=== PATIENT | female | born 1935 | race Caucasian/White ===

== ENCOUNTER 2017-05-19 09:45 | Emergency (ER) | payer OTHER ==
[~2017-05-19] VITALS: Ht 154.9 cm; Wt 51.0 kg
[~2017-05-19 09:45] MED LIST: ASPCH81 PO; BENZ100C84 PO; BUDE1SUS INH; CALC-206 PO; CLX20 PO; FLUT1INH INH; IPRA1AER2 INH; OXGN; PRAM0.129 PO; PRD/1 PO; PRED10TA PO; PRT40 PO; TIOTCAP INH; TRAM-10 PO; VTMD PO
[2017-05-19 09:47] VITALS: Ht 154.9 cm; Wt 51.0 kg
[2017-05-19] MEDS ORDERED: SPRIN/30 INH (10:14)
[2017-05-19] MEDS ORDERED: ERGO1CAP41 PO (10:14)
[2017-05-19 10:26] VITALS: O2SAT 97
[2017-05-19] MEDS ORDERED: ALBUT/IPRATROP 3MG/0.5MG NEB 3 ML VIAL INH ONE (10:30)
--- NOTE | 2017-05-19 10:31 | EMERGENCY ROOM VISIT NOTE ---
History Report prepared by Ani: Diamante Yost Under the Supervision of: Dr. Richa Keller M.D. First contact with patient: 10:16 Chief Complaint: RESPIRATORY PROBLEMS Stated Complaint: DIFFICULTY BREATHING Nursing Triage Summary: pt c/o sob started a couple days ago has right back pain with deep breathing. pt reports using 2l nc o2 at home turned up to 3 today d/t sob History of Present Illness The patient is a 81 year old female who presents to the Emergency Room with complaints of worsening shortness of breath beginning a few days prior to arrival. She notes that she is also experiencing right sided rib pain and a cough. The patient does wear 2 liters of oxygen at home. Today she turned her oxygen up to 3 liters due to the shortness of breath she was experiencing. She also used her Nebulizer this morning. The patient has a history of COPD. She denies recent fevers. The patient does not have a history of heart disease or diabetes. 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 Review of Systems See HPI for pertinent positives & negatives. A total of 10 systems reviewed and were otherwise negative. Past Medical & Surgical Medical Problems: (1) Chronic respiratory failure (2) Compression fracture of vertebra (3) COPD, moderate (4) Dyslipidemia (5) Esophageal stricture (6) GERD (gastroesophageal reflux disease) (7) History of esophageal dilatation (8) Osteopenia (9) Restless legs syndrome (RLS) Surgical Problems: (1) History of hysterectomy Family History Diabetes mellitus MOTHER Lung disease FATHER (emphysema) Social History Smoking Status: Former Smoker Alcohol Use: none Drug Use: none Marital Status: Housing Status: lives with significant other Occupation Status: retired Current/Historical Medications Scheduled Aspirin (Aspirin 81), 81 MG PO DAILY Budesonide (Inhalation) (Pulmicort), 2 ML INH BID Calcium-Magnesium W/ Vitamin D (Calcium/Magnesium/Vitamin), 1 TAB PO DAILY Citalopram (Citalopram Hydrobromide), 20 MG PO QAM Ergocalciferol (Vitamin D 89633 Unit), 50,000 INTER.UNIT PO WK Fluticasone Furoate-Vilanterol (Breo Ellipta), 1 PUFF INH DAILY Home O2 Therapy (Oxygen), 2 LITERS NA HS Ipratropium-Albuterol (Combivent Respimat), 1 PUFFS INH QID Levofloxacin (Levaquin), 750 MG PO Q2D Pantoprazole (Pantoprazole Sodium), 40 MG PO DAILY Pramipexole (Mirapex), 1-2 TAB PO HS Prednisone Tab (Prednisone), 10 MG PO UD Prednisone Tab (Prednisone), 10 MG PO DIRECTED Tiotropium [place] (Spiriva Handihaler), 1 CAP INH DAILY Scheduled PRN Benzonatate (Tessalon Perles), 100 MG PO TID PRN for Cough Tramadol (Ultram), 50 MG PO Q6H PRN for Pain Tramadol (Ultram), 1 TABS PO Q6 PRN for Pain Allergies Coded Allergies: No Known Allergies (Unverified , 10/14/16) Physical Exam Vital Signs Date Time Temp Pulse Resp B/P (MAP) Pulse Ox O2 Delivery O2 Flow Rate FiO2 05/19/17 13:53 36.7 108 24 166/79 96 05/19/17 12:18 109 20 146/73 94 Nasal Cannula 2.0 05/19/17 10:48 97 18 97 Nasal Cannula 2.0 05/19/17 10:45 94 05/19/17 10:26 97 Nasal Cannula 2.0 05/19/17 10:26 94 24 149/89 98 Nasal Cannula 2.0 05/19/17 09:47 37.7 106 24 142/71 96 Room Air Physical Exam Vital signs reviewed. General: Chronically ill appearing female, in no significant distress. HEENT: No scleral icterus, PERRLA, neck supple. Atraumatic. Cardiovascular: Regular rate and rhythm, no extra sounds. Pulmonary: Wheezing bilateral lung deleon, normal work of breathing. Abdomen: Soft, nontender, nondistended, positive bowel sounds. Musculoskeletal: Tenderness to right ribs. Atraumatic, no peripheral edema. Neurologic: Patient awake alert and oriented x 3 Skin: Warm, dry, no rash Medical Decision & Procedures ER Provider Diagnostic Interpretation: X-ray results as stated below per interpretation by me and the radiologist: CHEST ONE VIEW PORTABLE HISTORY: 81 years Female right rib pain COMPARISON: Portable chest radiograph 10/15/2016 TECHNIQUE: Portable upright AP view of the chest FINDINGS: Cardiac silhouette is within normal limits. There is atherosclerosis of the aorta. No pneumothorax. There are hazy bibasilar right greater than left opacities with blunting of the right costophrenic angle. The bones appear to be grossly intact. IMPRESSION: Right greater than left bibasilar opacities may reflect atelectasis or pneumonia. Trace right pleural effusion. The above report was generated using voice recognition software. It may contain grammatical, syntax or spelling errors. Electronically signed by: Pedro Sexton M.D. 05/19/2017 11:04 AM Dictated Date/Time: 05/19/2017 10:58 AM Laboratory Results 05/19/17 10:40 Red Blood Count 4.04, Mean Corpuscular Volume 78.0, Mean Corpuscular Hemoglobin 24.3, Mean Corpuscular Hemoglobin Concent 31.1, Mean Platelet Volume 7.9, Neutrophils (%) (Auto) 84.1, Lymphocytes (%) (Auto) 7.3, Monocytes (%) (Auto) 7.3, Eosinophils (%) (Auto) 0.9, Basophils (%) (Auto) 0.2, Neutrophils # (Auto) 10.52, Lymphocytes # (Auto) 0.91, Monocytes # (Auto) 0.92, Eosinophils # (Auto) 0.11, Basophils # (Auto) 0.03 05/19/17 10:40 Test 05/19/17 10:40 05/19/17 10:44 White Blood Count 12.52 K/uL (4.8-10.8) Red Blood Count 4.04 M/uL (4.2-5.4) Hemoglobin 9.8 g/dL (12.0-16.0) Hematocrit 31.5 % (37-47) Mean Corpuscular Volume 78.0 fL (80-100) Mean Corpuscular Hemoglobin 24.3 pg (25-34) Mean Corpuscular Hemoglobin Concent 31.1 g/dl (32-36) Platelet Count 370 K/uL (130-400) Mean Platelet Volume 7.9 fL (7.4-10.4) Neutrophils (%) (Auto) 84.1 % Lymphocytes (%) (Auto) 7.3 % Monocytes (%) (Auto) 7.3 % Eosinophils (%) (Auto) 0.9 % Basophils (%) (Auto) 0.2 % Neutrophils # (Auto) 10.52 K/uL (1.4-6.5) Lymphocytes # (Auto) 0.91 K/uL (1.2-3.4) Monocytes # (Auto) 0.92 K/uL (0.11-0.59) Eosinophils # (Auto) 0.11 K/uL (0-0.5) Basophils # (Auto) 0.03 K/uL (0-0.2) RDW Standard Deviation 48.7 fL (36.4-46.3) RDW Coefficient of Variation 17.0 % (11.5-14.5) Immature Granulocyte % (Auto) 0.2 % Immature Granulocyte # (Auto) 0.03 K/uL (0.00-0.02) Anion Gap 6.0 mmol/L (3-11) Est Creatinine Clear Calc Drug Dose 48.4 ml/min Estimated GFR () 93.9 Estimated GFR (Non- 81.0 BUN/Creatinine Ratio 20.3 (10-20) Calcium Level 8.8 mg/dl (8.5-10.1) Magnesium Level 2.0 mg/dl (1.8-2.4) Total Bilirubin 0.2 mg/dl (0.2-1) Direct Bilirubin < 0.1 mg/dl (0-0.2) Aspartate Amino Transf (AST/SGOT) 12 U/L (15-37) Alanine Aminotransferase (ALT/SGPT) 19 U/L (12-78) Alkaline Phosphatase 71 U/L (45-117) Total Creatine Kinase 68 U/L (26-192) Creatine Kinase MB 3.4 ng/ml (0.5-3.6) Creatine Kinase MB Ratio 5.0 (0-3.0) Total Protein 6.6 gm/dl (6.4-8.2) Albumin 3.5 gm/dl (3.4-5.0) Bedside D-Dimer 362 ng/mlFEU (0-450) Bedside Troponin I < 0.030 ng/ml (0-0.045) Laboratory results per my review. Medications Administered Medications (Trade) Dose Ordered Sig/Huan Route Start Time Stop Time Status Last Admin Dose Admin Albuterol/ Ipratropium (Duoneb) 12 ml ONE ONCE INH 05/19/17 10:30 05/19/17 10:32 DC 05/19/17 10:47 12 ML Methylprednisolone Sodium Succinate (Solu-Medrol IV) 125 mg NOW STAT IV 05/19/17 10:34 05/19/17 10:36 DC 05/19/17 11:10 125 MG Levofloxacin (Levaquin / D5W) 750 mg NOW STAT IV 05/19/17 11:41 05/19/17 11:42 DC 05/19/17 12:16 750 MG Acetaminophen (Tylenol Tab) 650 mg NOW STAT PO 05/19/17 12:21 05/19/17 12:22 DC 05/19/17 12:34 650 MG Fentanyl Citrate (Fentanyl Inj) 25 mcg NOW STAT IV 05/19/17 12:29 05/19/17 12:30 DC 05/19/17 12:35 25 MCG ECG Indication: SOB/dyspnea Rate (beats per minute): 90 Rhythm: normal sinus Findings: RBBB, no acute ischemic change, no ectopy, other (repolarization abnormality) ED Course 1023: Past medical records reviewed. The patient was evaluated in room B8. A complete history and physical examination was performed. 1030: Duoneb 12 ml INH. 1034: Solu-Medrol IV 125 mg IV. 1141: Levaquin / D5W 750 mg IV. 1221: Roxicodone Immediate Rel Tab 5 mg PO, Tylenol Tab 650 mg PO. 1224: I reevaluated the patient. She is requesting more pain medication. She would like to go home. The patient's daughter says she will stay with the patient tonight. I will call Dr. Kent to see if he can schedule for the patient to follow up in the office tomorrow. 1229: Fentanyl Inj 25 mcg IV. 1242: I spoke with Dr. Donte Moura about the patient. He will see the patient in the office tomorrow at 3:45pm. 1310: Upon reevaluation, the patient appeared to have improvement of her symptoms. I discussed findings with the patient and her daughter. They verbalized agreement of the treatment plan. She was discharged home. Medical Decision The patient is a 81 year old female who presents to the ED with complaints of shortness of breath. Differentials include infections, reactive airway disease , pneumonia, pneumothorax, COPD, CHF, cardiac ischemia, pulmonary embolism, musculoskeletal, gastrointestinal, as well as others were entertained. Medication Reconciliation: I attest that I have personally reviewed the patient' s current medication list. Blood Pressure Screening: Patient was found to have a slightly elevated blood pressure due to circumstances. I do not believe that the patient requires hypertension monitoring. This patient was evaluated and appeared to be in no significant distress. IV access was obtained and laboratory work was drawn. The patient was placed on the ruby on rails consultant and found to be lightly tachycardic, likely attributable to the albuterol. She was given additional albuterol in the emergency department and an hour-long nebulizer. Chest x-ray was performed and reveals bibasilar atelectasis versus infiltrate. Patient was given 125 mg of IV Solu-Medrol as well as Levaquin 750 mg IV. The patient complains of pain along the right rib cage which is reproducible. D-dimer is negative. I feel this is likely secondary to an intercostal tear or nondisplaced rib fracture from coughing. I did speak with Dr. Kent regarding the patient's case. He will see the patient tomorrow afternoon. Patient will be placed on Levaquin 750 mg every other day based on her creatinine clearance. She was given a prednisone taper. She was given Ultram 50 mg every 6 hours as needed to be used for pain and an incentive spirometer. She was made aware of this plan and was discharged in care of her family. She will return to the ER for worsening of symptoms or any medical concerns. Consults Time Called: 1240 Consulting Physician: Dr. Donte Moura Returned Call: [address] Donte Moura about the patient. He will see the patient in the office tomorrow at 3:45pm. Impression Primary Impression: Pneumonia Additional Impressions: COPD exacerbation Rib pain on right side Scribe Attestation The scribe's documentation has been prepared under my direction and personally reviewed by me in its entirety. I confirm that the note above accurately reflects all work, treatment, procedures, and medical decision making performed by me. Departure Information Dispostion Home / Self-Care Prescriptions Tramadol (Ultram) 50 Mg Tab 1 TABS PO Q6 Y for Pain, #20 TAB Prov: Richa Keller M.D. 05/19/17 Prednisone Tab (PREDNISONE) 10 Mg Tab 10 MG PO DIRECTED, #29 TAB 40 mg for 4 days, 30 mg for 3 days, 20 mg for 2 days, then resume your usual 10 mg daily dose. Prov: Richa Keller M.D. 05/19/17 Levofloxacin (Levaquin) 750 Mg Tab 750 MG PO Q2D for 7 Days, #3 TAB Prov: Richa Keller M.D. 05/19/17 Referrals Ashok Kent M.D. (PCP) Forms HOME CARE DOCUMENTATION FORM, IMPORTANT VISIT INFORMATION, WORK / SCHOOL INSTRUCTIONS Patient Instructions My [facility] Additional Instructions Diagnosis: Pneumonia, COPD exacerbation, rib pain Levaquin 750 mg every other day. This is based on your kidney function. Start THURS Stop her daily prednisone and start prednisone 40 mg for 4 more days, 30 mg for 3 days, 20 mg for 2 days, then resume your daily dose of 10 mg daily. Start tomorrow. Albuterol nebulizer every 4 hours as needed for shortness of breath or cough. Incentive spirometry 10 times every hour while awake. Tylenol 650 mg every 6 hours as needed for pain or fever. Ultram 50 mg every 6 hours as needed for more significant pain. Follow-up with Dr. Kent tomorrow at 3:45 PM. Return to the emergency department for worsening of symptoms or any medical concerns. Problem Qualifiers
[2017-05-19] MEDS ORDERED: METHYLPREDNISOLONE 125 MG VIAL IV STA (10:34)
[2017-05-19 10:48] VITALS: PULSE 97; O2SAT 97
[2017-05-19 10:49] LABS: BASO % 0.2 %; BASO ABS # 0.03 K/uL (0-0.2); COMPLETE YES; EOS % 0.9 %; HEMATOCRIT 31.5 % (37-47); IG% 0.2 %; LYMPH % 7.3 %; LYMPH ABS # 0.91 K/uL (1.2-3.4); MEAN CORPUSCULAR HEMOGLOBIN 24.3 pg (25-34); MEAN CORPUSCULAR HGB CONC 31.1 g/dl (32-36); MEAN PLATELET VOLUME 7.9 fL (7.4-10.4); MONO % 7.3 %; NEUT % 84.1 %; PLATELET COUNT 370 K/uL (130-400); RED BLOOD COUNT 4.04 M/uL (4.2-5.4); WHITE BLOOD COUNT 12.52 K/uL (4.8-10.8)
[2017-05-19] MEDS ORDERED: CLX/20 PO (10:57)
[2017-05-19] MEDS ORDERED: ASPI-435 PO (10:57)
[2017-05-19 11:03] LABS: POINT OF CARE TROPONIN I < 0.030 ng/ml (0-0.045)
--- NOTE | 2017-05-19 11:05 | DIAGNOSTIC IMAGING REPORT ---
CHEST ONE VIEW PORTABLE HISTORY: 81 years Female right rib pain COMPARISON: Portable chest radiograph 10/15/2016 TECHNIQUE: Portable upright AP view of the chest FINDINGS: Cardiac silhouette is within normal limits. There is atherosclerosis of the aorta. No pneumothorax. There are hazy bibasilar right greater than left opacities with blunting of the right costophrenic angle. The bones appear to be grossly intact. IMPRESSION: Right greater than left bibasilar opacities may reflect atelectasis or pneumonia. Trace right pleural effusion. The above report was generated using voice recognition software. It may contain grammatical, syntax or spelling errors. Electronically signed by: Pedro Sexton M.D. 05/19/2017 11:04 AM Dictated Date/Time: 05/19/2017 10:58 AM
[2017-05-19 11:07] LABS: ALT/SGPT 19 U/L (12-78); AST/SGOT 12 U/L (15-37); BLOOD UREA NITROGEN 14 mg/dl (7-18); BUN/CREATININE RATIO 20.3 (10-20); CALCIUM 8.8 mg/dl (8.5-10.1); CARBON DIOXIDE 29 mmol/L (21-32); CHLORIDE 102 mmol/L (98-107); CREATININE 0.71 mg/dl (0.60-1.20); GLUCOSE 95 mg/dl (70-99); POTASSIUM 3.9 mmol/L (3.5-5.1); SODIUM 137 mmol/L (136-145)
[2017-05-19 11:12] LABS: ALKALINE PHOSPHATASE 71 U/L (45-117)
[2017-05-19] MEDS ORDERED: LEVAQUIN 750MG / 150ML D5W IV STA (11:41)
[2017-05-19] MEDS ORDERED: OXYCODONE HCL IR 5 MG TAB (IMMEDIATE RELEASE) PO STA (12:21)
[2017-05-19] MEDS ORDERED: ACETAMINOPHEN 325 MG TAB PO STA (12:21)
[2017-05-19] MEDS ORDERED: FENTANYL CITRATE INJ 50 MCG/1 ML 2 ML VIAL IV STA (12:29)
[2017-05-19] MEDS ORDERED: PRED10TA PO (13:10)
[2017-05-19] MEDS ORDERED: LEVO1TAB35 PO (13:10)
[2017-05-19] MEDS ORDERED: TRAM-10 PO (13:11)
[2017-05-19 13:53] VITALS: BP 166/79; PULSE 108; TEMP 36.7; O2SAT 96
[2017-07-17] MEDS ORDERED: NEBMAC (09:56)
[2017-07-17] MEDS ORDERED: LVQ750 PO (09:56)
[2017-07-17] MEDS ORDERED: PRED10TA PO (09:56)
[2017-08-04] MEDS ORDERED: DLR500 PO (09:09)
== END 2017-05-19 13:55 | disposition home or self-care (01) ==
LOC: C.EDB 09:48
DX: J18.9 Pneumonia, unspecified organism (principal); J44.1 Chronic obstructive pulmonary disease with (acute) exacerbation; R07.81 Pleurodynia; Z99.81 Dependence on supplemental oxygen; J96.10 Chronic respiratory failure, unspecified whether with hypoxia or hypercapnia; E78.5 Hyperlipidemia, unspecified; M85.80 Other specified disorders of bone density and structure, unspecified site; G25.81 Restless legs syndrome; Z90.710 Acquired absence of both cervix and uterus; Z83.3 Family history of diabetes mellitus; Z87.891 Personal history of nicotine dependence; Z79.82 Long term (current) use of aspirin; Z79.899 Other long term (current) drug therapy

== ENCOUNTER 2017-07-13 23:13 | Inpatient (IN) | payer OTHER ==
[~2017-07-13] VITALS: Ht 154.9 cm; Wt 48.8 kg
[~2017-07-13 23:13] MED LIST changes: -ASPCH81 PO; +ASPI-435 PO; +CLX/20 PO; -CLX20 PO; +ERGO1CAP41 PO; -PRD/1 PO; +SPRIN/30 INH; -TIOTCAP INH; -VTMD PO
[2017-07-13] MEDS ORDERED: METHYLPREDNISOLONE 125 MG VIAL IV STA (23:24)
--- NOTE | 2017-07-13 23:27 | EMERGENCY ROOM VISIT NOTE ---
History Report prepared by Ani: Mando Mercado Under the Supervision of: Dr. Eldon Kelley M.D. First contact with patient: 23:18 Chief Complaint: RESPIRATORY PROBLEMS Stated Complaint: BREATHING DIFFICULTY History of Present Illness The patient is an 82 year old female who presents to the Emergency Room with complaints of worsening shortness of breath beginning several days ago. EMS states the patient is typically on 2L of oxygen at home, but when they arrived, the patient's O2Sat was 91 on room air. They report the patient's lips were turning blue, so she was placed on C-PAP. EMS notes the patient complained of brief chest pain. They report the patient was given 125mg of Solu-Medrol en route. The patient states that she is also experiencing a productive cough, and she is on 10mg of prednisone daily. She denies fevers, diarrhea, abdominal pain , urinary symptoms, chest pain, and recently begin on antibiotics. Source of History: patient, EMS Onset: several days ago Position: chest Quality: other (SOB) Timing: worsening Associated Symptoms: + cough, No fevers, No chest pain, No abdominal pain, No diarrhea, No urinary symptoms Review of Systems ROS is limited secondary to the patient's severe dyspnea. Past Medical & Surgical Medical Problems: (1) Chronic respiratory failure (2) Compression fracture of vertebra (3) COPD exacerbation (4) COPD, moderate (5) Dyslipidemia (6) Esophageal stricture (7) GERD (gastroesophageal reflux disease) (8) History of esophageal dilatation (9) Osteopenia (10) Restless legs syndrome (RLS) Surgical Problems: (1) History of hysterectomy Family History Diabetes mellitus MOTHER Lung disease FATHER (emphysema) Social History Smoking Status: Former Smoker Alcohol Use: none Drug Use: none Marital Status: Housing Status: lives with significant other Occupation Status: retired Current/Historical Medications Scheduled Aspirin (Aspirin 81), 81 MG PO DAILY Budesonide (Inhalation) (Pulmicort), 2 ML INH QID Citalopram (Citalopram Hydrobromide), 20 MG PO HS Ergocalciferol (Vitamin D 44417 Unit), 50,000 INTER.UNIT PO WK Fluticasone Furoate-Vilanterol (Breo Ellipta), 1 PUFF INH DAILY Home O2 Therapy (Oxygen), 2 LITERS NA HS Ipratropium-Albuterol (Combivent Respimat), 1 PUFFS INH QID Pantoprazole (Pantoprazole Sodium), 40 MG PO DAILY Pramipexole Dihydrochloride (Mirapex), 0.5 MG PO HS Prednisone (Prednisone), 10 MG PO DAILY Prednisone Tab (Prednisone), 10 MG PO UD Tiotropium [place] (Spiriva Handihaler), 1 CAP INH DAILY Scheduled PRN Benzonatate (Tessalon Perles), 100 MG PO TID PRN for Cough Tramadol (Ultram), 50 MG PO Q6H PRN for Pain Allergies Coded Allergies: Lorazepam (Verified Allergy, Unknown, DELIRIUM, 07/14/17) Physical Exam Vital Signs Date Time Temp Pulse Resp B/P (MAP) Pulse Ox O2 Delivery O2 Flow Rate FiO2 07/14/17 00:01 95 20 125/64 99 BiPAP 07/13/17 23:51 100 BiPAP 30 07/13/17 23:44 97 96 30 07/13/17 23:43 97 18 96 BiPAP/CPAP 30 07/13/17 23:31 123 07/13/17 23:24 98 Room Air 07/13/17 23:24 36.0 97 28 123/112 98 Room Air Physical Exam GENERAL: Patient is ill appearing and in moderate distress. Severe dyspnea upon simple words. HEENT: No acute trauma, normocephalic atraumatic, mucous membranes moist, no nasal congestion, no scleral icterus. NECK: No stridor, no adenopathy, no meningismus, trachea is midline. LUNGS: Significant dyspnea with poor air movement. Diffuse wheezing and junky lung sounds bilaterally. HEART: Regular rate and rhythm. No murmurs, rubs, gallops appreciated. ABDOMEN: Soft, nontender, bowel sounds positive, no masses appreciated, no peritonitis. BACK: No midline tenderness, no CVA tenderness EXTREMITIES: Normal motion all extremities, no cyanosis, no edema. NEUROLOGIC: Alert and oriented, no acute motor or sensory deficits, no focal weakness, cranial nerves grossly intact. SKIN: No rash, no jaundice, no diaphoresis. Medical Decision & Procedures ER Provider Diagnostic Interpretation: X ray results are stated below per my interpretation: Chest: 1 view: No infiltrate, chronic lung disease, flattened diaphragm. Similar to previous. Laboratory Results 07/13/17 23:35 Red Blood Count 4.45, Mean Corpuscular Volume 79.3, Mean Corpuscular Hemoglobin 22.9, Mean Corpuscular Hemoglobin Concent 28.9, Mean Platelet Volume 8.0, Neutrophils (%) (Auto) 62.1, Lymphocytes (%) (Auto) 27.3, Monocytes (%) (Auto) 9.4, Eosinophils (%) (Auto) 0.3, Basophils (%) (Auto) 0.3, Neutrophils # (Auto) 7.44, Lymphocytes # (Auto) 3.27, Monocytes # (Auto) 1.12, Eosinophils # (Auto) 0.04, Basophils # (Auto) 0.03 07/13/17 23:35 Test 07/13/17 23:35 07/13/17 23:38 07/13/17 23:43 White Blood Count 11.97 K/uL (4.8-10.8) Red Blood Count 4.45 M/uL (4.2-5.4) Hemoglobin 10.2 g/dL (12.0-16.0) Hematocrit 35.3 % (37-47) Mean Corpuscular Volume 79.3 fL (80-100) Mean Corpuscular Hemoglobin 22.9 pg (25-34) Mean Corpuscular Hemoglobin Concent 28.9 g/dl (32-36) Platelet Count 417 K/uL (130-400) Mean Platelet Volume 8.0 fL (7.4-10.4) Neutrophils (%) (Auto) 62.1 % Lymphocytes (%) (Auto) 27.3 % Monocytes (%) (Auto) 9.4 % Eosinophils (%) (Auto) 0.3 % Basophils (%) (Auto) 0.3 % Neutrophils # (Auto) 7.44 K/uL (1.4-6.5) Lymphocytes # (Auto) 3.27 K/uL (1.2-3.4) Monocytes # (Auto) 1.12 K/uL (0.11-0.59) Eosinophils # (Auto) 0.04 K/uL (0-0.5) Basophils # (Auto) 0.03 K/uL (0-0.2) RDW Standard Deviation 53.6 fL (36.4-46.3) RDW Coefficient of Variation 18.4 % (11.5-14.5) Immature Granulocyte % (Auto) 0.6 % Immature Granulocyte # (Auto) 0.07 K/uL (0.00-0.02) Anion Gap 5.0 mmol/L (3-11) Est Creatinine Clear Calc Drug Dose 45.1 ml/min Estimated GFR () 87.3 Estimated GFR (Non- 75.3 BUN/Creatinine Ratio 16.5 (10-20) Calcium Level 9.3 mg/dl (8.5-10.1) Troponin I < 0.015 ng/ml (0-0.045) Bedside Blood Gas pH (LAB) 7.43 (7.35-7.45) Bedside Blood Gas pCO2 (LAB) 44 mmHg (35-46) Bedside Blood Gas pO2 (LAB) 83 mmHg (80-95) Bedside Blood Gas HCO3 (LAB) 29 meq/L (19-24) Bedside Blood Gas Total CO2 30 mEq/l (24-31) Bedside Blood Gas Base Excess (LAB) 5.0 meq/L (-9-1.8) Bedside Blood Gas O2 Saturation 96.0 % (90-95) Bedside Lactic Acid Venous 0.96 mmol/L (0.90-1.70) Laboratory results as reviewed by me. Medications Administered Medications (Trade) Dose Ordered Sig/Huan Route Start Time Stop Time Status Last Admin Dose Admin Albuterol/ Ipratropium (Duoneb) 12 ml ONE ONCE INH 07/13/17 23:30 07/13/17 23:31 DC 07/13/17 23:38 12 ML Levofloxacin (Levaquin / D5W) 750 mg NOW STAT IV 07/14/17 00:22 07/14/17 00:23 DC 07/14/17 01:27 750 MG ECG Indication: SOB/dyspnea Rate (beats per minute): 94 Rhythm: sinus rhythm Findings: RBBB, no acute ischemic change, no ectopy, other (QTc of 420) ED Course 2319: The patient was evaluated in room A04B. A complete history and physical exam was performed. 2324: Ordered Solu-Medrol IV 125mg IV. Cancelled after EMS states this was administered en route. 2330: Ordered Duoneb 12ml INH 0020: Upon reevaluation, the patient is still experiencing severe, diffuse wheezing, but she states she is breathing better. Discussed results and treatment plan with the patient. She verbalized understanding and agreement with the treatment plan. The patient will be evaluated for further management. 0022: Ordered Levofloxacin 750mg IV 0025: I discussed the patient's case [facility] The patient will be evaluated for further management and care. Medical Decision Differential: COPD, Pneumonia, Pneumothorax, CHF, ACS, Pulmonary Embolism, Dissection, amongst other etiologies entertained. 82 yr old female arrives in acute respiratory distress. Long COPD history with exacerbation beginning over last 3 to 4 days. Tight lungs sounds with diffuse wheezing/junky on arrival and significant difficulty breathing. Placed directly on BiPAP with continuous neb. Greatly improving on bipap though still quite dyspneic with trying to talk and will need longer BiPAP treatment. Already Solumedrol by EMS. Will place on levaquin for possible infectious etiology though no fevers, wbc elevation. With her history and findings feel this is less likely PE/dissection and that CTA not at this point indicated. No evidence ACS/CHF as cause. Stable though continuing to require BIPAP. Medication Reconcilliation Current Medication List: was personally reviewed by me Blood Pressure Screening Patient's blood pressure: Normal blood pressure Blood pressure disposition: Did not require urgent referral Consults Time Called: 1222 Consulting Physician: [facility] Returned Call: 24 I discussed the patient's case with [facility]. The patient will be evaluated for further management and care. Impression Primary Impression: Acute exacerbation of chronic obstructive pulmonary disease (COPD) Critical Care I have personally spent greater than 35 minutes of critical care time in the direct management of this patient. This was a life/limb threatening event. This includes time spent evaluating patient, direct bedside care, chart review, placing orders, interpretation of diagnostic studies, discussion with consultants, patient, and family members, as well as other required patient management activities. This 35 minutes is in excess of all separately billable procedures. Scribe Attestation The scribe's documentation has been prepared under my direction and personally reviewed by me in its entirety. I confirm that the note above accurately reflects all work, treatment, procedures, and medical decision making performed by me. Departure Information Dispostion Being Evaluated By Hospitalist Referrals Ashok Kent M.D. (PCP) Patient Instructions My [facility]
[2017-07-13] MEDS ORDERED: ALBUT/IPRATROP 3MG/0.5MG NEB 3 ML VIAL INH ONE (23:30)
[2017-07-13 23:43] VITALS: PULSE 97; O2SAT 96
[2017-07-13 23:44] VITALS: PULSE 97; O2SAT 96
[2017-07-13 23:58] LABS: ISTAT ARTERIAL BLOOD GAS HCO3 29 meq/L (19-24); ISTAT ARTERIAL BLOOD GAS PCO2 44 mmHg (35-46); ISTAT ARTERIAL BLOOD GAS PO2 83 mmHg (80-95); ISTAT ARTERIAL BLOOD GAS pH 7.43 (7.35-7.45); ISTAT CARBON DIOXIDE 30 mEq/l (24-31)
[2017-07-14] VITALS (17 sets, daily range): BP systolic 119–173; BP diastolic 63–84; PULSE 96–110; TEMP 36.5–36.8; O2SAT 92–99; Ht 154.9 cm; Wt 48.8 kg
[2017-07-14 00:13] LABS: BLOOD UREA NITROGEN 12 mg/dl (7-18); BUN/CREATININE RATIO 16.5 (10-20); CALCIUM 9.3 mg/dl (8.5-10.1); CARBON DIOXIDE 29 mmol/L (21-32); CHLORIDE 101 mmol/L (98-107); CREATININE 0.75 mg/dl (0.60-1.20); GLUCOSE 89 mg/dl (70-99); SODIUM 135 mmol/L (136-145)
[2017-07-14] MEDS ORDERED: LEVAQUIN 750MG / 150ML D5W IV STA (00:22)
[2017-07-14] MEDS ORDERED: PRED10TA PO (00:46)
[2017-07-14] MEDS ORDERED: PRAM1TAB47 PO (00:46)
[2017-07-14 01:00] LABS: HEMATOCRIT 35.3 % (37-47); MEAN CELL VOLUME 79.3 fL (80-100); MEAN CORPUSCULAR HEMOGLOBIN 22.9 pg (25-34); MEAN CORPUSCULAR HGB CONC 28.9 g/dl (32-36); PLATELET COUNT 417 K/uL (130-400); RED BLOOD COUNT 4.45 M/uL (4.2-5.4); WHITE BLOOD COUNT 11.97 K/uL (4.8-10.8)
[2017-07-14 01:01] LABS: BASO % 0.3 %; BASO ABS # 0.03 K/uL (0-0.2); COMPLETE YES; EOS % 0.3 %; IG% 0.6 %; LYMPH % 27.3 %; LYMPH ABS # 3.27 K/uL (1.2-3.4); MONO % 9.4 %; NEUT % 62.1 %
[2017-07-14] MEDS ORDERED: LEVALBUTEROL/IPRATROPIUM NEB INH SCH (01:45)
--- NOTE | 2017-07-14 02:00 | History and Physical ---
History & Physical Date & Time of Service: Jul 14, 2017 at 01:50 Chief Complaint: Breathing Difficulty Primary Care Physician: Ashok Kent M.D. 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 Kent for PCP. Patient was in his usual state of health until 2 days ago when she started to have increasing productive cough, associated with shortness of breath, and chills. Today, the symptoms worsened, hence, EMS was called. Patient was found by EMS with cyanosis of the lips and was placed on Cpap, given Solumedrol. At the ER, patient had bilateral wheezing, given Bipap and Duoneb. CXR not showing obvious pneumonia. On my exam, patient is wearing the Bipap, tolerating it well, not in distress, speaks in sentences with no effort and no accessory muscle use. States she feels improved compared to arrival. Denies other symptoms. Past Medical/Surgical History Medical Problems: (1) Chronic respiratory failure Status: Chronic (2) Compression fracture of vertebra Status: Chronic (3) COPD, moderate Status: Chronic (4) Dyslipidemia Status: Chronic (5) Esophageal stricture Status: Chronic (6) GERD (gastroesophageal reflux disease) Status: Chronic (7) History of esophageal dilatation Permanent Comment: 1998 and 2007 Status: Resolved (8) Osteopenia Status: Chronic (9) Restless legs syndrome (RLS) Status: Chronic Surgical Problems: (1) History of hysterectomy Permanent Comment: L ovary remains Status: Resolved Family History Diabetes mellitus MOTHER Lung disease FATHER (emphysema) Social History Smoking Status: Former Smoker Smokeless Tobacco Use: No Drug Use: none Marital Status: Housing status: lives with family, lives with significant other Occupational Status: retired Immunizations History of Influenza Vaccine: N/A History of Tetanus Vaccine?: Unknown History of Pneumococcal: Yes History of Hepatitis B Vaccine: Unknown Multi-Drug Resistant Organisms History of MDRO: No Allergies Coded Allergies: No Known Allergies (Unverified , 10/14/16) Home Medications Scheduled Aspirin (Aspirin 81), 81 MG PO DAILY Budesonide (Inhalation) (Pulmicort), 2 ML INH QID Citalopram (Citalopram Hydrobromide), 20 MG PO HS Ergocalciferol (Vitamin D 10890 Unit), 50,000 INTER.UNIT PO WK Fluticasone Furoate-Vilanterol (Breo Ellipta), 1 PUFF INH DAILY Home O2 Therapy (Oxygen), 2 LITERS NA HS Ipratropium-Albuterol (Combivent Respimat), 1 PUFFS INH QID Pantoprazole (Pantoprazole Sodium), 40 MG PO DAILY Pramipexole Dihydrochloride (Mirapex), 0.5 MG PO HS Prednisone (Prednisone), 10 MG PO DAILY Prednisone Tab (Prednisone), 10 MG PO UD Tiotropium [place] (Spiriva Handihaler), 1 CAP INH DAILY Scheduled PRN Benzonatate (Tessalon Perles), 100 MG PO TID PRN for Cough Tramadol (Ultram), 50 MG PO Q6H PRN for Pain Review of Systems Constitutional- (+) chills, no fever; no weight loss Eyes- no acute visual changes ENT- no sinus drainage; no pharyngitis Pulmonary- (+) as noted above Cardiac- no chest pain, no palpitations, no orthopnea, no dependent edema GI- no nausea, no vomiting, no diarrhea, no melena, no hematochezia - no dysuria, no hematuria Musculoskeletal- no arthralgias, no myalgias Derm- no rashes, no new skin lesions, no changing skin lesions Hematologic- no unusual bruising, no unusual bleeding Lymphatics- no adenopathy Endocrine- no polyuria or polydipsia; no heat or cold intolerance Neuro- no headaches, no focal neurologic symptoms Psych- no anxiety, no depression Physical Exam Vital Signs Date Time Temp Pulse Resp B/P (MAP) Pulse Ox O2 Delivery O2 Flow Rate FiO2 07/14/17 00:30 94 21 139/73 97 BiPAP 07/14/17 00:01 95 20 125/64 99 BiPAP 07/13/17 23:51 100 BiPAP 30 07/13/17 23:44 97 96 30 07/13/17 23:43 97 18 96 BiPAP/CPAP 30 07/13/17 23:31 123 07/13/17 23:24 98 Room Air 07/13/17 23:24 36.0 97 28 123/112 98 Room Air General Appearance: WD/WN Head: normocephalic, atraumatic Eyes: normal inspection, EOMI ENT: normal ENT inspection, hearing grossly normal, pharynx normal Neck: supple, no adenopathy, thyroid normal, no JVD, trachea midline Respiratory/Chest: + wheezing (bilateral scattered wheezing and crackles) Cardiovascular: regular rate, rhythm, no edema, no JVD, no murmur, normal peripheral pulses Abdomen/GI: normal bowel sounds, non tender, soft, no organomegaly Back: normal inspection, no CVA tenderness Extremities/Musculoskelatal: normal inspection, no calf tenderness, normal capillary refill, no pedal edema, normal range of motion Neurologic/Psych: 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, no motor/sensory deficits, alert, normal mood/affect, oriented x 3 Skin: normal color, warm/dry, no rash Lymphatic: no adenopathy Diagnostics Laboratory Results Results Past 24 Hours Test 07/13/17 23:35 07/13/17 23:38 07/13/17 23:43 Range/Units White Blood Count 11.97 4.8-10.8 K/uL Red Blood Count 4.45 4.2-5.4 M/uL Hemoglobin 10.2 12.0-16.0 g/dL Hematocrit 35.3 37-47 % Mean Corpuscular Volume 79.3 80-100 fL Mean Corpuscular Hemoglobin 22.9 25-34 pg Mean Corpuscular Hemoglobin Concent 28.9 32-36 g/dl Platelet Count 417 130-400 K/uL Mean Platelet Volume 8.0 7.4-10.4 fL Neutrophils (%) (Auto) 62.1 % Lymphocytes (%) (Auto) 27.3 % Monocytes (%) (Auto) 9.4 % Eosinophils (%) (Auto) 0.3 % Basophils (%) (Auto) 0.3 % Neutrophils # (Auto) 7.44 1.4-6.5 K/uL Lymphocytes # (Auto) 3.27 1.2-3.4 K/uL Monocytes # (Auto) 1.12 0.11-0.59 K/uL Eosinophils # (Auto) 0.04 0-0.5 K/uL Basophils # (Auto) 0.03 0-0.2 K/uL RDW Standard Deviation 53.6 36.4-46.3 fL RDW Coefficient of Variation 18.4 11.5-14.5 % Immature Granulocyte % (Auto) 0.6 % Immature Granulocyte # (Auto) 0.07 0.00-0.02 K/uL Sodium Level 135 136-145 mmol/L Potassium Level 4.0 3.5-5.1 mmol/L Chloride Level 101 98-107 mmol/L Carbon Dioxide Level 29 21-32 mmol/L Anion Gap 5.0 3-11 mmol/L Blood Urea Nitrogen 12 7-18 mg/dl Creatinine 0.75 0.60-1.20 mg/dl Est Creatinine Clear Calc Drug Dose 45.1 ml/min Estimated GFR () 87.3 Estimated GFR (Non- 75.3 BUN/Creatinine Ratio 16.5 10-20 Random Glucose 89 70-99 mg/dl Calcium Level 9.3 8.5-10.1 mg/dl Troponin I < 0.015 0-0.045 ng/ml Bedside Blood Gas pH (LAB) 7.43 7.35-7.45 Bedside Blood Gas pCO2 (LAB) 44 35-46 mmHg Bedside Blood Gas pO2 (LAB) 83 80-95 mmHg Bedside Blood Gas HCO3 (LAB) 29 19-24 meq/L Bedside Blood Gas Total CO2 30 24-31 mEq/l Bedside Blood Gas Base Excess (LAB) 5.0 -9-1.8 meq/L Bedside Blood Gas O2 Saturation 96.0 90-95 % Bedside Lactic Acid Venous 0.96 0.90-1.70 mmol/L Microbiology Results 07/13/17 Blood Culture, Received Pending 07/13/17 Blood Culture, Received Pending Diagnostic Radiology cxr emphysema, no obvious infiltrates/effusion EKG HR 94, sinus rhythm, QTc 470 Impression Assessment and Plan 82 year old female with history of 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 COPD EXACERBATION, ACUTE BRONCHITIS VS. 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 Kent for PCP VTE Prophylaxis VTE Risk Assessment Done? Y/N: Yes Risk Level: Moderate Given or contraindicated: Unfractionated heparin SQ
[2017-07-14] MEDS: TRAMADOL HCL 50 MG TAB PO PRN ×2 (03:07→20:22)
[2017-07-14] MEDS: LEVALBUTEROL 1.25MG/0.5ML NEB INH SCH ×6 (03:14→23:19)
[2017-07-14] MEDS: IPRATROPIUM BROMIDE NEB SOLN 0.02% 2.5 ML VIAL INH SCH ×6 (03:14→23:19)
[2017-07-14] MEDS: METHYLPREDNISOLONE IV 60 MG in SYRINGE 0 ML IV SCH ×3 (03:56→20:12)
[2017-07-14] MEDS ORDERED: LEVOFLOXACIN CONSULT ACTIVE PRN (04:01)
[2017-07-14] MEDS ORDERED: PNEUMOCOCCAL ADMINISTRATION CHARGE ONE (04:15)
[2017-07-14] MEDS ORDERED: PNEUMOCOCCAL POLYSACCHARIDES 25 MCG/0.5 ML VIAL/SYR IM. ONE (04:15)
--- NOTE | 2017-07-14 06:36 | DIAGNOSTIC IMAGING REPORT ---
CHEST ONE VIEW PORTABLE CLINICAL HISTORY: Shortness of breath. Respiratory distress. COMPARISON STUDY: 05/19/2017 FINDINGS: There is radiographic evidence of emphysema. There is persistent blunting of both lateral costophrenic angles. There is no lobar consolidation. Slight prominence the basal markings, is likely atelectatic. This remain similar. There is a radiopaque device overlying the right upper lung zone. There is no overt failure.[ IMPRESSION: Emphysema. Chronic blunting of the lateral costophrenic angles. Basilar opacities likely atelectatic. Electronically signed by: Hermelindo Rico M.D. 07/14/2017 6:35 AM Dictated Date/Time: 07/14/2017 6:34 AM
[2017-07-14 06:49] LABS: PARTIAL THROMBOPLASTIN RATIO 1.1; PROTHROMBIN TIME (PATIENT) 10.8 SECONDS (9.0-12.0)
--- NOTE | 2017-07-14 07:27 | DIAGNOSTIC IMAGING REPORT ---
CHEST ONE VIEW PORTABLE CLINICAL HISTORY: Shortness of breath. Respiratory distress COMPARISON STUDY: 07/13/2017 FINDINGS: The heart is normal in size. There is radiographic evidence of emphysema. There is minor chronic blunting of the lateral costophrenic angles. There are minor basilar atelectatic changes. There is no lobar consolidation.[ There is no evidence of failure. IMPRESSION: No change from the prior study. Emphysema. Chronic blunting of the lateral costophrenic angles. Basilar opacities, likely atelectatic. Electronically signed by: Hermelindo Rico M.D. 07/14/2017 7:25 AM Dictated Date/Time: 07/14/2017 7:24 AM
[2017-07-14] MEDS: ASPIRIN 81 MG ECTAB PO SCH (07:34)
[2017-07-14] MEDS: PANTOprazole SOD 40 MG TAB PO SCH (07:34)
[2017-07-14] MEDS: ACETAMINOPHEN 325 MG TAB PO PRN ×2 (07:35→17:52)
[2017-07-14] MEDS: BUDESONIDE 0.5 MG/2 ML VIAL (PULMICORT) INH SCH ×3 (08:00→20:15)
[2017-07-14] MEDS: HEPARIN SOD 5000 UNIT/0.5 ML CARP SQ SCH ×2 (08:18→20:14)
--- NOTE | 2017-07-14 08:29 | Progress Note ---
Subjective Date of Service: Jul 14, 2017. Subjective Pt evaluation today including: conversation w/ patient, physical exam, lab review, review of studies, review of inpatient medication list Saw/examined the patient in room 275 Currently on bipap Resting comfortably; states she feels better when she is laying down with the Bipap on, but when she takes it off and with any exertion she gets more short of breath mild cough, congestion, no sputum production Problem List Medical Problems: (1) Acute exacerbation of chronic obstructive pulmonary disease (COPD) Status: Acute (2) Anxiety Status: Acute (3) Chest tightness Status: Acute (4) COPD exacerbation Status: Acute (5) COPD exacerbation Status: Acute (6) Degenerative joint disease Status: Acute (7) Fracture of thoracic vertebra, compression Status: Acute (8) Left lower lobe pneumonia Status: Acute (9) Pneumonia Status: Acute (10) Rib pain on right side Status: Acute Review of Systems Constitutional: No fever, No chills, No weakness Respiratory: + cough, + sputum, + wheezing, + shortness of breath, + dyspnea on exertion, No dyspnea at rest, No hemoptysis Cardiac: No chest pain, No edema, No palpitations Abdomen: No pain, No nausea, No vomiting, No diarrhea Musculoskeletal: + joint pain (chronic back pain) Medications Current Inpatient Medications Medications (Trade) Dose Ordered Sig/Huan Route Start Time Stop Time Status Last Admin Dose Admin Methylprednisolone Sodium Succinate 60 mg/Syringe 0.96 ml @ 1.5 mls/min Q8H IV 07/14/17 04:00 08/13/17 03:59 07/14/17 03:56 1.5 MLS/MIN Levofloxacin (Consult) 1 ea UD PRN N/A 07/14/17 04:01 08/13/17 04:00 Aspirin (Ecotrin Tab) 81 mg DAILY PO 07/14/17 09:00 08/13/17 08:59 07/14/17 07:34 81 MG Benzonatate (Tessalon Perles Cap) 100 mg TID PRN PO 07/14/17 01:45 08/13/17 01:44 Citalopram Hydrobromide (celeXA TAB) 20 mg HS PO 07/14/17 21:00 08/13/17 20:59 Pantoprazole Sodium (Protonix Tab) 40 mg DAILY PO 07/14/17 09:00 08/13/17 08:59 07/14/17 07:34 40 MG Pramipexole Dihydrochloride (miraPEX TAB) 0.5 mg HS PO 07/14/17 21:00 08/13/17 20:59 Tiotropium [place] (Spiriva Handihaler Inhaler) 1 puff DAILY INH 07/14/17 09:00 08/13/17 08:59 Tramadol HCl (Ultram Tab) 50 mg Q6H PRN PO 07/14/17 01:45 08/13/17 01:44 07/14/17 03:07 50 MG Budesonide (Pulmicort Respules 0.5MG/ 2ML Neb Soln) 1 mg QIDR INH 07/14/17 08:00 08/13/17 07:59 Miscellaneous Information (Order Awaiting Action) 1 ea QS N/A 07/14/17 08:00 08/13/17 07:59 Heparin Sodium (Porcine) (Heparin Sq 5000 Unit/0.5ml) 5,000 unit Q12 SQ 07/14/17 09:00 08/13/17 08:59 Acetaminophen (Tylenol Tab) 650 mg Q4H PRN PO 07/14/17 02:00 08/13/17 01:59 07/14/17 07:35 650 MG Ipratropium [place] (Atrovent 0.02% 0.5MG/2.5ML Neb) 0.5 mg Q4R INH 07/14/17 04:00 08/13/17 03:59 07/14/17 07:19 0.5 MG Levalbuterol (Xopenex 1.25MG/ 0.5ML Neb) 1.25 mg Q4R INH 07/14/17 04:00 08/13/17 03:59 07/14/17 07:19 1.25 MG Levofloxacin 750 mg/Prmx 150 ml @ 100 mls/hr Q48H IV 07/16/17 02:00 07/21/17 01:59 Objective Vital Signs Date Time Temp Pulse Resp B/P (MAP) Pulse Ox O2 Delivery O2 Flow Rate FiO2 07/14/17 07:19 100 20 97 BiPAP/CPAP 2.0 07/14/17 06:57 36.6 102 20 153/83 (106) 92 CPAP 2.0 07/14/17 05:05 96 97 2.0 07/14/17 03:17 36.8 107 26 154/80 93 BiPAP 07/14/17 03:14 106 20 96 BiPAP/CPAP 3.0 07/14/17 02:44 103 98 3.0 07/14/17 01:31 100 26 121/67 97 BiPAP 07/14/17 01:01 98 21 137/76 97 BiPAP 07/14/17 00:30 94 21 139/73 97 BiPAP 07/14/17 00:01 95 20 125/64 99 BiPAP 07/13/17 23:51 100 BiPAP 30 07/13/17 23:44 97 96 30 07/13/17 23:43 97 18 96 BiPAP/CPAP 30 07/13/17 23:31 123 07/13/17 23:24 98 Room Air 07/13/17 23:24 36.0 97 28 123/112 98 Room Air Physical Exam General Appearance: + mild distress (mild respiratory distress), + pertinent finding (laying in bed with bipap on, conversing appropriately) Respiratory/Chest: + respiratory distress, + decreased breath sounds, + wheezing (inspiratory and expiratory wheezing diffusely) Cardiovascular: regular rate, rhythm, no edema, no murmur Extremities: normal range of motion, non-tender, normal inspection, no pedal edema, no calf tenderness Neurologic/Psychiatric: no motor/sensory deficits, alert, normal mood/affect Skin: normal color Laboratory Results Last 24 Hours Test 07/13/17 23:35 07/13/17 23:38 07/13/17 23:43 07/14/17 06:20 White Blood Count 11.97 K/uL Red Blood Count 4.45 M/uL Hemoglobin 10.2 g/dL Hematocrit 35.3 % Mean Corpuscular Volume 79.3 fL Mean Corpuscular Hemoglobin 22.9 pg Mean Corpuscular Hemoglobin Concent 28.9 g/dl Platelet Count 417 K/uL Mean Platelet Volume 8.0 fL Neutrophils (%) (Auto) 62.1 % Lymphocytes (%) (Auto) 27.3 % Monocytes (%) (Auto) 9.4 % Eosinophils (%) (Auto) 0.3 % Basophils (%) (Auto) 0.3 % Neutrophils # (Auto) 7.44 K/uL Lymphocytes # (Auto) 3.27 K/uL Monocytes # (Auto) 1.12 K/uL Eosinophils # (Auto) 0.04 K/uL Basophils # (Auto) 0.03 K/uL RDW Standard Deviation 53.6 fL RDW Coefficient of Variation 18.4 % Immature Granulocyte % (Auto) 0.6 % Immature Granulocyte # (Auto) 0.07 K/uL Sodium Level 135 mmol/L Potassium Level 4.0 mmol/L Chloride Level 101 mmol/L Carbon Dioxide Level 29 mmol/L Anion Gap 5.0 mmol/L Blood Urea Nitrogen 12 mg/dl Creatinine 0.75 mg/dl Est Creatinine Clear Calc Drug Dose 45.1 ml/min Estimated GFR () 87.3 Estimated GFR (Non- 75.3 BUN/Creatinine Ratio 16.5 Random Glucose 89 mg/dl Calcium Level 9.3 mg/dl Troponin I < 0.015 ng/ml Bedside Blood Gas pH (LAB) 7.43 Bedside Blood Gas pCO2 (LAB) 44 mmHg Bedside Blood Gas pO2 (LAB) 83 mmHg Bedside Blood Gas HCO3 (LAB) 29 meq/L Bedside Blood Gas Total CO2 30 mEq/l Bedside Blood Gas Base Excess (LAB) 5.0 meq/L Bedside Blood Gas O2 Saturation 96.0 % Bedside Lactic Acid Venous 0.96 mmol/L Prothrombin Time 10.8 SECONDS Prothromb Time International Ratio 1.0 Activated Partial Thromboplast Time 28.1 SECONDS Partial Thromboplastin Ratio 1.1 Assessment and Plan This is an 82 year old female with a PMH of severe COPD and chronic respiratory failure on 2L of O2 continuously and on chronic steroids presents with COPD exacerbation Acute COPD Exacerbation Acute on Chronic Respiratory Failure patient has severe COPD on chronic 2L of O2 and chronic 5-10mg of prednisone presented with worsening shortness of breath ABG does not suggest acidosis agree with IV steroids; continue Solu-medrol 60mg q8 for now Levaquin added to cover any infection nebulizer treatments as needed continue bipap for now consulted pulmonary for further input GERD continue protonix Depression/Anxiety continue Citalopram DVT ppx subq heparin FULL CODE
[2017-07-14] MEDS: TIOTROPIUM BROMIDE 5 PUFF/90 MCG INH INH SCH (09:13)
--- NOTE | 2017-07-14 10:47 | Pulmonary Consultation ---
History General Date of Service: Jul 14, 2017. Stated Complaint: Copd Exacerbation HPI The patient is a 82 year old female who presents to [facility] with complaints of Copd Exacerbation. The patient's primary care provider is Ashok Kent M.D.. Mrs. Azevedo is an 82-year-old female with history of sick severe COPD (FEV1 35% , 04/29/2017) on 2-3 L/m long-term oxygen therapy and prednisone 10 mg daily who presents to ER on 07/13/2017 with worsening shortness of breath and productive cough for 2 days prior to admission. Patient states that she was in her baseline state of health, but was noted to have increased shortness of breath associated with worsened dyspnea on exertion associated with increased sputum production. She describes sputum production as yellowish in color. She denies any hemoptysis. She denies any fevers, chills, chest pain, increased lower extremity edema, long travel or sick contacts. She denies any change in appetite or weight loss. She follows with Dr. Frederick as an outpatient. 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 Azithromycin triweekly therapy has been considered but not administered due to reported patient allergy. Her home pulmonary medications include Tessalon Perles when necessary for cough, Breo one puff daily, Combivent 1 puff 4 times a day, prednisone 10 mg daily and Spiriva HandiHaler 1 capsule daily. She called the EMS and was noted to have cyanosis of the lips then immediately placed on BiPAP and given treatment of Solu-Medrol. In the ER , her initial vital signs were documented to be temperature 36, pulse of 97, respiratory rate of 28, blood pressure 123/112 pulse oximetry 90% on room air. Physical examination in the ER was notable for bilateral scattered wheezing and crackles. Laboratory data showed white blood cell count of 11, hemoglobin of 10 , platelet count of 417, sodium 135, potassium 4, chloride 101, bicarbonate 29, BUN of 12 and creatinine of 0.75. Troponin was less than 0.015. Bedside blood gas showed pH of 7.43, PCO2 of 44, PO2 of 83, bicarbonate 29, SaO2 is 96%. EKG showed a ventricular rate of 94, sinus rhythm with a right bundle branch block. She was given DuoNeb and Levaquin 750 mg IV and placed on BiPAP. She was admitted for COPD exacerbation. Blood cultures have been ordered and are pending. From a respiratory standpoint she is currently on Spiriva HandiHaler 1 puff daily, Pulmicort 4 times a day inhalers, Solu-Medrol 60 mg every 8 hours, Atrovent/Xopenex every 4 hours inhaler, Levaquin 750 mg every 48 hours, Protonix 40 mg twice a day and heparin 5000 units every 12 hours. Last admission was in 10/2016. Sputum 10/15/2016 grew Aspergillus fumigatus. She has had multiple admissions for COPD within the last year. Patient underwent pulmonary rehabilitation in Mar 25 2017--FEV1 was 33%, 6 minute walk was 350 feet and 315 feet with 3 minute rest for each walk. She states that she is feeling better since admission. Previous Work-up: (Obtained from outpatient records) 1. RSVP: Normal a. No significant valvular abnormalities noted 2. PFT (03/17/15) FEV1/FVC: 44% --FEV1: 56%--RV: 4.09/185%--T.08/131% 3. 6 minute walk (09/23/16) indeterminate study on 4 L patients SaO2 at 96% she still noted severe dyspnea 4. Exercise echo(01/02/12) exercise capacity below normal limits stress echo was indeterminate this study was discontinued secondary to dyspnea 5. ABG(07/24/16) 7.45/41/83/28 (2Lnc) 6. CT angiogram thorax: No pulmonary embolism, Atelectasis bilaterally right greater than left, and emphysematous changes 7. ABG (09/28/16) 7.43/36/98/23 (2Lnc) 8. walk/ambulation study (ABG) 7.42/40/61/25 3Lnc\ 9. (B) lower Ext DVT: no signs of DVT 10. Cardiac Echo: a. LV: Hyperdynamic LV systolic function/EF >70%/Grade I diastolic dysfunction b. RV: size WNL, TAPSE Historian: patient, other (EMR) Onset: last week Severity: moderate Complaint Status: improved, persistent Review of Systems Constitutional: reports: as stated in HPI Eyes: reports: as stated in HPI ENT: reports: as stated in HPI Cardiovascular: reports: as stated in HPI Respiratory: reports: as stated in HPI Gastrointestinal: reports: as stated in HPI Genitourinary - Female: reports: as stated in HPI Musculoskeletal: reports: as stated in HPI Integumentary: reports: as stated in HPI Neurologic: reports: as stated in HPI Psychiatric: reports: as stated in HPI Endocrine: as stated in HPI Hematologic / Lymphatic: as stated in HPI Allergic / Immunologic: as stated in HPI All Other Symptoms All Other Systems: Reviewed and Negative Past Medical History Past Medical History: Severe COPD on long-term oxygen therapy Esophageal stricture GERD Hernia Hyperlipidemia Osteoporosis Rhinitis Past Surgical History: Hysterectomy. Family History Diabetes mellitus MOTHER Lung disease FATHER (emphysema) Social History She is a former smoker packed 1 pack per day for 47 years. She quit on 2015. She has at home has been used on an active smoker. Hx Tobacco Use In Past Year?: No Smoking Status: Former Smoker Marital status: Housing status: lives with family, lives with significant other Occupational Status: retired Immunizations History of Influenza Vaccine: N/A History of Tetanus Vaccine?: Unknown History of Pneumococcal: Yes History of Hepatitis B Vaccine: Unknown History of MDRO History of MDRO: No Allergies Coded Allergies: Lorazepam (Verified Allergy, Unknown, DELIRIUM, 07/14/17) Current Medications Reported Home Medications Medications Dose Route/Sig Max Daily Dose Days Date Category Dose Instructions Mirapex (Pramipexole Dihydrochloride) 0.5 Mg Tab 0.5 Mg PO HS 07/14/17 Reported Prednisone 10 Mg Tab 10 Mg PO DAILY 07/14/17 Reported Citalopram Hydrobromide (Citalopram) 20 Mg Tab 20 Mg PO HS 05/19/17 Reported Aspirin 81 (Aspirin) 81 Mg Tab 81 Mg PO DAILY 05/19/17 Reported Vitamin D 19268 Unit (Ergocalciferol) 50,000 Unit Cap 50,000 Inter.unit PO WK 05/19/17 Reported saturdays Spiriva Handihaler (Tiotropium [place]) 30 Puff/540 Mcg Aerp 1 Cap INH DAILY 05/19/17 Reported Prednisone 10 Mg Tab 10 Mg PO UD 16 10/20/16 Rx Now and as COPD RESCUE KIT : TAKE 4 TABS DAILY X 4 DAYS, THEN TAKE 3 TABS DAILY X 4 DAYS, THEN TAKE 2 TABS DAILY X 4 DAYS, THEN TAKE 1 TAB DAILY X 4 DAYS THEN STOP. Pantoprazole Sodium (Pantoprazole) 40 Mg Tab 40 Mg PO DAILY 30 09/30/16 Rx Breo Ellipta (Fluticasone Furoate-Vilanterol) 1 Inh Inh 1 Puff INH DAILY 09/27/16 Rx Combivent Respimat (Ipratropium-Albuterol) 1 Aer Aer 1 Puffs INH QID 07/24/16 Reported Ultram (Tramadol HCl) 50 Mg Tab 50 Mg PO Q6H PRN 07/24/16 Reported Pulmicort (Budesonide (Inhalation)) 1 Mg/2 Ml Amarilys 2 Ml INH QID 07/24/16 Reported Tessalon Perles (Benzonatate) 100 Mg Cap 100 Mg PO TID PRN 07/24/16 Reported Oxygen Gas 2 Liters NA HS 10/15/15 Reported 2 LPM as needed with exertion; 2 LPM during all periods of sleep Physical Physical Exam Vital Signs: Date Time Temp Pulse Resp B/P (MAP) Pulse Ox O2 Delivery O2 Flow Rate FiO2 07/14/17 08:00 CPAP 07/14/17 07:19 100 20 97 BiPAP/CPAP 2.0 07/14/17 06:57 36.6 102 20 153/83 (106) 92 CPAP 2.0 07/14/17 05:05 96 97 2.0 07/14/17 03:17 36.8 107 26 154/80 93 BiPAP 07/14/17 03:14 106 20 96 BiPAP/CPAP 3.0 07/14/17 02:44 103 98 3.0 07/14/17 01:31 100 26 121/67 97 BiPAP 07/14/17 01:01 98 21 137/76 97 BiPAP 07/14/17 00:30 94 21 139/73 97 BiPAP 07/14/17 00:01 95 20 125/64 99 BiPAP 07/13/17 23:51 100 BiPAP 30 07/13/17 23:44 97 96 30 07/13/17 23:43 97 18 96 BiPAP/CPAP 30 07/13/17 23:31 123 07/13/17 23:24 98 Room Air 07/13/17 23:24 36.0 97 28 123/112 98 Room Air General Appearance: thin, cachetic Head: NORMOCEPHALIC, ATRAUMATIC Eyes: PERRLA, NO DISCHARGE, EOMI, SCLERAE NORMAL ENT: dental fracture Neck: NORMAL RANGE OF MOTION, NO TENDERNESS, TRACHEA MIDLINE, NO STRIDOR Respiratory: other (diminished breath sounds bilaterally, barrel chest, no wheezes) Cardiovasular: REGULAR RATE/RHYTHM, NORMAL S1S2, NO M/G/R Abdomen: NON TENDER, NORMAL BOWEL SOUNDS, NO REBOUND Upper Extremities: other (no cyanosis, no clubbing) Lower Extremities: NO EDEMA Pulses: dorsalis pedis (R) (2+), dorsalis pedis (L) (2+) Neuro: ALERT, ORIENTED x 3, NORMAL SPEECH, other (tremulous upper extremities) Psychiatric: NORMAL AFFECT, NO SUICIDAL IDEATION, CONTRACTS FOR SAFETY Diagnostics Labs Results Past 24 Hours Test 07/13/17 23:35 07/13/17 23:38 07/13/17 23:43 07/14/17 06:20 Range/Units White Blood Count 11.97 4.8-10.8 K/uL Red Blood Count 4.45 4.2-5.4 M/uL Hemoglobin 10.2 12.0-16.0 g/dL Hematocrit 35.3 37-47 % Mean Corpuscular Volume 79.3 80-100 fL Mean Corpuscular Hemoglobin 22.9 25-34 pg Mean Corpuscular Hemoglobin Concent 28.9 32-36 g/dl Platelet Count 417 130-400 K/uL Mean Platelet Volume 8.0 7.4-10.4 fL Neutrophils (%) (Auto) 62.1 % Lymphocytes (%) (Auto) 27.3 % Monocytes (%) (Auto) 9.4 % Eosinophils (%) (Auto) 0.3 % Basophils (%) (Auto) 0.3 % Neutrophils # (Auto) 7.44 1.4-6.5 K/uL Lymphocytes # (Auto) 3.27 1.2-3.4 K/uL Monocytes # (Auto) 1.12 0.11-0.59 K/uL Eosinophils # (Auto) 0.04 0-0.5 K/uL Basophils # (Auto) 0.03 0-0.2 K/uL RDW Standard Deviation 53.6 36.4-46.3 fL RDW Coefficient of Variation 18.4 11.5-14.5 % Immature Granulocyte % (Auto) 0.6 % Immature Granulocyte # (Auto) 0.07 0.00-0.02 K/uL Sodium Level 135 136-145 mmol/L Potassium Level 4.0 3.5-5.1 mmol/L Chloride Level 101 98-107 mmol/L Carbon Dioxide Level 29 21-32 mmol/L Anion Gap 5.0 3-11 mmol/L Blood Urea Nitrogen 12 7-18 mg/dl Creatinine 0.75 0.60-1.20 mg/dl Est Creatinine Clear Calc Drug Dose 45.1 ml/min Estimated GFR () 87.3 Estimated GFR (Non- 75.3 BUN/Creatinine Ratio 16.5 10-20 Random Glucose 89 70-99 mg/dl Calcium Level 9.3 8.5-10.1 mg/dl Troponin I < 0.015 0-0.045 ng/ml Bedside Blood Gas pH (LAB) 7.43 7.35-7.45 Bedside Blood Gas pCO2 (LAB) 44 35-46 mmHg Bedside Blood Gas pO2 (LAB) 83 80-95 mmHg Bedside Blood Gas HCO3 (LAB) 29 19-24 meq/L Bedside Blood Gas Total CO2 30 24-31 mEq/l Bedside Blood Gas Base Excess (LAB) 5.0 -9-1.8 meq/L Bedside Blood Gas O2 Saturation 96.0 90-95 % Bedside Lactic Acid Venous 0.96 0.90-1.70 mmol/L Prothrombin Time 10.8 9.0-12.0 SECONDS Prothromb Time International Ratio 1.0 0.9-1.1 Activated Partial Thromboplast Time 28.1 21.0-31.0 SECONDS Partial Thromboplastin Ratio 1.1 Microbiology Results 07/13/17 Blood Culture, Received Pending 07/13/17 Blood Culture, Received Pending Diagnostic Radiology Chest x-ray 07/14/2017 FINDINGS: The heart is normal in size. There is radiographic evidence of emphysema. There is minor chronic blunting of the lateral costophrenic angles. There are minor basilar atelectatic changes. There is no lobar consolidation.[ There is no evidence of failure. IMPRESSION: No change from the prior study. Emphysema. Chronic blunting of the lateral costophrenic angles. Basilar opacities, likely atelectatic. Chest x-ray 07/13/2017 FINDINGS: There is radiographic evidence of emphysema. There is persistent blunting of both lateral costophrenic angles. There is no lobar consolidation. Slight prominence the basal markings, is likely atelectatic. This remain similar. There is a radiopaque device overlying the right upper lung zone. There is no overt failure.[ IMPRESSION: Emphysema. Chronic blunting of the lateral costophrenic angles. Basilar opacities likely atelectatic. 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 She has received a myriad of treatments including novel stem cell treatment. 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 She does not have the phenotype of invasive aspergillosis. Continue his supplemental oxygen to maintain SaO2 between 88-92%. Use BiPAP when necessary basis with work of breathing. Continue Solu-Medrol 60 mg every 8 hours IV and taper as tolerated. Continue with Levaquin 7-10 days. F/u sputum cultures and blood cultures. Will send IgG for aspergillus, IgE Continue with Xopenex/Atrovent nebs every 4-6 every hours Continue with Tessalon Perles for cough We'll add flutter valve to assist with pulmonary toilet. Hold Pulmicort, Breo ellipta. I would discontinue Pulmicort as both contain inhaled corticosteroids at discharge. Continue with Spiriva. Continue with pulmonary rehab upon discharge. She should follow up Dr. Frederick [facility] Pulmonary upon discharge.
[2017-07-14] MEDS: BENZONATATE 100MG CAP PO PRN (11:25)
[2017-07-14] MEDS: PRAMIPEXOLE DIHYDROCHLORIDE 0.5 MG TAB PO SCH (20:12)
[2017-07-14] MEDS: CITALOPRAM 20 MG TAB PO SCH (20:12)
[2017-07-15] VITALS (14 sets, daily range): BP systolic 132–148; BP diastolic 69–77; PULSE 62–109; TEMP 36.6–36.9; O2SAT 96–98
[2017-07-15] MEDS: IPRATROPIUM BROMIDE NEB SOLN 0.02% 2.5 ML VIAL INH SCH ×6 (03:05→23:46)
[2017-07-15] MEDS: LEVALBUTEROL 1.25MG/0.5ML NEB INH SCH ×6 (03:05→23:46)
[2017-07-15] MEDS: METHYLPREDNISOLONE IV 60 MG in SYRINGE 0 ML IV SCH (04:28)
[2017-07-15 07:22] LABS: BASO % 0.1 %; BASO ABS # 0.01 K/uL (0-0.2); COMPLETE YES; HEMATOCRIT 31.4 % (37-47); IG% 0.5 %; LYMPH % 4.3 %; LYMPH ABS # 0.56 K/uL (1.2-3.4); MEAN CELL VOLUME 78.3 fL (80-100); MEAN CORPUSCULAR HEMOGLOBIN 23.7 pg (25-34); MEAN CORPUSCULAR HGB CONC 30.3 g/dl (32-36); MONO % 3.4 %; NEUT % 91.7 %; PLATELET COUNT 360 K/uL (130-400); RED BLOOD COUNT 4.01 M/uL (4.2-5.4); WHITE BLOOD COUNT 12.89 K/uL (4.8-10.8)
[2017-07-15 07:50] LABS: BUN/CREATININE RATIO 20.7 (10-20); CALCIUM 8.8 mg/dl (8.5-10.1); CREATININE 0.84 mg/dl (0.60-1.20); POTASSIUM 4.1 mmol/L (3.5-5.1)
[2017-07-15] MEDS: PANTOprazole SOD 40 MG TAB PO SCH (07:51)
[2017-07-15] MEDS: ASPIRIN 81 MG ECTAB PO SCH (07:51)
[2017-07-15] MEDS: BENZONATATE 100MG CAP PO PRN ×2 (07:52→20:12)
[2017-07-15] MEDS: TRAMADOL HCL 50 MG TAB PO PRN (07:52)
[2017-07-15] MEDS: TIOTROPIUM BROMIDE 5 PUFF/90 MCG INH INH SCH (07:52)
[2017-07-15] MEDS: HEPARIN SOD 5000 UNIT/0.5 ML CARP SQ SCH ×2 (07:53→20:24)
[2017-07-15] MEDS: BUDESONIDE 0.5 MG/2 ML VIAL (PULMICORT) INH SCH (08:00)
--- NOTE | 2017-07-15 10:37 | Progress Note ---
Subjective Date of Service: Jul 15, 2017. Subjective Pt evaluation today including: conversation w/ patient, physical exam, lab review, review of studies, review of inpatient medication list Saw/examined the patient in room 275 Used bipap at night; currently on 2L supplemental O2, which is at her baseline She feels better in terms of breathing; but still wheezing Improvement with nebulizers Denies fevers/chills/chest pain Problem List Medical Problems: (1) Acute exacerbation of chronic obstructive pulmonary disease (COPD) Status: Acute (2) Anxiety Status: Acute (3) Chest tightness Status: Acute (4) COPD exacerbation Status: Acute (5) COPD exacerbation Status: Acute (6) Degenerative joint disease Status: Acute (7) Fracture of thoracic vertebra, compression Status: Acute (8) Left lower lobe pneumonia Status: Acute (9) Pneumonia Status: Acute (10) Rib pain on right side Status: Acute Review of Systems Constitutional: No fever, No chills Respiratory: + cough (improving), + sputum, + wheezing, + shortness of breath, No dyspnea on exertion, No hemoptysis Cardiac: No chest pain, No edema, No palpitations Abdomen: No pain, No nausea, No vomiting, No diarrhea Medications Current Inpatient Medications Medications (Trade) Dose Ordered Sig/Huan Route Start Time Stop Time Status Last Admin Dose Admin Methylprednisolone Sodium Succinate 60 mg/Syringe 0.96 ml @ 1.5 mls/min Q8H IV 07/14/17 04:00 08/13/17 03:59 07/15/17 04:28 1.5 MLS/MIN Levofloxacin (Consult) 1 ea UD PRN N/A 07/14/17 04:01 08/13/17 04:00 Aspirin (Ecotrin Tab) 81 mg DAILY PO 07/14/17 09:00 08/13/17 08:59 07/15/17 07:51 81 MG Benzonatate (Tessalon Perles Cap) 100 mg TID PRN PO 07/14/17 01:45 08/13/17 01:44 07/15/17 07:52 100 MG Citalopram Hydrobromide (celeXA TAB) 20 mg HS PO 07/14/17 21:00 08/13/17 20:59 07/14/17 20:12 20 MG Pantoprazole Sodium (Protonix Tab) 40 mg DAILY PO 07/14/17 09:00 08/13/17 08:59 07/15/17 07:51 40 MG Pramipexole Dihydrochloride (miraPEX TAB) 0.5 mg HS PO 07/14/17 21:00 08/13/17 20:59 07/14/17 20:12 0.5 MG Tiotropium [place] (Spiriva Handihaler Inhaler) 1 puff DAILY INH 07/14/17 09:00 08/13/17 08:59 07/15/17 07:52 1 PUFF Tramadol HCl (Ultram Tab) 50 mg Q6H PRN PO 07/14/17 01:45 08/13/17 01:44 07/15/17 07:52 50 MG Budesonide (Pulmicort Respules 0.5MG/ 2ML Neb Soln) 1 mg QIDR INH 07/14/17 08:00 08/13/17 07:59 07/15/17 08:00 1 MG Miscellaneous Information (Order Awaiting Action) 1 ea QS N/A 07/14/17 08:00 08/13/17 07:59 Heparin Sodium (Porcine) (Heparin Sq 5000 Unit/0.5ml) 5,000 unit Q12 SQ 07/14/17 09:00 08/13/17 08:59 07/15/17 07:53 5,000 UNIT Acetaminophen (Tylenol Tab) 650 mg Q4H PRN PO 07/14/17 02:00 08/13/17 01:59 07/14/17 17:52 650 MG Ipratropium [place] (Atrovent 0.02% 0.5MG/2.5ML Neb) 0.5 mg Q4R INH 07/14/17 04:00 08/13/17 03:59 07/15/17 08:00 0.5 MG Levalbuterol (Xopenex 1.25MG/ 0.5ML Neb) 1.25 mg Q4R INH 07/14/17 04:00 08/13/17 03:59 07/15/17 08:00 1.25 MG Levofloxacin 750 mg/Prmx 150 ml @ 100 mls/hr Q48H IV 07/16/17 02:00 07/21/17 01:59 Objective Vital Signs Date Time Temp Pulse Resp B/P (MAP) Pulse Ox O2 Delivery O2 Flow Rate FiO2 07/15/17 08:04 90 20 96 Nasal Cannula 2.0 07/15/17 07:39 Nasal Cannula 07/15/17 07:32 36.9 103 18 139/77 (97) 98 Nasal Cannula 07/15/17 03:42 36.6 89 18 132/75 (94) 96 07/15/17 03:06 109 24 98 BiPAP/CPAP 2.0 07/15/17 03:05 109 98 2.0 07/15/17 00:05 Nasal Cannula 07/15/17 00:03 Nasal Cannula 07/14/17 23:20 100 96 2.0 07/14/17 23:20 100 18 96 BiPAP/CPAP 2.0 07/14/17 22:49 36.5 105 19 119/67 (84) 99 CPAP 07/14/17 22:07 105 97 2.0 07/14/17 21:47 110 98 2.0 07/14/17 20:15 98 18 98 Nasal Cannula 3.0 07/14/17 20:05 Nasal Cannula 07/14/17 19:07 36.8 107 20 128/65 (86) 97 Nasal Cannula 2.0 07/14/17 16:00 Nasal Cannula 07/14/17 15:34 101 18 98 Nasal Cannula 3.0 07/14/17 15:06 36.7 100 20 134/74 (94) 97 Nasal Cannula 3.0 07/14/17 12:00 Nasal Cannula 07/14/17 11:57 136/63 (87) 07/14/17 11:06 98 20 97 BiPAP/CPAP 2.0 07/14/17 11:01 102 20 173/84 (113) 98 BiPAP 2.0 Physical Exam General Appearance: no apparent distress Respiratory/Chest: no respiratory distress, no accessory muscle use, + wheezing (diffuse end expiratory wheezing) Cardiovascular: regular rate, rhythm, no edema, no murmur Abdomen: normal bowel sounds, non tender, soft Extremities: normal inspection, no pedal edema Neurologic/Psychiatric: no motor/sensory deficits, alert, normal mood/affect Skin: normal color Lymphatic: no adenopathy Laboratory Results Last 24 Hours Test 07/14/17 12:32 07/15/17 06:52 White Blood Count 12.89 K/uL Red Blood Count 4.01 M/uL Hemoglobin 9.5 g/dL Hematocrit 31.4 % Mean Corpuscular Volume 78.3 fL Mean Corpuscular Hemoglobin 23.7 pg Mean Corpuscular Hemoglobin Concent 30.3 g/dl Platelet Count 360 K/uL Mean Platelet Volume 8.0 fL Neutrophils (%) (Auto) 91.7 % Lymphocytes (%) (Auto) 4.3 % Monocytes (%) (Auto) 3.4 % Eosinophils (%) (Auto) 0.0 % Basophils (%) (Auto) 0.1 % Neutrophils # (Auto) 11.81 K/uL Lymphocytes # (Auto) 0.56 K/uL Monocytes # (Auto) 0.44 K/uL Eosinophils # (Auto) 0.00 K/uL Basophils # (Auto) 0.01 K/uL RDW Standard Deviation 52.0 fL RDW Coefficient of Variation 18.2 % Immature Granulocyte % (Auto) 0.5 % Immature Granulocyte # (Auto) 0.07 K/uL Sodium Level 135 mmol/L Potassium Level 4.1 mmol/L Chloride Level 99 mmol/L Carbon Dioxide Level 29 mmol/L Anion Gap 7.0 mmol/L Blood Urea Nitrogen 17 mg/dl Creatinine 0.84 mg/dl Est Creatinine Clear Calc Drug Dose 40.3 ml/min Estimated GFR () 76.1 Estimated GFR (Non- 65.6 BUN/Creatinine Ratio 20.7 Random Glucose 149 mg/dl Calcium Level 8.8 mg/dl Assessment and Plan This is an 82 year old female with a PMH of severe COPD and chronic respiratory failure on 2L of O2 continuously and on chronic steroids presents with COPD exacerbation Acute COPD Exacerbation Acute on Chronic Respiratory Failure 07/15 appreciate pulmonology input today, we can taper steroids, we can do solu-medrol 40mg q12 continue Levaquin x7 days total Xopenex/Atrovent nebulization PRN d/c Pulmicort on discharge, continue Breo Ellipta, Spiriva, and Combivent will monitor overnight and possibly transition to oral steroids in AM 07/14 patient has severe COPD on chronic 2L of O2 and chronic 5-10mg of prednisone presented with worsening shortness of breath ABG does not suggest acidosis agree with IV steroids; continue Solu-medrol 60mg q8 for now Levaquin added to cover any infection nebulizer treatments as needed continue bipap for now consulted pulmonary for further input GERD continue Protonix Depression/Anxiety continue Citalopram DVT ppx subq heparin FULL CODE
[2017-07-15] MEDS: METHYLPREDNISOLONE IV 40 MG in SYRINGE 0 ML IV SCH (16:01)
[2017-07-15] MEDS: CITALOPRAM 20 MG TAB PO SCH (20:12)
[2017-07-15] MEDS: ACETAMINOPHEN 325 MG TAB PO PRN (20:12)
[2017-07-15] MEDS: PRAMIPEXOLE DIHYDROCHLORIDE 0.5 MG TAB PO SCH (20:12)
[2017-07-16] VITALS (14 sets, daily range): BP systolic 120–164; BP diastolic 69–85; PULSE 81–105; TEMP 36.2–37.2; O2SAT 95–98
[2017-07-16] MEDS ORDERED: LEVOFLOXACIN 750MG / D5W IV SCH (02:00)
[2017-07-16] MEDS: LEVALBUTEROL 1.25MG/0.5ML NEB INH SCH ×6 (03:11→23:25)
[2017-07-16] MEDS: IPRATROPIUM BROMIDE NEB SOLN 0.02% 2.5 ML VIAL INH SCH ×6 (03:11→23:25)
[2017-07-16] MEDS: METHYLPREDNISOLONE IV 40 MG in SYRINGE 0 ML IV SCH (04:22)
[2017-07-16] MEDS: ASPIRIN 81 MG ECTAB PO SCH (07:56)
[2017-07-16] MEDS: PANTOprazole SOD 40 MG TAB PO SCH (07:56)
[2017-07-16] MEDS: TIOTROPIUM BROMIDE 5 PUFF/90 MCG INH INH SCH (07:57)
[2017-07-16] MEDS: HEPARIN SOD 5000 UNIT/0.5 ML CARP SQ SCH ×2 (08:19→19:48)
[2017-07-16 10:52] LABS: COMPLETE YES; HEMATOCRIT 33.1 % (37-47); IG% 0.6 %; LYMPH ABS # 0.87 K/uL (1.2-3.4); MEAN CELL VOLUME 78.4 fL (80-100); MEAN CORPUSCULAR HEMOGLOBIN 23.9 pg (25-34); MEAN CORPUSCULAR HGB CONC 30.5 g/dl (32-36); MEAN PLATELET VOLUME 8.3 fL (7.4-10.4); MONO % 2.4 %; PLATELET COUNT 403 K/uL (130-400); RED BLOOD COUNT 4.22 M/uL (4.2-5.4); WHITE BLOOD COUNT 14.51 K/uL (4.8-10.8)
[2017-07-16 11:25] LABS: BUN/CREATININE RATIO 19.5 (10-20); CALCIUM 9.7 mg/dl (8.5-10.1); CREATININE 0.85 mg/dl (0.60-1.20); POTASSIUM 5.2 mmol/L (3.5-5.1)
--- NOTE | 2017-07-16 14:13 | Pulmonology Progress Note ---
Pulmonary Progress Note Date of Service Jul 16, 2017. Attending Dr. Rodriguez Subjective Patient seen and examined. She is about of bed to chair. She states that she is feeling much better. She is less short of breath and has been able to ambulate to the bathroom with assistance. Objective VS reviewed. Tm 37.2, BP 123/72-154/69. P 81-100, RR 18-20, SaO2 96-98% on 2L NC. She is currently 1205 ml negative balance since admission. Gen: pleasant elderly female, out of bed sitting in chair. No acute respiratory distress. Speaking in full sentences CVS: S1, S2, RRR Lung: diminished breath sound bilaterally, throughout both lung deleon; no crackles or wheezing Abd: soft/NT/ND/BS+ Ext: thin, no edema, no cyanosis, no clubbing Blood cultures 07/13/2017--no growth to date Sputum 07/15/2017--pending IgE--25 Aspergillus Ab--pending CXR 07/14/2017 FINDINGS: The heart is normal in size. There is radiographic evidence of emphysema. There is minor chronic blunting of the lateral costophrenic angles. There are minor basilar atelectatic changes. There is no lobar consolidation.[ There is no evidence of failure. IMPRESSION: No change from the prior study. Emphysema. Chronic blunting of the lateral costophrenic angles. Basilar opacities, likely atelectatic. Medications reviewed. 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 She has received a myriad of treatments including novel stem cell treatment. 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 She does not have the phenotype of invasive aspergillosis. She is doing much better today. She is almost back at her baseline. Continue his supplemental oxygen to maintain SaO2 between 88-92%. Use BiPAP when necessary basis with work of breathing. She is currently on Solu-Medrol 40 mg every12 hours. I would switch to Prednisone 60 mg and taper by 5 mg q3 days until complete Continue with Levaquin 7-10 days. F/u sputum cultures. Blood cultures are negative. IgG for aspergillus is pending. Continue with Xopenex/Atrovent nebs every 4-6 every hours Continue with Tessalon Perles for cough Continue with flutter valve to assist with pulmonary toilet. Resume Breo ellipta at discharge. Continue with Spiriva. Continue with pulmonary rehab upon discharge. She should follow up Dr. Frederick [facility] upon discharge. I will sign off case today. Please contact me if you have any other questions or concerns. Data Medications: Current Inpatient Medications Medications (Trade) Dose Ordered Sig/Huan Route Start Time Stop Time Status Last Admin Dose Admin Levofloxacin (Consult) 1 ea UD PRN N/A 07/14/17 04:01 08/13/17 04:00 Aspirin (Ecotrin Tab) 81 mg DAILY PO 07/14/17 09:00 08/13/17 08:59 07/16/17 07:56 81 MG Benzonatate (Tessalon Perles Cap) 100 mg TID PRN PO 07/14/17 01:45 08/13/17 01:44 07/15/17 20:12 100 MG Citalopram Hydrobromide (celeXA TAB) 20 mg HS PO 07/14/17 21:00 08/13/17 20:59 07/15/17 20:12 20 MG Pantoprazole Sodium (Protonix Tab) 40 mg DAILY PO 07/14/17 09:00 08/13/17 08:59 07/16/17 07:56 40 MG Pramipexole Dihydrochloride (miraPEX TAB) 0.5 mg HS PO 07/14/17 21:00 08/13/17 20:59 07/15/17 20:12 0.5 MG Tiotropium [place] (Spiriva Handihaler Inhaler) 1 puff DAILY INH 07/14/17 09:00 08/13/17 08:59 07/16/17 07:57 1 PUFF Tramadol HCl (Ultram Tab) 50 mg Q6H PRN PO 07/14/17 01:45 08/13/17 01:44 07/15/17 07:52 50 MG Miscellaneous Information (Order Awaiting Action) 1 ea QS N/A 07/14/17 08:00 08/13/17 07:59 Heparin Sodium (Porcine) (Heparin Sq 5000 Unit/0.5ml) 5,000 unit Q12 SQ 07/14/17 09:00 08/13/17 08:59 07/16/17 08:19 5,000 UNIT Acetaminophen (Tylenol Tab) 650 mg Q4H PRN PO 07/14/17 02:00 08/13/17 01:59 07/15/17 20:12 650 MG Ipratropium [place] (Atrovent 0.02% 0.5MG/2.5ML Neb) 0.5 mg Q4R INH 07/14/17 04:00 08/13/17 03:59 07/16/17 11:19 0.5 MG Levalbuterol (Xopenex 1.25MG/ 0.5ML Neb) 1.25 mg Q4R INH 07/14/17 04:00 08/13/17 03:59 07/16/17 11:19 1.25 MG Methylprednisolone Sodium Succinate 40 mg/Syringe 0.64 ml @ 1.5 mls/min Q12H IV 07/15/17 16:00 08/14/17 15:59 07/16/17 04:22 1.5 MLS/MIN Levofloxacin (Levaquin Tab) 750 mg Q2D@1100 PO 07/18/17 11:00 07/21/17 10:59 Vital Signs: Date Time Temp Pulse Resp B/P (MAP) Pulse Ox O2 Delivery O2 Flow Rate FiO2 07/16/17 11:23 37.2 97 20 154/69 (97) 96 Nasal Cannula 2.0 07/16/17 11:19 84 18 96 Nasal Cannula 2.0 07/16/17 08:15 86 18 98 Nasal Cannula 2.0 07/16/17 07:33 37.0 94 20 157/85 (109) 96 Nasal Cannula 2.0 07/16/17 05:38 36.4 91 18 151/73 (99) 97 BiPAP 07/16/17 05:24 81 96 2.0 07/16/17 04:00 BiPAP 2.0 07/16/17 03:12 86 98 2.0 07/16/17 03:11 86 18 98 BiPAP/CPAP 2.0 07/16/17 00:28 36.2 100 20 123/72 (89) 97 Room Air 07/16/17 00:00 BiPAP 2.0 07/15/17 23:47 81 98 2.0 07/15/17 23:46 81 16 98 BiPAP/CPAP 2.0 07/15/17 22:36 78 97 2.0 07/15/17 20:00 97 Nasal Cannula 2.0 07/15/17 19:45 83 18 97 Nasal Cannula 3.0 07/15/17 16:00 100 22 98 Nasal Cannula 2.0 07/15/17 16:00 97 Nasal Cannula 2.0 07/15/17 15:03 36.9 62 20 136/69 (91) 97 Nasal Cannula 2.0 Laboratory Results: Last 24 Hours Test 07/16/17 10:10 White Blood Count 14.51 K/uL Red Blood Count 4.22 M/uL Hemoglobin 10.1 g/dL Hematocrit 33.1 % Mean Corpuscular Volume 78.4 fL Mean Corpuscular Hemoglobin 23.9 pg Mean Corpuscular Hemoglobin Concent 30.5 g/dl Platelet Count 403 K/uL Mean Platelet Volume 8.3 fL Neutrophils (%) (Auto) 91.0 % Lymphocytes (%) (Auto) 6.0 % Monocytes (%) (Auto) 2.4 % Eosinophils (%) (Auto) 0.0 % Basophils (%) (Auto) 0.0 % Neutrophils # (Auto) 13.21 K/uL Lymphocytes # (Auto) 0.87 K/uL Monocytes # (Auto) 0.35 K/uL Eosinophils # (Auto) 0.00 K/uL Basophils # (Auto) 0.00 K/uL RDW Standard Deviation 52.8 fL RDW Coefficient of Variation 18.4 % Immature Granulocyte % (Auto) 0.6 % Immature Granulocyte # (Auto) 0.08 K/uL Sodium Level 134 mmol/L Potassium Level 5.2 mmol/L Chloride Level 99 mmol/L Carbon Dioxide Level 32 mmol/L Anion Gap 3.0 mmol/L Blood Urea Nitrogen 17 mg/dl Creatinine 0.85 mg/dl Est Creatinine Clear Calc Drug Dose 39.8 ml/min Estimated GFR () 75.0 Estimated GFR (Non- 64.7 BUN/Creatinine Ratio 19.5 Random Glucose 115 mg/dl Calcium Level 9.7 mg/dl
--- NOTE | 2017-07-16 14:50 | Progress Note ---
Subjective Date of Service: Jul 16, 2017. Subjective Pt evaluation today including: conversation w/ patient, physical exam, lab review, review of studies, review of inpatient medication list Saw/examined the patient in room 275 Her breathing is much improved She is seated in a chair states she is anxious after her nebulizer treatment would like a nebulizer machine prescribed for her on discharge due to her neb machine being too old. Problem List Medical Problems: (1) Acute exacerbation of chronic obstructive pulmonary disease (COPD) Status: Acute (2) Anxiety Status: Acute (3) Chest tightness Status: Acute (4) COPD exacerbation Status: Acute (5) COPD exacerbation Status: Acute (6) Degenerative joint disease Status: Acute (7) Fracture of thoracic vertebra, compression Status: Acute (8) Left lower lobe pneumonia Status: Acute (9) Pneumonia Status: Acute (10) Rib pain on right side Status: Acute Review of Systems Constitutional: No fever, No chills Respiratory: + cough, + sputum, + wheezing, + shortness of breath Cardiac: No chest pain, No edema, No palpitations Abdomen: No pain, No nausea, No vomiting, No diarrhea Medications Current Inpatient Medications Medications (Trade) Dose Ordered Sig/Huan Route Start Time Stop Time Status Last Admin Dose Admin Levofloxacin (Consult) 1 ea UD PRN N/A 07/14/17 04:01 08/13/17 04:00 Aspirin (Ecotrin Tab) 81 mg DAILY PO 07/14/17 09:00 08/13/17 08:59 07/16/17 07:56 81 MG Benzonatate (Tessalon Perles Cap) 100 mg TID PRN PO 07/14/17 01:45 08/13/17 01:44 07/15/17 20:12 100 MG Citalopram Hydrobromide (celeXA TAB) 20 mg HS PO 07/14/17 21:00 08/13/17 20:59 07/15/17 20:12 20 MG Pantoprazole Sodium (Protonix Tab) 40 mg DAILY PO 07/14/17 09:00 08/13/17 08:59 07/16/17 07:56 40 MG Pramipexole Dihydrochloride (miraPEX TAB) 0.5 mg HS PO 07/14/17 21:00 08/13/17 20:59 07/15/17 20:12 0.5 MG Tiotropium [place] (Spiriva Handihaler Inhaler) 1 puff DAILY INH 07/14/17 09:00 08/13/17 08:59 07/16/17 07:57 1 PUFF Tramadol HCl (Ultram Tab) 50 mg Q6H PRN PO 07/14/17 01:45 08/13/17 01:44 07/15/17 07:52 50 MG Miscellaneous Information (Order Awaiting Action) 1 ea QS N/A 07/14/17 08:00 08/13/17 07:59 Heparin Sodium (Porcine) (Heparin Sq 5000 Unit/0.5ml) 5,000 unit Q12 SQ 07/14/17 09:00 08/13/17 08:59 07/16/17 08:19 5,000 UNIT Acetaminophen (Tylenol Tab) 650 mg Q4H PRN PO 07/14/17 02:00 08/13/17 01:59 07/15/17 20:12 650 MG Ipratropium [place] (Atrovent 0.02% 0.5MG/2.5ML Neb) 0.5 mg Q4R INH 07/14/17 04:00 08/13/17 03:59 07/16/17 11:19 0.5 MG Levalbuterol (Xopenex 1.25MG/ 0.5ML Neb) 1.25 mg Q4R INH 07/14/17 04:00 08/13/17 03:59 07/16/17 11:19 1.25 MG Methylprednisolone Sodium Succinate 40 mg/Syringe 0.64 ml @ 1.5 mls/min Q12H IV 07/15/17 16:00 08/14/17 15:59 07/16/17 04:22 1.5 MLS/MIN Levofloxacin (Levaquin Tab) 750 mg Q2D@1100 PO 07/18/17 11:00 07/21/17 10:59 Objective Vital Signs Date Time Temp Pulse Resp B/P (MAP) Pulse Ox O2 Delivery O2 Flow Rate FiO2 07/16/17 11:23 37.2 97 20 154/69 (97) 96 Nasal Cannula 2.0 07/16/17 11:19 84 18 96 Nasal Cannula 2.0 07/16/17 08:15 86 18 98 Nasal Cannula 2.0 07/16/17 07:33 37.0 94 20 157/85 (109) 96 Nasal Cannula 2.0 07/16/17 05:38 36.4 91 18 151/73 (99) 97 BiPAP 07/16/17 05:24 81 96 2.0 07/16/17 04:00 BiPAP 2.0 07/16/17 03:12 86 98 2.0 07/16/17 03:11 86 18 98 BiPAP/CPAP 2.0 07/16/17 00:28 36.2 100 20 123/72 (89) 97 Room Air 07/16/17 00:00 BiPAP 2.0 07/15/17 23:47 81 98 2.0 07/15/17 23:46 81 16 98 BiPAP/CPAP 2.0 07/15/17 22:36 78 97 2.0 07/15/17 20:00 97 Nasal Cannula 2.0 07/15/17 19:45 83 18 97 Nasal Cannula 3.0 07/15/17 16:00 100 22 98 Nasal Cannula 2.0 07/15/17 16:00 97 Nasal Cannula 2.0 07/15/17 15:03 36.9 62 20 136/69 (91) 97 Nasal Cannula 2.0 Physical Exam General Appearance: no apparent distress Respiratory/Chest: no respiratory distress, no accessory muscle use, + decreased breath sounds Cardiovascular: regular rate, rhythm, no edema, no murmur Laboratory Results Last 24 Hours Test 07/16/17 10:10 White Blood Count 14.51 K/uL Red Blood Count 4.22 M/uL Hemoglobin 10.1 g/dL Hematocrit 33.1 % Mean Corpuscular Volume 78.4 fL Mean Corpuscular Hemoglobin 23.9 pg Mean Corpuscular Hemoglobin Concent 30.5 g/dl Platelet Count 403 K/uL Mean Platelet Volume 8.3 fL Neutrophils (%) (Auto) 91.0 % Lymphocytes (%) (Auto) 6.0 % Monocytes (%) (Auto) 2.4 % Eosinophils (%) (Auto) 0.0 % Basophils (%) (Auto) 0.0 % Neutrophils # (Auto) 13.21 K/uL Lymphocytes # (Auto) 0.87 K/uL Monocytes # (Auto) 0.35 K/uL Eosinophils # (Auto) 0.00 K/uL Basophils # (Auto) 0.00 K/uL RDW Standard Deviation 52.8 fL RDW Coefficient of Variation 18.4 % Immature Granulocyte % (Auto) 0.6 % Immature Granulocyte # (Auto) 0.08 K/uL Sodium Level 134 mmol/L Potassium Level 5.2 mmol/L Chloride Level 99 mmol/L Carbon Dioxide Level 32 mmol/L Anion Gap 3.0 mmol/L Blood Urea Nitrogen 17 mg/dl Creatinine 0.85 mg/dl Est Creatinine Clear Calc Drug Dose 39.8 ml/min Estimated GFR () 75.0 Estimated GFR (Non- 64.7 BUN/Creatinine Ratio 19.5 Random Glucose 115 mg/dl Calcium Level 9.7 mg/dl Assessment and Plan This is an 82 year old female with a PMH of severe COPD and chronic respiratory failure on 2L of O2 continuously and on chronic steroids presents with COPD exacerbation Acute COPD Exacerbation Acute on Chronic Respiratory Failure 07/16 appreciate pulmonary input will switch to prednisone 60mg and taper q3 days will continue Levaquin for 7-10 days total will need to write a script for nebulizer machine at home (she has an older version) cont. Spiriva, Combivent, and Breo Ellipta on discharge as well She feels better - likely discharge on 07/17 07/15 appreciate pulmonology input today, we can taper steroids, we can do solu-medrol 40mg q12 continue Levaquin x7 days total Xopenex/Atrovent nebulization PRN d/c Pulmicort on discharge, continue Breo Ellipta, Spiriva, and Combivent will monitor overnight and possibly transition to oral steroids in AM 07/14 patient has severe COPD on chronic 2L of O2 and chronic 5-10mg of prednisone presented with worsening shortness of breath ABG does not suggest acidosis agree with IV steroids; continue Solu-medrol 60mg q8 for now Levaquin added to cover any infection nebulizer treatments as needed continue bipap for now consulted pulmonary for further input GERD continue Protonix Depression/Anxiety continue Citalopram DVT ppx subq heparin FULL CODE
[2017-07-16] MEDS: BENZONATATE 100MG CAP PO PRN (15:47)
[2017-07-16] MEDS: CITALOPRAM 20 MG TAB PO SCH (19:46)
[2017-07-16] MEDS: PRAMIPEXOLE DIHYDROCHLORIDE 0.5 MG TAB PO SCH (19:46)
[2017-07-16] MEDS: ACETAMINOPHEN 325 MG TAB PO PRN (19:49)
[2017-07-16] MEDS: TRAMADOL HCL 50 MG TAB PO PRN (23:14)
[2017-07-17] MEDS: BENZONATATE 100MG CAP PO PRN (02:07)
[2017-07-17] MEDS: LEVALBUTEROL 1.25MG/0.5ML NEB INH SCH ×3 (03:24→11:29)
[2017-07-17] MEDS: IPRATROPIUM BROMIDE NEB SOLN 0.02% 2.5 ML VIAL INH SCH ×3 (03:24→11:29)
[2017-07-17 04:10] VITALS: BP 119/73; PULSE 98; TEMP 36.3; O2SAT 99
[2017-07-17 07:34] VITALS: BP 136/84; PULSE 88; TEMP 36.7; O2SAT 98
[2017-07-17 07:37] VITALS: PULSE 82; O2SAT 94
[2017-07-17 07:55] LABS: BASO % 0.1 %; BASO ABS # 0.01 K/uL (0-0.2); COMPLETE YES; EOS % 0.3 %; HEMATOCRIT 31.6 % (37-47); IG% 1.2 %; LYMPH % 24.9 %; LYMPH ABS # 3.19 K/uL (1.2-3.4); MEAN CELL VOLUME 78.6 fL (80-100); MEAN CORPUSCULAR HEMOGLOBIN 24.1 pg (25-34); MEAN CORPUSCULAR HGB CONC 30.7 g/dl (32-36); MEAN PLATELET VOLUME 8.1 fL (7.4-10.4); MONO % 13.5 %; PLATELET COUNT 358 K/uL (130-400); RED BLOOD COUNT 4.02 M/uL (4.2-5.4); WHITE BLOOD COUNT 12.82 K/uL (4.8-10.8)
[2017-07-17 08:00] VITALS: O2SAT 94
[2017-07-17 08:34] LABS: BUN/CREATININE RATIO 22.1 (10-20); CREATININE 0.75 mg/dl (0.60-1.20); POTASSIUM 3.8 mmol/L (3.5-5.1)
[2017-07-17] MEDS: ASPIRIN 81 MG ECTAB PO SCH (08:40)
[2017-07-17] MEDS: PANTOprazole SOD 40 MG TAB PO SCH (08:40)
[2017-07-17] MEDS: TIOTROPIUM BROMIDE 5 PUFF/90 MCG INH INH SCH (08:41)
[2017-07-17] MEDS: HEPARIN SOD 5000 UNIT/0.5 ML CARP SQ SCH (08:43)
[2017-07-17] MEDS: TRAMADOL HCL 50 MG TAB PO PRN (08:49)
--- NOTE | 2017-07-17 09:45 | Progress Note ---
Subjective Date of Service: Jul 17, 2017. Subjective Pt evaluation today including: conversation w/ patient, physical exam, lab review, review of studies, review of inpatient medication list Saw/examined the patient in room 275 She feels better cough became more dry overnight has some back pain due to her coughing breathing seems much improved to her - she is back to baseline Eager to go home Problem List Medical Problems: (1) Acute exacerbation of chronic obstructive pulmonary disease (COPD) Status: Acute (2) Anxiety Status: Acute (3) Chest tightness Status: Acute (4) COPD exacerbation Status: Acute (5) COPD exacerbation Status: Acute (6) Degenerative joint disease Status: Acute (7) Fracture of thoracic vertebra, compression Status: Acute (8) Left lower lobe pneumonia Status: Acute (9) Pneumonia Status: Acute (10) Rib pain on right side Status: Acute Review of Systems Constitutional: No fever, No chills Respiratory: + cough, + sputum, + shortness of breath, No wheezing, No dyspnea on exertion, No dyspnea at rest, No hemoptysis Cardiac: No chest pain, No edema, No palpitations Abdomen: No pain, No nausea, No vomiting, No diarrhea Medications Current Inpatient Medications Medications (Trade) Dose Ordered Sig/Huan Route Start Time Stop Time Status Last Admin Dose Admin Levofloxacin (Consult) 1 ea UD PRN N/A 07/14/17 04:01 08/13/17 04:00 Aspirin (Ecotrin Tab) 81 mg DAILY PO 07/14/17 09:00 08/13/17 08:59 07/17/17 08:40 81 MG Benzonatate (Tessalon Perles Cap) 100 mg TID PRN PO 07/14/17 01:45 08/13/17 01:44 07/17/17 02:07 100 MG Citalopram Hydrobromide (celeXA TAB) 20 mg HS PO 07/14/17 21:00 08/13/17 20:59 07/16/17 19:46 20 MG Pantoprazole Sodium (Protonix Tab) 40 mg DAILY PO 07/14/17 09:00 08/13/17 08:59 07/17/17 08:40 40 MG Pramipexole Dihydrochloride (miraPEX TAB) 0.5 mg HS PO 07/14/17 21:00 08/13/17 20:59 07/16/17 19:46 0.5 MG Tiotropium [place] (Spiriva Handihaler Inhaler) 1 puff DAILY INH 07/14/17 09:00 08/13/17 08:59 07/17/17 08:41 1 PUFF Tramadol HCl (Ultram Tab) 50 mg Q6H PRN PO 07/14/17 01:45 08/13/17 01:44 07/17/17 08:49 50 MG Miscellaneous Information (Order Awaiting Action) 1 ea QS N/A 07/14/17 08:00 08/13/17 07:59 Heparin Sodium (Porcine) (Heparin Sq 5000 Unit/0.5ml) 5,000 unit Q12 SQ 07/14/17 09:00 08/13/17 08:59 07/17/17 08:43 5,000 UNIT Acetaminophen (Tylenol Tab) 650 mg Q4H PRN PO 07/14/17 02:00 08/13/17 01:59 07/16/17 19:49 650 MG Ipratropium [place] (Atrovent 0.02% 0.5MG/2.5ML Neb) 0.5 mg Q4R INH 07/14/17 04:00 08/13/17 03:59 07/17/17 07:37 0.5 MG Levalbuterol (Xopenex 1.25MG/ 0.5ML Neb) 1.25 mg Q4R INH 07/14/17 04:00 08/13/17 03:59 07/17/17 07:37 1.25 MG Levofloxacin (Levaquin Tab) 750 mg Q2D@1100 PO 07/18/17 11:00 07/21/17 10:59 Prednisone (PredniSONE TAB) 60 mg DAILY PO 07/17/17 09:00 08/16/17 08:59 07/17/17 08:40 60 MG Objective Vital Signs Date Time Temp Pulse Resp B/P (MAP) Pulse Ox O2 Delivery O2 Flow Rate FiO2 07/17/17 07:37 82 18 94 Nasal Cannula 2.0 07/17/17 07:34 36.7 88 18 136/84 (101) 98 2.0 07/17/17 04:10 36.3 98 20 119/73 (88) 99 BiPAP 07/17/17 04:00 Nasal Cannula 2.0 07/17/17 00:00 Nasal Cannula 2.0 07/16/17 23:37 36.5 105 20 120/75 (90) 95 Nasal Cannula 2.0 07/16/17 23:25 84 16 96 BiPAP/CPAP 2.0 07/16/17 22:54 100 98 2.0 07/16/17 20:00 88 18 96 Nasal Cannula 2.0 07/16/17 20:00 Nasal Cannula 2.0 07/16/17 19:46 37.0 102 16 164/75 (104) 96 07/16/17 11:23 37.2 97 20 154/69 (97) 96 Nasal Cannula 2.0 07/16/17 11:19 84 18 96 Nasal Cannula 2.0 Physical Exam General Appearance: no apparent distress Respiratory/Chest: no respiratory distress, no accessory muscle use, + decreased breath sounds Cardiovascular: regular rate, rhythm, no edema, no murmur Extremities: normal inspection, no pedal edema Laboratory Results Last 24 Hours Test 07/16/17 10:10 07/17/17 07:11 White Blood Count 14.51 K/uL 12.82 K/uL Red Blood Count 4.22 M/uL 4.02 M/uL Hemoglobin 10.1 g/dL 9.7 g/dL Hematocrit 33.1 % 31.6 % Mean Corpuscular Volume 78.4 fL 78.6 fL Mean Corpuscular Hemoglobin 23.9 pg 24.1 pg Mean Corpuscular Hemoglobin Concent 30.5 g/dl 30.7 g/dl Platelet Count 403 K/uL 358 K/uL Mean Platelet Volume 8.3 fL 8.1 fL Neutrophils (%) (Auto) 91.0 % 60.0 % Lymphocytes (%) (Auto) 6.0 % 24.9 % Monocytes (%) (Auto) 2.4 % 13.5 % Eosinophils (%) (Auto) 0.0 % 0.3 % Basophils (%) (Auto) 0.0 % 0.1 % Neutrophils # (Auto) 13.21 K/uL 7.70 K/uL Lymphocytes # (Auto) 0.87 K/uL 3.19 K/uL Monocytes # (Auto) 0.35 K/uL 1.73 K/uL Eosinophils # (Auto) 0.00 K/uL 0.04 K/uL Basophils # (Auto) 0.00 K/uL 0.01 K/uL RDW Standard Deviation 52.8 fL 53.6 fL RDW Coefficient of Variation 18.4 % 18.4 % Immature Granulocyte % (Auto) 0.6 % 1.2 % Immature Granulocyte # (Auto) 0.08 K/uL 0.15 K/uL Sodium Level 134 mmol/L 134 mmol/L Potassium Level 5.2 mmol/L 3.8 mmol/L Chloride Level 99 mmol/L 98 mmol/L Carbon Dioxide Level 32 mmol/L 32 mmol/L Anion Gap 3.0 mmol/L 4.0 mmol/L Blood Urea Nitrogen 17 mg/dl 17 mg/dl Creatinine 0.85 mg/dl 0.75 mg/dl Est Creatinine Clear Calc Drug Dose 39.8 ml/min 45.1 ml/min Estimated GFR () 75.0 87.3 Estimated GFR (Non- 64.7 75.3 BUN/Creatinine Ratio 19.5 22.1 Random Glucose 115 mg/dl 70 mg/dl Calcium Level 9.7 mg/dl 9.0 mg/dl Assessment and Plan This is an 82 year old female with a PMH of severe COPD and chronic respiratory failure on 2L of O2 continuously and on chronic steroids presents with COPD exacerbation Acute COPD Exacerbation Acute on Chronic Respiratory Failure 07/17 patient feels better today continue Spiriva, Combivent, Breo will d/c home today with a prednisone taper and Levaquin will write a prescription for a nebulizer machine 07/16 appreciate pulmonary input will switch to prednisone 60mg and taper q3 days will continue Levaquin for 7-10 days total will need to write a script for nebulizer machine at home (she has an older version) cont. Spiriva, Combivent, and Breo Ellipta on discharge as well She feels better - likely discharge on 07/17 07/15 appreciate pulmonology input today, we can taper steroids, we can do solu-medrol 40mg q12 continue Levaquin x7 days total Xopenex/Atrovent nebulization PRN d/c Pulmicort on discharge, continue Breo Ellipta, Spiriva, and Combivent will monitor overnight and possibly transition to oral steroids in AM 07/14 patient has severe COPD on chronic 2L of O2 and chronic 5-10mg of prednisone presented with worsening shortness of breath ABG does not suggest acidosis agree with IV steroids; continue Solu-medrol 60mg q8 for now Levaquin added to cover any infection nebulizer treatments as needed continue bipap for now consulted pulmonary for further input GERD continue Protonix Depression/Anxiety continue Citalopram DVT ppx subq heparin FULL CODE Discharge planning: home
[2017-07-17] MEDS ORDERED: PRED10TA PO (09:56)
[2017-07-17] MEDS ORDERED: LVQ750 PO (09:56)
[2017-07-17] MEDS ORDERED: NEBMAC (09:56)
--- NOTE | 2017-07-17 10:09 | Discharge Instructions ---
Discharge Instructions Date of Service Jul 17, 2017. Admission Reason for Admission: Copd Exacerbation Discharge Discharge Diagnosis / Problem: Acute COPD Exacerbation Discharge Goals Goal(s): Decrease discomfort, Improve function, Diagnostic testing, Therapeutic intervention Activity Recommendations Activity Limitations: resume your previous activity . Instructions / Follow-Up Instructions / Follow-Up Please follow-up with Dr. Kent on July 22 at 11:05AM * You will be on a prednisone taper - take 60mg for three days, then decrease by 5mg every three days * You will be on Levaquin every other day for 7 days * You are prescribed a nebulizer machine * Continue Combivent, Spiriva, and Breo * Continue 2L of O2 continuously at home Current Hospital Diet Patient's current hospital diet: Regular Diet Discharge Diet Recommended Diet: Regular Diet Pending Studies Studies pending at discharge: no Medical Emergencies . Who to Call and When: Medical Emergencies: If at any time you feel your situation is an emergency, please call 911 immediately. . Non-Emergent Contact Non-Emergency issues call your: Primary Care Provider . . "Provider Documentation" section prepared by Aleena Wiggins. . VTE Core Measure Inpt VTE Proph given/why not?: Unfractionated heparin SQ
--- NOTE | 2017-07-17 10:11 | Discharge Summary ---
Discharge Summary Date of Service Jul 17, 2017. Discharge Summary Admission Date: Jul 14, 2017 at 00:26 Discharge Date: Jul 17, 2017 Discharge Disposition: Home Principal Diagnosis: Acute COPD Exacerbation Acute on Chronic Respiratory Failure Medication Reconciliation New Medications: Nebulizer Machine (Home Use) (Nebulizer Machine (Home Use) ) Mis EA N/A UD, #1 Prednisone Tab (Prednisone) 10 Mg Tab 10 MG PO UD for 30 Days, #120 TAB Levofloxacin (Levofloxacin) 750 Mg Tab 750 MG PO Q2D@1100 for 7 Days, #3 TAB Continued Medications: Aspirin (Aspirin 81) 81 Mg Tab 81 MG PO DAILY Benzonatate (Tessalon Perles) 100 Mg Cap 100 MG PO TID PRN for Cough, CAP Citalopram (Citalopram Hydrobromide) 20 Mg Tab 20 MG PO HS Ergocalciferol (Vitamin D 11577 Unit) 50,000 Unit Cap 75353 INTER.UNIT PO WK, CAP saturdays Fluticasone Furoate-Vilanterol (Breo Ellipta) 1 Inh Inh 1 PUFF INH DAILY, #1 Home O2 Therapy (Oxygen) Gas 2 LITERS NA HS 2 LPM as needed with exertion; 2 LPM during all periods of sleep Ipratropium-Albuterol (Combivent Respimat) 1 Aer Aer 1 PUFFS INH QID, INH Pantoprazole (Pantoprazole Sodium) 40 Mg Tab 40 MG PO DAILY for 30 Days, #30 TAB 1 Refill Pramipexole Dihydrochloride (Mirapex) 0.5 Mg Tab 0.5 MG PO HS Prednisone Tab (Prednisone) 10 Mg Tab 10 MG PO UD for 16 Days, #40 TAB Now and as COPD RESCUE KIT : TAKE 4 TABS DAILY X 4 DAYS, THEN TAKE 3 TABS DAILY X 4 DAYS, THEN TAKE 2 TABS DAILY X 4 DAYS, THEN TAKE 1 TAB DAILY X 4 DAYS THEN STOP. 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 Kent for PCP. Patient was in his usual state of health until 2 days ago when she started to have increasing productive cough, associated with shortness of breath, and chills. Today, the symptoms worsened, hence, EMS was called. Patient was found by EMS with cyanosis of the lips and was placed on Cpap, given Solumedrol. At the ER, patient had bilateral wheezing, given Bipap and Duoneb. CXR not showing obvious pneumonia. On my exam, patient is wearing the Bipap, tolerating it well, not in distress, speaks in sentences with no effort and no accessory muscle use. States she feels improved compared to arrival. Denies other symptoms. Physical Exam (per Admitting): General Appearance: WD/WN Head: normocephalic, atraumatic Eyes: normal inspection, EOMI ENT: normal ENT inspection, hearing grossly normal, pharynx normal Neck: supple, no adenopathy, thyroid normal, no JVD, trachea midline Respiratory/Chest: + wheezing (bilateral scattered wheezing and crackles) Cardiovascular: regular rate, rhythm, no edema, no JVD, no murmur, normal peripheral pulses Abdomen/GI: normal bowel sounds, non tender, soft, no organomegaly Back: normal inspection, no CVA tenderness Extremities/Musculoskelatal: normal inspection, no calf tenderness, normal capillary refill, no pedal edema, normal range of motion Neurologic/Psych: back gray cloth washer II-XII nml as tested, no motor/sensory deficits, alert , normal mood/affect, oriented x 3 Skin: normal color, warm/dry, no rash Lymphatic: no adenopathy Hospital Course This is an 82 year old female with a PMH of severe COPD and chronic respiratory failure on 2L of O2 continuously and on chronic steroids presents with COPD exacerbation Acute COPD Exacerbation Acute on Chronic Respiratory Failure 07/17 patient feels better today continue Spiriva, Combivent, Breo will d/c home today with a prednisone taper and Levaquin will write a prescription for a nebulizer machine 07/16 appreciate pulmonary input will switch to prednisone 60mg and taper q3 days will continue Levaquin for 7-10 days total will need to write a script for nebulizer machine at home (she has an older version) cont. Spiriva, Combivent, and Breo Ellipta on discharge as well She feels better - likely discharge on 07/17 07/15 appreciate pulmonology input today, we can taper steroids, we can do solu-medrol 40mg q12 continue Levaquin x7 days total Xopenex/Atrovent nebulization PRN d/c Pulmicort on discharge, continue Breo Ellipta, Spiriva, and Combivent will monitor overnight and possibly transition to oral steroids in AM 07/14 patient has severe COPD on chronic 2L of O2 and chronic 5-10mg of prednisone presented with worsening shortness of breath ABG does not suggest acidosis agree with IV steroids; continue Solu-medrol 60mg q8 for now Levaquin added to cover any infection nebulizer treatments as needed continue bipap for now consulted pulmonary for further input GERD continue Protonix Depression/Anxiety continue Citalopram DVT ppx subq heparin FULL CODE Discharge planning: home Total time spent on discharge = 40 minutes This includes examination of the patient, discharge planning, medication reconciliation, and communication with other providers. Discharge Instructions Please follow-up with Dr. Kent on July 22 at 11:05AM * You will be on a prednisone taper - take 60mg for three days, then decrease by 5mg every three days * You will be on Levaquin every other day for 7 days * You are prescribed a nebulizer machine * Continue Combivent, Spiriva, and Breo * Continue 2L of O2 continuously at home
[2017-07-17 10:56] VITALS: BP 136/84; TEMP 36.7; O2SAT 94
[2017-07-17 11:29] VITALS: PULSE 80; O2SAT 95
[2017-07-18] MEDS ORDERED: LEVOFLOXACIN 750 MG TAB PO SCH (11:00)
[2017-07-18 16:31] LABS: ASPERGILLUS FLAVUS Negative (Negative); ASPERGILLUS FUMIGATUS Negative (Negative); ASPERGILLUS NIGER Negative (Negative)
[2017-08-04] MEDS ORDERED: DLR500 PO (09:09)
== END 2017-07-17 11:50 | disposition home health service (06) | DRG 189 ==
LOC: EDBD 23:13 → C.EDA 23:15 → C.MED 07-14 00:26 → ENRESERV 07-14 00:47 → C.MED 07-14 01:55
PROVIDERS: ADMIT Internal Medicine; ATTEND Family Medicine
DX: J96.21 Acute and chronic respiratory failure with hypoxia (principal); J44.1 Chronic obstructive pulmonary disease with (acute) exacerbation; K21.9 Gastro-esophageal reflux disease without esophagitis; F32.9 Major depressive disorder, single episode, unspecified; F41.9 Anxiety disorder, unspecified; Z99.81 Dependence on supplemental oxygen; Z79.51 Long term (current) use of inhaled steroids; Z79.52 Long term (current) use of systemic steroids; Z79.82 Long term (current) use of aspirin; Z87.891 Personal history of nicotine dependence; Z79.899 Other long term (current) drug therapy; Z82.5 Family history of asthma and other chronic lower respiratory diseases; Z83.3 Family history of diabetes mellitus

== ENCOUNTER 2017-07-27 21:09 | Inpatient (IN) | payer OTHER ==
[~2017-07-27] VITALS: Ht 154.9 cm; Wt 48.9 kg
[~2017-07-27 21:09] MED LIST changes: -BUDE1SUS INH; -CALC-206 PO; +LVQ750 PO; +NEBMAC; -PRAM0.129 PO; +PRAM1TAB47 PO
[2017-07-27 21:27] VITALS: PULSE 115; O2SAT 100
[2017-07-27] MEDS ORDERED: MAGNESIUM SULFATE 1GM / D5W 1 GM BAG IV STA (21:48)
--- NOTE | 2017-07-27 21:49 | EMERGENCY ROOM VISIT NOTE ---
History Report prepared by Salvadoribdelano: Radha Thorne Under the Supervision of: Dr. Gael Weeks M.D. First contact with patient: 21:42 Chief Complaint: SHORTNESS OF BREATH Stated Complaint: SOB Nursing Triage Summary: pt brought to main ED by ALS for shortness of breath. ALS preports pt has a hx copd and became increasingly SOB 1 hour prior to arrival, pt has productive cough with avila sputum. ALS reports pt wears 2L NC o2 at all times o2 sat was 93%, pt arrives to department on bipap, ALS reports "she just couldn't breathe. " pt stats she has been SOB "for days." and became worstening sob since 8pm. pt reports a cough. denies pain/chest pain. pt alert and oriented x4. placed on bipap by respiratory therapy. no edema in ankles noted History of Present Illness The patient is an 82 year old female who presents to the Emergency Room with complaints of worsening shortness of breath for the past 2 hours. She was brought to the ED via ALS. The patient has a history of COPD and reports her shortness of breath worsened approximately 2 hours prior to arrival. A DuoNeb and inhaler in the field have provided minimal relief. She has a productive cough with avila colored sputum. She wears 2L NC at all times. Her O2 saturation was 93% in the field. The patient denies any chest pain. Source of History: patient, EMS Onset: 2 hours RN BSN Position: chest Timing: worsening Modifying Factors (Relieving): oxygen, other (inhaler, DuoNeb) Associated Symptoms: + cough, No chest pain Review of Systems See HPI for pertinent positives & negatives. A total of 10 systems reviewed and were otherwise negative. Past Medical & Surgical Medical Problems: (1) Chronic respiratory failure (2) Compression fracture of vertebra (3) COPD exacerbation (4) COPD, moderate (5) Dyslipidemia (6) Esophageal stricture (7) GERD (gastroesophageal reflux disease) (8) History of esophageal dilatation (9) Osteopenia (10) Restless legs syndrome (RLS) Surgical Problems: (1) History of hysterectomy Family History Diabetes mellitus MOTHER Lung disease FATHER (emphysema) Social History Smoking Status: Former Smoker Alcohol Use: none Drug Use: none Marital Status: Housing Status: lives with significant other Occupation Status: retired Current/Historical Medications Scheduled Aspirin (Aspirin 81), 81 MG PO DAILY Citalopram (Citalopram Hydrobromide), 20 MG PO QAM Ergocalciferol (Vitamin D 00563 Unit), 50,000 INTER.UNIT PO WK Fluticasone Furoate-Vilanterol (Breo Ellipta), 1 PUFF INH DAILY Home O2 Therapy (Oxygen), 2 LITERS NA CONTINOUS Ipratropium-Albuterol (Combivent Respimat), 1 PUFFS INH QID Pantoprazole (Pantoprazole Sodium), 40 MG PO DAILY Pramipexole Dihydrochloride (Mirapex), 0.5 MG PO HS Prednisone Tab (Prednisone), 10 MG PO UD Prednisone Tab (Prednisone), 10 MG PO DAILY Tiotropium [place] (Spiriva Handihaler), 1 CAP INH DAILY Scheduled PRN Benzonatate (Tessalon Perles), 100 MG PO TID PRN for Cough Ipratropium [place] (Atrovent 0.02% Soln), 2.5 ML INH QID PRN for Wheezing Levalbuterol (Levalbuterol HCl), 3 ML INH QID PRN for Wheezing Tramadol (Ultram), 50 MG PO Q6H PRN for Pain Allergies Coded Allergies: Lorazepam (Verified Allergy, Unknown, DELIRIUM, 07/27/17) Physical Exam Vital Signs Date Time Temp Pulse Resp B/P (MAP) Pulse Ox O2 Delivery O2 Flow Rate FiO2 07/27/17 23:30 117 22 123/72 100 BiPAP 35 07/27/17 23:00 110 18 139/81 100 BiPAP Nebulizer 07/27/17 22:30 110 24 136/81 100 BiPAP Nebulizer 07/27/17 22:04 110 32 99 BiPAP/CPAP 35 07/27/17 21:54 110 24 125/84 99 BiPAP 07/27/17 21:27 115 100 35 07/27/17 21:24 116 07/27/17 21:15 36.8 114 28 150/89 100 BiPAP 07/27/17 21:15 100 BiPAP 35 07/27/17 21:15 100 BiPAP Physical Exam GENERAL: Patient is a healthy-appearing well-nourished 82 year old female on Bi- Pap. HEAD: Normocephalic atraumatic EYES: Ocular movements intact pupils equal and react to light OROPHARYNX mucous membranes are moist no exudates present no erythema or edema present NECK: Supple no nuchal rigidity CHEST: Wheezes bilaterally. Good equal expansion LUNGS: Clear and equal to auscultation CARDIAC: Normal S1 and S2 ABDOMEN: Soft nontender no guarding BACK: No CVA tenderness EXTREMITIES: No pain upon palpation normal muscle strength in all groups no clubbing cyanosis or edema NEURO: Patient is following commands is answering questions appropriately. Alert and oriented x3 Cranial Nerves 2-12 grossly intact Medical Decision & Procedures ER Provider Diagnostic Interpretation: Radiology results as stated below per my review and radiologist interpretation: CHEST ONE VIEW PORTABLE CLINICAL HISTORY: Sepsis COMPARISON STUDY: 07/14/2017 FINDINGS: The heart is normal in size. There is radiographic evidence of emphysema. There is minor chronic blunting of the lateral costophrenic angles. There is no focal pulmonary consolidation. There is no evidence of failure.[ IMPRESSION: Emphysema. No acute findings. Electronically signed by: Hermelindo Rico M.D. 07/27/2017 10:25 PM Laboratory Results 07/27/17 20:55 Red Blood Count 4.69, Mean Corpuscular Volume 79.7, Mean Corpuscular Hemoglobin 24.1, Mean Corpuscular Hemoglobin Concent 30.2, Mean Platelet Volume 8.4, Neutrophils (%) (Auto) 80.1, Lymphocytes (%) (Auto) 10.7, Monocytes (%) (Auto) 7.0, Eosinophils (%) (Auto) 0.0, Basophils (%) (Auto) 0.1, Neutrophils # (Auto) 11.46, Lymphocytes # (Auto) 1.53, Monocytes # (Auto) 1.00, Eosinophils # (Auto) 0.00, Basophils # (Auto) 0.02 Test 07/27/17 20:55 07/27/17 21:26 07/27/17 22:15 07/27/17 23:25 White Blood Count 14.31 K/uL (4.8-10.8) Red Blood Count 4.69 M/uL (4.2-5.4) Hemoglobin 11.3 g/dL (12.0-16.0) Hematocrit 37.4 % (37-47) Mean Corpuscular Volume 79.7 fL (80-100) Mean Corpuscular Hemoglobin 24.1 pg (25-34) Mean Corpuscular Hemoglobin Concent 30.2 g/dl (32-36) Platelet Count 463 K/uL (130-400) Mean Platelet Volume 8.4 fL (7.4-10.4) Neutrophils (%) (Auto) 80.1 % Lymphocytes (%) (Auto) 10.7 % Monocytes (%) (Auto) 7.0 % Eosinophils (%) (Auto) 0.0 % Basophils (%) (Auto) 0.1 % Neutrophils # (Auto) 11.46 K/uL (1.4-6.5) Lymphocytes # (Auto) 1.53 K/uL (1.2-3.4) Monocytes # (Auto) 1.00 K/uL (0.11-0.59) Eosinophils # (Auto) 0.00 K/uL (0-0.5) Basophils # (Auto) 0.02 K/uL (0-0.2) RDW Standard Deviation 56.7 fL (36.4-46.3) RDW Coefficient of Variation 19.6 % (11.5-14.5) Immature Granulocyte % (Auto) 2.1 % Immature Granulocyte # (Auto) 0.30 K/uL (0.00-0.02) Prothrombin Time 10.1 SECONDS (9.0-12.0) Prothromb Time International Ratio 0.9 (0.9-1.1) Activated Partial Thromboplast Time 21.2 SECONDS (21.0-31.0) Partial Thromboplastin Ratio 0.8 Total Bilirubin 0.2 mg/dl (0.2-1) Aspartate Amino Transf (AST/SGOT) 13 U/L (15-37) Alanine Aminotransferase (ALT/SGPT) 17 U/L (12-78) Alkaline Phosphatase 72 U/L (45-117) Total Creatine Kinase 59 U/L (26-192) Creatine Kinase MB 3.8 ng/ml (0.5-3.6) Creatine Kinase MB Ratio 6.4 (0-3.0) Troponin I < 0.015 ng/ml (0-0.045) Total Protein 7.1 gm/dl (6.4-8.2) Albumin 3.6 gm/dl (3.4-5.0) Globulin 3.5 gm/dl (2.5-4.0) Albumin/Globulin Ratio 1.0 (0.9-2) Bedside Lactic Acid Venous 2.20 mmol/L (0.90-1.70) Urine Color YELLOW Urine Appearance CLEAR (CLEAR) Urine pH 5.5 (4.5-7.5) Urine Specific [place] 1.026 (1.000-1.030) Urine Protein 1+ (NEG) Urine Glucose (UA) 1+ (NEG) Urine Ketones NEG (NEG) Urine Occult Blood 1+ (NEG) Urine Nitrite NEG (NEG) Urine Bilirubin NEG (NEG) Urine Urobilinogen NEG (NEG) Urine Leukocyte Esterase NEG (NEG) Urine WBC (Auto) 1-5 /hpf (0-5) Urine RBC (Auto) 5-10 /hpf (0-4) Urine Hyaline Casts (Auto) 1-5 /lpf (0-5) Urine Epithelial Cells (Auto) >30 /lpf (0-5) Urine Bacteria (Auto) NEG (NEG) Arterial Blood pH 7.35 (7.35-7.45) Arterial Blood Partial Pressure CO2 47 mmHg (35-46) Arterial Blood Partial Pressure O2 217 mm/Hg (80-95) Arterial Blood HCO3 25 mmol/L (19-24) Arterial Blood Oxygen Saturation 99.3 % (90-95) Arterial Blood Base Excess -0.3 mEq/L (-9-1.8) Arterial Blood Gas Delivery 35% Red Test POS (POS) Labs reviewed by ED physician. Medications Administered Medications (Trade) Dose Ordered Sig/Huan Route Start Time Stop Time Status Last Admin Dose Admin Albuterol/ Ipratropium (Duoneb) 12 ml ONE ONCE INH 07/27/17 22:00 07/27/17 22:01 DC 07/27/17 22:09 12 ML Magnesium Sulfate (Magnesium Sulfate) 1 gm NOW STAT IV 07/27/17 21:48 07/27/17 21:51 DC 07/27/17 22:07 1 GM Sodium Chloride 500 ml @ 999 mls/hr Q31M STAT IV 07/27/17 22:33 07/27/17 23:03 DC 07/27/17 23:02 999 MLS/HR Piperacillin Sod/ Tazobactam Sod (Zosyn Iv) 4.5 gm NOW STAT IV 07/27/17 22:33 07/27/17 22:34 DC 07/27/17 23:02 4.5 GM Levofloxacin (Levaquin / D5W) 750 mg NOW STAT IV 07/27/17 22:33 07/27/17 22:34 DC 07/27/17 23:18 750 MG Vancomycin HCl 1000 mg/Sodium Chloride 270 ml @ 125 mls/hr NOW STAT IV 07/27/17 22:33 07/28/17 00:42 DC 07/28/17 00:29 125 MLS/HR ECG Indication: SOB/dyspnea Rate (beats per minute): 113 Rhythm: sinus tachycardia Findings: RBBB, no acute ischemic change, no ectopy, other (Old inferior infarct) ED Course 2144: Past medical records reviewed. The patient was evaluated in room C11. A complete history and physical examination was performed. 2147: Magnesium Sulfate 1 gm IV. 2199: DuoNeb 12 ml INH. 2232: Vancomycin HCl 1000 mg/NSS 270 ml @ 125 mls/hr IV, Levaquin 750 mg IV, Zosyn 4.5 gm IV, NSS 500 ml @ 999 mls/hr IV. 2258: I discussed the patients case with Zeny Blood. The patient will be further evaluated. Medical Decision Prior records/ancillary studies reviewed. Triage Nursing notes reviewed. Additional history obtained from the family. The patient's history was concerning for respiratory difficulties. Differential diagnosis: Etiologies such as infections, reactive airway disease, pneumonia, pneumothorax , COPD, CHF, cardiac ischemia, pulmonary embolism, musculoskeletal, gastrointestinal, as well as others were entertained. This is an 82-year-old female who presents emergency department complaining of shortness of breath. The patient was placed on BiPAP and given 125 mg of Solu- Medrol. In the emergency department she received a DuoNeb breathing treatment and was started on antibiotics as she does have an elevation in her white blood cell count. I did discuss the case with the hospitalist service who agreed to admit the patient. Patient was in agreement with the treatment plan. Medication Reconcilliation Current Medication List: was personally reviewed by me Blood Pressure Screening Patient's blood pressure: Normal blood pressure Blood pressure disposition: Did not require urgent referral Consults Time Called: [phone] Consulting Physician: Zeny Blood Returned Call: [phone] I discussed the patients case with Zeny Blood. The patient will be further evaluated. Impression Primary Impression: Hypoxia Additional Impression: COPD exacerbation Scribe Attestation The scribe's documentation has been prepared under my direction and personally reviewed by me in its entirety. I confirm that the note above accurately reflects all work, treatment, procedures, and medical decision making performed by me. Departure Information Dispostion Being Evaluated By Hospitalist Ashok Malcolm M.D. (PCP) Patient Instructions My [facility] Problem Qualifiers
[2017-07-27] MEDS ORDERED: ALBUT/IPRATROP 3MG/0.5MG NEB 3 ML VIAL INH ONE (22:00)
[2017-07-27 22:04] VITALS: PULSE 110; O2SAT 99
[2017-07-27 22:21] LABS: BASO % 0.1 %; BASO ABS # 0.02 K/uL (0-0.2); COMPLETE YES; HEMATOCRIT 37.4 % (37-47); IG% 2.1 %; LYMPH % 10.7 %; LYMPH ABS # 1.53 K/uL (1.2-3.4); MEAN CELL VOLUME 79.7 fL (80-100); MEAN CORPUSCULAR HEMOGLOBIN 24.1 pg (25-34); MEAN CORPUSCULAR HGB CONC 30.2 g/dl (32-36); MEAN PLATELET VOLUME 8.4 fL (7.4-10.4); NEUT % 80.1 %; PLATELET COUNT 463 K/uL (130-400); RED BLOOD COUNT 4.69 M/uL (4.2-5.4); WHITE BLOOD COUNT 14.31 K/uL (4.8-10.8)
[2017-07-27 22:23] LABS: ALT/SGPT 17 U/L (12-78); BLOOD UREA NITROGEN 21 mg/dl (7-18); CALCIUM 9.2 mg/dl (8.5-10.1); CARBON DIOXIDE 26 mmol/L (21-32); CHLORIDE 102 mmol/L (98-107); CREATININE 0.79 mg/dl (0.60-1.20); GLUCOSE 89 mg/dl (70-99); POTASSIUM 4.6 mmol/L (3.5-5.1); SODIUM 137 mmol/L (136-145)
--- NOTE | 2017-07-27 22:26 | DIAGNOSTIC IMAGING REPORT ---
CHEST ONE VIEW PORTABLE CLINICAL HISTORY: Sepsis COMPARISON STUDY: 07/14/2017 FINDINGS: The heart is normal in size. There is radiographic evidence of emphysema. There is minor chronic blunting of the lateral costophrenic angles. There is no focal pulmonary consolidation. There is no evidence of failure.[ IMPRESSION: Emphysema. No acute findings. Electronically signed by: Hermelindo Rico M.D. 07/27/2017 10:25 PM Dictated Date/Time: 07/27/2017 10:25 PM
[2017-07-27 22:28] LABS: ALKALINE PHOSPHATASE 72 U/L (45-117); AST/SGOT 13 U/L (15-37); CKMB/CK RATIO 6.4 (0-3.0)
[2017-07-27] MEDS ORDERED: PIPERACILLIN/TAZOBACTAM 4.5 GM/100ML D5W IV STA (22:33)
[2017-07-27] MEDS ORDERED: LEVAQUIN 750MG / 150ML D5W IV STA (22:33)
[2017-07-27] MEDS ORDERED: VANCOMYCIN INJ 1,000 MG in SODIUM CHLORIDE 0.9% 250ML 250 ML IV STA (22:33)
[2017-07-27] MEDS ORDERED: SODIUM CHLORIDE 0.9% 500ML 500 ML IV STA (22:33)
[2017-07-27 22:36] LABS: URINE APPEARANCE CLEAR (CLEAR); URINE BILIRUBIN NEG (NEG); URINE COLOR YELLOW; URINE EPITHELIAL CELL AUTO >30 /lpf (0-5); URINE NITRITE NEG (NEG); URINE PH 5.5 (4.5-7.5); URINE SPECIFIC GRAVITY 1.026 (1.000-1.030); UROBILINOGEN NEG (NEG); ZZURINE CULT IF INDIC CATH NO
[2017-07-27 22:37] LABS: MANUAL MICROSCOPIC REQUIRED? NO; REVIEW REQ? NO
[2017-07-27 22:47] LABS: INR 0.9 (0.9-1.1); PARTIAL THROMBOPLASTIN RATIO 0.8; PROTHROMBIN TIME (PATIENT) 10.1 SECONDS (9.0-12.0)
--- NOTE | 2017-07-27 23:35 | History and Physical ---
History & Physical Date & Time of Service: Jul 27, 2017 at 23:35 . Chief Complaint: trouble breathing . Primary Care Physician: Ashok Kent M.D. . History of Present Illness Source: patient, family, clinic records, hospital records 82 YO female followed by Dr. Kent for Family Medicine and Dr. Frederick for Pulmonary Medicine. History of severe COPD, O2 and prednisone dependent. Hospitalized 07/14/17 with exacerbation of COPD. Chest films did not show any infiltrates. Sputum culture grew normal wing. Discharged to home on 07/17 with levofloxacin and prednisone taper. Completed course of levofloxacin. Finished steroid taper this morning. This evening she experienced increasing wheezing and dyspnea at rest. Cough productive of cardoza sputum. No fever. No chest pain. Tried nebs without much improvement. EMS called. Received nebs, IV methylprednisone in the field and BiPAP was applied. Brought to ED for further management. . Past Medical/Surgical History Medical Problems: (1) Chronic respiratory failure Status: Chronic (2) Compression fracture of vertebra Status: Chronic (3) COPD Status: Chronic (4) Dyslipidemia Status: Chronic (5) Esophageal stricture Status: Chronic (6) GERD (gastroesophageal reflux disease) Status: Chronic (7) History of esophageal dilatation Permanent Comment: 1998 and 2007 Status: Resolved (8) Osteopenia Status: Chronic (9) Restless legs syndrome (RLS) Status: Chronic Surgical Problems: (1) History of hysterectomy Permanent Comment: L ovary remains Status: Resolved . Family History Diabetes mellitus MOTHER Lung disease FATHER (emphysema) Social History Smoking Status: Former Smoker Alcohol Use: none Drug Use: none Marital Status: Housing status: lives with family, lives with significant other Occupational Status: retired Immunizations History of Influenza Vaccine: Yes History of Tetanus Vaccine?: Unknown History of Pneumococcal: Yes History of Hepatitis B Vaccine: Unknown Multi-Drug Resistant Organisms History of MDRO: No Allergies Coded Allergies: Lorazepam (Verified Allergy, Unknown, DELIRIUM, 07/27/17) Home Medications Scheduled Aspirin (Aspirin 81), 81 MG PO DAILY Citalopram (Citalopram Hydrobromide), 20 MG PO QAM Ergocalciferol (Vitamin D 76502 Unit), 50,000 INTER.UNIT PO WK Fluticasone Furoate-Vilanterol (Breo Ellipta), 1 PUFF INH DAILY Home O2 Therapy (Oxygen), 2 LITERS NA CONTINOUS Ipratropium-Albuterol (Combivent Respimat), 1 PUFFS INH QID Pantoprazole (Pantoprazole Sodium), 40 MG PO DAILY Pramipexole Dihydrochloride (Mirapex), 0.5 MG PO HS Prednisone Tab (Prednisone), 10 MG PO UD Prednisone Tab (Prednisone), 10 MG PO DAILY Tiotropium [place] (Spiriva Handihaler), 1 CAP INH DAILY Scheduled PRN Benzonatate (Tessalon Perles), 100 MG PO TID PRN for Cough Ipratropium [place] (Atrovent 0.02% Soln), 2.5 ML INH QID PRN for Wheezing Levalbuterol (Levalbuterol HCl), 3 ML INH QID PRN for Wheezing Tramadol (Ultram), 50 MG PO Q6H PRN for Pain Review of Systems Constitutional: No fever, No weight loss Eyes: No worsening of vision, No diplopia ENT: No nasal symptoms, No sore throat Respiratory: + problem reported (as noted in HPI) Cardiovascular: + problem reported (as noted in HPI) Abdomen: No pain, No nausea, No vomiting, No diarrhea, No GI bleeding Musculoskeletal: + problem reported (back pain due to compression fractures) Genitourinary - Female: No dysuria, No hematuria Neurologic: + problem reported (no headaches) Endocrine: + fatigue, No excessive thirst, No excessive urination Hematologic / Lymphatic: No abnormal bleeding/bruising, No swollen lymph nodes Integumentary: No rash Physical Exam Vital Signs Date Time Temp Pulse Resp B/P (MAP) Pulse Ox O2 Delivery O2 Flow Rate FiO2 07/27/17 23:00 110 18 139/81 100 BiPAP Nebulizer 07/27/17 22:30 110 24 136/81 100 BiPAP Nebulizer 07/27/17 22:04 110 32 99 BiPAP/CPAP 35 07/27/17 21:54 110 24 125/84 99 BiPAP 07/27/17 21:27 115 100 35 07/27/17 21:24 116 07/27/17 21:15 36.8 114 28 150/89 100 BiPAP 07/27/17 21:15 100 BiPAP 35 07/27/17 21:15 100 BiPAP General Appearance: + moderate distress, + thin Head: normocephalic Eyes: normal inspection, PERRL, EOMI, sclerae normal (conjunctivae pink) ENT: hearing grossly normal, pharynx normal, + pertinent finding (upper and lower dentures) Neck: supple, no adenopathy, thyroid normal, trachea midline Respiratory/Chest: + respiratory distress, + accessory muscle use, + wheezing ( diffuse moderate wheezing with prolonged expiration) Cardiovascular: regular rate, rhythm, + JVD, + tachycardia, + pertinent finding (distant heart sounds, no murmur or gallop appreciated) Abdomen/GI: normal bowel sounds, non tender, soft, no organomegaly, no pulsatile mass Extremities/Musculoskelatal: no calf tenderness, no pedal edema Neurologic/Psych: rat breeder II-XII nml as tested (PERRL, EOMI, no facial palsy, no dysarthria), no motor/sensory deficits (motor grossly intact), alert, oriented x 3 Skin: normal color, warm/dry, no rash Lymphatic: no adenopathy (cervical) Diagnostics Laboratory Results Results Past 24 Hours Test 07/27/17 20:55 07/27/17 21:26 07/27/17 22:15 07/27/17 23:25 Range/Units White Blood Count 14.31 4.8-10.8 K/uL Red Blood Count 4.69 4.2-5.4 M/uL Hemoglobin 11.3 12.0-16.0 g/dL Hematocrit 37.4 37-47 % Mean Corpuscular Volume 79.7 80-100 fL Mean Corpuscular Hemoglobin 24.1 25-34 pg Mean Corpuscular Hemoglobin Concent 30.2 32-36 g/dl Platelet Count 463 130-400 K/uL Mean Platelet Volume 8.4 7.4-10.4 fL Neutrophils (%) (Auto) 80.1 % Lymphocytes (%) (Auto) 10.7 % Monocytes (%) (Auto) 7.0 % Eosinophils (%) (Auto) 0.0 % Basophils (%) (Auto) 0.1 % Neutrophils # (Auto) 11.46 1.4-6.5 K/uL Lymphocytes # (Auto) 1.53 1.2-3.4 K/uL Monocytes # (Auto) 1.00 0.11-0.59 K/uL Eosinophils # (Auto) 0.00 0-0.5 K/uL Basophils # (Auto) 0.02 0-0.2 K/uL RDW Standard Deviation 56.7 36.4-46.3 fL RDW Coefficient of Variation 19.6 11.5-14.5 % Immature Granulocyte % (Auto) 2.1 % Immature Granulocyte # (Auto) 0.30 0.00-0.02 K/uL Prothrombin Time 10.1 9.0-12.0 SECONDS Prothromb Time International Ratio 0.9 0.9-1.1 Activated Partial Thromboplast Time 21.2 21.0-31.0 SECONDS Partial Thromboplastin Ratio 0.8 Sodium Level 137 136-145 mmol/L Potassium Level 4.6 3.5-5.1 mmol/L Chloride Level 102 98-107 mmol/L Carbon Dioxide Level 26 21-32 mmol/L Anion Gap 9.0 3-11 mmol/L Blood Urea Nitrogen 21 7-18 mg/dl Creatinine 0.79 0.60-1.20 mg/dl Est Creatinine Clear Calc Drug Dose 40.3 ml/min Estimated GFR () 81.9 Estimated GFR (Non- 70.7 BUN/Creatinine Ratio 27.0 10-20 Random Glucose 89 70-99 mg/dl Calcium Level 9.2 8.5-10.1 mg/dl Total Bilirubin 0.2 0.2-1 mg/dl Aspartate Amino Transf (AST/SGOT) 13 15-37 U/L Alanine Aminotransferase (ALT/SGPT) 17 12-78 U/L Alkaline Phosphatase 72 45-117 U/L Total Creatine Kinase 59 26-192 U/L Creatine Kinase MB 3.8 0.5-3.6 ng/ml Creatine Kinase MB Ratio 6.4 0-3.0 Troponin I < 0.015 0-0.045 ng/ml Total Protein 7.1 6.4-8.2 gm/dl Albumin 3.6 3.4-5.0 gm/dl Globulin 3.5 2.5-4.0 gm/dl Albumin/Globulin Ratio 1.0 0.9-2 Bedside Lactic Acid Venous 2.20 0.90-1.70 mmol/L Urine Color YELLOW Urine Appearance CLEAR CLEAR Urine pH 5.5 4.5-7.5 Urine Specific [place] 1.026 1.000-1.030 Urine Protein 1+ NEG Urine Glucose (UA) 1+ NEG Urine Ketones NEG NEG Urine Occult Blood 1+ NEG Urine Nitrite NEG NEG Urine Bilirubin NEG NEG Urine Urobilinogen NEG NEG Urine Leukocyte Esterase NEG NEG Urine WBC (Auto) 1-5 0-5 /hpf Urine RBC (Auto) 5-10 0-4 /hpf Urine Hyaline Casts (Auto) 1-5 0-5 /lpf Urine Epithelial Cells (Auto) >30 0-5 /lpf Urine Bacteria (Auto) NEG NEG Microbiology Results 07/27/17 Blood Culture, Received Pending 07/27/17 Blood Culture, Received Pending Diagnostic Radiology CHEST ONE VIEW PORTABLE FINDINGS: The heart is normal in size. There is radiographic evidence of emphysema. There is minor chronic blunting of the lateral costophrenic angles. There is no focal pulmonary consolidation. There is no evidence of failure.[ IMPRESSION: Emphysema. No acute findings. Electronically signed by: Hermelindo Rico M.D. 07/27/2017 10:25 PM Dictated Date/Time: 07/27/2017 10:25 PM . Impression Assessment and Plan EXACERBATION OF COPD Severe O2 and steroid-dependent COPD. Recent exacerbation of COPD, just finished course of levofloxacin and steroid taper. No infiltrates on chest x-ray. Cough productive of cardoza sputum. Very bronchospastic, requiring nebs and BiPAP for ventilatory support. Received methylprednisolone 125 mg IV from EMS. Continue methylprednisolone at lowest effective dose, then taper steroids as able. Received IV levofloxacin, piperacillin/tazobactam, vancomycin in ED. Check sputum gram stain, C&S. Just finished course of levofloxacin, so will not continue at this time. Check nasal MRSA screen- no need for further vancomycin if negative. Add doxycycline for atypical coverage. Continue nebs. Monitor PEFR's. Consult Pulmonary Medicine. CHRONIC RESPIRATORY FAILURE Continue supplemental O2. GERD Continue PPI. RESTLESS LEGS SYNDROME Continue pramipexole. VERTEBRAL COMPRESSION FRACTURES Continue tramadol PRN. VTE PROPHYLAXIS Moderate risk for VTE. SQ heparin. DISPOSITION Full code per recent discussions. DISPOSITION Admit to Telemetry Unit. Family Medicine follow-up with Dr. Kent. Pulmonary Medicine follow-up with Dr. Frederick. .
[2017-07-27 23:37] LABS: ARTERIAL BLD GAS O2 SATURATION 99.3 % (90-95); ARTERIAL BLOOD GAS BASE EXCESS -0.3 mEq/L (-9-1.8); ARTERIAL BLOOD GAS HCO3 25 mmol/L (19-24); ARTERIAL BLOOD GAS PO2 217 mm/Hg (80-95); ARTERIAL BLOOD GAS pH 7.35 (7.35-7.45)
[2017-07-27 23:44] LABS: ALLEN TEST POS (POS); O2 ADMINISTRATION 35%
[2017-07-28] VITALS (15 sets, daily range): BP systolic 108–180; BP diastolic 38–85; PULSE 75–117; TEMP 36.4–37.2; O2SAT 92–100; Ht 154.9 cm; Wt 48.9 kg
[2017-07-28] MEDS ORDERED: PRED10TA PO (00:27)
[2017-07-28] MEDS ORDERED: XPNINS INH (00:28)
[2017-07-28] MEDS ORDERED: ATRINSX INH (00:28)
[2017-07-28] MEDS ORDERED: BENZONATATE 100MG CAP PO PRN (00:30)
[2017-07-28] MEDS ORDERED: TRAMADOL HCL 50 MG TAB PO PRN (00:30)
[2017-07-28] MEDS ORDERED: PIPERACILL/TAZOBAC CONSULT ACTIVE PRN (03:15)
[2017-07-28] MEDS: PIPERACILL/TAZOBAC IV 3.375 GM in DEXTROSE 5% 100ML 100 ML IV SCH ×3 (04:07→20:07)
[2017-07-28] MEDS: METHYLPREDNISOLONE IV 20 MG in SYRINGE 0 ML IV SCH ×3 (06:16→20:07)
[2017-07-28] MEDS: IPRATROPIUM BROMIDE NEB SOLN 0.02% 2.5 ML VIAL INH SCH ×4 (07:23→19:42)
[2017-07-28] MEDS: LEVALBUTEROL 0.63MG/3 ML NEB INH SCH ×4 (07:23→19:42)
[2017-07-28] MEDS ORDERED: ALBUTEROL 0.083% NEBU SOLN 3 ML VIAL INH SCH (08:00)
[2017-07-28] MEDS: DOXYCYCLINE HYCLATE 100 MG CAP PO SCH ×2 (08:17→20:07)
[2017-07-28] MEDS: CITALOPRAM 20 MG TAB PO SCH (08:17)
[2017-07-28] MEDS: ASPIRIN 81 MG ECTAB PO SCH (08:17)
[2017-07-28] MEDS: TIOTROPIUM BROMIDE 5 PUFF/90 MCG INH INH SCH (08:18)
[2017-07-28] MEDS: PANTOprazole SOD 40 MG TAB PO SCH (08:18)
[2017-07-28 08:30] LABS: BUN/CREATININE RATIO 16.8 (10-20); CALCIUM 8.7 mg/dl (8.5-10.1); CREATININE 0.9 mg/dl (0.60-1.20); POTASSIUM 4.4 mmol/L (3.5-5.1)
[2017-07-28] MEDS ORDERED: ACETAMINOPHEN 325 MG TAB ONE (11:58)
[2017-07-28] MEDS ORDERED: NURSING VERBAL MED ORDER ONE (12:00)
--- NOTE | 2017-07-28 13:43 | Pulmonary Consultation ---
History General Date of Service: Jul 28, 2017. Stated Complaint: Copd Exacerbation HPI The patient is a 82 year old female who presents to [facility] with complaints of Copd Exacerbation. The patient's primary care provider is Ashok Kent M.D.. Mrs. Azevedo is an 82-year-old female with history of severe COPD (FEV1 35%, ) on 2-3 L/m long-term oxygen therapy, who is well-known to the pulmonary service and follows up up with Dr. Frederick in the pulmonary clinic. She was recently admitted on 07/13/2017 for COPD exacerbation. She was treated with Levaquin 750 mg IV, corticosteroids and bronchodilators with improvement of her symptoms. Sputum culture from 07/15/2017 grew moderate normal wing. She states post discharge she was doing quite well, able to ambulate around her home and perform activities of daily living. She states on 07/24/2017 she started to feel increased tiredness and lethargy associated with increased shortness of breath. Her symptoms progressed over the weekend and on 07/27/2017 she presented to the ER because she to worsening shortness of breath and dyspnea on exertion. She states that she used her nebulizer and Breo inhaler without relief of her symptoms. She denies any fever, chills, or change in sputum production. Her home pulmonary medications include Tessalon Perles when necessary for cough , Breo one puff daily, Combivent 1 puff 4 times a day, prednisone 10 mg daily and Spiriva HandiHaler 1 capsule daily. 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 Azithromycin triweekly therapy has been considered but not administered due to reported patient allergy. In the ER, her initial vital signs were documented to be temperature 36.9 , pulse of 114, respiratory rate of 28, blood pressure 150/89, pulse oximetry 100 % on BiPAP. Physical examination in the ER was notable for bilateral scattered wheezing and crackles. Laboratory data showed white blood cell count of 14, hemoglobin of 11.3, platelet count of 463, sodium 137, potassium 4.6, chloride 102, bicarbonate 26, BUN of 21 and creatinine of 0.79. Troponin was less than 0.015. Chest is consistent with emphysema. Bedside blood gas showed 7.35/47/217 /25/99.3 on 35% FiO2. EKG showed sinus tachycardia at 113 bpm with a right bundle branch block. She was given Zosyn 4.5 g, vancomycin 1 g and Levaquin 750 mg IV, Solu-Medrol 125 mg, mag sulfate 1 g and placed on BiPAP. She was admitted for COPD exacerbation. Blood cultures have been ordered and are pending. From a respiratory standpoint she is currently on Spiriva HandiHaler 1 puff daily, Solu-Medrol 20 mg every 8 hour, Atrovent/Xopenex every 4 hours inhaler, doxycycline 100 mg by mouth twice a day, Zosyn 3.375 g every 8 hours , Tessalon Perles and Protonix 40 mg daily. She has had multiple admissions for COPD within the last year. 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 At the time of my evaluation, she feels a little bit better after being on BiPAP overnight. She is currently on 4 L nasal cannula. Historian: patient Onset: just prior to arrival Severity: severe Complaint Status: improved, persistent Modifying Factors: rest Review of Systems Constitutional: reports: as stated in HPI Eyes: reports: as stated in HPI ENT: reports: as stated in HPI Cardiovascular: reports: as stated in HPI Respiratory: reports: as stated in HPI Gastrointestinal: reports: as stated in HPI Genitourinary - Female: reports: as stated in HPI Musculoskeletal: reports: as stated in HPI Integumentary: reports: as stated in HPI Neurologic: reports: as stated in HPI Psychiatric: reports: as stated in HPI Endocrine: as stated in HPI Hematologic / Lymphatic: as stated in HPI (review he is) Allergic / Immunologic: as stated in HPI All Other Symptoms All Other Systems: Reviewed and Negative Family History Diabetes mellitus MOTHER Lung disease FATHER (emphysema) Social History Hx Tobacco Use In Past Year?: No Smoking Status: Former Smoker Marital status: Housing status: lives with family, lives with significant other Occupational Status: retired Immunizations History of Influenza Vaccine: Yes History of Tetanus Vaccine?: Unknown History of Pneumococcal: Yes History of Hepatitis B Vaccine: Unknown History of MDRO History of MDRO: No Allergies Coded Allergies: Lorazepam (Verified Allergy, Unknown, DELIRIUM, 07/27/17) Current Medications Reported Home Medications Medications Dose Route/Sig Max Daily Dose Days Date Category Dose Instructions Levalbuterol HCl (Levalbuterol) 0.63 Mg/3 Ml Nebu 3 Ml INH QID PRN 07/28/17 Reported Atrovent 0.02% Soln (Ipratropium [place]) 2.5 Ml Nebu 2.5 Ml INH QID PRN 07/28/17 Reported Prednisone 10 Mg Tab 10 Mg PO DAILY 07/28/17 Reported Mirapex (Pramipexole Dihydrochloride) 0.5 Mg Tab 0.5 Mg PO HS 07/14/17 Reported Citalopram Hydrobromide (Citalopram) 20 Mg Tab 20 Mg PO QAM 05/19/17 Reported Aspirin 81 (Aspirin) 81 Mg Tab 81 Mg PO DAILY 05/19/17 Reported Vitamin D 63940 Unit (Ergocalciferol) 50,000 Unit Cap 50,000 Inter.unit PO WK 05/19/17 Reported saturdays Spiriva Handihaler (Tiotropium [place]) 30 Puff/540 Mcg Aerp 1 Cap INH DAILY 05/19/17 Reported Prednisone 10 Mg Tab 10 Mg PO UD 16 10/20/16 Rx Now and as COPD RESCUE KIT : TAKE 4 TABS DAILY X 4 DAYS, THEN TAKE 3 TABS DAILY X 4 DAYS, THEN TAKE 2 TABS DAILY X 4 DAYS, THEN TAKE 1 TAB DAILY X 4 DAYS THEN STOP. Pantoprazole Sodium (Pantoprazole) 40 Mg Tab 40 Mg PO DAILY 30 09/30/16 Rx Breo Ellipta (Fluticasone Furoate-Vilanterol) 1 Inh Inh 1 Puff INH DAILY 09/27/16 Rx Combivent Respimat (Ipratropium-Albuterol) 1 Aer Aer 1 Puffs INH QID 07/24/16 Reported Ultram (Tramadol HCl) 50 Mg Tab 50 Mg PO Q6H PRN 07/24/16 Reported Tessalon Perles (Benzonatate) 100 Mg Cap 100 Mg PO TID PRN 07/24/16 Reported Oxygen Gas 2 Liters NA CONTINOUS 10/15/15 Reported 2 LPM as needed with exertion; 2 LPM during all periods of sleep Physical Physical Exam Vital Signs: Date Time Temp Pulse Resp B/P (MAP) Pulse Ox O2 Delivery O2 Flow Rate FiO2 07/28/17 11:23 36.7 102 119/72 (88) 92 Nasal Cannula 4.0 07/28/17 09:43 92 Nasal Cannula 4.0 07/28/17 08:00 98 BiPAP 30 07/28/17 07:24 36.4 98 18 154/77 (102) 99 BiPAP 07/28/17 07:23 97 18 99 BiPAP/CPAP 30 07/28/17 07:23 97 99 30 07/28/17 05:22 99 96 30 07/28/17 04:00 BiPAP 30 07/28/17 03:45 36.4 102 19 121/73 (89) 97 BiPAP 30 07/28/17 02:04 75 98 35 07/28/17 01:37 36.5 117 26 180/85 96 BiPAP 35 07/28/17 00:30 111 22 104/63 99 07/27/17 23:48 98 Nasal Cannula 2.0 07/27/17 23:30 117 22 123/72 100 BiPAP 35 07/27/17 23:00 110 18 139/81 100 BiPAP Nebulizer 07/27/17 22:30 110 24 136/81 100 BiPAP Nebulizer 07/27/17 22:04 110 32 99 BiPAP/CPAP 35 07/27/17 21:54 110 24 125/84 99 BiPAP 07/27/17 21:27 115 100 35 07/27/17 21:24 116 07/27/17 21:15 36.8 114 28 150/89 100 BiPAP 07/27/17 21:15 100 BiPAP 35 07/27/17 21:15 100 BiPAP General Appearance: uncomfortable ( as he is), mild distress, cachetic Head: NORMOCEPHALIC, ATRAUMATIC Eyes: PERRLA, NO DISCHARGE, EOMI ( and the rate is he is) ENT: NORMAL THROAT EXAM ( he is) Neck: NORMAL RANGE OF MOTION, NO TENDERNESS, TRACHEA MIDLINE Respiratory: BREATH SOUNDS NORMAL, wheezing, other (Prolonged expiratory phase with bilateral wheezing diffusely, mildly tachypneic. Barrel chest.) Cardiovasular: REGULAR RATE/RHYTHM, NORMAL S1S2, NO M/G/R, NORMAL PERIPHERAL PULSES ( examination this is) Abdomen: NON TENDER, NORMAL BOWEL SOUNDS, NO REBOUND (discopathy 22) Back: NORMAL INSPECTION Upper Extremities: NO EDEMA, other (no cyanosis no clubbing) Lower Extremities: NO EDEMA Pulses: dorsalis pedis (R) (2+), dorsalis pedis (L) (2+) Neuro: ALERT, ORIENTED x 3 Psychiatric: NORMAL AFFECT, NO SUICIDAL IDEATION, CONTRACTS FOR SAFETY Diagnostics Labs Results Past 24 Hours Test 07/27/17 20:55 07/27/17 21:26 07/27/17 22:15 07/27/17 23:25 Range/Units White Blood Count 14.31 4.8-10.8 K/uL Red Blood Count 4.69 4.2-5.4 M/uL Hemoglobin 11.3 12.0-16.0 g/dL Hematocrit 37.4 37-47 % Mean Corpuscular Volume 79.7 80-100 fL Mean Corpuscular Hemoglobin 24.1 25-34 pg Mean Corpuscular Hemoglobin Concent 30.2 32-36 g/dl Platelet Count 463 130-400 K/uL Mean Platelet Volume 8.4 7.4-10.4 fL Neutrophils (%) (Auto) 80.1 % Lymphocytes (%) (Auto) 10.7 % Monocytes (%) (Auto) 7.0 % Eosinophils (%) (Auto) 0.0 % Basophils (%) (Auto) 0.1 % Neutrophils # (Auto) 11.46 1.4-6.5 K/uL Lymphocytes # (Auto) 1.53 1.2-3.4 K/uL Monocytes # (Auto) 1.00 0.11-0.59 K/uL Eosinophils # (Auto) 0.00 0-0.5 K/uL Basophils # (Auto) 0.02 0-0.2 K/uL RDW Standard Deviation 56.7 36.4-46.3 fL RDW Coefficient of Variation 19.6 11.5-14.5 % Immature Granulocyte % (Auto) 2.1 % Immature Granulocyte # (Auto) 0.30 0.00-0.02 K/uL Prothrombin Time 10.1 9.0-12.0 SECONDS Prothromb Time International Ratio 0.9 0.9-1.1 Activated Partial Thromboplast Time 21.2 21.0-31.0 SECONDS Partial Thromboplastin Ratio 0.8 Sodium Level 137 136-145 mmol/L Potassium Level 4.6 3.5-5.1 mmol/L Chloride Level 102 98-107 mmol/L Carbon Dioxide Level 26 21-32 mmol/L Anion Gap 9.0 3-11 mmol/L Blood Urea Nitrogen 21 7-18 mg/dl Creatinine 0.79 0.60-1.20 mg/dl Est Creatinine Clear Calc Drug Dose 40.3 ml/min Estimated GFR () 81.9 Estimated GFR (Non- 70.7 BUN/Creatinine Ratio 27.0 10-20 Random Glucose 89 70-99 mg/dl Calcium Level 9.2 8.5-10.1 mg/dl Total Bilirubin 0.2 0.2-1 mg/dl Aspartate Amino Transf (AST/SGOT) 13 15-37 U/L Alanine Aminotransferase (ALT/SGPT) 17 12-78 U/L Alkaline Phosphatase 72 45-117 U/L Total Creatine Kinase 59 26-192 U/L Creatine Kinase MB 3.8 0.5-3.6 ng/ml Creatine Kinase MB Ratio 6.4 0-3.0 Troponin I < 0.015 0-0.045 ng/ml Total Protein 7.1 6.4-8.2 gm/dl Albumin 3.6 3.4-5.0 gm/dl Globulin 3.5 2.5-4.0 gm/dl Albumin/Globulin Ratio 1.0 0.9-2 Bedside Lactic Acid Venous 2.20 0.90-1.70 mmol/L Urine Color YELLOW Urine Appearance CLEAR CLEAR Urine pH 5.5 4.5-7.5 Urine Specific [place] 1.026 1.000-1.030 Urine Protein 1+ NEG Urine Glucose (UA) 1+ NEG Urine Ketones NEG NEG Urine Occult Blood 1+ NEG Urine Nitrite NEG NEG Urine Bilirubin NEG NEG Urine Urobilinogen NEG NEG Urine Leukocyte Esterase NEG NEG Urine WBC (Auto) 1-5 0-5 /hpf Urine RBC (Auto) 5-10 0-4 /hpf Urine Hyaline Casts (Auto) 1-5 0-5 /lpf Urine Epithelial Cells (Auto) >30 0-5 /lpf Urine Bacteria (Auto) NEG NEG Arterial Blood pH 7.35 7.35-7.45 Arterial Blood Partial Pressure CO2 47 35-46 mmHg Arterial Blood Partial Pressure O2 217 80-95 mm/Hg Arterial Blood HCO3 25 19-24 mmol/L Arterial Blood Oxygen Saturation 99.3 90-95 % Arterial Blood Base Excess -0.3 -9-1.8 mEq/L Arterial Blood Gas Delivery 35% Red Test POS POS Lactic Acid Level 2.3 0.4-2.0 mmol/L Test 07/28/17 07:56 Range/Units Sodium Level 136 136-145 mmol/L Potassium Level 4.4 3.5-5.1 mmol/L Chloride Level 101 98-107 mmol/L Carbon Dioxide Level 27 21-32 mmol/L Anion Gap 8.0 3-11 mmol/L Blood Urea Nitrogen 15 7-18 mg/dl Creatinine 0.90 0.60-1.20 mg/dl Est Creatinine Clear Calc Drug Dose 37.6 ml/min Estimated GFR () 70.0 Estimated GFR (Non- 60.4 BUN/Creatinine Ratio 16.8 10-20 Random Glucose 122 70-99 mg/dl Lactic Acid Level 3.4 0.4-2.0 mmol/L Calcium Level 8.7 8.5-10.1 mg/dl Microbiology Results 07/27/17 Blood Culture, Received Pending 07/27/17 Blood Culture, Received Pending 07/28/17 MRSA DNA Surveillance Screen - Final, Complete Specimen Negative for MRSA by DNA Probe Diagnostic Radiology CHEST ONE VIEW PORTABLE 07/27/2017 CLINICAL HISTORY: Sepsis COMPARISON STUDY: 07/14/2017 FINDINGS: The heart is normal in size. There is radiographic evidence of emphysema. There is minor chronic blunting of the lateral costophrenic angles. There is no focal pulmonary consolidation. There is no evidence of failure.[ IMPRESSION: Emphysema. No acute findings. CHEST CTA for PULMONARY ARTERIES 09/28/2016 CT DOSE: 371.37 mGy.cm HISTORY: Chest pain. Dyspnea. COPD with acute exacerbation ?? PE as etiology TECHNIQUE: Multiaxial CT images of the chest were performed following the intravenous administration of contrast to evaluate the pulmonary arteries. Maximal intensity projection images were also obtained. COMPARISON STUDY: 07/01/2016 FINDINGS: Signif5. It seems like the patient is a icant atherosclerotic change thoracic aorta. No evidence for dissection. Bony vasculature enhances appropriately. No major filling defect within the pulmonary arterial structures. Lung parenchyma shows evidence for generalized emphysematous change. Numerous blebs are identified bilaterally] no evidence pneumothorax. There are no well-defined focal infiltrative changes. IMPRESSION: 1. Study is negative for pulmonary embolus. 2. Considerable emphysematous and chronic interstitial change. 3. No acute process EKG EKG shows ventricular rate of 113 beats a minute consistent with sinus tachycardia with a right bundle branch block. Impression Assessment and Plan Acute on chronic hypoxic respiratory COPD exacerbation Ms. Azevedo has history of severe COPD with recent admission this month and several in the past year. At the current time she has no change in her sputum production however does have increased symptoms of dyspnea associated with chest tightness or wheezing. Also her oxygen requirements has increased from 2- 4 L. Patient had previous cultures with aspergillus, however serology sent on last admission from negative. At the current time I would continue supplemental oxygen to maintain a saturation between 88-92% Continue with BiPAP as needed for increased work of breathing. Continue Solu-Medrol and taper as tolerated Doxycycline and Zosyn for 7-10 days Obtain sputum cultures Continue Ivettesalon May Continue with aggressive pulmonary toilet with chest PT I have considered Daliresp to prevent readmission for COPD, however due to increased diarrhea, decreased appetite and weight loss I do not feel she will be a good candidate. Recommend follow-up with Dr. Frederick and pulmonary rehabilitation upon discharge
--- NOTE | 2017-07-28 19:54 | Progress Note ---
Medicine Progress Note Date & Time of Visit: Jul 28, 2017 at 16:33. Subjective Pt was seen and examined Sitting in chair with no distress Pt said that she feels much better She said that she is hungry and wants to eat still has SOB with minimal exertion denies any chest pain, palpitation Objective Last 8 Hrs Date Time Temp Pulse Resp B/P (MAP) Pulse Ox O2 Delivery O2 Flow Rate FiO2 07/28/17 16:00 Nasal Cannula 3.0 07/28/17 15:43 86 18 95 Nasal Cannula 3.0 07/28/17 15:05 37.2 97 18 148/72 (97) 97 Nasal Cannula 3.0 07/28/17 13:26 98 Nasal Cannula 3.0 Physical Exam: General- No acute distress Head- atraumatic Eyes- PERRL, EOMI ENT- oropharynx clear Neck- supple, no JVD Lungs- + wheezing Heart- +tachycardia, No murmur Abdomen- normal bowel sounds, soft Extremities- no calf tenderness Neuro- alert, oriented x 3; PERRL, EOMI Skin- warm & dry Laboratory Results: Last 24 Hours Test 07/27/17 20:55 07/27/17 21:26 07/27/17 22:15 07/27/17 23:25 White Blood Count 14.31 K/uL Red Blood Count 4.69 M/uL Hemoglobin 11.3 g/dL Hematocrit 37.4 % Mean Corpuscular Volume 79.7 fL Mean Corpuscular Hemoglobin 24.1 pg Mean Corpuscular Hemoglobin Concent 30.2 g/dl Platelet Count 463 K/uL Mean Platelet Volume 8.4 fL Neutrophils (%) (Auto) 80.1 % Lymphocytes (%) (Auto) 10.7 % Monocytes (%) (Auto) 7.0 % Eosinophils (%) (Auto) 0.0 % Basophils (%) (Auto) 0.1 % Neutrophils # (Auto) 11.46 K/uL Lymphocytes # (Auto) 1.53 K/uL Monocytes # (Auto) 1.00 K/uL Eosinophils # (Auto) 0.00 K/uL Basophils # (Auto) 0.02 K/uL RDW Standard Deviation 56.7 fL RDW Coefficient of Variation 19.6 % Immature Granulocyte % (Auto) 2.1 % Immature Granulocyte # (Auto) 0.30 K/uL Prothrombin Time 10.1 SECONDS Prothromb Time International Ratio 0.9 Activated Partial Thromboplast Time 21.2 SECONDS Partial Thromboplastin Ratio 0.8 Sodium Level 137 mmol/L Potassium Level 4.6 mmol/L Chloride Level 102 mmol/L Carbon Dioxide Level 26 mmol/L Anion Gap 9.0 mmol/L Blood Urea Nitrogen 21 mg/dl Creatinine 0.79 mg/dl Est Creatinine Clear Calc Drug Dose 40.3 ml/min Estimated GFR () 81.9 Estimated GFR (Non- 70.7 BUN/Creatinine Ratio 27.0 Random Glucose 89 mg/dl Calcium Level 9.2 mg/dl Total Bilirubin 0.2 mg/dl Aspartate Amino Transf (AST/SGOT) 13 U/L Alanine Aminotransferase (ALT/SGPT) 17 U/L Alkaline Phosphatase 72 U/L Total Creatine Kinase 59 U/L Creatine Kinase MB 3.8 ng/ml Creatine Kinase MB Ratio 6.4 Troponin I < 0.015 ng/ml Total Protein 7.1 gm/dl Albumin 3.6 gm/dl Globulin 3.5 gm/dl Albumin/Globulin Ratio 1.0 Bedside Lactic Acid Venous 2.20 mmol/L Urine Color YELLOW Urine Appearance CLEAR Urine pH 5.5 Urine Specific [place] 1.026 Urine Protein 1+ Urine Glucose (UA) 1+ Urine Ketones NEG Urine Occult Blood 1+ Urine Nitrite NEG Urine Bilirubin NEG Urine Urobilinogen NEG Urine Leukocyte Esterase NEG Urine WBC (Auto) 1-5 /hpf Urine RBC (Auto) 5-10 /hpf Urine Hyaline Casts (Auto) 1-5 /lpf Urine Epithelial Cells (Auto) >30 /lpf Urine Bacteria (Auto) NEG Arterial Blood pH 7.35 Arterial Blood Partial Pressure CO2 47 mmHg Arterial Blood Partial Pressure O2 217 mm/Hg Arterial Blood HCO3 25 mmol/L Arterial Blood Oxygen Saturation 99.3 % Arterial Blood Base Excess -0.3 mEq/L Arterial Blood Gas Delivery 35% Red Test POS Lactic Acid Level 2.3 mmol/L Test 07/28/17 07:56 07/28/17 18:23 Sodium Level 136 mmol/L Potassium Level 4.4 mmol/L Chloride Level 101 mmol/L Carbon Dioxide Level 27 mmol/L Anion Gap 8.0 mmol/L Blood Urea Nitrogen 15 mg/dl Creatinine 0.90 mg/dl Est Creatinine Clear Calc Drug Dose 37.6 ml/min Estimated GFR () 70.0 Estimated GFR (Non- 60.4 BUN/Creatinine Ratio 16.8 Random Glucose 122 mg/dl Lactic Acid Level 3.4 mmol/L 4.9 mmol/L Calcium Level 8.7 mg/dl Date/Time Source Procedure Growth Status 07/27/17 22:05 Blood Blood Culture Pending Received 07/27/17 21:20 Blood Blood Culture Pending Received 07/28/17 01:30 Nasal MRSA DNA Surveillance Screen - Final Specimen Negative for MRSA by DNA Probe Complete Assessment & Plan EXACERBATION OF COPD Present with productive cough Severe O2 and steroid-dependent COPD. Recent exacerbation of COPD, just completed course of levofloxacin and steroid taper. CXR showed No infiltrates Received IV levofloxacin, piperacillin/tazobactam, vancomycin in ED. Off BiPAP Saturated at 95% on 3L continue O2 sat to keep sat btw 88 to 92% On solumedrol 20mg IV q8hr Continue doxy and zosyn Elevated WBC, monitor cbc Blood cx pending Monitor PEFR's. Pulmonary Medicine on board, might consider to start on daliresp to to prevent readmission for COPD Continue Tessalon Perles Continue with aggressive pulmonary toilet with chest PT ELEVATED LACTIC ACID lactic acid continue trending up Afebrile Clinically improved despite elevated lactic will check procalcitonin will repeat lactic acid monitor CBC GERD Continue PPI. RESTLESS LEGS SYNDROME Continue pramipexole. VERTEBRAL COMPRESSION FRACTURES Continue tramadol PRN. VTE PROPHYLAXIS Moderate risk for VTE. SQ heparin. DISPOSITION Full code DISPOSITION Continue monitor in telemetry Consultants: Pulmonary Current Inpatient Medications: Current Inpatient Medications Medications (Trade) Dose Ordered Sig/Huan Route Start Time Stop Time Status Last Admin Dose Admin Methylprednisolone Sodium Succinate 20 mg/Syringe 0.32 ml @ 1.5 mls/min Q8 IV 07/28/17 06:00 08/27/17 05:59 07/28/17 14:12 1.5 MLS/MIN Piperacillin Sod/ Tazobactam Sod 3.375 gm/Dextrose 115 ml @ 25 mls/hr Q8H IV 07/28/17 04:00 08/04/17 03:59 07/28/17 12:30 25 MLS/HR Doxycycline Hyclate (Vibramycin Cap) 100 mg BID PO 07/28/17 09:00 08/04/17 08:59 07/28/17 08:17 100 MG Aspirin (Ecotrin Tab) 81 mg DAILY PO 07/28/17 09:00 08/27/17 08:59 07/28/17 08:17 81 MG Benzonatate (Tessalon Perles Cap) 100 mg TID PRN PO 07/28/17 00:30 08/27/17 00:29 Citalopram Hydrobromide (celeXA TAB) 20 mg QAM PO 07/28/17 09:00 08/27/17 08:59 07/28/17 08:17 20 MG Pantoprazole Sodium (Protonix Tab) 40 mg DAILY PO 07/28/17 09:00 08/27/17 08:59 07/28/17 08:18 40 MG Pramipexole Dihydrochloride (miraPEX TAB) 0.5 mg HS PO 07/28/17 21:00 08/27/17 20:59 Tiotropium [place] (Spiriva Handihaler Inhaler) 1 puff DAILY INH 07/28/17 09:00 08/27/17 08:59 07/28/17 08:18 1 PUFF Tramadol HCl (Ultram Tab) 50 mg Q6H PRN PO 07/28/17 00:30 08/27/17 00:29 Miscellaneous Information (Order Awaiting Action) 1 ea QS N/A 07/28/17 02:15 08/27/17 02:14 Levalbuterol (Xopenex 0.63 Mg/ 3 Ml Neb) 0.63 mg Q2H PRN INH 07/28/17 00:30 08/27/17 00:29 Levalbuterol (Xopenex 0.63 Mg/ 3 Ml Neb) 0.63 mg QIDR INH 07/28/17 08:00 08/27/17 07:59 07/28/17 15:39 0.63 MG Ipratropium [place] (Atrovent 0.02% 0.5MG/2.5ML Neb) 0.5 mg QIDR INH 07/28/17 08:00 08/27/17 07:59 07/28/17 15:39 0.5 MG Piperacillin Sod/ Tazobactam Sod (Consult) 1 ea UD PRN N/A 07/28/17 03:15 08/27/17 03:14 Acetaminophen (Tylenol Tab) 650 mg Q4H PRN PO 07/28/17 12:15 08/27/17 12:14
[2017-07-28] MEDS: PRAMIPEXOLE DIHYDROCHLORIDE 0.5 MG TAB PO SCH (20:07)
[2017-07-29] VITALS (10 sets, daily range): BP systolic 129–164; BP diastolic 66–79; PULSE 85–108; TEMP 36.5–37; O2SAT 95–98
[2017-07-29] MEDS: LEVALBUTEROL 0.63MG/3 ML NEB INH PRN (02:05)
[2017-07-29] MEDS: PIPERACILL/TAZOBAC IV 3.375 GM in DEXTROSE 5% 100ML 100 ML IV SCH ×3 (04:24→19:33)
[2017-07-29] MEDS: METHYLPREDNISOLONE IV 20 MG in SYRINGE 0 ML IV SCH ×3 (05:23→20:43)
[2017-07-29] MEDS: IPRATROPIUM BROMIDE NEB SOLN 0.02% 2.5 ML VIAL INH SCH ×4 (07:03→19:37)
[2017-07-29] MEDS: LEVALBUTEROL 0.63MG/3 ML NEB INH SCH ×4 (07:03→19:37)
[2017-07-29] MEDS: PANTOprazole SOD 40 MG TAB PO SCH (08:17)
[2017-07-29] MEDS: TIOTROPIUM BROMIDE 5 PUFF/90 MCG INH INH SCH (08:17)
[2017-07-29] MEDS: CITALOPRAM 20 MG TAB PO SCH (08:17)
[2017-07-29] MEDS: DOXYCYCLINE HYCLATE 100 MG CAP PO SCH ×2 (08:17→20:42)
[2017-07-29] MEDS: ASPIRIN 81 MG ECTAB PO SCH (08:17)
[2017-07-29 08:48] LABS: HEMATOCRIT 32.6 % (37-47); MEAN CELL VOLUME 78.9 fL (80-100); MEAN CORPUSCULAR HEMOGLOBIN 23.7 pg (25-34); MEAN CORPUSCULAR HGB CONC 30.1 g/dl (32-36); MEAN PLATELET VOLUME 7.8 fL (7.4-10.4); PLATELET COUNT 377 K/uL (130-400); RED BLOOD COUNT 4.13 M/uL (4.2-5.4); WHITE BLOOD COUNT 14.92 K/uL (4.8-10.8)
--- NOTE | 2017-07-29 09:44 | Pulmonology Progress Note ---
Pulmonary Progress Note Date of Service Jul 29, 2017. Attending Dr. Rodriguez Subjective Patient seen and examined this morning. She is feeling much better. She is still wheezing, but feeling less short of breath. She has been out of bed to chair overnight and able to ambulate to bathroom. Objective VS reviewed. Tm 37, BP 132/66-147-75, P 85-98, RR 16-20, Sao2 96-98% on 2L NC. Gen; AAOx3, NAD, speaking in full sentences, tachypneic. Improved. CVS; S1, S2, tachycardic Lungs: prolonged expiratory phase with expiratory wheeze Abd; soft/NT/ND/ BS+ Ext: no cyanosis, no clubbing, no edema. Labs reviewed. Lactate 2.5, procalcitonin < 0.05. Blood cx 07/27/2017--> no growth to date Sputum cx-->pending Imaging viewed and reviewed by med Medications reviewed. Currently on doxycycline, zosyn, spiriva, xopenex/atrovent, solumedrol 20 mg q8h. Assessment & Plan COPD exacerbation Acute on chronic hypoxemic respiratory failure--improving Patient clinically improving. She is back down to her baseline of 2L NC. She did not require BIPAP overnight. Continue supplemental oxygen to maintain a saturation between 88-92% Continue with BiPAP as needed for increased work of breathing. Continue Solu-Medrol and taper as tolerated Continue with antibiotics 7-10 days F/u sputum cultures Continue Erendiraon May Continue with aggressive pulmonary toilet with chest PT I have considered Daliresp to prevent readmission for COPD, however due to increased diarrhea, decreased appetite and weight loss I do not feel she will be a good candidate. Recommend follow-up with Dr. Frederick and pulmonary rehabilitation upon discharge Data Medications: Current Inpatient Medications Medications (Trade) Dose Ordered Sig/Huan Route Start Time Stop Time Status Last Admin Dose Admin Methylprednisolone Sodium Succinate 20 mg/Syringe 0.32 ml @ 1.5 mls/min Q8 IV 07/28/17 06:00 08/27/17 05:59 07/29/17 05:23 1.5 MLS/MIN Piperacillin Sod/ Tazobactam Sod 3.375 gm/Dextrose 115 ml @ 25 mls/hr Q8H IV 07/28/17 04:00 10/3/17 03:59 07/29/17 04:24 25 MLS/HR Doxycycline Hyclate (Vibramycin Cap) 100 mg BID PO 07/28/17 09:00 08/04/17 08:59 07/29/17 08:17 100 MG Aspirin (Ecotrin Tab) 81 mg DAILY PO 07/28/17 09:00 08/27/17 08:59 07/29/17 08:17 81 MG Benzonatate (Tessalon Perles Cap) 100 mg TID PRN PO 07/28/17 00:30 08/27/17 00:29 Citalopram Hydrobromide (celeXA TAB) 20 mg QAM PO 07/28/17 09:00 08/27/17 08:59 07/29/17 08:17 20 MG Pantoprazole Sodium (Protonix Tab) 40 mg DAILY PO 07/28/17 09:00 08/27/17 08:59 07/29/17 08:17 40 MG Pramipexole Dihydrochloride (miraPEX TAB) 0.5 mg HS PO 07/28/17 21:00 08/27/17 20:59 07/28/17 20:07 0.5 MG Tiotropium [place] (Spiriva Handihaler Inhaler) 1 puff DAILY INH 07/28/17 09:00 08/27/17 08:59 07/29/17 08:17 1 PUFF Tramadol HCl (Ultram Tab) 50 mg Q6H PRN PO 07/28/17 00:30 08/27/17 00:29 07/29/17 04:24 50 MG Miscellaneous Information (Order Awaiting Action) 1 ea QS N/A 07/28/17 02:15 08/27/17 02:14 07/28/17 23:30 1 EA Levalbuterol (Xopenex 0.63 Mg/ 3 Ml Neb) 0.63 mg Q2H PRN INH 07/28/17 00:30 08/27/17 00:29 07/29/17 02:05 0.63 MG Levalbuterol (Xopenex 0.63 Mg/ 3 Ml Neb) 0.63 mg QIDR INH 07/28/17 08:00 08/27/17 07:59 07/29/17 07:03 0.63 MG Ipratropium [place] (Atrovent 0.02% 0.5MG/2.5ML Neb) 0.5 mg QIDR INH 07/28/17 08:00 08/27/17 07:59 07/29/17 07:03 0.5 MG Piperacillin Sod/ Tazobactam Sod (Consult) 1 ea UD PRN N/A 07/28/17 03:15 08/27/17 03:14 Acetaminophen (Tylenol Tab) 650 mg Q4H PRN PO 07/28/17 12:15 08/27/17 12:14 Vital Signs: Date Time Temp Pulse Resp B/P (MAP) Pulse Ox O2 Delivery O2 Flow Rate FiO2 07/29/17 08:00 Nasal Cannula 2.0 07/29/17 07:56 36.8 94 16 147/75 (99) 97 2.0 07/29/17 07:05 98 20 98 Nasal Cannula 2.0 07/29/17 04:33 37.0 85 20 132/66 (88) 96 Nasal Cannula 2.0 07/29/17 04:10 Nasal Cannula 2.0 07/29/17 02:05 91 20 97 Nasal Cannula 2.0 07/29/17 00:32 Nasal Cannula 2.0 07/28/17 23:06 36.7 99 20 108/38 (61) 97 Nasal Cannula 2.0 07/28/17 20:00 Nasal Cannula 3.0 07/28/17 19:46 99 20 100 Nasal Cannula 3.0 07/28/17 16:00 Nasal Cannula 3.0 07/28/17 15:43 86 18 95 Nasal Cannula 3.0 07/28/17 15:05 37.2 97 18 148/72 (97) 97 Nasal Cannula 3.0 07/28/17 13:26 98 Nasal Cannula 3.0 07/28/17 11:27 103 18 92 Nasal Cannula 3.0 07/28/17 11:23 36.7 102 119/72 (88) 92 Nasal Cannula 4.0 07/28/17 09:43 92 Nasal Cannula 4.0 Laboratory Results: Last 24 Hours Test 07/28/17 18:23 07/28/17 23:13 07/29/17 08:08 Lactic Acid Level 4.9 mmol/L 2.6 mmol/L Procalcitonin < 0.05 ng/ml White Blood Count 14.92 K/uL Red Blood Count 4.13 M/uL Hemoglobin 9.8 g/dL Hematocrit 32.6 % Mean Corpuscular Volume 78.9 fL Mean Corpuscular Hemoglobin 23.7 pg Mean Corpuscular Hemoglobin Concent 30.1 g/dl RDW Standard Deviation 55.8 fL RDW Coefficient of Variation 19.4 % Platelet Count 377 K/uL Mean Platelet Volume 7.8 fL
--- NOTE | 2017-07-29 10:37 | Clinical Documentation Query ---
GRETCHEN Moody : CLINICAL DOCUMENTATION QUERY Patient is an 82 year old female admitted for evaluation and treatment of COPD exacerbation. Received IV levofloxacin, piperacillin/tazobactam, vancomycin in ED. Maintained on Zosyn and Doxycycline. Risk factors include age, recent hospitalization, recent antibiotic use, COPD, steroids, low BMI/malnourished vs undernourished. In your clinical opinion is this patient being managed for: ( ) Possible gram-negative Pneumonia, empirically treated with Doxycycline and Zosyn ( ) Not Agree ( ) Other explanation of clinical findings (Please Explain) ( ) Unable to determine (Please Define) ( ) Need to Discuss The medical record reflects the following clinical findings, treatment, and risk factors. Clinical Indicators: As above Treatment: As above Risk Factors: Age, recent hospitalization, recent antibiotic use, COPD, steroids, low BMI/malnourished vs undernourished Please clarify and document your clinical opinion in the progress notes and discharge summary. Terms such as "probable", "suspected", "likely", "questionable", "possible", or "still to be ruled out" are acceptable. IF IN AGREEMENT, YOU MUST DOCUMENT ABOVE DIAGNOSTIC STATEMENT IN DAILY PROGRESS NOTES AND DISCHARGE SUMMARY. This document is not part of the patient's record. Thank You, Fercho Plascencia, RN [phone]
--- NOTE | 2017-07-29 18:14 | Progress Note ---
Medicine Progress Note Date & Time of Visit: Jul 29, 2017 at 18:10. Subjective Pt was seen and examined Lying in bed with no distress Pt said that she feels slight better she said that she did not used the bipap last night denies any fever, chest pain, palpitation Objective Last 8 Hrs Date Time Temp Pulse Resp B/P (MAP) Pulse Ox O2 Delivery O2 Flow Rate FiO2 07/29/17 16:00 Nasal Cannula 2.0 07/29/17 14:20 108 20 95 Nasal Cannula 2.0 07/29/17 12:00 Nasal Cannula 2.0 07/29/17 11:41 36.7 102 18 146/71 (96) 96 2.0 07/29/17 11:23 103 20 95 Nasal Cannula 2.0 Physical Exam: General- No acute distress Head- atraumatic Eyes- PERRL, EOMI ENT- oropharynx clear Neck- supple, no JVD Lungs- + wheezing Heart- +tachycardia, No murmur Abdomen- normal bowel sounds, soft Extremities- no calf tenderness Neuro- alert, oriented x 3; PERRL, EOMI Skin- warm & dry Laboratory Results: Last 24 Hours Test 07/28/17 18:23 07/28/17 23:13 07/29/17 08:08 Lactic Acid Level 4.9 mmol/L 2.6 mmol/L Procalcitonin < 0.05 ng/ml White Blood Count 14.92 K/uL Red Blood Count 4.13 M/uL Hemoglobin 9.8 g/dL Hematocrit 32.6 % Mean Corpuscular Volume 78.9 fL Mean Corpuscular Hemoglobin 23.7 pg Mean Corpuscular Hemoglobin Concent 30.1 g/dl RDW Standard Deviation 55.8 fL RDW Coefficient of Variation 19.4 % Platelet Count 377 K/uL Mean Platelet Volume 7.8 fL Date/Time Source Procedure Growth Status 07/29/17 14:12 Sputum Expectorated Sputum Gram Stain Pending Received 07/29/17 14:12 Sputum Expectorated Sputum Sputum Culture Pending Received Assessment & Plan EXACERBATION OF COPD Present with productive cough Severe O2 and steroid-dependent COPD. Recent exacerbation of COPD, just completed course of levofloxacin and steroid taper. CXR showed No infiltrates Received IV levofloxacin, piperacillin/tazobactam, vancomycin in ED. Off BiPAP Saturated at 95% on 3L continue O2 sat to keep sat btw 88 to 92% On solumedrol 20mg IV q8hr Continue doxy and zosyn Elevated WBC, monitor cbc Blood cx pending Monitor PEFR's. Pulmonary Medicine on board, might consider to start on daliresp to to prevent readmission for COPD Continue Tessalon Perles Continue with aggressive pulmonary toilet with chest PT clinically improved continue solumedrol taper ELEVATED LACTIC ACID lactic acid peak to 4.9 Clinically improved despite elevated lactic lactic acid trending down procalcitonin wnl afebrile GERD Continue PPI. RESTLESS LEGS SYNDROME Continue pramipexole. VERTEBRAL COMPRESSION FRACTURES Continue tramadol PRN. VTE PROPHYLAXIS Moderate risk for VTE. SQ heparin. DISPOSITION Full code DISPOSITION Continue monitor in telemetry Consultants: Pulmonary Current Inpatient Medications: Current Inpatient Medications Medications (Trade) Dose Ordered Sig/Huan Route Start Time Stop Time Status Last Admin Dose Admin Methylprednisolone Sodium Succinate 20 mg/Syringe 0.32 ml @ 1.5 mls/min Q8 IV 07/28/17 06:00 08/27/17 05:59 07/29/17 14:16 1.5 MLS/MIN Piperacillin Sod/ Tazobactam Sod 3.375 gm/Dextrose 115 ml @ 28.75 mls/ hr Q8H IV 07/28/17 04:00 08/04/17 03:59 07/29/17 12:22 28.75 MLS/HR Doxycycline Hyclate (Vibramycin Cap) 100 mg BID PO 07/28/17 09:00 08/04/17 08:59 07/29/17 08:17 100 MG Aspirin (Ecotrin Tab) 81 mg DAILY PO 07/28/17 09:00 08/27/17 08:59 07/29/17 08:17 81 MG Benzonatate (Tessalon Perles Cap) 100 mg TID PRN PO 07/28/17 00:30 08/27/17 00:29 Citalopram Hydrobromide (celeXA TAB) 20 mg QAM PO 07/28/17 09:00 08/27/17 08:59 07/29/17 08:17 20 MG Pantoprazole Sodium (Protonix Tab) 40 mg DAILY PO 07/28/17 09:00 08/27/17 08:59 07/29/17 08:17 40 MG Pramipexole Dihydrochloride (miraPEX TAB) 0.5 mg HS PO 07/28/17 21:00 08/27/17 20:59 07/28/17 20:07 0.5 MG Tiotropium [place] (Spiriva Handihaler Inhaler) 1 puff DAILY INH 07/28/17 09:00 08/27/17 08:59 07/29/17 08:17 1 PUFF Tramadol HCl (Ultram Tab) 50 mg Q6H PRN PO 07/28/17 00:30 08/27/17 00:29 07/29/17 04:24 50 MG Miscellaneous Information (Order Awaiting Action) 1 ea QS N/A 07/28/17 02:15 08/27/17 02:14 07/28/17 23:30 1 EA Levalbuterol (Xopenex 0.63 Mg/ 3 Ml Neb) 0.63 mg Q2H PRN INH 07/28/17 00:30 08/27/17 00:29 07/29/17 02:05 0.63 MG Levalbuterol (Xopenex 0.63 Mg/ 3 Ml Neb) 0.63 mg QIDR INH 07/28/17 08:00 08/27/17 07:59 07/29/17 14:19 0.63 MG Ipratropium [place] (Atrovent 0.02% 0.5MG/2.5ML Neb) 0.5 mg QIDR INH 07/28/17 08:00 08/27/17 07:59 07/29/17 14:19 0.5 MG Piperacillin Sod/ Tazobactam Sod (Consult) 1 ea UD PRN N/A 07/28/17 03:15 08/27/17 03:14 Acetaminophen (Tylenol Tab) 650 mg Q4H PRN PO 07/28/17 12:15 08/27/17 12:14
[2017-07-29] MEDS: PRAMIPEXOLE DIHYDROCHLORIDE 0.5 MG TAB PO SCH (20:42)
[2017-07-30] VITALS (12 sets, daily range): BP systolic 129–160; BP diastolic 68–82; PULSE 69–107; TEMP 36.3–36.9; O2SAT 87–100
[2017-07-30] MEDS: LEVALBUTEROL 0.63MG/3 ML NEB INH PRN ×2 (00:45→05:55)
[2017-07-30] MEDS: PIPERACILL/TAZOBAC IV 3.375 GM in DEXTROSE 5% 100ML 100 ML IV SCH ×3 (04:04→20:26)
[2017-07-30] MEDS: ACETAMINOPHEN 325 MG TAB PO PRN (04:05)
[2017-07-30] MEDS: METHYLPREDNISOLONE IV 20 MG in SYRINGE 0 ML IV SCH ×3 (05:35→21:55)
[2017-07-30] MEDS: LEVALBUTEROL 0.63MG/3 ML NEB INH SCH ×4 (07:09→20:24)
[2017-07-30] MEDS: IPRATROPIUM BROMIDE NEB SOLN 0.02% 2.5 ML VIAL INH SCH ×4 (07:09→20:24)
[2017-07-30] MEDS: CITALOPRAM 20 MG TAB PO SCH (08:15)
[2017-07-30] MEDS: ASPIRIN 81 MG ECTAB PO SCH (08:15)
[2017-07-30] MEDS: DOXYCYCLINE HYCLATE 100 MG CAP PO SCH ×2 (08:15→20:27)
[2017-07-30] MEDS: TIOTROPIUM BROMIDE 5 PUFF/90 MCG INH INH SCH (08:16)
[2017-07-30] MEDS: PANTOprazole SOD 40 MG TAB PO SCH (08:16)
--- NOTE | 2017-07-30 09:46 | Pulmonology Progress Note ---
Pulmonary Progress Note Date of Service Jul 30, 2017. Attending Subjective Patient seen and examined. She states that her cough is more productive this morning. She is having more whitish to yellowish sputum. She is still dyspneic on exertion. No use of BIPAP in two days. Objective VS reviewed. Tm 36.3, BP 150-160/81, P 83-104, RR 16-20, Sao2 94-97 on 2L NC. Gen; AAOx3, NAD, speaking in full sentences, tachypneic. Improved. CVS; S1, S2, tachycardic Lungs: prolonged expiratory phase with expiratory wheezes still present Abd; soft/NT/ND/ BS+ Ext: no cyanosis, no clubbing, no edema. Labs reviewed. Lactate 2.6, procalcitonin < 0.05. Blood cx 07/27/2017--> no growth to date Sputum cx-->contaminatead Imaging viewed and reviewed by med Medications reviewed. Currently on doxycycline, zosyn, spiriva, xopenex/atrovent, solumedrol 20 mg q8h , tessolon perles. Assessment & Plan COPD exacerbation Acute on chronic hypoxemic respiratory failure--improving Patient clinically improving. She is back down to her baseline of 2L NC. She did not require BIPAP overnight. Still dyspneic on exertion with increased sputum production. Continue supplemental oxygen to maintain a saturation between 88-92% Continue Solu-Medrol and taper as tolerated. Consider switching over PO steroids today. Continue with antibiotics 7-10 days Continue Tessalon Perles Continue with aggressive pulmonary toilet with chest PT Patient and I discussed starting Daliresp to prevent readmission for COPD. We discussed the risk of increased diarrhea, decreased appetite and weight loss. Patient states that she would like a trial. If she should have significant side effects will discontinue. Recommend follow-up with Dr. Frederick and pulmonary rehabilitation upon discharge Data Medications: Current Inpatient Medications Medications (Trade) Dose Ordered Sig/Huan Route Start Time Stop Time Status Last Admin Dose Admin Methylprednisolone Sodium Succinate 20 mg/Syringe 0.32 ml @ 1.5 mls/min Q8 IV 07/28/17 06:00 08/27/17 05:59 07/30/17 05:35 1.5 MLS/MIN Piperacillin Sod/ Tazobactam Sod 3.375 gm/Dextrose 115 ml @ 28.75 mls/ hr Q8H IV 07/28/17 04:00 08/04/17 03:59 07/30/17 04:04 28.75 MLS/HR Doxycycline Hyclate (Vibramycin Cap) 100 mg BID PO 07/28/17 09:00 08/04/17 08:59 07/30/17 08:15 100 MG Aspirin (Ecotrin Tab) 81 mg DAILY PO 07/28/17 09:00 08/27/17 08:59 07/30/17 08:15 81 MG Benzonatate (Tessalon Perles Cap) 100 mg TID PRN PO 07/28/17 00:30 08/27/17 00:29 Citalopram Hydrobromide (celeXA TAB) 20 mg QAM PO 07/28/17 09:00 08/27/17 08:59 07/30/17 08:15 20 MG Pantoprazole Sodium (Protonix Tab) 40 mg DAILY PO 07/28/17 09:00 08/27/17 08:59 07/30/17 08:16 40 MG Pramipexole Dihydrochloride (miraPEX TAB) 0.5 mg HS PO 07/28/17 21:00 08/27/17 20:59 07/29/17 20:42 0.5 MG Tiotropium [place] (Spiriva Handihaler Inhaler) 1 puff DAILY INH 07/28/17 09:00 08/27/17 08:59 07/30/17 08:16 1 PUFF Tramadol HCl (Ultram Tab) 50 mg Q6H PRN PO 07/28/17 00:30 08/27/17 00:29 07/29/17 04:24 50 MG Miscellaneous Information (Order Awaiting Action) 1 ea QS N/A 07/28/17 02:15 08/27/17 02:14 07/28/17 23:30 1 EA Levalbuterol (Xopenex 0.63 Mg/ 3 Ml Neb) 0.63 mg Q2H PRN INH 07/28/17 00:30 08/27/17 00:29 07/30/17 05:55 0.63 MG Levalbuterol (Xopenex 0.63 Mg/ 3 Ml Neb) 0.63 mg QIDR INH 07/28/17 08:00 08/27/17 07:59 07/30/17 07:09 0.63 MG Ipratropium [place] (Atrovent 0.02% 0.5MG/2.5ML Neb) 0.5 mg QIDR INH 07/28/17 08:00 08/27/17 07:59 07/30/17 07:09 0.5 MG Piperacillin Sod/ Tazobactam Sod (Consult) 1 ea UD PRN N/A 07/28/17 03:15 08/27/17 03:14 Acetaminophen (Tylenol Tab) 650 mg Q4H PRN PO 07/28/17 12:15 08/27/17 12:14 07/30/17 04:05 650 MG Vital Signs: Date Time Temp Pulse Resp B/P (MAP) Pulse Ox O2 Delivery O2 Flow Rate FiO2 07/30/17 08:00 Nasal Cannula 2.0 07/30/17 07:09 83 20 94 Nasal Cannula 2.0 07/30/17 05:55 96 22 97 Nasal Cannula 2.0 07/30/17 04:08 36.3 94 20 160/81 (107) 95 Nasal Cannula 2.0 150/81 (104) 07/30/17 04:00 Nasal Cannula 2.0 07/30/17 00:46 104 20 97 Nasal Cannula 2.0 07/30/17 00:00 Nasal Cannula 2.0 07/29/17 23:07 36.5 89 20 129/79 (96) 97 Nasal Cannula 2.0 07/29/17 20:00 Nasal Cannula 2.0 07/29/17 19:40 36.9 92 24 164/78 (106) 97 Nasal Cannula 2.0 07/29/17 19:37 102 20 97 Nasal Cannula 2.0 07/29/17 16:00 Nasal Cannula 2.0 07/29/17 14:20 108 20 95 Nasal Cannula 2.0 07/29/17 12:00 Nasal Cannula 2.0 07/29/17 11:41 36.7 102 18 146/71 (96) 96 2.0 07/29/17 11:23 103 20 95 Nasal Cannula 2.0
--- NOTE | 2017-07-30 19:21 | Progress Note ---
Medicine Progress Note Date & Time of Visit: Jul 30, 2017 at 11:16. Subjective Pt was seen and examined Lying in bed with no distress continue to have SOB on exertion denies any chest pain, palpitation, dizziness Objective Last 8 Hrs Date Time Temp Pulse Resp B/P (MAP) Pulse Ox O2 Delivery O2 Flow Rate FiO2 07/30/17 16:03 36.4 90 18 158/82 (107) 100 Nasal Cannula 7.0 07/30/17 15:49 69 20 93 Nasal Cannula 2.0 07/30/17 12:56 36.8 88 20 94 2.0 07/30/17 12:00 Nasal Cannula 2.0 07/30/17 11:27 88 20 94 Nasal Cannula 2.0 Physical Exam: General- No acute distress Head- atraumatic Eyes- PERRL, EOMI ENT- oropharynx clear Neck- supple, no JVD Lungs- + wheezing Heart- +tachycardia, No murmur Abdomen- normal bowel sounds, soft Extremities- no calf tenderness Neuro- alert, oriented x 3; PERRL, EOMI Skin- warm & dry Assessment & Plan EXACERBATION OF COPD Present with productive cough Severe O2 and steroid-dependent COPD. Recent exacerbation of COPD, just completed course of levofloxacin and steroid taper. CXR showed No infiltrates Received IV levofloxacin, piperacillin/tazobactam, vancomycin in ED. Off BiPAP Saturated at 95% on 3L continue O2 sat to keep sat btw 88 to 92% On solumedrol 20mg IV q8hr Continue doxy and zosyn Elevated WBC, monitor cbc Blood cx pending Monitor PEFR's. Pulmonary Medicine on board, might consider to start on daliresp to to prevent readmission for COPD Continue Tessalon Perles Continue with aggressive pulmonary toilet with chest PT clinically improved continue solumedrol taper 06/30 blood cx no growth sputum cx contaminated continue current abx Daliresp started, will monitor for any GI side effect continue steroid and Tessalon continue oxygen supplement ELEVATED LACTIC ACID lactic acid peak to 4.9 Clinically improved despite elevated lactic lactic acid trending down procalcitonin wnl afebrile GERD Continue PPI. RESTLESS LEGS SYNDROME Continue pramipexole. VERTEBRAL COMPRESSION FRACTURES Continue tramadol PRN. VTE PROPHYLAXIS Moderate risk for VTE. SQ heparin. DISPOSITION Full code DISPOSITION transfer to medical Consultants: Pulmonary Current Inpatient Medications: Current Inpatient Medications Medications (Trade) Dose Ordered Sig/Huan Route Start Time Stop Time Status Last Admin Dose Admin Methylprednisolone Sodium Succinate 20 mg/Syringe 0.32 ml @ 1.5 mls/min Q8 IV 07/28/17 06:00 08/27/17 05:59 07/30/17 13:06 1.5 MLS/MIN Piperacillin Sod/ Tazobactam Sod 3.375 gm/Dextrose 115 ml @ 28.75 mls/ hr Q8H IV 07/28/17 04:00 08/04/17 03:59 07/30/17 13:06 28.75 MLS/HR Doxycycline Hyclate (Vibramycin Cap) 100 mg BID PO 07/28/17 09:00 08/04/17 08:59 07/30/17 08:15 100 MG Aspirin (Ecotrin Tab) 81 mg DAILY PO 07/28/17 09:00 08/27/17 08:59 07/30/17 08:15 81 MG Benzonatate (Tessalon Perles Cap) 100 mg TID PRN PO 07/28/17 00:30 08/27/17 00:29 Citalopram Hydrobromide (celeXA TAB) 20 mg QAM PO 07/28/17 09:00 08/27/17 08:59 07/30/17 08:15 20 MG Pantoprazole Sodium (Protonix Tab) 40 mg DAILY PO 07/28/17 09:00 08/27/17 08:59 07/30/17 08:16 40 MG Pramipexole Dihydrochloride (miraPEX TAB) 0.5 mg HS PO 07/28/17 21:00 08/27/17 20:59 07/29/17 20:42 0.5 MG Tiotropium [place] (Spiriva Handihaler Inhaler) 1 puff DAILY INH 07/28/17 09:00 08/27/17 08:59 07/30/17 08:16 1 PUFF Tramadol HCl (Ultram Tab) 50 mg Q6H PRN PO 07/28/17 00:30 08/27/17 00:29 07/29/17 04:24 50 MG Miscellaneous Information (Order Awaiting Action) 1 ea QS N/A 07/28/17 02:15 08/27/17 02:14 07/28/17 23:30 1 EA Levalbuterol (Xopenex 0.63 Mg/ 3 Ml Neb) 0.63 mg Q2H PRN INH 07/28/17 00:30 08/27/17 00:29 07/30/17 05:55 0.63 MG Levalbuterol (Xopenex 0.63 Mg/ 3 Ml Neb) 0.63 mg QIDR INH 07/28/17 08:00 08/27/17 07:59 07/30/17 15:49 0.63 MG Ipratropium [place] (Atrovent 0.02% 0.5MG/2.5ML Neb) 0.5 mg QIDR INH 07/28/17 08:00 08/27/17 07:59 07/30/17 15:49 0.5 MG Piperacillin Sod/ Tazobactam Sod (Consult) 1 ea UD PRN N/A 07/28/17 03:15 08/27/17 03:14 Acetaminophen (Tylenol Tab) 650 mg Q4H PRN PO 07/28/17 12:15 08/27/17 12:14 07/30/17 04:05 650 MG
[2017-07-30] MEDS: PRAMIPEXOLE DIHYDROCHLORIDE 0.5 MG TAB PO SCH (20:27)
[2017-07-31] VITALS (9 sets, daily range): BP systolic 144–174; BP diastolic 73–81; PULSE 64–102; TEMP 36.4; O2SAT 91–97
[2017-07-31] MEDS: LEVALBUTEROL 0.63MG/3 ML NEB INH PRN (02:58)
[2017-07-31] MEDS: PIPERACILL/TAZOBAC IV 3.375 GM in DEXTROSE 5% 100ML 100 ML IV SCH ×3 (04:26→20:47)
[2017-07-31] MEDS: METHYLPREDNISOLONE IV 20 MG in SYRINGE 0 ML IV SCH ×3 (06:18→20:45)
[2017-07-31] MEDS: IPRATROPIUM BROMIDE NEB SOLN 0.02% 2.5 ML VIAL INH SCH ×4 (07:06→20:10)
[2017-07-31] MEDS: LEVALBUTEROL 0.63MG/3 ML NEB INH SCH ×4 (07:06→20:10)
[2017-07-31 07:33] LABS: CREATININE 0.76 mg/dl (0.60-1.20)
[2017-07-31] MEDS: TIOTROPIUM BROMIDE 5 PUFF/90 MCG INH INH SCH (07:45)
[2017-07-31] MEDS: DOXYCYCLINE HYCLATE 100 MG CAP PO SCH ×2 (07:45→20:44)
[2017-07-31] MEDS: ASPIRIN 81 MG ECTAB PO SCH (07:45)
[2017-07-31] MEDS: CITALOPRAM 20 MG TAB PO SCH (07:45)
[2017-07-31] MEDS: PANTOprazole SOD 40 MG TAB PO SCH (07:46)
[2017-07-31] MEDS: BREO ELLIPTA INH SCH (08:00)
--- NOTE | 2017-07-31 13:48 | Pulmonology Progress Note ---
Pulmonary Progress Note Date of Service Jul 31, 2017. Attending Dr. Rodriguez Subjective Patient seen and examined. She still feels short of breath on exertion with intermittent cough. She is sleeping better at night. Objective VS reviewed. Gen; AAOx3, NAD, speaking in full sentences, tachypneic. Improved. CVS; S1, S2, RRR Lungs: prolonged expiratory phase with expiratory wheeze Abd; soft/NT/ND/ BS+ Ext: no cyanosis, no clubbing, no edema. Labs reviewed.--no new labs today Blood cx 07/27/2017--> no growth to date Sputum cx-->contaminated Medications reviewed. Currently on doxycycline, zosyn, spiriva, xopenex/atrovent, solumedrol 20 mg q8h. Started daliresp. Assessment & Plan COPD exacerbation-improving Acute on chronic hypoxemic respiratory failure--improving Patient clinically improving daily. She is back down to her baseline of 2L NC. Still dyspneic on exertion. Sputum production decreasing. Continue supplemental oxygen to maintain a saturation between 88-92% Switch over to oral steroids. Continue with antibiotics 7-10 days Continue Tessalon Perles Continue with aggressive pulmonary toilet with chest PT Continue with Daliresp to prevent readmission for COPD. This will be a trial, so if she should have significant adverse side effects will discontinue. Recommend follow-up with Dr. Frederick and pulmonary rehabilitation upon discharge. Will sign off on case for now. Please contact me if you have any other questions or concerns. Data Medications: Current Inpatient Medications Medications (Trade) Dose Ordered Sig/Huan Route Start Time Stop Time Status Last Admin Dose Admin Methylprednisolone Sodium Succinate 20 mg/Syringe 0.32 ml @ 1.5 mls/min Q8 IV 07/28/17 06:00 08/27/17 05:59 07/31/17 06:18 1.5 MLS/MIN Piperacillin Sod/ Tazobactam Sod 3.375 gm/Dextrose 115 ml @ 28.75 mls/ hr Q8H IV 07/28/17 04:00 08/04/17 03:59 07/31/17 04:26 28.75 MLS/HR Doxycycline Hyclate (Vibramycin Cap) 100 mg BID PO 07/28/17 09:00 08/04/17 08:59 07/31/17 07:45 100 MG Aspirin (Ecotrin Tab) 81 mg DAILY PO 07/28/17 09:00 08/27/17 08:59 07/31/17 07:45 81 MG Benzonatate (Tessalon Perles Cap) 100 mg TID PRN PO 07/28/17 00:30 08/27/17 00:29 Citalopram Hydrobromide (celeXA TAB) 20 mg QAM PO 07/28/17 09:00 08/27/17 08:59 07/31/17 07:45 20 MG Pantoprazole Sodium (Protonix Tab) 40 mg DAILY PO 07/28/17 09:00 08/27/17 08:59 07/31/17 07:46 40 MG Pramipexole Dihydrochloride (miraPEX TAB) 0.5 mg HS PO 07/28/17 21:00 08/27/17 20:59 07/30/17 20:27 0.5 MG Tiotropium [place] (Spiriva Handihaler Inhaler) 1 puff DAILY INH 07/28/17 09:00 08/27/17 08:59 07/31/17 07:45 1 PUFF Tramadol HCl (Ultram Tab) 50 mg Q6H PRN PO 07/28/17 00:30 08/27/17 00:29 07/29/17 04:24 50 MG Levalbuterol (Xopenex 0.63 Mg/ 3 Ml Neb) 0.63 mg Q2H PRN INH 07/28/17 00:30 08/27/17 00:29 07/31/17 02:58 0.63 MG Levalbuterol (Xopenex 0.63 Mg/ 3 Ml Neb) 0.63 mg QIDR INH 07/28/17 08:00 08/27/17 07:59 07/31/17 11:26 0.63 MG Ipratropium [place] (Atrovent 0.02% 0.5MG/2.5ML Neb) 0.5 mg QIDR INH 07/28/17 08:00 08/27/17 07:59 07/31/17 11:26 0.5 MG Piperacillin Sod/ Tazobactam Sod (Consult) 1 ea UD PRN N/A 07/28/17 03:15 08/27/17 03:14 Acetaminophen (Tylenol Tab) 650 mg Q4H PRN PO 07/28/17 12:15 08/27/17 12:14 07/30/17 04:05 650 MG Fluticasone/ Vilanterol (Breo Ellipta 200-25 Mcg/Inh) 1 inha QAM INH 07/31/17 08:00 08/30/17 07:59 07/31/17 08:00 1 INHA Roflumilast (Daliresp Tab) 500 mcg DAILY PO 08/01/17 08:00 08/31/17 07:59 Vital Signs: Date Time Temp Pulse Resp B/P (MAP) Pulse Ox O2 Delivery O2 Flow Rate FiO2 07/31/17 11:28 96 20 97 Nasal Cannula 2.0 07/31/17 08:00 Nasal Cannula 2.0 07/31/17 07:53 36.4 94 22 148/78 (101) 94 Nasal Cannula 2.0 07/31/17 07:08 98 20 91 Nasal Cannula 2.0 07/31/17 03:00 99 20 96 Nasal Cannula 2.0 07/31/17 00:00 Nasal Cannula 2.0 07/30/17 23:25 36.6 98 20 129/68 (88) 97 Nasal Cannula 2.0 07/30/17 20:24 107 20 87 Nasal Cannula 2.0 07/30/17 20:10 Nasal Cannula 2.0 07/30/17 16:03 36.4 90 18 158/82 (107) 100 Nasal Cannula 7.0 07/30/17 15:49 69 20 93 Nasal Cannula 2.0 Laboratory Results: Last 24 Hours Test 07/31/17 06:34 Creatinine 0.76 mg/dl Est Creatinine Clear Calc Drug Dose 44.5 ml/min Estimated GFR () 85.9 Estimated GFR (Non- 74.1
[2017-07-31] MEDS ORDERED: ROFLUMILAST 500 MCG TAB PO ONE (14:00)
--- NOTE | 2017-07-31 18:45 | Progress Note ---
Medicine Progress Note Date & Time of Visit: Jul 31, 2017 at 18:39. Subjective Pt was seen and examined Sitting in bed with no distress Pt said that she feels fine when she does not move but she said the moment she walks a little, she develops SOB She said her cough slightly improves denies any chest pain, palpitation, dizziness and fever Objective Last 8 Hrs Date Time Temp Pulse Resp B/P (MAP) Pulse Ox O2 Delivery O2 Flow Rate FiO2 07/31/17 16:00 Nasal Cannula 2.0 07/31/17 15:44 36.4 101 18 174/80 (111) 94 Nasal Cannula 2.0 160/81 (107) 07/31/17 15:42 102 20 94 Nasal Cannula 2.0 07/31/17 11:28 96 20 97 Nasal Cannula 2.0 Physical Exam: General- No acute distress Head- atraumatic Eyes- PERRL, EOMI ENT- oropharynx clear Neck- supple, no JVD Lungs- + wheezing Heart- +tachycardia, No murmur Abdomen- normal bowel sounds, soft Extremities- no calf tenderness Neuro- alert, oriented x 3; PERRL, EOMI Skin- warm & dry Laboratory Results: Last 24 Hours Test 07/31/17 06:34 Creatinine 0.76 mg/dl Est Creatinine Clear Calc Drug Dose 44.5 ml/min Estimated GFR () 85.9 Estimated GFR (Non- 74.1 Assessment & Plan EXACERBATION OF COPD Present with productive cough Severe O2 and steroid-dependent COPD. Recent exacerbation of COPD, just completed course of levofloxacin and steroid taper. CXR showed No infiltrates Received IV levofloxacin, piperacillin/tazobactam, vancomycin in ED. Off BiPAP Saturated at 95% on 3L continue O2 sat to keep sat btw 88 to 92% On solumedrol 20mg IV q8hr Continue doxy and zosyn Elevated WBC, monitor cbc Blood cx pending Monitor PEFR's. Pulmonary Medicine on board, might consider to start on daliresp to to prevent readmission for COPD Continue Tesmikaelon May Continue with aggressive pulmonary toilet with chest PT clinically improved continue solumedrol taper 06/30 blood cx no growth sputum cx contaminated continue current abx Daliresp started, will monitor for any GI side effect continue steroid and Tessalon will change IV steroid to oral prednisone continue oxygen supplement continue neb treatment pulmonary on board ELEVATED LACTIC ACID lactic acid peak to 4.9 Clinically improved despite elevated lactic lactic acid trending down procalcitonin wnl afebrile GERD Continue PPI. RESTLESS LEGS SYNDROME Continue pramipexole. VERTEBRAL COMPRESSION FRACTURES Continue tramadol PRN. VTE PROPHYLAXIS Moderate risk for VTE. SQ heparin. DISPOSITION Full code DISPOSITION discharge when medically stable Consultants: Pulmonary Current Inpatient Medications: Current Inpatient Medications Medications (Trade) Dose Ordered Sig/Huan Route Start Time Stop Time Status Last Admin Dose Admin Methylprednisolone Sodium Succinate 20 mg/Syringe 0.32 ml @ 1.5 mls/min Q8 IV 07/28/17 06:00 08/27/17 05:59 07/31/17 13:44 1.5 MLS/MIN Piperacillin Sod/ Tazobactam Sod 3.375 gm/Dextrose 115 ml @ 28.75 mls/ hr Q8H IV 07/28/17 04:00 08/04/17 03:59 07/31/17 13:44 28.75 MLS/HR Doxycycline Hyclate (Vibramycin Cap) 100 mg BID PO 07/28/17 09:00 08/04/17 08:59 07/31/17 07:45 100 MG Aspirin (Ecotrin Tab) 81 mg DAILY PO 07/28/17 09:00 08/27/17 08:59 07/31/17 07:45 81 MG Benzonatate (Tessalon Perles Cap) 100 mg TID PRN PO 07/28/17 00:30 08/27/17 00:29 Citalopram Hydrobromide (celeXA TAB) 20 mg QAM PO 07/28/17 09:00 08/27/17 08:59 07/31/17 07:45 20 MG Pantoprazole Sodium (Protonix Tab) 40 mg DAILY PO 07/28/17 09:00 08/27/17 08:59 07/31/17 07:46 40 MG Pramipexole Dihydrochloride (miraPEX TAB) 0.5 mg HS PO 07/28/17 21:00 08/27/17 20:59 07/30/17 20:27 0.5 MG Tiotropium [place] (Spiriva Handihaler Inhaler) 1 puff DAILY INH 07/28/17 09:00 08/27/17 08:59 07/31/17 07:45 1 PUFF Tramadol HCl (Ultram Tab) 50 mg Q6H PRN PO 07/28/17 00:30 08/27/17 00:29 07/29/17 04:24 50 MG Levalbuterol (Xopenex 0.63 Mg/ 3 Ml Neb) 0.63 mg Q2H PRN INH 07/28/17 00:30 08/27/17 00:29 07/31/17 02:58 0.63 MG Levalbuterol (Xopenex 0.63 Mg/ 3 Ml Neb) 0.63 mg QIDR INH 07/28/17 08:00 08/27/17 07:59 07/31/17 15:39 0.63 MG Ipratropium [place] (Atrovent 0.02% 0.5MG/2.5ML Neb) 0.5 mg QIDR INH 07/28/17 08:00 08/27/17 07:59 07/31/17 15:39 0.5 MG Piperacillin Sod/ Tazobactam Sod (Consult) 1 ea UD PRN N/A 07/28/17 03:15 08/27/17 03:14 Acetaminophen (Tylenol Tab) 650 mg Q4H PRN PO 07/28/17 12:15 08/27/17 12:14 07/30/17 04:05 650 MG Fluticasone/ Vilanterol (Breo Ellipta 200-25 Mcg/Inh) 1 inha QAM INH 07/31/17 08:00 08/30/17 07:59 07/31/17 08:00 1 INHA Roflumilast (Daliresp Tab) 500 mcg DAILY PO 08/01/17 08:00 08/31/17 07:59
[2017-07-31] MEDS: PRAMIPEXOLE DIHYDROCHLORIDE 0.5 MG TAB PO SCH (20:44)
[2017-07-31] MEDS: ACETAMINOPHEN 325 MG TAB PO PRN (22:49)
[2017-08-01] VITALS (8 sets, daily range): BP systolic 134–143; BP diastolic 68–80; PULSE 64–99; TEMP 36.5–36.8; O2SAT 95–99
[2017-08-01] MEDS: LEVALBUTEROL 0.63MG/3 ML NEB INH PRN (03:03)
[2017-08-01] MEDS: PIPERACILL/TAZOBAC IV 3.375 GM in DEXTROSE 5% 100ML 100 ML IV SCH ×3 (03:49→20:11)
[2017-08-01 06:56] LABS: CREATININE 0.7 mg/dl (0.60-1.20)
[2017-08-01] MEDS: IPRATROPIUM BROMIDE NEB SOLN 0.02% 2.5 ML VIAL INH SCH ×4 (07:02→20:48)
[2017-08-01] MEDS: LEVALBUTEROL 0.63MG/3 ML NEB INH SCH ×4 (07:03→20:49)
[2017-08-01] MEDS: TIOTROPIUM BROMIDE 5 PUFF/90 MCG INH INH SCH (08:00)
[2017-08-01] MEDS: BREO ELLIPTA INH SCH (08:00)
[2017-08-01] MEDS: CITALOPRAM 20 MG TAB PO SCH (09:39)
[2017-08-01] MEDS: DOXYCYCLINE HYCLATE 100 MG CAP PO SCH ×2 (09:39→20:11)
[2017-08-01] MEDS: ASPIRIN 81 MG ECTAB PO SCH (09:39)
[2017-08-01] MEDS: PANTOprazole SOD 40 MG TAB PO SCH (09:40)
[2017-08-01] MEDS: ROFLUMILAST 500 MCG TAB PO SCH (11:07)
--- NOTE | 2017-08-01 18:09 | Progress Note ---
Internal Med Progress Note Date of Service: Aug 01, 2017. Provider Documentation: SUBJECTIVE: has persistent cough no SOB no fever or chills OBJECTIVE: Vital Signs-as noted below Exam: General- No acute distress Head- atraumatic Eyes- PERRL, EOMI ENT- oropharynx clear Neck- supple, no JVD Lungs- + wheezing Heart- +tachycardia, No murmur Abdomen- normal bowel sounds, soft Extremities- no calf tenderness Neuro- alert, oriented x 3; PERRL, EOMI Skin- warm & dry Lab data as noted below. ASSESSMENT & PLAN: EXACERBATION OF COPD clinically improving Recent exacerbation of COPD, just completed course of levofloxacin and steroid taper. baseline advanced COPD /Emphysema on chronic 02 and chronic prednisone dependent CXR showed No infiltrates will D/C Zosyn cont Doxycycline for total 5-7 days continue solumedrol taper Pulmonary Medicine consulted appreciate input might consider to start on daliresp to to prevent readmission for COPD Continue Tessalon Perles Continue with aggressive pulmonary toilet with chest PT ELEVATED LACTIC ACID possible due to hypoxia /respiratory distress no evidence of sepsis GERD Continue PPI. RESTLESS LEGS SYNDROME Continue pramipexole. VERTEBRAL COMPRESSION FRACTURES Continue tramadol PRN. VTE PROPHYLAXIS Moderate risk for VTE. SQ heparin. DISPOSITION Full code DISPOSITION discharge when medically stable Consultants: Pulmonary Vital Signs: Date Time Temp Pulse Resp B/P (MAP) Pulse Ox O2 Delivery O2 Flow Rate FiO2 08/02/17 15:01 36.6 99 22 124/70 (88) 99 Nasal Cannula 2.0 08/02/17 14:29 100 18 98 Nasal Cannula 2.0 08/02/17 11:07 115 18 93 Nasal Cannula 2.0 08/02/17 08:00 Nasal Cannula 2.0 08/02/17 07:23 93 18 97 Nasal Cannula 2.0 08/02/17 07:07 36.6 96 20 158/75 (102) 97 Nasal Cannula 2.0 08/02/17 05:26 92 18 98 Nasal Cannula 2.0 08/02/17 00:41 103 22 93 Nasal Cannula 2.0 08/02/17 00:29 36.8 97 18 127/74 (91) 97 Nasal Cannula 2.0 08/01/17 23:45 Nasal Cannula 2.0 08/01/17 21:01 98 20 98 Nasal Cannula 2.0 Lab Results: Results Past 24 Hours Test 08/02/17 06:02 Range/Units Creatinine 0.69 0.60-1.20 mg/dl Est Creatinine Clear Calc Drug Dose 49.0 ml/min Estimated GFR () 95.3 Estimated GFR (Non- 82.2
[2017-08-01] MEDS: PRAMIPEXOLE DIHYDROCHLORIDE 0.5 MG TAB PO SCH (20:11)
[2017-08-01] MEDS: ACETAMINOPHEN 325 MG TAB PO PRN (22:37)
[2017-08-02] VITALS (11 sets, daily range): BP systolic 124–159; BP diastolic 70–75; PULSE 83–115; TEMP 36.6–36.8; O2SAT 92–100
[2017-08-02] MEDS: LEVALBUTEROL 0.63MG/3 ML NEB INH PRN ×3 (00:39→23:53)
[2017-08-02] MEDS: PIPERACILL/TAZOBAC IV 3.375 GM in DEXTROSE 5% 100ML 100 ML IV SCH ×2 (04:13→11:36)
[2017-08-02 06:55] LABS: CREATININE 0.69 mg/dl (0.60-1.20)
[2017-08-02] MEDS: LEVALBUTEROL 0.63MG/3 ML NEB INH SCH ×4 (07:23→19:25)
[2017-08-02] MEDS: IPRATROPIUM BROMIDE NEB SOLN 0.02% 2.5 ML VIAL INH SCH ×4 (07:23→19:24)
[2017-08-02] MEDS: TIOTROPIUM BROMIDE 5 PUFF/90 MCG INH INH SCH (08:31)
[2017-08-02] MEDS: PANTOprazole SOD 40 MG TAB PO SCH (08:33)
[2017-08-02] MEDS: ASPIRIN 81 MG ECTAB PO SCH (08:33)
[2017-08-02] MEDS: DOXYCYCLINE HYCLATE 100 MG CAP PO SCH (08:33)
[2017-08-02] MEDS: CITALOPRAM 20 MG TAB PO SCH (08:33)
[2017-08-02] MEDS: ROFLUMILAST 500 MCG TAB PO SCH (08:34)
[2017-08-02] MEDS: BREO ELLIPTA INH SCH (08:38)
--- NOTE | 2017-08-02 18:20 | Progress Note ---
Internal Med Progress Note Date of Service: Aug 02, 2017. Provider Documentation: SUBJECTIVE: still very SOB ; experiencing PRASAD with minimum activity , getting up and going to bathroom had minimum sputum ,feels cough is stuck at back of her throat and can not get it out no fever or chills having loose bowel movements for past 2-3 days had 3 loose BM , mentions every time she eats -she is having diarrhea no complain of abdominal pain , no nausea OBJECTIVE: Vital Signs-as noted below Exam: General- No acute distress Head- atraumatic Eyes- PERRL, EOMI ENT- oropharynx clear Neck- supple, no JVD Lungs- diminished, no wheeze or rales noted Heart- regular s1/s2 Abdomen- normal bowel sounds, soft Extremities- no calf tenderness Neuro- alert, oriented x 3; PERRL, EOMI Skin- warm & dry Lab data as noted below. ASSESSMENT & PLAN: COPD EXACERBATION WITH ACUTE ON CHRONIC HYPOXEMIC RESPIRATORY FAILURE ; clinically improving Recent exacerbation of COPD, just completed course of levofloxacin and steroid taper. baseline advanced COPD /Emphysema on chronic 2L HOME 02 and chronic prednisone dependent CXR showed No infiltrates will D/C Zosyn and Doxycycline ; had 6 days of tx now experiencing diarrhea on PO Prednisone 40 mg daily -will need slow taper Pulmonary Medicine consulted appreciate input started on Daliresp to prevent readmission for COPD DIARRHEA : ordered stool for C diff assay if negative , can have PRN Imodium ELEVATED LACTIC ACID possible due to hypoxia /respiratory distress no evidence of sepsis GERD Continue PPI. RESTLESS LEGS SYNDROME Continue pramipexole. VERTEBRAL COMPRESSION FRACTURES Continue tramadol PRN. VTE PROPHYLAXIS Moderate risk for VTE. SQ heparin. DISPOSITION Full code DISPOSITION discharge when medically stable lives at home , with , one floor house have home 02 supply for 2 L cont already established with home health social service consulted for discharge planning pt and daughter interested to have information for [employer] service to help in bathing and ADL's and if pt will qualify for waiver through office of aging Consultants: Pulmonary Vital Signs: Date Time Temp Pulse Resp B/P (MAP) Pulse Ox O2 Delivery O2 Flow Rate FiO2 08/02/17 15:01 36.6 99 22 124/70 (88) 99 Nasal Cannula 2.0 08/02/17 14:29 100 18 98 Nasal Cannula 2.0 08/02/17 11:07 115 18 93 Nasal Cannula 2.0 08/02/17 08:00 Nasal Cannula 2.0 08/02/17 07:23 93 18 97 Nasal Cannula 2.0 08/02/17 07:07 36.6 96 20 158/75 (102) 97 Nasal Cannula 2.0 08/02/17 05:26 92 18 98 Nasal Cannula 2.0 08/02/17 00:41 103 22 93 Nasal Cannula 2.0 08/02/17 00:29 36.8 97 18 127/74 (91) 97 Nasal Cannula 2.0 08/01/17 23:45 Nasal Cannula 2.0 08/01/17 21:01 98 20 98 Nasal Cannula 2.0 Lab Results: Results Past 24 Hours Test 08/02/17 06:02 Range/Units Creatinine 0.69 0.60-1.20 mg/dl Est Creatinine Clear Calc Drug Dose 49.0 ml/min Estimated GFR () 95.3 Estimated GFR (Non- 82.2
[2017-08-02] MEDS: PRAMIPEXOLE DIHYDROCHLORIDE 0.5 MG TAB PO SCH (20:00)
[2017-08-02] MEDS: ACETAMINOPHEN 325 MG TAB PO PRN (20:29)
[2017-08-03] VITALS (10 sets, daily range): BP systolic 112–128; BP diastolic 62–76; PULSE 83–112; TEMP 36.3–37.2; O2SAT 92–99
[2017-08-03] MEDS: LEVALBUTEROL 0.63MG/3 ML NEB INH PRN (03:40)
[2017-08-03] MEDS: IPRATROPIUM BROMIDE NEB SOLN 0.02% 2.5 ML VIAL INH SCH ×4 (07:24→20:06)
[2017-08-03] MEDS: LEVALBUTEROL 0.63MG/3 ML NEB INH SCH ×4 (07:24→20:07)
[2017-08-03 07:36] LABS: HEMATOCRIT 29.9 % (37-47); MEAN CELL VOLUME 77.5 fL (80-100); MEAN CORPUSCULAR HEMOGLOBIN 24.4 pg (25-34); MEAN CORPUSCULAR HGB CONC 31.4 g/dl (32-36); MEAN PLATELET VOLUME 7.8 fL (7.4-10.4); PLATELET COUNT 307 K/uL (130-400); RED BLOOD COUNT 3.86 M/uL (4.2-5.4); WHITE BLOOD COUNT 13.92 K/uL (4.8-10.8)
[2017-08-03] MEDS: ROFLUMILAST 500 MCG TAB PO SCH (07:57)
[2017-08-03] MEDS: ASPIRIN 81 MG ECTAB PO SCH (07:57)
[2017-08-03] MEDS: CITALOPRAM 20 MG TAB PO SCH (07:57)
[2017-08-03] MEDS: TIOTROPIUM BROMIDE 5 PUFF/90 MCG INH INH SCH (07:58)
[2017-08-03] MEDS: PANTOprazole SOD 40 MG TAB PO SCH (07:58)
[2017-08-03] MEDS: BREO ELLIPTA INH SCH (07:58)
[2017-08-03] MEDS: ACETAMINOPHEN 325 MG TAB PO PRN (10:48)
[2017-08-03] MEDS: LOPERAMIDE HCL 2 MG CAP PO PRN ×2 (16:37→17:41)
[2017-08-03] MEDS: PRAMIPEXOLE DIHYDROCHLORIDE 0.5 MG TAB PO SCH (21:23)
--- NOTE | 2017-08-03 21:45 | Progress Note ---
Internal Med Progress Note Date of Service: Aug 03, 2017. Provider Documentation: SUBJECTIVE: breathing much better today no PRASAD , no SOB at rest on 3 L02 no cough wants to be discharged home tomorrow OBJECTIVE: Vital Signs-as noted below Exam: General- No acute distress Head- atraumatic Eyes- PERRL, EOMI ENT- oropharynx clear Neck- supple, no JVD Lungs- diminished, no wheeze or rales noted Heart- regular s1/s2 Abdomen- normal bowel sounds, soft Extremities- no calf tenderness Neuro- alert, oriented x 3; PERRL, EOMI Skin- warm & dry Lab data as noted below. ASSESSMENT & PLAN: COPD EXACERBATION WITH ACUTE ON CHRONIC HYPOXEMIC RESPIRATORY FAILURE ; clinically improving Recent exacerbation of COPD, just completed course of levofloxacin and steroid taper. baseline advanced COPD /Emphysema on chronic 2L HOME 02 and chronic prednisone dependent CXR showed No infiltrates completed Abx now experiencing diarrhea on PO Prednisone 40 mg daily -will need slow taper Pulmonary Medicine consulted appreciate input started on Daliresp to prevent readmission for COPD DIARRHEA : resolved after Imodium C diff assay -negative cont PRN Imodium ELEVATED LACTIC ACID resolved repeat Lab Lactic acid 1.4 possible due to hypoxia /respiratory distress no evidence of sepsis GERD Continue PPI. RESTLESS LEGS SYNDROME Continue pramipexole. VERTEBRAL COMPRESSION FRACTURES Continue tramadol PRN. VTE PROPHYLAXIS Moderate risk for VTE. SQ heparin. DISPOSITION Full code DISPOSITION possible discharge home tomorrow lives at home , with , one floor house have home 02 supply for 2 L cont already established with home health social service consulted for discharge planning pt and daughter interested to have information for [employer] service to help in bathing and ADL's and if pt will qualify for waiver through office of aging Consultants: Pulmonary Vital Signs: Date Time Temp Pulse Resp B/P (MAP) Pulse Ox O2 Delivery O2 Flow Rate FiO2 08/03/17 20:10 100 20 97 Nasal Cannula 4.0 08/03/17 16:33 Nasal Cannula 3.0 08/03/17 15:32 92 20 97 Nasal Cannula 4.0 08/03/17 15:17 37.2 99 18 112/62 (79) 98 4.0 08/03/17 13:57 98 08/03/17 11:23 91 20 97 Nasal Cannula 3.0 08/03/17 08:00 99 Nasal Cannula 3.0 08/03/17 07:28 36.3 95 16 114/64 (81) 99 3.0 08/03/17 07:20 112 20 97 Nasal Cannula 3.0 08/03/17 03:40 94 18 98 Nasal Cannula 3.0 08/03/17 00:26 36.5 83 18 128/76 (93) 92 Nasal Cannula 3.0 08/03/17 00:00 Nasal Cannula 3.0 08/02/17 23:54 83 18 92 Nasal Cannula 3.0 Lab Results: Results Past 24 Hours Test 08/03/17 07:19 Range/Units White Blood Count 13.92 4.8-10.8 K/uL Red Blood Count 3.86 4.2-5.4 M/uL Hemoglobin 9.4 12.0-16.0 g/dL Hematocrit 29.9 37-47 % Mean Corpuscular Volume 77.5 80-100 fL Mean Corpuscular Hemoglobin 24.4 25-34 pg Mean Corpuscular Hemoglobin Concent 31.4 32-36 g/dl RDW Standard Deviation 54.1 36.4-46.3 fL RDW Coefficient of Variation 19.0 11.5-14.5 % Platelet Count 307 130-400 K/uL Mean Platelet Volume 7.8 7.4-10.4 fL Lactic Acid Level 1.4 0.4-2.0 mmol/L Microbiology Results 08/03/17 C.difficile Toxin B Gene (PCR) - Final, Complete No C. difficile toxin B gene detected
[2017-08-04 00:03] VITALS: BP 116/67; PULSE 100; TEMP 36.7; O2SAT 99
[2017-08-04 07:11] VITALS: PULSE 96; O2SAT 98
[2017-08-04] MEDS: IPRATROPIUM BROMIDE NEB SOLN 0.02% 2.5 ML VIAL INH SCH (07:11)
[2017-08-04] MEDS: LEVALBUTEROL 0.63MG/3 ML NEB INH SCH (07:11)
[2017-08-04 07:16] VITALS: BP 130/74; PULSE 92; TEMP 36.9; O2SAT 100
[2017-08-04] MEDS: BREO ELLIPTA INH SCH (07:54)
[2017-08-04] MEDS: TIOTROPIUM BROMIDE 5 PUFF/90 MCG INH INH SCH (07:54)
[2017-08-04] MEDS: ROFLUMILAST 500 MCG TAB PO SCH (07:54)
[2017-08-04] MEDS: CITALOPRAM 20 MG TAB PO SCH (07:54)
[2017-08-04] MEDS: PANTOprazole SOD 40 MG TAB PO SCH (07:54)
[2017-08-04] MEDS: ASPIRIN 81 MG ECTAB PO SCH (07:54)
[2017-08-04] MEDS ORDERED: DLR500 PO (09:09)
--- NOTE | 2017-08-04 09:18 | Discharge Instructions ---
Discharge Instructions Date of Service Aug 04, 2017. Admission Reason for Admission: Copd Exacerbation Discharge Discharge Diagnosis / Problem: COPD EXACERBATION Discharge Goals Goal(s): Decrease discomfort, Diagnostic testing, Therapeutic intervention Activity Recommendations Activity Limitations: resume your previous activity . Instructions / Follow-Up Instructions / Follow-Up HOSPITAL FOLLOW UP 08/07/2017 10:00 AM Ashok Kent MD [facility] PULMONOLOGY FOLLOW UP WITH DR CULVER IN 2-3 WEEKS , PLEASE CALL OFFICE FOR APPOINTMENT Current Hospital Diet Patient's current hospital diet: AHA Diet (Heart Healthy) Discharge Diet Recommended Diet: AHA Diet (Heart Healthy) Pending Studies Studies pending at discharge: no Medical Emergencies . Who to Call and When: Medical Emergencies: If at any time you feel your situation is an emergency, please call 911 immediately. . Non-Emergent Contact Non-Emergency issues call your: Primary Care Provider . . "Provider Documentation" section prepared by Nadia Stephens. . VTE Core Measure Inpt VTE Proph given/why not?: Unfractionated heparin SQ
[2017-08-04] MEDS: LOPERAMIDE HCL 2 MG CAP PO PRN (10:14)
[2017-08-04 10:32] VITALS: BP 130/74; PULSE 92; TEMP 36.9; O2SAT 100
--- NOTE | 2017-08-04 11:43 | Progress Note ---
Internal Med Progress Note Date of Service: Aug 04, 2017. Provider Documentation: SUBJECTIVE: ready /dressed to be discharged home today at baseline on 2 L 02 got SOB while getting dressed requiring higher 02 increased up to 4 L no cough pt is asked to use 2 L at rest and increase to 3 L with activity will need to follow up with Pulmonology as out pt OBJECTIVE: Vital Signs-as noted below Exam: General- No acute distress Head- atraumatic Eyes- PERRL, EOMI ENT- oropharynx clear Neck- supple, no JVD Lungs- diminished, no wheeze or rales noted Heart- regular s1/s2 Abdomen- normal bowel sounds, soft Extremities- no calf tenderness Neuro- alert, oriented x 3; PERRL, EOMI Skin- warm & dry Lab data as noted below. ASSESSMENT & PLAN: COPD EXACERBATION WITH ACUTE ON CHRONIC HYPOXEMIC RESPIRATORY FAILURE ; clinically improved Recent exacerbation of COPD, just completed course of levofloxacin and steroid taper. 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 RESTLESS LEGS SYNDROME Continue pramipexole. VERTEBRAL COMPRESSION FRACTURES Continue tramadol PRN. VTE PROPHYLAXIS Moderate risk for VTE. SQ heparin. DISPOSITION Full code DISPOSITION discharge home today lives at home , with , one floor house have home 02 supply for 2 L cont already established with home health Medicine follow up with Dr Mcleod Pulmonology follow up with Dr Frederick Consultants: Pulmonary Vital Signs: Date Time Temp Pulse Resp B/P (MAP) Pulse Ox O2 Delivery O2 Flow Rate FiO2 08/04/17 10:32 36.9 92 16 100 Nasal Cannula 08/04/17 08:00 Nasal Cannula 3.0 08/04/17 07:16 36.9 92 16 130/74 (92) 100 3.0 08/04/17 07:11 96 20 98 Nasal Cannula 4.0 08/04/17 00:03 36.7 100 18 116/67 (83) 99 Nasal Cannula 3.0 08/04/17 00:00 Nasal Cannula 3.0 08/03/17 20:10 100 20 97 Nasal Cannula 4.0 08/03/17 16:33 Nasal Cannula 3.0 08/03/17 15:32 92 20 97 Nasal Cannula 4.0 08/03/17 15:17 37.2 99 18 112/62 (79) 98 4.0 08/03/17 13:57 98 Lab Results: Microbiology Results 08/03/17 C.difficile Toxin B Gene (PCR) - Final, Complete No C. difficile toxin B gene detected
--- NOTE | 2017-08-04 11:44 | Discharge Summary ---
Discharge Summary Date of Service Aug 04, 2017. Discharge Summary Admission Date: Jul 27, 2017 at 23:37 Discharge Date: Aug 04, 2017 Discharge Disposition: Home with services Principal Diagnosis: COPD EXACERBATION Procedures: CHEST ONE VIEW PORTABLE CLINICAL HISTORY: Sepsis COMPARISON STUDY: 07/14/2017 FINDINGS: The heart is normal in size. There is radiographic evidence of emphysema. There is minor chronic blunting of the lateral costophrenic angles. There is no focal pulmonary consolidation. There is no evidence of failure.[ IMPRESSION: Emphysema. No acute findings. Consultations: Pulmonary Medication Reconciliation New Medications: Roflumilast (Daliresp) 500 Mcg Tab 500 MCG PO DAILY for 30 Days, #30 TAB 2 Refills Continued Medications: Aspirin (Aspirin 81) 81 Mg Tab 81 MG PO DAILY Benzonatate (Tessalon Perles) 100 Mg Cap 100 MG PO TID PRN for Cough, CAP Citalopram (Citalopram Hydrobromide) 20 Mg Tab 20 MG PO QAM Ergocalciferol (Vitamin D 90448 Unit) 50,000 Unit Cap 04428 INTER.UNIT PO WK, CAP saturdays Fluticasone Furoate-Vilanterol (Breo Ellipta) 1 Inh Inh 1 PUFF INH DAILY, #1 Home O2 Therapy (Oxygen) Gas 2 LITERS NA CONTINOUS 2 LPM as needed with exertion; 2 LPM during all periods of sleep Ipratropium [place] (Atrovent 0.02% Soln) 2.5 Ml Nebu 2.5 ML INH QID PRN for Wheezing Ipratropium-Albuterol (Combivent Respimat) 1 Aer Aer 1 PUFFS INH QID, INH Levalbuterol (Levalbuterol HCl) 0.63 Mg/3 Ml Nebu 3 ML INH QID PRN for Wheezing Pantoprazole (Pantoprazole Sodium) 40 Mg Tab 40 MG PO DAILY for 30 Days, #30 TAB 1 Refill Pramipexole Dihydrochloride (Mirapex) 0.5 Mg Tab 0.5 MG PO HS Prednisone Tab (Prednisone) 10 Mg Tab 10 MG PO UD for 16 Days, #40 TAB Now and as COPD RESCUE KIT : TAKE 4 TABS DAILY X 4 DAYS, THEN TAKE 3 TABS DAILY X 4 DAYS, THEN TAKE 2 TABS DAILY X 4 DAYS, THEN TAKE 1 TAB DAILY X 4 DAYS THEN STOP. Prednisone Tab (Prednisone) 10 Mg Tab 10 MG PO DAILY, TAB Tiotropium [place] (Spiriva Handihaler) 30 Puff/540 Mcg Aerp 1 CAP INH DAILY, INHALER Tramadol (Ultram) 50 Mg Tab 50 MG PO Q6H PRN for Pain, TAB Referrals At Discharge Follow up Referrals: Physician Referral - Please Call For Appointment with Sal Culver MD Admission Information HPI (per Admitting provider): 82 YO female followed by Dr. Kent for Family Medicine and Dr. Culver for Pulmonary Medicine. History of severe COPD, O2 and prednisone dependent. Hospitalized 07/14/17 with exacerbation of COPD. Chest films did not show any infiltrates. Sputum culture grew normal wing. Discharged to home on 07/17 with levofloxacin and prednisone taper. Completed course of levofloxacin. Finished steroid taper this morning. This evening she experienced increasing wheezing and dyspnea at rest. Cough productive of cardoza sputum. No fever. No chest pain. Tried nebs without much improvement. EMS called. Received nebs, IV methylprednisone in the field and BiPAP was applied. Brought to ED for further management. . Physical Exam (per Admitting): General Appearance: + moderate distress, + thin Head: normocephalic Eyes: normal inspection, PERRL, EOMI, sclerae normal (conjunctivae pink) ENT: hearing grossly normal, pharynx normal, + pertinent finding (upper and lower dentures) Neck: supple, no adenopathy, thyroid normal, trachea midline Respiratory/Chest: + respiratory distress, + accessory muscle use, + wheezing (diffuse moderate wheezing with prolonged expiration) Cardiovascular: regular rate, rhythm, + JVD, + tachycardia, + pertinent finding (distant heart sounds, no murmur or gallop appreciated) Abdomen/GI: normal bowel sounds, non tender, soft, no organomegaly, no pulsatile mass Extremities/Musculoskelatal: no calf tenderness, no pedal edema 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 RESTLESS LEGS SYNDROME Continue pramipexole. VERTEBRAL COMPRESSION FRACTURES Continue tramadol PRN. VTE PROPHYLAXIS Moderate risk for VTE. SQ heparin. DISPOSITION Full code DISPOSITION discharge home today lives at home , with , one floor house have home 02 supply for 2 L cont already established with home health Medicine follow up with Dr Mcleod Pulmonology follow up with Dr Culver Consultants: Pulmonary Total time spent on discharge = 35mins This includes examination of the patient, discharge planning, medication reconciliation, and communication with other providers. Discharge Instructions Discharge Instructions Date of Service Aug 04, 2017. Admission Reason for Admission: Copd Exacerbation Discharge Discharge Diagnosis / Problem: COPD EXACERBATION Discharge Goals Goal(s): Decrease discomfort, Diagnostic testing, Therapeutic intervention Activity Recommendations Activity Limitations: resume your previous activity . Instructions / Follow-Up Instructions / Follow-Up HOSPITAL FOLLOW UP 08/07/2017 10:00 AM Ashok Kent MD [facility] PULMONOLOGY FOLLOW UP WITH DR CULVER IN 2-3 WEEKS , PLEASE CALL OFFICE FOR APPOINTMENT Current Hospital Diet Patient's current hospital diet: AHA Diet (Heart Healthy) Discharge Diet Recommended Diet: AHA Diet (Heart Healthy) Pending Studies Studies pending at discharge: no Medical Emergencies . Who to Call and When: Medical Emergencies: If at any time you feel your situation is an emergency, please call 911 immediately. . Non-Emergent Contact Non-Emergency issues call your: Primary Care Provider . . "Provider Documentation" section prepared by Nadia Stephens. . VTE Core Measure Inpt VTE Proph given/why not?: Unfractionated heparin SQ Additional Copies To Ashok Kent M.D. Waddington, Thomas W., MD
== END 2017-08-04 11:19 | disposition home health service (06) | DRG 190 ==
LOC: EDBD 21:09 → C.EDC 21:12 → C.2T 23:37 → EDBEDREQ 23:43 → ENRESERV 23:57 → C.MS4W 07-30 12:58
PROVIDERS: ADMIT Hospitalist; ATTEND Hospitalist
DX: J44.1 Chronic obstructive pulmonary disease with (acute) exacerbation (principal); J96.21 Acute and chronic respiratory failure with hypoxia; M48.50XA Collapsed vertebra, not elsewhere classified, site unspecified, initial encounter for fracture; E78.5 Hyperlipidemia, unspecified; K21.9 Gastro-esophageal reflux disease without esophagitis; G25.81 Restless legs syndrome; Z87.891 Personal history of nicotine dependence; Z79.52 Long term (current) use of systemic steroids; Z99.81 Dependence on supplemental oxygen; R19.7 Diarrhea, unspecified

== ENCOUNTER → 2017-08-20 | Outpatient (CLI) | payer OTHER ==
[~2017-08-20] MED LIST changes: +ATRINSX INH; +DLR500 PO; -LVQ750 PO; -NEBMAC; +XPNINS INH
--- NOTE | 2017-08-20 14:46 | ECHOCARDIOGRAM REPORT ---
*NOTICE TO RECEIVING LIBERTARIAN AGENCY This information is strictly Confidential and protected under [place] law. [place] law prohibits you from making any further disclosure of this information unless further disclosure is expressly permitted by the written consent of the person to whom it pertains or is authorized by law. A general authorization for the release of medical or other information is not sufficient for this purpose. Hospital accepts no responsibility if the information is made available to any other person, INCLUDING THE PATIENT. Interpretation Summary * Name: HILLARY MUNGUIA Study Date: 08/20/2017 12:38 PM BP: 131/51 mmHg * Patient Location: [facility] [place] HR: 97 * : 1935 (M/d/yyyy) Gender: Female Height: 61 in * Age: 82 yrs Ethnicity: [place] Weight: 109 lb * Ordering Physician: Sal Frederick * Referring Physician: Sal Frederick. * Performed By: Paulina Perrin RCS * * Reason For Study: PRASAD / HYPOXEMIA / LEG SWELLING * BSA: 1.5 m2 * -- Conclusions -- * 1. Normal left ventricular size with hyperdynamic systolic function. EF > 70%. No regional wall motion abnormalities. Mild concentric left ventricular hypertrophy. Type 1 diastolic dysfunction. * 2. No significant valvular abnormalities. * 3. Normal estimated right ventricular systolic pressure; RVSP 30mmHg. * 4. No significant change from prior study on 09/28/2016. Procedure Details * A complete two-dimensional transthoracic echocardiogram was performed (2D, M-mode, Doppler and color flow Doppler). Left Ventricle * Normal left ventricular size with hyperdynamic systolic function. EF > 70%. No regional wall motion abnormalities. Mild concentric left ventricular hypertrophy. Type 1 diastolic dysfunction. Right Ventricle * The right ventricle is normal in size and function. * The right ventricular systolic function is normal as assessed by tricuspid annular plane systolic excursion (TAPSE) (normal >1.5 cm). Atria * The left atrial size is normal. * Right atrial size is normal. * There is no evidence of atrial septal defect, but resolution does not allow assessment for a patent foramen ovale. * The thickening of interatrial septum suggests lipomatous hypertrophy. Mitral Valve * The mitral valve is grossly normal. * There is no mitral valve stenosis. * Significant mitral regurgitation is absent. Tricuspid Valve * The tricuspid valve is not well visualized, but is grossly normal. * There is no tricuspid stenosis. * There is trace tricuspid regurgitation. Aortic Valve * The aortic valve is trileaflet. * No hemodynamically significant valvular aortic stenosis. * Trace aortic regurgitation. Pulmonic Valve * The pulmonary valve is inadequately visualized, but the Doppler data is adequate for interpretation. * There is no pulmonic valvular stenosis. * Trace pulmonic valvular regurgitation. Great Vessels * The aortic root is normal size. Pericardium/Pleural * There is no pericardial effusion. Great Vessels * Normal inferior vena cava size and collapsability with sniff indicates a normal right atrial pressure of 3 mmHg Left Ventricular Diastolic Function * Grade I diastolic dysfunction, (abnormal relaxation pattern). MMode 2D Measurements and Calculations IVSd 1.3 cm IVSs 1.8 cm LVIDd 3.6 cm LVIDs 1.9 cm LVPWd 1.2 cm LVPWs 1.5 cm IVS/LVPW 1.0 FS 46.0 % EDV(Teich) 53.8 ml ESV(Teich) 11.7 ml EF(Teich) 78.3 % EDV(cubed) 45.9 ml ESV(cubed) 7.2 ml EF(cubed) 84.3 % % IVS thick 43.1 % % LVPW thick 16.3 % LV mass(C)d 150.4 grams LV mass(C)dI 103.1 grams/m\S\2 LV mass(C)s 110.9 grams LV mass(C)sI 76.0 grams/m\S\2 SV(Teich) 42.1 ml SI(Teich) 28.9 ml/m\S\2 SV(cubed) 38.7 ml SI(cubed) 26.5 ml/m\S\2 Ao root diam 3.6 cm Ao root area 10.3 cm\S\2 LA dimension 3.4 cm LA/Ao 0.95 LVOT diam 2.1 cm LVOT area 3.4 cm\S\2 Doppler Measurements and Calculations MV E max park 77.6 cm/sec MV A max park 127.3 cm/sec MV E/A 0.61 MV P1/2t max park 75.9 cm/sec MV P1/2t 65.2 msec MVA(P1/2t) 3.4 cm\S\2 MV dec slope 341.0 cm/sec\S\2 MV dec time 0.21 sec Ao V2 max 132.9 cm/sec Ao max PG 7.1 mmHg Ao max PG (full) 2.8 mmHg ERICA(V,A) 2.6 cm\S\2 ERICA(V,D) 2.6 cm\S\2 AI max park 400.1 cm/sec AI max PG 64.0 mmHg AI dec slope 307.8 cm/sec\S\2 AI P1/2t 380.7 msec LV V1 max PG 4.3 mmHg LV V1 max 103.5 cm/sec PA V2 max 75.9 cm/sec PA max PG 2.3 mmHg TR max park 261.2 cm/sec RVSP(TR) 30.3 mmHg RAP systole 3.0 mmHg
== END | disposition home or self-care (01) ==
LOC: C.CPL 12:35
PROVIDERS: ATTEND Internal Medicine Critical Care Medicine
DX: J44.9 Chronic obstructive pulmonary disease, unspecified (principal); M79.89 Other specified soft tissue disorders; R06.09 Other forms of dyspnea; R09.02 Hypoxemia; R60.9 Edema, unspecified; I50.30 Unspecified diastolic (congestive) heart failure

== ENCOUNTER 2017-10-09 03:10 | Inpatient (IN) | payer OTHER ==
[~2017-10-09] VITALS: Ht 154.9 cm; Wt 49.8 kg
[2017-10-09] VITALS (12 sets, daily range): BP systolic 144–168; BP diastolic 91–101; PULSE 101–116; TEMP 36.6–36.8; O2SAT 92–100; Ht 154.9 cm; Wt 49.8 kg
[~2017-10-09 03:10] MED LIST changes: +CALCTAB65 PO; -DLR500 PO; -ERGO1CAP41 PO; +ERGO500011 PO; -FLUT1INH INH; +FLUT1INH7 INH; +GUAI1TAB68 PO; +HYDR-4313 PO; +IMD/2 PO; +LACT1TAB4 PEG; +LVQ500 PO; +MCM600 PO; +MRP5 PO; +PANT40TA2 PO; -PRAM1TAB47 PO; +PRD20 PO; -PRT40 PO; -TRAM-10 PO; +ULT50 PO
[2017-10-09 03:39] LABS: BASO % 0.1 %; BASO ABS # 0.02 K/uL (0-0.2); COMPLETE YES; EOS % 0.2 %; IG% 2.4 %; LYMPH % 20.1 %; LYMPH ABS # 3.43 K/uL (1.2-3.4); MEAN CELL VOLUME 83.7 fL (80-100); MEAN CORPUSCULAR HEMOGLOBIN 24.7 pg (25-34); MEAN CORPUSCULAR HGB CONC 29.5 g/dl (32-36); MEAN PLATELET VOLUME 8.5 fL (7.4-10.4); MONO % 7.2 %; PLATELET COUNT 337 K/uL (130-400); RED BLOOD COUNT 4.42 M/uL (4.2-5.4); WHITE BLOOD COUNT 17.04 K/uL (4.8-10.8)
[2017-10-09 03:47] LABS: ALT/SGPT 28 U/L (12-78); AST/SGOT 19 U/L (15-37); BLOOD UREA NITROGEN 16 mg/dl (7-18); BUN/CREATININE RATIO 21.3 (10-20); CALCIUM 8.8 mg/dl (8.5-10.1); CARBON DIOXIDE 33 mmol/L (21-32); CHLORIDE 98 mmol/L (98-107); CREATININE 0.77 mg/dl (0.60-1.20); GLUCOSE 110 mg/dl (70-99); POTASSIUM 3.5 mmol/L (3.5-5.1); SODIUM 134 mmol/L (136-145)
[2017-10-09 03:52] LABS: ALB/GLOB RATIO 0.9 (0.9-2); ALKALINE PHOSPHATASE 78 U/L (45-117); CKMB/CK RATIO 7.9 (0-3.0)
[2017-10-09] MEDS ORDERED: MCLIN (03:58)
[2017-10-09] MEDS ORDERED: HYDROmorphone INJ 0.5 MG/0.5 ML SYR IV STA ×2 (04:13→04:59)
--- NOTE | 2017-10-09 04:13 | EMERGENCY ROOM VISIT NOTE ---
History Report prepared by Ani: Darlyn Núñez Under the Supervision of: Dr. Estela Brewer D.O. First contact with patient: 03:15 Chief Complaint: RESPIRATORY DISTRESS Stated Complaint: RESPIRATORY DISTRESS History of Present Illness The patient is an 82 year old female who presents to the Emergency Room with complaints of worsening respiratory distress starting last night. She notes that she has been short of breath for a few days. She states that this woke her up out of her sleep and feels similar to past COPD exacerbation episodes. The patient complains of a back pain that is chronic from a back fracture, weakness , and a cough. She reports that it hurts to take a deep breath. She notes that she recently had a change in her pain medication. She reports that she was switched to Vicodin and a calcium nasal spray. She notes that she took it last at seven hours ago. She notes that she used to be on Tramadol. The patient denies being sick, fever, chest pain, nausea, vomiting, abdominal pain, diarrhea , urinary symptoms, constipation, and recent falls. She notes that her last nebulizer treatment was right before she came here. Per nursing staff, patient was bought in on C-Pap by EMS and switched to Bi-Pap upon arrival. A neb treatment was given through the Bi-Pap. Source of History: patient Onset: last night Position: other (global) Quality: other (similar to COPD excerbation episodes) Timing: worsening Associated Symptoms: + cough, + back pain, + weakness, No fevers, No chest pain, No nausea, No vomiting, No abdominal pain, No diarrhea, No urinary symptoms Note: The patient denies constipation. Review of Systems See HPI for pertinent positives & negatives. A total of 10 systems reviewed and were otherwise negative. Past Medical & Surgical Medical Problems: (1) Chronic respiratory failure (2) Compression fracture of vertebra (3) COPD exacerbation (4) COPD, moderate (5) Dyslipidemia (6) Esophageal stricture (7) GERD (gastroesophageal reflux disease) (8) History of esophageal dilatation (9) Osteopenia (10) Respiratory failure (11) Restless legs syndrome (RLS) Surgical Problems: (1) History of hysterectomy Family History Diabetes mellitus MOTHER Lung disease FATHER (emphysema) Social History Smoking Status: Former Smoker Alcohol Use: none Drug Use: none Marital Status: Housing Status: lives with significant other Occupation Status: retired Current/Historical Medications Scheduled Acetylcysteine (Acetylcysteine), 600 MG PO BID Aspirin (Aspirin 81), 81 MG PO DAILY Calcitonin [place] (Calcitonin-[place]), 1 SPRAY NA DAILY Calcium Carbonate-Vitamin D (Calcium 500 + D), 1 TAB PO DAILY Citalopram (Citalopram Hydrobromide), 20 MG PO QAM Ergocalciferol (Vitamin D 94476 Unit), 50,000 INTER.UNIT PO WK Fluticasone Furoate-Vilanterol (Breo Ellipta 200-25 Mcg/INH), 1 PUFF INH DAILY Home O2 Therapy (Oxygen), 2 LITERS NA CONTINOUS Ipratropium-Albuterol (Combivent Respimat), 1 PUFF INH QID Lactobacillus (Floranex), 4 TABS PEG TIDM Pantoprazole (Pantoprazole Sodium), 40 MG PO DAILY Pramipexole Dihydrochloride (Pramipexole Dihydrochlori), 0.5 MG PO HS Prednisone (Prednisone), 20 MG PO UD Tiotropium [place] (Spiriva Handihaler), 1 CAP INH DAILY Scheduled PRN Acetaminophen/Hydrocodone (Hydrocodone/Acetaminophen 5-325 mg), 1 TAB PO q4-6 hrs PRN for Pain Benzonatate (Tessalon Perles), 100 MG PO TID PRN for Cough Ipratropium [place] (Atrovent 0.02% Soln), 2.5 ML INH QID PRN for Wheezing Levalbuterol (Levalbuterol HCl), 3 ML INH QID PRN for SOB/Wheezing Loperamide Hcl (Imodium), 2 MG PO UD PRN for Diarrhea Prednisone Tab (Prednisone), 10 MG PO UD PRN for COPD Rescue Kit Allergies Coded Allergies: Lorazepam (Verified Allergy, Unknown, DELIRIUM, 09/06/17) Roflumilast (Verified Adverse Reaction, Unknown, Headache, dizziness and nausea, 09/24/17) Physical Exam Vital Signs Date Time Temp Pulse Resp B/P (MAP) Pulse Ox O2 Delivery O2 Flow Rate FiO2 10/09/17 05:20 103 22 130/75 97 Nasal Cannula 4.0 10/09/17 03:22 100 BiPAP 35 10/09/17 03:22 100 BiPAP 35 10/09/17 03:22 36.7 109 22 163/101 100 BiPAP 35 10/09/17 03:21 120 10/09/17 03:18 110 100 35 Physical Exam General: Very uncomfortable appearing secondary to back pain. HEENT: Head - normocephalic and atraumatic Pupils are equal, round, and reactive to light. Extraocular eye muscles are intact, and sclera are anicteric. Nose - moist nasal mucosa without discharge. Mouth - moist buccal mucosa. Oropharynx is nonerythematous and there is no tonsillar exudate or edema noted. Neck: Supple; no JVD, nuchal rigidity, cervical lymphadenopathy, or auscultated bruits. Heart: Regular rate and rhythm. There is a normal S1 and S2 with no murmurs, clicks, or gallops appreciated. Lungs: Clear to auscultation bilaterally with no wheezes, rales, or rhonchi. Very little air exchange. Abdomen: Soft, completely nontender, nondistended, with good bowel sounds. There are no palpable pulsatile masses or hepatosplenomegaly. There is no guarding, rigidity, or rebound noted. Extremities: No evidence of cyanosis or clubbing. There are easily palpable peripheral pulses. Slight edema in her feet. Skin: warm and dry with good turgor and no rashes. Medical Decision & Procedures ER Provider Diagnostic Interpretation: Chest X-Ray: The results were interpreted by me. Unchanged from September 24, 2017. Significant emphysematous changes. No obvious pulmonary consolidation. Laboratory Results 10/09/17 03:18 Red Blood Count 4.42, Mean Corpuscular Volume 83.7, Mean Corpuscular Hemoglobin 24.7, Mean Corpuscular Hemoglobin Concent 29.5, Mean Platelet Volume 8.5, Neutrophils (%) (Auto) 70.0, Lymphocytes (%) (Auto) 20.1, Monocytes (%) (Auto) 7.2, Eosinophils (%) (Auto) 0.2, Basophils (%) (Auto) 0.1, Neutrophils # (Auto) 11.92, Lymphocytes # (Auto) 3.43, Monocytes # (Auto) 1.22, Eosinophils # (Auto) 0.04, Basophils # (Auto) 0.02 10/09/17 03:18 Test 10/09/17 03:18 White Blood Count 17.04 K/uL (4.8-10.8) Red Blood Count 4.42 M/uL (4.2-5.4) Hemoglobin 10.9 g/dL (12.0-16.0) Hematocrit 37.0 % (37-47) Mean Corpuscular Volume 83.7 fL (80-100) Mean Corpuscular Hemoglobin 24.7 pg (25-34) Mean Corpuscular Hemoglobin Concent 29.5 g/dl (32-36) Platelet Count 337 K/uL (130-400) Mean Platelet Volume 8.5 fL (7.4-10.4) Neutrophils (%) (Auto) 70.0 % Lymphocytes (%) (Auto) 20.1 % Monocytes (%) (Auto) 7.2 % Eosinophils (%) (Auto) 0.2 % Basophils (%) (Auto) 0.1 % Neutrophils # (Auto) 11.92 K/uL (1.4-6.5) Lymphocytes # (Auto) 3.43 K/uL (1.2-3.4) Monocytes # (Auto) 1.22 K/uL (0.11-0.59) Eosinophils # (Auto) 0.04 K/uL (0-0.5) Basophils # (Auto) 0.02 K/uL (0-0.2) RDW Standard Deviation 57.0 fL (36.4-46.3) RDW Coefficient of Variation 18.7 % (11.5-14.5) Immature Granulocyte % (Auto) 2.4 % Immature Granulocyte # (Auto) 0.41 K/uL (0.00-0.02) Anion Gap 3.0 mmol/L (3-11) Est Creatinine Clear Calc Drug Dose 43.9 ml/min Estimated GFR () 84.5 Estimated GFR (Non- 72.9 BUN/Creatinine Ratio 21.3 (10-20) Calcium Level 8.8 mg/dl (8.5-10.1) Total Bilirubin 0.3 mg/dl (0.2-1) Aspartate Amino Transf (AST/SGOT) 19 U/L (15-37) Alanine Aminotransferase (ALT/SGPT) 28 U/L (12-78) Alkaline Phosphatase 78 U/L (45-117) Total Creatine Kinase 75 U/L (26-192) Creatine Kinase MB 5.9 ng/ml (0.5-3.6) Creatine Kinase MB Ratio 7.9 (0-3.0) Troponin I < 0.015 ng/ml (0-0.045) Pro-B-Type Natriuretic Peptide 307 pg/ml (0-1800) Total Protein 7.0 gm/dl (6.4-8.2) Albumin 3.4 gm/dl (3.4-5.0) Globulin 3.6 gm/dl (2.5-4.0) Albumin/Globulin Ratio 0.9 (0.9-2) Laboratory results per my review. Medications Administered Medications (Trade) Dose Ordered Sig/Huan Route Start Time Stop Time Status Last Admin Dose Admin Hydromorphone HCl (Dilaudid Inj) 0.5 mg NOW STAT IV 10/09/17 04:13 10/09/17 04:15 DC 10/09/17 04:28 0.5 MG Hydromorphone HCl (Dilaudid Inj) 0.5 mg NOW STAT IV 10/09/17 04:59 10/09/17 05:00 DC 10/09/17 05:16 0.5 MG Procedure 0413: Ordered Dilaudid Inj 0.5 mg IV. 0459: Ordered Dilaudid Inj 0.5 mg IV. ECG Indication: SOB/dyspnea Rate (beats per minute): 109 Rhythm: sinus tachycardia Findings: RBBB, no acute ischemic change, no ectopy ED Course 0353: Past medical records reviewed. The patient was evaluated in room B12B. A complete history and physical exam was performed. A 12 EKG was obtained. A chest x-ray was performed. The BiPAP was removed and the patient was placed on 4 L of O2 by nasal cannula. 0413: Ordered Dilaudid Inj 0.5 mg IV. 0455: I reevaluated the patient and her back pain has gone from a 10 to a 5. She is breathing more easily and is able to tolerate nasal canula without Bi- Pap. 0459: Ordered Dilaudid Inj 0.5 mg IV. 0500: Discussed the patient's case with Dr. Harley. The patient will be evaluated for further management. Medical Decision The patient is an 82 year old female who presents to the Emergency Room with complaints of worsening respiratory distress starting last night. Differential diagnoses include COPD exacerbation, acute exacerbation of chronic back pain, pneumonia, bronchitis. LABS: White count 17.0 Hemoglobin 10.9 which is baseline for her Sodium slightly low at 134 Normal renal function Glucose 110 Normal troponin This is an 82-year-old female patient who appears to be having an exacerbation of her COPD. She is also complaining of significant back pain which is a chronic issue for her. She was being transitioned from tramadol 2 Vicodin for her pain and the pain became out of control this evening. I discussed the case the [facility] Hospitalist and they will evaluate for further management. Medication Reconcilliation Current Medication List: was personally reviewed by me Blood Pressure Screening Patient's blood pressure: Elevated blood pressure Will be further monitored by hospitalist. Consults Time Called: 0455 Consulting Physician: Dr. Rafael Moura Returned Call: 0500 Discussed the patient's case with Dr. Harley. The patient will be evaluated for further management. Impression Primary Impression: COPD exacerbation Additional Impression: Acute exacerbation of chronic low back pain Scribe Attestation The scribe's documentation has been prepared under my direction and personally reviewed by me in its entirety. I confirm that the note above accurately reflects all work, treatment, procedures, and medical decision making performed by me. Departure Information Dispostion Being Evaluated By Hospitalist Referrals Ashok Kent M.D. (PCP) Forms HOME CARE DOCUMENTATION FORM, IMPORTANT VISIT INFORMATION Patient Instructions Asthma - [facility], COPD - [facility], Croup - [facility], My [facility] Problem Qualifiers
--- NOTE | 2017-10-09 05:05 | History and Physical ---
History & Physical Date & Time of Service: Oct 09, 2017 at 05:05 Chief Complaint: Respiratory Distress Primary Care Physician: Ashok Kent M.D. History of Present Illness Source: patient, family Patient is a 82 Yr female with PMH of advanced COPD, chronic respiratory failure on 2L home oxygen and BiPAP at night, HTN, Anemia of chronic disease, GERD, RLS, Osteoporosis, chronic back pain from vertebral compression fracture, depression and other problems presents with history of worsening SOB; right sided pleuritic pain and back pain. Patient had multiple admissions for COPD exacerbation and was recently discharged from [facility] on Sep. Patient reports SOB has been progressively worsening since last discharge and today her SOB worsened despite using her BiPAP. Reports chronic cough with clear expectoration and intermittent wheezing. Her PCP has adjusted her pain medications for chronic back pain and rib pain and was started on Vicodin but the pain has not been under control with oral medications. Denies any history of falls/trauma. Today she was found by EMS to be cyanotic and was placed on CPAP which was later transitioned to BiPAP and Nasal Cannula while in ED. She also received Solumedrol and Nebs prior to arrival. Denies any history of fever , chills, nausea, vomiting, abd pain, diarrhea, dysuria, headache, dizziness, change in vision. Past Medical/Surgical History Medical Problems: (1) Chronic respiratory failure Status: Chronic (2) Compression fracture of vertebra Status: Chronic (3) COPD, moderate Status: Chronic (4) Dyslipidemia Status: Chronic (5) Esophageal stricture Status: Chronic (6) GERD (gastroesophageal reflux disease) Status: Chronic (7) History of esophageal dilatation Permanent Comment: 1998 and 2007 Status: Resolved (8) Osteopenia Status: Chronic (9) Restless legs syndrome (RLS) Status: Chronic Surgical Problems: (1) History of hysterectomy Permanent Comment: L ovary remains Status: Resolved Family History Diabetes mellitus MOTHER Lung disease FATHER (emphysema) Reviewed as above Social History Smoking Status: Former Smoker Alcohol Use: none Drug Use: none Marital Status: Housing status: lives with family, lives with significant other Occupational Status: retired Immunizations History of Influenza Vaccine: Yes History of Tetanus Vaccine?: Unknown History of Pneumococcal: Yes History of Hepatitis B Vaccine: Unknown Multi-Drug Resistant Organisms History of MDRO: No Allergies Coded Allergies: Lorazepam (Verified Allergy, Unknown, DELIRIUM, 09/06/17) Roflumilast (Verified Adverse Reaction, Unknown, Headache, dizziness and nausea, 09/24/17) Home Medications Scheduled Acetylcysteine (Acetylcysteine), 600 MG PO BID Aspirin (Aspirin 81), 81 MG PO DAILY Calcitonin [place] (Calcitonin-[place]), 1 SPRAY NA DAILY Calcium Carbonate-Vitamin D (Calcium 500 + D), 1 TAB PO DAILY Citalopram (Citalopram Hydrobromide), 20 MG PO QAM Ergocalciferol (Vitamin D 83550 Unit), 50,000 INTER.UNIT PO WK Fluticasone Furoate-Vilanterol (Breo Ellipta 200-25 Mcg/INH), 1 PUFF INH DAILY Home O2 Therapy (Oxygen), 2 LITERS NA CONTINOUS Ipratropium-Albuterol (Combivent Respimat), 1 PUFF INH QID Lactobacillus (Floranex), 4 TABS PEG TIDM Pantoprazole (Pantoprazole Sodium), 40 MG PO DAILY Pramipexole Dihydrochloride (Pramipexole Dihydrochlori), 0.5 MG PO HS Prednisone (Prednisone), 20 MG PO UD Tiotropium [place] (Spiriva Handihaler), 1 CAP INH DAILY Scheduled PRN Acetaminophen/Hydrocodone (Hydrocodone/Acetaminophen 5-325 mg), 1 TAB PO q4-6 hrs PRN for Pain Benzonatate (Tessalon Perles), 100 MG PO TID PRN for Cough Ipratropium [place] (Atrovent 0.02% Soln), 2.5 ML INH QID PRN for Wheezing Levalbuterol (Levalbuterol HCl), 3 ML INH QID PRN for SOB/Wheezing Loperamide Hcl (Imodium), 2 MG PO UD PRN for Diarrhea Prednisone Tab (Prednisone), 10 MG PO UD PRN for COPD Rescue Kit Review of Systems See HPI for pertinent positives & negatives. A total of 10 systems reviewed and were otherwise negative. Physical Exam Vital Signs Date Time Temp Pulse Resp B/P (MAP) Pulse Ox O2 Delivery O2 Flow Rate FiO2 10/09/17 03:22 100 BiPAP 35 10/09/17 03:22 100 BiPAP 35 10/09/17 03:22 36.7 109 22 163/101 100 BiPAP 35 10/09/17 03:21 120 10/09/17 03:18 110 100 35 General Appearance: + mild distress (secondary to SOB, pain), + pertinent finding (chronic ill appearing) Head: normocephalic, atraumatic Eyes: normal inspection, PERRL, EOMI ENT: normal ENT inspection, hearing grossly normal Neck: supple, trachea midline Respiratory/Chest: no accessory muscle use, + decreased breath sounds, + rhonchi, + wheezing, + pertinent finding (Right lower chest tender on palpation ) Cardiovascular: regular rate, rhythm, no murmur, + tachycardia, + pertinent finding (1+ b/l edema) Abdomen/GI: normal bowel sounds, non tender, soft Back: normal inspection Extremities/Musculoskelatal: normal inspection, + pedal edema 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, no motor/sensory deficits, alert, normal mood/affect, oriented x 3 Skin: normal color, warm/dry Diagnostics Laboratory Results Results Past 24 Hours Test 10/09/17 03:18 Range/Units White Blood Count 17.04 4.8-10.8 K/uL Red Blood Count 4.42 4.2-5.4 M/uL Hemoglobin 10.9 12.0-16.0 g/dL Hematocrit 37.0 37-47 % Mean Corpuscular Volume 83.7 80-100 fL Mean Corpuscular Hemoglobin 24.7 25-34 pg Mean Corpuscular Hemoglobin Concent 29.5 32-36 g/dl Platelet Count 337 130-400 K/uL Mean Platelet Volume 8.5 7.4-10.4 fL Neutrophils (%) (Auto) 70.0 % Lymphocytes (%) (Auto) 20.1 % Monocytes (%) (Auto) 7.2 % Eosinophils (%) (Auto) 0.2 % Basophils (%) (Auto) 0.1 % Neutrophils # (Auto) 11.92 1.4-6.5 K/uL Lymphocytes # (Auto) 3.43 1.2-3.4 K/uL Monocytes # (Auto) 1.22 0.11-0.59 K/uL Eosinophils # (Auto) 0.04 0-0.5 K/uL Basophils # (Auto) 0.02 0-0.2 K/uL RDW Standard Deviation 57.0 36.4-46.3 fL RDW Coefficient of Variation 18.7 11.5-14.5 % Immature Granulocyte % (Auto) 2.4 % Immature Granulocyte # (Auto) 0.41 0.00-0.02 K/uL Sodium Level 134 136-145 mmol/L Potassium Level 3.5 3.5-5.1 mmol/L Chloride Level 98 98-107 mmol/L Carbon Dioxide Level 33 21-32 mmol/L Anion Gap 3.0 3-11 mmol/L Blood Urea Nitrogen 16 7-18 mg/dl Creatinine 0.77 0.60-1.20 mg/dl Est Creatinine Clear Calc Drug Dose 43.9 ml/min Estimated GFR () 84.5 Estimated GFR (Non- 72.9 BUN/Creatinine Ratio 21.3 10-20 Random Glucose 110 70-99 mg/dl Calcium Level 8.8 8.5-10.1 mg/dl Total Bilirubin 0.3 0.2-1 mg/dl Aspartate Amino Transf (AST/SGOT) 19 15-37 U/L Alanine Aminotransferase (ALT/SGPT) 28 12-78 U/L Alkaline Phosphatase 78 45-117 U/L Total Creatine Kinase 75 26-192 U/L Creatine Kinase MB 5.9 0.5-3.6 ng/ml Creatine Kinase MB Ratio 7.9 0-3.0 Troponin I < 0.015 0-0.045 ng/ml Pro-B-Type Natriuretic Peptide 307 0-1800 pg/ml Total Protein 7.0 6.4-8.2 gm/dl Albumin 3.4 3.4-5.0 gm/dl Globulin 3.6 2.5-4.0 gm/dl Albumin/Globulin Ratio 0.9 0.9-2 Diagnostic Radiology CXR: Emphysematous changes on my interpretation EKG EKG: pending Impression Assessment and Plan Acute on Chronic COPD Exacerbation and respiratory failure Chronic oxygen dependency: on 2L home oxygen and BiPAP QHS CXR: no signs of consolidation on my interpretation Start IV solumedrol, bronchodilators, Levaquin Oxygen support per protocol continue home inhalers Pulmonology consulted Leukocytosis likely secondary to current prednisone use Afebrile continue Mucomyst CTA on 09/24 showed Severe emphysema, Lower lobe bronchial wall thickening and mucous plugging May need bronchoscopy Obtain sputum cultures BiPAP PRN and QHS Titrate oxygen to keep sats above 88% Back pain/Right rib pain: Has multiple vertebral body compression fractures also noted healing healing rib fracture on recent CT scan Pain control, Incentive Spirometry continue calcitonin, Calcium, Vit D supplements HTN:Labile Likely situational monitor GERD: continue PPI RLS: Continue home meds Depression: continue SSRI DVT Px: Heparin SQ Code Status: DNI only on my discussion with Patient and her daughter Disposition: Monitor in Tele
[2017-10-09] MEDS ORDERED: BENZONATATE 100MG CAP PO PRN (05:45)
[2017-10-09] MEDS ORDERED: ACETAMINOPHEN 325 MG TAB PO PRN (05:45)
[2017-10-09] MEDS ORDERED: ONDANSETRON INJ 2 MG/ML 2 ML VIAL IV PRN (05:45)
--- NOTE | 2017-10-09 07:12 | DIAGNOSTIC IMAGING REPORT ---
TWO VIEW CHEST CLINICAL HISTORY: Dyspnea. FINDINGS: PA and lateral chest radiographs are compared to chest x-ray and chest CT dated 09/24/2017. The examination is degraded by portable technique, apical lordotic positioning, and patient rotation. The heart is enlarged and there is atherosclerotic calcification of the thoracic aorta. The pulmonary vasculature is noncongested. Advanced emphysema and chronic interstitial thickening are similar to previous. Bibasilar airspace opacities are identified, right greater than left. No large pleural effusion or pneumothorax is seen. The skeletal structures are osteopenic. Degenerative change and compression deformities are seen in the thoracic spine. IMPRESSION: 1. Cardiomegaly and advanced emphysema. 2. There are increasing bibasilar airspace opacities as compared to 09/24/2017. This could represent atelectasis versus developing pneumonia/aspiration pneumonitis. Clinical correlation will be required and radiographic follow-up to resolution is recommended. Electronically signed by: Amilcar Huizar M.D. 10/09/2017 7:10 AM Dictated Date/Time: 10/09/2017 7:09 AM
[2017-10-09] MEDS ORDERED: ALBUT/IPRATROP 3MG/0.5MG NEB 3 ML VIAL INH PRN (07:30)
[2017-10-09] MEDS: ALBUT/IPRATROP 3MG/0.5MG NEB 3 ML VIAL INH SCH ×4 (07:35→19:00)
[2017-10-09] MEDS: HEPARIN SOD 5000 UNIT/0.5 ML CARP SQ SCH ×3 (08:29→23:49)
[2017-10-09] MEDS: HYDROCODONE/ACETAMOPHEN 5/325MG TAB PO PRN ×3 (08:30→20:55)
[2017-10-09] MEDS: CALCITONIN SALMON NA 200 IU/AC 3.7 ML BTL SCH (08:31)
[2017-10-09] MEDS: TIOTROPIUM BROMIDE 5 PUFF/90 MCG INH INH SCH (08:31)
[2017-10-09] MEDS: ASPIRIN 81 MG ECTAB PO SCH (08:33)
[2017-10-09] MEDS: CITALOPRAM 20 MG TAB PO SCH (08:33)
[2017-10-09] MEDS: ACETYLCYSTEINE 600 MG CAP PO SCH ×2 (08:34→20:54)
[2017-10-09] MEDS: CALCIUM 600MG + VIT D 400 IU TAB PO SCH (08:34)
[2017-10-09] MEDS: PANTOprazole SOD 40 MG TAB PO SCH (08:34)
--- NOTE | 2017-10-09 09:14 | Pulmonary Consultation ---
History General Date of Service: Oct 09, 2017. Stated Complaint: Acute Exac. Of Chronic Low Back Pain, Copd Exacerb HPI The patient is a 82 year old female who presents to [facility] with complaints of Acute Exac. Of Chronic Low Back Pain, Copd Exacerb. The patient's primary care provider is Ashok Kent M.D.. Mrs. Nanette Azevedo is a 82-year-old female with history of severe COPD, well known to the pulmonary service with multiple admissions over the last year. Most recent being about 2 weeks ago. She presented overnight with worsening shortness of breath, dyspnea on exertion, nonproductive cough and right upper quadrant abdominal pain and back pain. She states the back pain has been worse since last admission. She has been ambulating around home with dyspnea. She denies any fevers, chills, lightheadedness, dizziness or palpitations. She denies any orthopnea, paroxysmal dyspnea or lower extremity edema. Patient has compression fractures most likely from osteoporosis as well as chronic steroid use. She denies any numbness, tingling, lower extremity weakness. She admits to decreased appetite. She denies any nausea, vomiting, diarrhea or constipation. She states that she has been compliant with her medications. She uses BiPAP at night as well as 2-3 L nasal cannula during the day. Her home respiratory medications include acetylcysteine 600 mg by mouth twice a day, Tessalon Perles 100 mg by mouth 3 times a day, Breo Ellipta one puff twice a day , Xopenex and Atrovent nebulizer every 6 hours when necessary, Combivent 1 puff inhaled 4 times a day, Spiriva 1 capsule inhalation daily, and prednisone 20 mg daily. Daliresp was attempted but discontinued secondary to diarrhea and weight loss. She is also taking calcitonin nasal spray and hydrocodone/ acetaminophen 5-325 mg, when necessary for pain. Per EMR, patient was found at home cyanotic, placed on BiPAP and brought to the ER for further evaluation. Upon arrival to the ER her initial vital signs were , temperature of 36.7, pulse 109-120, respiratory rate 22, blood pressure 163/ 101 and saturating 100% on BiPAP, FiO2 of 35%. Laboratory data showed a white blood cell count of 17, hemoglobin of 10, platelet count of 337. Chemistry significant for sodium 134, carbon dioxide level was 33, creatinine of 0.77. Her BNP was 307 and troponin less than 0.015. Chest x-ray shows increasing bibasilar airspace opacities as compared to 09/24/2017. She was admitted for COPD exacerbation. At the time of my evaluation patient sitting up in bed on nasal cannula able to speak in full sentences. She complains of mild shortness of breath by her main complaint is back and right upper quadrant pain. Historian: patient, other (EMR) Onset: this morning Severity: moderate Complaint Status: improved, persistent Quality of Pain: aching Method of Injury: unknown Modifying Factors: pain medication Review of Systems Constitutional: reports: as stated in HPI Eyes: reports: as stated in HPI ENT: reports: as stated in HPI Cardiovascular: reports: as stated in HPI Respiratory: reports: as stated in HPI Gastrointestinal: reports: as stated in HPI Genitourinary - Female: reports: as stated in HPI Musculoskeletal: reports: as stated in HPI Integumentary: reports: as stated in HPI Neurologic: reports: as stated in HPI Psychiatric: reports: as stated in HPI Endocrine: as stated in HPI Hematologic / Lymphatic: as stated in HPI Allergic / Immunologic: as stated in HPI All Other Symptoms All Other Systems: Reviewed and Negative Family History Diabetes mellitus MOTHER Lung disease FATHER (emphysema) Social History Hx Tobacco Use In Past Year?: No Smoking Status: Former Smoker Marital status: Housing status: lives with family, lives with significant other Occupational Status: retired Immunizations History of Influenza Vaccine: Yes History of Tetanus Vaccine?: Unknown History of Pneumococcal: Yes History of Hepatitis B Vaccine: Unknown History of MDRO History of MDRO: No Allergies Coded Allergies: Lorazepam (Verified Allergy, Unknown, DELIRIUM, 09/06/17) Roflumilast (Verified Adverse Reaction, Unknown, Headache, dizziness and nausea, 09/24/17) Current Medications Reported Home Medications Medications Dose Route/Sig Max Daily Dose Days Date Category Dose Instructions Calcitonin-[place] (Calcitonin [place]) 30 [place]/3.7 Ml Soln 1 [place] NA DAILY 10/09/17 Reported alternate nostrils Hydrocodone/Acetaminophen 5-325 mg (Acetaminophen/Hydrocodone Bitart) 1 Ea Tab 1 Tab PO Q4-6 HRS PRN 6 10/09/17 Reported Calcium 500 + D (Calcium Carbonate-Vitamin D) 1 Tab Tab 1 Tab PO DAILY 30 09/27/17 Rx Prednisone 20 Mg Tab 20 Mg PO UD 15 09/27/17 Rx Take 3 tabs for 3 days, then 2.5 tabs for 3 days, then 2 tabs for 3 days, then 1.5 tab for 3 days, then 1 tab for 3 days, then continue 0.5 tab(10 mg daily) Acetylcysteine 600 Mg Cap 600 Mg PO BID 30 09/27/17 Rx Prednisone 10 Mg Tab 10 Mg PO UD PRN 09/24/17 Reported COPD RECUE KIT FOLLOWS: TAKE 4 TABLETS (40 MG) DAILY FOR 4 DAYS THEN, TAKE 3 TABLETS (30 MG) DAILY FOR 4 DAYS THEN, TAKE 2 TABLETS (20 MG) DAILY FOR 4 DAYS THEN, TAKE 1 TABLET (10 MG) DAILY FOR 4 DAYS THEN STOP Pantoprazole Sodium (Pantoprazole) 40 Mg Tab 40 Mg PO DAILY 09/24/17 Reported Pramipexole Dihydrochlori (Pramipexole Dihydrochloride) 0.5 Mg Tab 0.5 Mg PO HS 09/24/17 Reported Breo Ellipta 200-25 Mcg/INH (Fluticasone Furoate-Vilanterol) 1 Inh Inh 1 Puff INH DAILY 09/24/17 Reported RINSE MOUTH AFTER USE Imodium (Loperamide HCl) 2 Mg Cap 2 Mg PO UD PRN 09/24/17 Reported TAKE ONE CAPSULE WITH EACH LOOSE BOWEL MOVEMENT. TAKE NO MORE THAN 8 CAPSULES WITHIN 24 HOURS. Floranex (Lactobacillus) 1 Tab Tab 4 Tabs PEG TIDM 09/24/17 Reported Levalbuterol HCl (Levalbuterol) 0.63 Mg/3 Ml Nebu 3 Ml INH QID PRN 07/28/17 Reported Atrovent 0.02% Soln (Ipratropium [place]) 2.5 Ml Nebu 2.5 Ml INH QID PRN 07/28/17 Reported MIX WITH LEVABUTEROL Citalopram Hydrobromide (Citalopram) 20 Mg Tab 20 Mg PO QAM 05/19/17 Reported Aspirin 81 (Aspirin) 81 Mg Tab 81 Mg PO DAILY 05/19/17 Reported Vitamin D 91123 Unit (Ergocalciferol) 50,000 Unit Cap 50,000 Inter.unit PO WK 05/19/17 Reported TAKE THIS MEDICATION EVERY THURSDAY Spiriva Handihaler (Tiotropium [place]) 30 Puff/540 Mcg Aerp 1 Cap INH DAILY 05/19/17 Reported Combivent Respimat (Ipratropium-Albuterol) 1 Aer Aer 1 Puff INH QID 07/24/16 Reported Tessalon Perles (Benzonatate) 100 Mg Cap 100 Mg PO TID PRN 07/24/16 Reported Oxygen Gas 2 Liters NA CONTINOUS 10/15/15 Reported Physical Physical Exam Vital Signs: Date Time Temp Pulse Resp B/P (MAP) Pulse Ox O2 Delivery O2 Flow Rate FiO2 10/09/17 07:36 109 18 92 Nasal Cannula 2.0 10/09/17 06:14 36.8 103 28 168/97 95 Nasal Cannula 3.0 10/09/17 06:05 104 22 138/95 97 10/09/17 05:20 103 22 130/75 97 Nasal Cannula 4.0 10/09/17 03:22 100 BiPAP 35 10/09/17 03:22 100 BiPAP 35 10/09/17 03:22 36.7 109 22 163/101 100 BiPAP 35 10/09/17 03:21 120 10/09/17 03:18 110 100 35 General Appearance: uncomfortable, mild distress Head: NORMOCEPHALIC, ATRAUMATIC Eyes: PERRLA, NO DISCHARGE, EOMI, SCLERAE NORMAL ENT: NORMAL MOUTH EXAM, dentures Neck: NORMAL RANGE OF MOTION, NO TENDERNESS, TRACHEA MIDLINE, NO STRIDOR, SUPPLE Respiratory: chest wall tenderness (right anterior ribs), other (decreased breath sounds bilaterally, barrel chest) Cardiovasular: REGULAR RATE/RHYTHM, NORMAL S1S2 Abdomen: RUQ TTP Back: NORMAL INSPECTION, NO CVA TENDERNESS, midline thoracic TTP Upper Extremities: NO EDEMA, NO DEFORMITY, NORMAL ROM Lower Extremities: NO EDEMA, NO DEFORMITY, NORMAL ROM Pulses: dorsalis pedis (R), dorsalis pedis (L) (2+) Neuro: ALERT, ORIENTED x 3, NORMAL MOTOR EXAM, NORMAL SENSATION, NORMAL MEMORY Psychiatric: NORMAL AFFECT, NO SUICIDAL IDEATION, CONTRACTS FOR SAFETY Diagnostics Labs Results Past 24 Hours Test 10/09/17 03:18 Range/Units White Blood Count 17.04 4.8-10.8 K/uL Red Blood Count 4.42 4.2-5.4 M/uL Hemoglobin 10.9 12.0-16.0 g/dL Hematocrit 37.0 37-47 % Mean Corpuscular Volume 83.7 80-100 fL Mean Corpuscular Hemoglobin 24.7 25-34 pg Mean Corpuscular Hemoglobin Concent 29.5 32-36 g/dl Platelet Count 337 130-400 K/uL Mean Platelet Volume 8.5 7.4-10.4 fL Neutrophils (%) (Auto) 70.0 % Lymphocytes (%) (Auto) 20.1 % Monocytes (%) (Auto) 7.2 % Eosinophils (%) (Auto) 0.2 % Basophils (%) (Auto) 0.1 % Neutrophils # (Auto) 11.92 1.4-6.5 K/uL Lymphocytes # (Auto) 3.43 1.2-3.4 K/uL Monocytes # (Auto) 1.22 0.11-0.59 K/uL Eosinophils # (Auto) 0.04 0-0.5 K/uL Basophils # (Auto) 0.02 0-0.2 K/uL RDW Standard Deviation 57.0 36.4-46.3 fL RDW Coefficient of Variation 18.7 11.5-14.5 % Immature Granulocyte % (Auto) 2.4 % Immature Granulocyte # (Auto) 0.41 0.00-0.02 K/uL Sodium Level 134 136-145 mmol/L Potassium Level 3.5 3.5-5.1 mmol/L Chloride Level 98 98-107 mmol/L Carbon Dioxide Level 33 21-32 mmol/L Anion Gap 3.0 3-11 mmol/L Blood Urea Nitrogen 16 7-18 mg/dl Creatinine 0.77 0.60-1.20 mg/dl Est Creatinine Clear Calc Drug Dose 43.9 ml/min Estimated GFR () 84.5 Estimated GFR (Non- 72.9 BUN/Creatinine Ratio 21.3 10-20 Random Glucose 110 70-99 mg/dl Calcium Level 8.8 8.5-10.1 mg/dl Total Bilirubin 0.3 0.2-1 mg/dl Aspartate Amino Transf (AST/SGOT) 19 15-37 U/L Alanine Aminotransferase (ALT/SGPT) 28 12-78 U/L Alkaline Phosphatase 78 45-117 U/L Total Creatine Kinase 75 26-192 U/L Creatine Kinase MB 5.9 0.5-3.6 ng/ml Creatine Kinase MB Ratio 7.9 0-3.0 Troponin I < 0.015 0-0.045 ng/ml Pro-B-Type Natriuretic Peptide 307 0-1800 pg/ml Total Protein 7.0 6.4-8.2 gm/dl Albumin 3.4 3.4-5.0 gm/dl Globulin 3.6 2.5-4.0 gm/dl Albumin/Globulin Ratio 0.9 0.9-2 Diagnostic Radiology TWO VIEW CHEST CLINICAL HISTORY: Dyspnea. FINDINGS: PA and lateral chest radiographs are compared to chest x-ray and chest CT dated 09/24/2017. The examination is degraded by portable technique, apical lordotic positioning, and patient rotation. The heart is enlarged and there is atherosclerotic calcification of the thoracic aorta. The pulmonary vasculature is noncongested. Advanced emphysema and chronic interstitial thickening are similar to previous. Bibasilar airspace opacities are identified, right greater than left. No large pleural effusion or pneumothorax is seen. The skeletal structures are osteopenic. Degenerative change and compression deformities are seen in the thoracic spine. IMPRESSION: 1. Cardiomegaly and advanced emphysema. 2. There are increasing bibasilar airspace opacities as compared to 09/24/2017. This could represent atelectasis versus developing pneumonia/aspiration pneumonitis. Clinical correlation will be required and radiographic follow-up to resolution is recommended. EKG EKG 10/09/2017 Sinus tachycardia, ventricular rate of 110 bpm Right bundle branch block Inferior infarct (cited on or before 24-SEP-2017) Cannot rule out Anterior infarct (cited on or before 24-SEP-2017) Abnormal ECG Impression Assessment and Plan COPD exacerbation Acute on chronic hypoxic respiratory failure Possible bilateral lower lobe pneumonia versus atelectasis Osteoporosis with compression fractures Back pain and right upper quadrant pain Anemia Deconditioning Mrs. Azevedo is well known to the pulmonary service. She presents with acute on chronic hypoxic respiratory failure likely secondary to COPD exacerbation. Patient has very severe COPD and has multiple admissions in the last year. I explained to Nanette that with each new admission and exacerbation of COPD, her pulmonary function declines. At the current time she is on optimal therapy. I feel that her right upper quadrant pain is likely secondary to radiculopathy from compression fractures. She does have history of previous healing rib fractures seen on last CT done in September. We can obtain a rib series to see if she has any other rib fractures. Continue with calcium and vitamin D as well as calcitonin. Continue with supplemental oxygen to maintain an SaO2 between 88-92%. Be careful with hyper-oxygenating her as this can precipitate CO2 retention. Use BiPAP at night. Continue with Levaquin. Continue with Solu-Medrol 40 mg every 8 hours. Continue with Xopenex/ipratropium every 4-6 hours standing dose. Continue with acetylcysteine 600 mg twice a day. Continue with Spiriva 1 puff daily. Continue with PPI. Continue with pain medications. Encourage incentive spirometry. Continue with DVT prophylaxis. Encourage PT and OT Recommend palliative care to discuss goals of care. I appreciate the consult and will continue to follow her during her hospitalization.
[2017-10-09] MEDS: HYDROmorphone INJ 0.5 MG/0.5 ML SYR IV PRN ×3 (09:47→23:49)
[2017-10-09] MEDS: METHYLPREDNISOLONE IV 40 MG in SYRINGE 0 ML IV SCH ×2 (09:48→20:54)
[2017-10-09] MEDS: LEVOFLOXACIN 500 MG TAB PO SCH (11:09)
--- NOTE | 2017-10-09 12:54 | DIAGNOSTIC IMAGING REPORT ---
RIBS BILATERAL MIN 3 VIEWS CLINICAL HISTORY: rib pain pain COMPARISON STUDY: None FINDINGS: Negative ribs bilaterally. Mild chronic bibasilar interstitial prominence. IMPRESSION: Negative ribs. No evidence pneumothorax. The above report was generated using voice recognition software. It may contain grammatical, syntax or spelling errors. Electronically signed by: Chai Nieto M.D. 10/09/2017 12:53 PM Dictated Date/Time: 10/09/2017 12:51 PM
--- NOTE | 2017-10-09 15:01 | Progress Note ---
Medicine Progress Note Date & Time of Visit: Oct 09, 2017 at 14:43. Subjective Pt was seen and examined Lying in bed with mild distress Pt was in tear because she is having a lot of pain in her back She said that she is unable to take deep breath due to the pain She said that her pain is about 7/10 Denies any chest pain, palpitation and dizziness Objective Last 8 Hrs Date Time Temp Pulse Resp B/P (MAP) Pulse Ox O2 Delivery O2 Flow Rate FiO2 10/09/17 12:16 36.8 116 16 144/101 (115) 93 Nasal Cannula 2.0 10/09/17 12:00 94 Nasal Cannula 2.0 10/09/17 11:09 110 18 93 Nasal Cannula 2.0 10/09/17 08:00 94 Nasal Cannula 2.0 10/09/17 07:36 109 18 92 Nasal Cannula 2.0 Physical Exam: General- No acute distress Head- atraumatic Eyes- PERRL, EOMI ENT- oropharynx clear Neck- supple, no JVD Lungs + wheezing Heart- Tachycardia Abdomen- normal bowel sounds, soft Extremities- no calf tenderness Neuro- alert, oriented x 3; PERRL, EOMI Skin- warm & dry Laboratory Results: Last 24 Hours Test 10/09/17 03:18 White Blood Count 17.04 K/uL Red Blood Count 4.42 M/uL Hemoglobin 10.9 g/dL Hematocrit 37.0 % Mean Corpuscular Volume 83.7 fL Mean Corpuscular Hemoglobin 24.7 pg Mean Corpuscular Hemoglobin Concent 29.5 g/dl Platelet Count 337 K/uL Mean Platelet Volume 8.5 fL Neutrophils (%) (Auto) 70.0 % Lymphocytes (%) (Auto) 20.1 % Monocytes (%) (Auto) 7.2 % Eosinophils (%) (Auto) 0.2 % Basophils (%) (Auto) 0.1 % Neutrophils # (Auto) 11.92 K/uL Lymphocytes # (Auto) 3.43 K/uL Monocytes # (Auto) 1.22 K/uL Eosinophils # (Auto) 0.04 K/uL Basophils # (Auto) 0.02 K/uL RDW Standard Deviation 57.0 fL RDW Coefficient of Variation 18.7 % Immature Granulocyte % (Auto) 2.4 % Immature Granulocyte # (Auto) 0.41 K/uL Sodium Level 134 mmol/L Potassium Level 3.5 mmol/L Chloride Level 98 mmol/L Carbon Dioxide Level 33 mmol/L Anion Gap 3.0 mmol/L Blood Urea Nitrogen 16 mg/dl Creatinine 0.77 mg/dl Est Creatinine Clear Calc Drug Dose 43.9 ml/min Estimated GFR () 84.5 Estimated GFR (Non- 72.9 BUN/Creatinine Ratio 21.3 Random Glucose 110 mg/dl Calcium Level 8.8 mg/dl Total Bilirubin 0.3 mg/dl Aspartate Amino Transf (AST/SGOT) 19 U/L Alanine Aminotransferase (ALT/SGPT) 28 U/L Alkaline Phosphatase 78 U/L Total Creatine Kinase 75 U/L Creatine Kinase MB 5.9 ng/ml Creatine Kinase MB Ratio 7.9 Troponin I < 0.015 ng/ml Pro-B-Type Natriuretic Peptide 307 pg/ml Total Protein 7.0 gm/dl Albumin 3.4 gm/dl Globulin 3.6 gm/dl Albumin/Globulin Ratio 0.9 Assessment & Plan COPD Exacerbation Acute on chronic hypoxic respiratory failure On chronic oxygen dependency on 2L home oxygen and BiPAP QHS CXR showed increasing bibasilar airspace opacities Continue IV solumedrol, bronchodilators, Levaquin, Mucomyst and oxygen supplement Continue Spiriva, incentive spirometry Was not able to tolerated Daliresp due to diarrhea Pulmonary on board Will consider palliative care if not improve in the next few days Back pain/Right rib pain Last CT chest on 09/18 showed healing rib fracture and multiple vertebral body compression fractures. Xray of rib today negative Pain control, Incentive Spirometry Continue calcitonin, Calcium, Vit D supplements Elevated WBC Mostly related to prednisone Afebrile Already on Levaquin Continue monitor HTN Elevated Likely situational Will add clonidine prn monitor BP GERD continue PPI RLS Continue home meds Depression continue SSRI DVT Px Heparin SQ Code Status: FULL NO MECH VENTILATION Disposition Continue monitor in tele Current Inpatient Medications: Current Inpatient Medications Medications (Trade) Dose Ordered Sig/Huan Route Start Time Stop Time Status Last Admin Dose Admin Heparin Sodium (Porcine) (Heparin Sq 5000 Unit/0.5ml) 5,000 unit Q8H SQ 10/09/17 08:00 11/08/17 07:59 10/09/17 08:29 5,000 UNIT Acetaminophen (Tylenol Tab) 650 mg Q4H PRN PO 10/09/17 05:45 11/08/17 05:44 Ondansetron HCl (Zofran Inj) 4 mg Q6H PRN IV 10/09/17 05:45 11/08/17 05:44 Methylprednisolone Sodium Succinate 40 mg/Syringe 0.64 ml @ 1.5 mls/min BID IV 10/09/17 09:00 11/08/17 08:59 10/09/17 09:48 1.5 MLS/MIN Albuterol/ Ipratropium (Duoneb) 3 ml QIDR INH 10/09/17 08:00 11/08/17 07:59 10/09/17 11:09 3 ML Acetylcysteine (Acetylcysteine Cap) 600 mg BID PO 10/09/17 09:00 11/08/17 08:59 10/09/17 08:34 600 MG Aspirin (Ecotrin Tab) 81 mg DAILY PO 10/09/17 09:00 11/08/17 08:59 10/09/17 08:33 81 MG Benzonatate (Tessalon Perles Cap) 100 mg TID PRN PO 10/09/17 05:45 11/08/17 05:44 Calcitonin [place] (Fortical Nasal [place]) 1 spray DAILY NA 10/09/17 09:00 11/08/17 08:59 10/09/17 08:31 1 SPRAY Citalopram Hydrobromide (celeXA TAB) 20 mg QAM PO 10/09/17 09:00 11/08/17 08:59 10/09/17 08:33 20 MG Pantoprazole Sodium (Protonix Tab) 40 mg DAILY PO 10/09/17 09:00 11/08/17 08:59 10/09/17 08:34 40 MG Pramipexole Dihydrochloride (miraPEX TAB) 0.5 mg HS PO 10/09/17 21:00 11/08/17 20:59 Tiotropium [place] (Spiriva Handihaler Inhaler) 1 puff DAILY INH 10/09/17 09:00 11/08/17 08:59 10/09/17 08:31 1 PUFF Calcium/Vitamin D (Caltrate Plus Tab) 1 tab DAILY PO 10/09/17 09:00 11/08/17 08:59 10/09/17 08:34 1 TAB Miscellaneous Information (Order Awaiting Action) 1 ea QS N/A 10/09/17 08:00 11/08/17 07:59 Acetaminophen/ Hydrocodone Bitart ([place] 5/325 Tab) 1 tab Q4H PRN PO 10/09/17 06:00 10/23/17 05:59 10/09/17 13:58 1 TAB Levofloxacin (Levaquin Tab) 500 mg DAILY@11 PO 10/09/17 11:00 10/16/17 10:59 10/09/17 11:09 500 MG Hydromorphone HCl (Dilaudid Inj) 0.5 mg Q6H PRN IV 10/09/17 06:00 10/23/17 05:59 10/09/17 09:47 0.5 MG Albuterol/ Ipratropium (Duoneb) 3 ml Q2H PRN INH 10/09/17 07:30 11/08/17 07:29
[2017-10-09] MEDS ORDERED: CLONIDINE HCL 0.1 MG TAB PO PRN (15:15)
[2017-10-09] MEDS: PRAMIPEXOLE DIHYDROCHLORIDE 0.5 MG TAB PO SCH (20:54)
[2017-10-10] VITALS (14 sets, daily range): BP systolic 110–169; BP diastolic 53–91; PULSE 75–118; TEMP 36.6–36.9; O2SAT 92–99
[2017-10-10] MEDS: HYDROCODONE/ACETAMOPHEN 5/325MG TAB PO PRN ×4 (04:37→19:46)
[2017-10-10 06:41] LABS: BASO % 0.1 %; BASO ABS # 0.01 K/uL (0-0.2); COMPLETE YES; HEMATOCRIT 32.6 % (37-47); IG% 1.1 %; LYMPH % 6.6 %; LYMPH ABS # 0.89 K/uL (1.2-3.4); MEAN CELL VOLUME 83.2 fL (80-100); MEAN CORPUSCULAR HEMOGLOBIN 24.7 pg (25-34); MEAN CORPUSCULAR HGB CONC 29.8 g/dl (32-36); MEAN PLATELET VOLUME 7.9 fL (7.4-10.4); MONO % 5.5 %; NEUT % 86.7 %; PLATELET COUNT 279 K/uL (130-400); RED BLOOD COUNT 3.92 M/uL (4.2-5.4); WHITE BLOOD COUNT 13.56 K/uL (4.8-10.8)
[2017-10-10 07:23] LABS: BUN/CREATININE RATIO 24.6 (10-20); CALCIUM 8.9 mg/dl (8.5-10.1); CREATININE 0.68 mg/dl (0.60-1.20); MAGNESIUM 2.3 mg/dl (1.8-2.4); POTASSIUM 4.1 mmol/L (3.5-5.1)
[2017-10-10] MEDS: ALBUT/IPRATROP 3MG/0.5MG NEB 3 ML VIAL INH SCH ×4 (07:24→21:45)
[2017-10-10] MEDS: TIOTROPIUM BROMIDE 5 PUFF/90 MCG INH INH SCH (07:51)
[2017-10-10] MEDS: HEPARIN SOD 5000 UNIT/0.5 ML CARP SQ SCH ×2 (07:52→16:06)
[2017-10-10] MEDS: CALCITONIN SALMON NA 200 IU/AC 3.7 ML BTL SCH (07:58)
[2017-10-10] MEDS: ACETYLCYSTEINE 600 MG CAP PO SCH ×2 (07:58→20:53)
[2017-10-10] MEDS: CITALOPRAM 20 MG TAB PO SCH (07:59)
[2017-10-10] MEDS: PANTOprazole SOD 40 MG TAB PO SCH (07:59)
[2017-10-10] MEDS: CALCIUM 600MG + VIT D 400 IU TAB PO SCH (07:59)
[2017-10-10] MEDS: ASPIRIN 81 MG ECTAB PO SCH (07:59)
[2017-10-10] MEDS: HYDROmorphone INJ 0.5 MG/0.5 ML SYR IV PRN ×3 (08:01→23:15)
[2017-10-10] MEDS: METHYLPREDNISOLONE IV 40 MG in SYRINGE 0 ML IV SCH ×3 (09:40→21:29)
[2017-10-10] MEDS: LEVOFLOXACIN 500 MG TAB PO SCH (10:54)
--- NOTE | 2017-10-10 12:03 | Pulmonology Progress Note ---
Pulmonary Progress Note Date of Service Oct 10, 2017. Attending Dr. Rodriguez Subjective Patient seen and examined at bedside. She's feeling much better. Still quite dyspneic on exertion. Sitting on the side of bed. Denies any chest pain. Still has cough with nonproductive sputum. She is complaining of difficulty swallowing. She tolerated her BiPAP overnight. Objective Vital signs reviewed. MAXIMUM TEMPERATURE 36.9, blood pressure 110/53 to 150/75 , pulse 75-109, respiratory rate 18-24, pulse oximetry 93-99 percent on 2 L nasal cannula. She is currently 245 milliliters negative since admission. Gen: Awake alert oriented 3, no acute respiratory distress. Appears more comfortable. CVS: S1 and S2, regular rate and rhythm Lungs: Diminished breath sounds bilaterally Abdomen: Soft, nontender, nondistended Extremities: No edema bilaterally, no clubbing, no cyanosis Laboratory data reviewed Imaging reviewed Medications reviewed Assessment & Plan COPD exacerbation Acute on chronic hypoxic respiratory failure Possible bilateral lower lobe pneumonia versus atelectasis Osteoporosis with compression fractures Back pain and right upper quadrant pain Anemia Deconditioning Mrs. Azevedo is well known to the pulmonary service. She presents with acute on chronic hypoxic respiratory failure likely secondary to COPD exacerbation. She is feeling better today. Continue with supplemental oxygen to maintain an SaO2 between 88-92%. Be careful with hyper-oxygenating her as this can precipitate CO2 retention. Use BiPAP at night. Continue with Levaquin. Continue with Solu-Medrol 40 mg every 8 hours. Likely switch over to prednisone 40 mg tomorrow and taper. Continue with Xopenex/ipratropium every 4-6 hours standing dose. Continue with acetylcysteine 600 mg twice a day. Continue with Spiriva 1 puff daily. Continue with PPI. Continue with pain medications. Encourage incentive spirometry. Continue with DVT prophylaxis. Encourage PT and OT Continue with calcium and vitamin D as well as calcitonin. Speech and swallow eval vs GI evaluation for dysphagia. I will leave to he management of primary team. Please contact me if you any further questions or concerns. Data Medications: Current Inpatient Medications Medications (Trade) Dose Ordered Sig/Huan Route Start Time Stop Time Status Last Admin Dose Admin Heparin Sodium (Porcine) (Heparin Sq 5000 Unit/0.5ml) 5,000 unit Q8H SQ 10/09/17 08:00 11/08/17 07:59 10/10/17 07:52 5,000 UNIT Acetaminophen (Tylenol Tab) 650 mg Q4H PRN PO 10/09/17 05:45 11/08/17 05:44 Ondansetron HCl (Zofran Inj) 4 mg Q6H PRN IV 10/09/17 05:45 11/08/17 05:44 Methylprednisolone Sodium Succinate 40 mg/Syringe 0.64 ml @ 1.5 mls/min BID IV 10/09/17 09:00 11/08/17 08:59 10/10/17 09:40 1.5 MLS/MIN Albuterol/ Ipratropium (Duoneb) 3 ml QIDR INH 10/09/17 08:00 11/08/17 07:59 10/10/17 10:47 3 ML Acetylcysteine (Acetylcysteine Cap) 600 mg BID PO 10/09/17 09:00 11/08/17 08:59 10/10/17 07:58 600 MG Aspirin (Ecotrin Tab) 81 mg DAILY PO 10/09/17 09:00 11/08/17 08:59 10/10/17 07:59 81 MG Benzonatate (Tessalon Perles Cap) 100 mg TID PRN PO 10/09/17 05:45 11/08/17 05:44 Calcitonin [place] (Fortical Nasal [place]) 1 spray DAILY NA 10/09/17 09:00 11/08/17 08:59 10/10/17 07:58 1 SPRAY Citalopram Hydrobromide (celeXA TAB) 20 mg QAM PO 10/09/17 09:00 11/08/17 08:59 10/10/17 07:59 20 MG Pantoprazole Sodium (Protonix Tab) 40 mg DAILY PO 10/09/17 09:00 11/08/17 08:59 10/10/17 07:59 40 MG Pramipexole Dihydrochloride (miraPEX TAB) 0.5 mg HS PO 10/09/17 21:00 11/08/17 20:59 10/09/17 20:54 0.5 MG Tiotropium [place] (Spiriva Handihaler Inhaler) 1 puff DAILY INH 10/09/17 09:00 11/08/17 08:59 10/10/17 07:51 1 PUFF Calcium/Vitamin D (Caltrate Plus Tab) 1 tab DAILY PO 10/09/17 09:00 11/08/17 08:59 10/10/17 07:59 1 TAB Miscellaneous Information (Order Awaiting Action) 1 ea QS N/A 10/09/17 08:00 11/08/17 07:59 Acetaminophen/ Hydrocodone Bitart ([place] 5/325 Tab) 1 tab Q4H PRN PO 10/09/17 06:00 10/23/17 05:59 10/10/17 09:44 1 TAB Levofloxacin (Levaquin Tab) 500 mg DAILY@11 PO 10/09/17 11:00 10/16/17 10:59 10/10/17 10:54 500 MG Hydromorphone HCl (Dilaudid Inj) 0.5 mg Q6H PRN IV 10/09/17 06:00 10/23/17 05:59 10/10/17 08:01 0.5 MG Albuterol/ Ipratropium (Duoneb) 3 ml Q2H PRN INH 10/09/17 07:30 11/08/17 07:29 Clonidine HCl (Catapres Tab) 0.1 mg Q6 PRN PO 10/09/17 15:15 11/08/17 15:14 Vital Signs: Date Time Temp Pulse Resp B/P (MAP) Pulse Ox O2 Delivery O2 Flow Rate FiO2 10/10/17 10:47 91 18 99 Nasal Cannula 2.0 10/10/17 08:00 93 Nasal Cannula 2.0 10/10/17 08:00 36.9 109 24 150/75 (100) 93 Nasal Cannula 2.0 10/10/17 07:24 104 19 95 Nasal Cannula 2.0 10/10/17 04:00 97 Nasal Cannula 2.0 10/10/17 02:42 36.7 75 18 110/53 (72) 98 Room Air 10/10/17 00:00 98 BiPAP 2.0 10/09/17 21:26 110 96 35 10/09/17 20:00 36.6 104 20 160/95 (116) 94 Nasal Cannula 2.0 10/09/17 20:00 94 Nasal Cannula 2.0 10/09/17 19:00 101 19 97 Nasal Cannula 2.0 10/09/17 16:00 94 Nasal Cannula 2.0 10/09/17 16:00 36.8 110 16 148/91 (110) 96 Nasal Cannula 2.0 10/09/17 15:19 103 16 96 Nasal Cannula 2.0 10/09/17 12:16 36.8 116 16 144/101 (115) 93 Nasal Cannula 2.0 10/09/17 12:00 94 Nasal Cannula 2.0 Laboratory Results: Last 24 Hours Test 10/10/17 06:28 White Blood Count 13.56 K/uL Red Blood Count 3.92 M/uL Hemoglobin 9.7 g/dL Hematocrit 32.6 % Mean Corpuscular Volume 83.2 fL Mean Corpuscular Hemoglobin 24.7 pg Mean Corpuscular Hemoglobin Concent 29.8 g/dl Platelet Count 279 K/uL Mean Platelet Volume 7.9 fL Neutrophils (%) (Auto) 86.7 % Lymphocytes (%) (Auto) 6.6 % Monocytes (%) (Auto) 5.5 % Eosinophils (%) (Auto) 0.0 % Basophils (%) (Auto) 0.1 % Neutrophils # (Auto) 11.76 K/uL Lymphocytes # (Auto) 0.89 K/uL Monocytes # (Auto) 0.75 K/uL Eosinophils # (Auto) 0.00 K/uL Basophils # (Auto) 0.01 K/uL RDW Standard Deviation 56.9 fL RDW Coefficient of Variation 18.9 % Immature Granulocyte % (Auto) 1.1 % Immature Granulocyte # (Auto) 0.15 K/uL Sodium Level 137 mmol/L Potassium Level 4.1 mmol/L Chloride Level 100 mmol/L Carbon Dioxide Level 31 mmol/L Anion Gap 5.0 mmol/L Blood Urea Nitrogen 17 mg/dl Creatinine 0.68 mg/dl Est Creatinine Clear Calc Drug Dose 49.8 ml/min Estimated GFR () 95.8 Estimated GFR (Non- 82.6 BUN/Creatinine Ratio 24.6 Random Glucose 112 mg/dl Calcium Level 8.9 mg/dl Magnesium Level 2.3 mg/dl
[2017-10-10] MEDS: FLUTICASONE FUROATE-VILANTEROL 200/25 MCG INH INH SCH (15:28)
[2017-10-10] MEDS: PRAMIPEXOLE DIHYDROCHLORIDE 0.5 MG TAB PO SCH ×4 (18:38→21:04)
--- NOTE | 2017-10-10 19:25 | Progress Note ---
Medicine Progress Note Date & Time of Visit: Oct 10, 2017 at 19:14. Subjective Pt was seen and examined Lying in bed with mild respiratory distress She said that she continue to have SOB with minimal exertion She said that she has been having some hard time to swallow her tablets She said that the pills stuck in her throat today She said in the past she had an EGD done where they had to dilate her esophageal Continue to cough but having hard time to bring it up Denies any chest pain and palpitation Objective Last 8 Hrs Date Time Temp Pulse Resp B/P (MAP) Pulse Ox O2 Delivery O2 Flow Rate FiO2 10/10/17 18:44 36.6 108 20 169/75 (106) 93 10/10/17 17:32 36.6 107 18 95 2.0 10/10/17 16:17 36.6 107 18 136/83 (100) 95 Nasal Cannula 2.0 10/10/17 16:00 Nasal Cannula 3.0 10/10/17 15:12 110 18 98 Nasal Cannula 2.0 10/10/17 12:00 36.6 118 22 150/91 (110) 92 Nasal Cannula 2.0 10/10/17 12:00 92 Nasal Cannula 2.0 Physical Exam: General- No acute distress Head- atraumatic Eyes- PERRL, EOMI ENT- oropharynx clear Neck- supple, no JVD Lungs + wheezing Heart- Tachycardia Abdomen- normal bowel sounds, soft Extremities- no calf tenderness Neuro- alert, oriented x 3; PERRL, EOMI Skin- warm & dry Laboratory Results: Last 24 Hours Test 10/10/17 06:28 White Blood Count 13.56 K/uL Red Blood Count 3.92 M/uL Hemoglobin 9.7 g/dL Hematocrit 32.6 % Mean Corpuscular Volume 83.2 fL Mean Corpuscular Hemoglobin 24.7 pg Mean Corpuscular Hemoglobin Concent 29.8 g/dl Platelet Count 279 K/uL Mean Platelet Volume 7.9 fL Neutrophils (%) (Auto) 86.7 % Lymphocytes (%) (Auto) 6.6 % Monocytes (%) (Auto) 5.5 % Eosinophils (%) (Auto) 0.0 % Basophils (%) (Auto) 0.1 % Neutrophils # (Auto) 11.76 K/uL Lymphocytes # (Auto) 0.89 K/uL Monocytes # (Auto) 0.75 K/uL Eosinophils # (Auto) 0.00 K/uL Basophils # (Auto) 0.01 K/uL RDW Standard Deviation 56.9 fL RDW Coefficient of Variation 18.9 % Immature Granulocyte % (Auto) 1.1 % Immature Granulocyte # (Auto) 0.15 K/uL Sodium Level 137 mmol/L Potassium Level 4.1 mmol/L Chloride Level 100 mmol/L Carbon Dioxide Level 31 mmol/L Anion Gap 5.0 mmol/L Blood Urea Nitrogen 17 mg/dl Creatinine 0.68 mg/dl Est Creatinine Clear Calc Drug Dose 49.8 ml/min Estimated GFR () 95.8 Estimated GFR (Non- 82.6 BUN/Creatinine Ratio 24.6 Random Glucose 112 mg/dl Calcium Level 8.9 mg/dl Magnesium Level 2.3 mg/dl Assessment & Plan COPD Exacerbation Acute on chronic hypoxic respiratory failure On chronic oxygen dependency on 2L home oxygen and BiPAP QHS CXR showed increasing bibasilar airspace opacities Continue IV solumedrol, bronchodilators, Levaquin, Mucomyst and oxygen supplement Continue Spiriva, incentive spirometry Was not able to tolerated Daliresp due to diarrhea Pulmonary on board Will consider palliative care if not improve in the next few days Will do chest PT Continue monitor Back pain/Right rib pain Last CT chest on 09/18 showed healing rib fracture and multiple vertebral body compression fractures. Xray of rib today negative Pain control, Incentive Spirometry Continue calcitonin, Calcium, Vit D supplements stable Dysphagia Mostly with pills Hx of Esophageal stricture Will consult speech If cannot tolerated diet, will change to mechanical soft diet Elevated WBC Mostly related to prednisone WBC treading down Afebrile Already on Levaquin Continue monitor HTN Elevated BP Likely situational On clonidine prn monitor BP GERD continue PPI RLS Continue home meds Depression continue SSRI DVT Px Heparin SQ Code Status: FULL NO MECH VENTILATION Disposition Will transfer to medical Consultants: Pulmonology Current Inpatient Medications: Current Inpatient Medications Medications (Trade) Dose Ordered Sig/Huan Route Start Time Stop Time Status Last Admin Dose Admin Heparin Sodium (Porcine) (Heparin Sq 5000 Unit/0.5ml) 5,000 unit Q8H SQ 10/09/17 08:00 11/08/17 07:59 10/10/17 16:06 5,000 UNIT Acetaminophen (Tylenol Tab) 650 mg Q4H PRN PO 10/09/17 05:45 11/08/17 05:44 Ondansetron HCl (Zofran Inj) 4 mg Q6H PRN IV 10/09/17 05:45 11/08/17 05:44 Methylprednisolone Sodium Succinate 40 mg/Syringe 0.64 ml @ 1.5 mls/min BID IV 10/09/17 09:00 11/08/17 08:59 10/10/17 09:40 1.5 MLS/MIN Albuterol/ Ipratropium (Duoneb) 3 ml QIDR INH 10/09/17 08:00 11/08/17 07:59 10/10/17 15:12 3 ML Acetylcysteine (Acetylcysteine Cap) 600 mg BID PO 10/09/17 09:00 11/08/17 08:59 10/10/17 07:58 600 MG Aspirin (Ecotrin Tab) 81 mg DAILY PO 10/09/17 09:00 11/08/17 08:59 10/10/17 07:59 81 MG Benzonatate (Tessalon Perles Cap) 100 mg TID PRN PO 10/09/17 05:45 11/08/17 05:44 Calcitonin [place] (Fortical Nasal [place]) 1 spray DAILY NA 10/09/17 09:00 11/08/17 08:59 10/10/17 07:58 1 SPRAY Citalopram Hydrobromide (celeXA TAB) 20 mg QAM PO 10/09/17 09:00 11/08/17 08:59 10/10/17 07:59 20 MG Pantoprazole Sodium (Protonix Tab) 40 mg DAILY PO 10/09/17 09:00 11/08/17 08:59 10/10/17 07:59 40 MG Pramipexole Dihydrochloride (miraPEX TAB) 0.5 mg HS PO 10/09/17 21:00 11/08/17 20:59 10/09/17 20:54 0.5 MG Tiotropium [place] (Spiriva Handihaler Inhaler) 1 puff DAILY INH 10/09/17 09:00 11/08/17 08:59 10/10/17 07:51 1 PUFF Calcium/Vitamin D (Caltrate Plus Tab) 1 tab DAILY PO 10/09/17 09:00 11/08/17 08:59 10/10/17 07:59 1 TAB Acetaminophen/ Hydrocodone Bitart ([place] 5/325 Tab) 1 tab Q4H PRN PO 10/09/17 06:00 10/23/17 05:59 10/10/17 14:36 1 TAB Levofloxacin (Levaquin Tab) 500 mg DAILY@11 PO 10/09/17 11:00 10/16/17 10:59 10/10/17 10:54 500 MG Hydromorphone HCl (Dilaudid Inj) 0.5 mg Q6H PRN IV 10/09/17 06:00 10/23/17 05:59 10/10/17 17:34 0.5 MG Albuterol/ Ipratropium (Duoneb) 3 ml Q2H PRN INH 10/09/17 07:30 11/08/17 07:29 Clonidine HCl (Catapres Tab) 0.1 mg Q6 PRN PO 10/09/17 15:15 11/08/17 15:14 Fluticasone/ Vilanterol (Breo Ellipta 200-25 Mcg/Inh) 1 inha DAILY INH 10/10/17 16:00 11/09/17 15:59 10/10/17 15:28 1 INHA Pramipexole Dihydrochloride (miraPEX TAB) 0.5 mg DAILY@1730,2100 PO 10/10/17 18:00 11/09/17 17:59 10/10/17 18:38 0.5 MG
[2017-10-11] VITALS (11 sets, daily range): BP systolic 146–173; BP diastolic 76–83; PULSE 68–117; TEMP 35.6–36.6; O2SAT 91–100
[2017-10-11] MEDS: HEPARIN SOD 5000 UNIT/0.5 ML CARP SQ SCH ×4 (00:06→23:56)
[2017-10-11] MEDS: HYDROCODONE/ACETAMOPHEN 5/325MG TAB PO PRN ×4 (01:37→21:50)
[2017-10-11] MEDS ORDERED: ALUMINUM/MAGNESIUM/SIMETH (MAALOX MAX) 30 ML UDC PO PRN (03:45)
[2017-10-11] MEDS ORDERED: HYDROmorphone INJ 0.5 MG/0.5 ML SYR IV ONE (03:45)
[2017-10-11 06:21] LABS: BASO % 0.1 %; BASO ABS # 0.01 K/uL (0-0.2); COMPLETE YES; HEMATOCRIT 32.6 % (37-47); LYMPH % 5.3 %; LYMPH ABS # 0.66 K/uL (1.2-3.4); MEAN CELL VOLUME 83.4 fL (80-100); MEAN CORPUSCULAR HEMOGLOBIN 24.6 pg (25-34); MEAN CORPUSCULAR HGB CONC 29.4 g/dl (32-36); MEAN PLATELET VOLUME 7.7 fL (7.4-10.4); MONO % 4.5 %; NEUT % 89.1 %; PLATELET COUNT 270 K/uL (130-400); RED BLOOD COUNT 3.91 M/uL (4.2-5.4); WHITE BLOOD COUNT 12.42 K/uL (4.8-10.8)
[2017-10-11 06:54] LABS: BUN/CREATININE RATIO 31.1 (10-20); CREATININE 0.74 mg/dl (0.60-1.20); MAGNESIUM 2.4 mg/dl (1.8-2.4); POTASSIUM 4.4 mmol/L (3.5-5.1)
[2017-10-11] MEDS: HYDROmorphone INJ 0.5 MG/0.5 ML SYR IV PRN ×3 (07:10→20:22)
[2017-10-11] MEDS: ALBUT/IPRATROP 3MG/0.5MG NEB 3 ML VIAL INH SCH ×4 (07:16→20:27)
[2017-10-11] MEDS: TIOTROPIUM BROMIDE 5 PUFF/90 MCG INH INH SCH (08:02)
[2017-10-11] MEDS: FLUTICASONE FUROATE-VILANTEROL 200/25 MCG INH INH SCH (08:02)
[2017-10-11] MEDS: METHYLPREDNISOLONE IV 40 MG in SYRINGE 0 ML IV SCH ×2 (08:03→20:35)
[2017-10-11] MEDS: CALCITONIN SALMON NA 200 IU/AC 3.7 ML BTL SCH (08:06)
[2017-10-11] MEDS: ACETYLCYSTEINE 600 MG CAP PO SCH ×2 (08:06→20:39)
[2017-10-11] MEDS: CALCIUM 600MG + VIT D 400 IU TAB PO SCH (08:07)
[2017-10-11] MEDS: PANTOprazole SOD 40 MG TAB PO SCH (08:08)
[2017-10-11] MEDS: CITALOPRAM 20 MG TAB PO SCH (08:08)
[2017-10-11] MEDS: ASPIRIN 81 MG ECTAB PO SCH (08:08)
[2017-10-11] MEDS: LEVOFLOXACIN 500 MG TAB PO SCH (10:59)
--- NOTE | 2017-10-11 13:17 | Pulmonology Progress Note ---
Pulmonary Progress Note Date of Service Oct 11, 2017. Attending Dr. Rodriguez Subjective Patient seen and examined this when her bedside. She is out of bed to chair. Her main complaint is that she's having chronic lower back pain and difficulty swallowing. Speech and swallow bedside about to evaluate her for possible dysphagia. She feels that her breathing is improved today. She is able tamponade to the bathroom with assistance. She denies any further episodes of cough or chest pain. Objective Vital signs reviewed. MAXIMUM TEMPERATURE 36.6, blood pressure 150/82 to 173/83 , pulse 71-117, respiratory rate 18-28 saturating 91-98% on 2 L nasal cannula. She is currently about 700 mL negative since admission. Gen: Awake alert oriented 3, no acute respiratory distress. Appears more comfortable. CVS: S1 and S2, regular rate and rhythm Lungs: Diminished breath sounds bilaterally Abdomen: Soft, nontender, nondistended Extremities: No edema bilaterally, no clubbing, no cyanosis Laboratory data reviewed Imaging reviewed Medications reviewed Assessment & Plan COPD exacerbation Acute on chronic hypoxic respiratory failure Possible bilateral lower lobe pneumonia versus atelectasis Osteoporosis with compression fractures Back pain and right upper quadrant pain Anemia Deconditioning Mrs. Azevedo is well known to the pulmonary service. She presents with acute on chronic hypoxic respiratory failure likely secondary to COPD exacerbation. She is feeling better today, less dyspneic today. Continue with supplemental oxygen to maintain an SaO2 between 88-92%. Be careful with hyper-oxygenating her as this can precipitate CO2 retention. Use BiPAP at night. Continue with Levaquin. switch over to prednisone 40 mg daily today with a slow taper over the next 4 weeks. Continue with Xopenex/ipratropium every 4-6 hours standing dose. Continue with acetylcysteine 600 mg twice a day. Continue with Spiriva 1 puff daily. Continue with PPI. Continue with pain medications. Encourage incentive spirometry. Continue with DVT prophylaxis. Encourage PT and OT Continue with calcium and vitamin D as well as calcitonin. Speech and swallow eval vs GI evaluation for dysphagia being done today. Await their recommendations. Nanette appears to be back at her baseline from a respiratory status. She can follow with Dr. Frederick 1-2 weeks post hospital discharge. I will signoff case today. Please contact pulmonary, if you have any further questions or concerns. Data Medications: Current Inpatient Medications Medications (Trade) Dose Ordered Sig/Huan Route Start Time Stop Time Status Last Admin Dose Admin Heparin Sodium (Porcine) (Heparin Sq 5000 Unit/0.5ml) 5,000 unit Q8H SQ 10/09/17 08:00 11/08/17 07:59 10/11/17 08:10 5,000 UNIT Acetaminophen (Tylenol Tab) 650 mg Q4H PRN PO 10/09/17 05:45 11/08/17 05:44 Ondansetron HCl (Zofran Inj) 4 mg Q6H PRN IV 10/09/17 05:45 11/08/17 05:44 Methylprednisolone Sodium Succinate 40 mg/Syringe 0.64 ml @ 1.5 mls/min BID IV 10/09/17 09:00 11/08/17 08:59 10/11/17 08:03 1.5 MLS/MIN Albuterol/ Ipratropium (Duoneb) 3 ml QIDR INH 10/09/17 08:00 11/08/17 07:59 10/11/17 11:51 3 ML Acetylcysteine (Acetylcysteine Cap) 600 mg BID PO 10/09/17 09:00 11/08/17 08:59 10/11/17 08:06 600 MG Aspirin (Ecotrin Tab) 81 mg DAILY PO 10/09/17 09:00 11/08/17 08:59 10/11/17 08:08 81 MG Benzonatate (Tessalon Perles Cap) 100 mg TID PRN PO 10/09/17 05:45 11/08/17 05:44 Calcitonin [place] (Fortical Nasal [place]) 1 spray DAILY NA 10/09/17 09:00 11/08/17 08:59 10/11/17 08:06 1 SPRAY Citalopram Hydrobromide (celeXA TAB) 20 mg QAM PO 10/09/17 09:00 11/08/17 08:59 10/11/17 08:08 20 MG Pantoprazole Sodium (Protonix Tab) 40 mg DAILY PO 10/09/17 09:00 11/08/17 08:59 10/11/17 08:08 40 MG Pramipexole Dihydrochloride (miraPEX TAB) 0.5 mg HS PO 10/09/17 21:00 11/08/17 20:59 10/09/17 20:54 0.5 MG Tiotropium [place] (Spiriva Handihaler Inhaler) 1 puff DAILY INH 10/09/17 09:00 11/08/17 08:59 10/11/17 08:02 1 PUFF Calcium/Vitamin D (Caltrate Plus Tab) 1 tab DAILY PO 10/09/17 09:00 11/08/17 08:59 10/11/17 08:07 1 TAB Acetaminophen/ Hydrocodone Bitart ([place] 5/325 Tab) 1 tab Q4H PRN PO 10/09/17 06:00 10/23/17 05:59 10/11/17 10:59 1 TAB Levofloxacin (Levaquin Tab) 500 mg DAILY@11 PO 10/09/17 11:00 10/16/17 10:59 10/11/17 10:59 500 MG Hydromorphone HCl (Dilaudid Inj) 0.5 mg Q6H PRN IV 10/09/17 06:00 10/23/17 05:59 10/11/17 07:10 0.5 MG Albuterol/ Ipratropium (Duoneb) 3 ml Q2H PRN INH 10/09/17 07:30 11/08/17 07:29 Clonidine HCl (Catapres Tab) 0.1 mg Q6 PRN PO 10/09/17 15:15 11/08/17 15:14 Fluticasone/ Vilanterol (Breo Ellipta 200-25 Mcg/Inh) 1 inha DAILY INH 10/10/17 16:00 11/09/17 15:59 10/11/17 08:02 1 INHA Pramipexole Dihydrochloride (miraPEX TAB) 0.5 mg DAILY@1730,2100 PO 10/10/17 18:00 11/09/17 17:59 10/10/17 21:04 0.5 MG Al Hydrox/Mg Hydrox/Simethicone (Maalox Max Susp) 15 ml Q6H PRN PO 10/11/17 03:45 11/10/17 03:44 10/11/17 03:56 15 ML Vital Signs: Date Time Temp Pulse Resp B/P (MAP) Pulse Ox O2 Delivery O2 Flow Rate FiO2 10/11/17 12:16 106 168/82 (110) 10/11/17 11:51 100 18 97 Nasal Cannula 2.0 10/11/17 10:20 117 94 10/11/17 08:00 Nasal Cannula 2.0 10/11/17 07:55 36.6 103 20 173/83 (113) 91 2.0 10/11/17 00:38 Nasal Cannula 2.0 10/11/17 00:20 36.0 91 18 150/82 (104) 98 BiPAP 10/10/17 23:40 92 97 35 10/10/17 21:45 87 18 98 Nasal Cannula 2.0 10/10/17 20:15 Nasal Cannula 2.0 10/10/17 18:44 36.6 108 20 169/75 (106) 93 10/10/17 17:32 36.6 107 18 95 2.0 10/10/17 16:17 36.6 107 18 136/83 (100) 95 Nasal Cannula 2.0 10/10/17 16:00 Nasal Cannula 3.0 10/10/17 15:12 110 18 98 Nasal Cannula 2.0 Laboratory Results: Last 24 Hours Test 10/11/17 06:10 White Blood Count 12.42 K/uL Red Blood Count 3.91 M/uL Hemoglobin 9.6 g/dL Hematocrit 32.6 % Mean Corpuscular Volume 83.4 fL Mean Corpuscular Hemoglobin 24.6 pg Mean Corpuscular Hemoglobin Concent 29.4 g/dl Platelet Count 270 K/uL Mean Platelet Volume 7.7 fL Neutrophils (%) (Auto) 89.1 % Lymphocytes (%) (Auto) 5.3 % Monocytes (%) (Auto) 4.5 % Eosinophils (%) (Auto) 0.0 % Basophils (%) (Auto) 0.1 % Neutrophils # (Auto) 11.06 K/uL Lymphocytes # (Auto) 0.66 K/uL Monocytes # (Auto) 0.56 K/uL Eosinophils # (Auto) 0.00 K/uL Basophils # (Auto) 0.01 K/uL RDW Standard Deviation 57.8 fL RDW Coefficient of Variation 19.2 % Immature Granulocyte % (Auto) 1.0 % Immature Granulocyte # (Auto) 0.13 K/uL Sodium Level 136 mmol/L Potassium Level 4.4 mmol/L Chloride Level 99 mmol/L Carbon Dioxide Level 34 mmol/L Anion Gap 3.0 mmol/L Blood Urea Nitrogen 23 mg/dl Creatinine 0.74 mg/dl Est Creatinine Clear Calc Drug Dose 45.7 ml/min Estimated GFR () 88.7 Estimated GFR (Non- 76.5 BUN/Creatinine Ratio 31.1 Random Glucose 112 mg/dl Calcium Level 9.0 mg/dl Magnesium Level 2.4 mg/dl
[2017-10-11] MEDS ORDERED: CLONIDINE HCL 0.1 MG TAB PO PRN (15:45)
--- NOTE | 2017-10-11 17:40 | Progress Note ---
Medicine Progress Note Date & Time of Visit: Oct 11, 2017 at 14:35. Subjective Pt was seen and examined Sitting at the edge of the bed getting her neb treatment Pt said that she feels a little better She said that she continue to have sob with minimal exertion She said that her swallowing seems to improve today Denies any chest pain, palpitation and dizziness Objective Last 8 Hrs Date Time Temp Pulse Resp B/P (MAP) Pulse Ox O2 Delivery O2 Flow Rate FiO2 10/11/17 16:00 Nasal Cannula 2.0 10/11/17 15:10 36.6 98 20 169/80 (109) 96 2.0 10/11/17 15:05 70 18 95 Nasal Cannula 2.0 10/11/17 12:16 106 168/82 (110) 10/11/17 11:51 100 18 97 Nasal Cannula 2.0 10/11/17 10:20 117 94 Physical Exam: General- No acute distress Head- atraumatic Eyes- PERRL, EOMI ENT- oropharynx clear Neck- supple, no JVD Lungs + wheezing Heart- Tachycardia Abdomen- normal bowel sounds, soft Extremities- no calf tenderness Neuro- alert, oriented x 3; PERRL, EOMI Skin- warm & dry Laboratory Results: Last 24 Hours Test 10/11/17 06:10 White Blood Count 12.42 K/uL Red Blood Count 3.91 M/uL Hemoglobin 9.6 g/dL Hematocrit 32.6 % Mean Corpuscular Volume 83.4 fL Mean Corpuscular Hemoglobin 24.6 pg Mean Corpuscular Hemoglobin Concent 29.4 g/dl Platelet Count 270 K/uL Mean Platelet Volume 7.7 fL Neutrophils (%) (Auto) 89.1 % Lymphocytes (%) (Auto) 5.3 % Monocytes (%) (Auto) 4.5 % Eosinophils (%) (Auto) 0.0 % Basophils (%) (Auto) 0.1 % Neutrophils # (Auto) 11.06 K/uL Lymphocytes # (Auto) 0.66 K/uL Monocytes # (Auto) 0.56 K/uL Eosinophils # (Auto) 0.00 K/uL Basophils # (Auto) 0.01 K/uL RDW Standard Deviation 57.8 fL RDW Coefficient of Variation 19.2 % Immature Granulocyte % (Auto) 1.0 % Immature Granulocyte # (Auto) 0.13 K/uL Sodium Level 136 mmol/L Potassium Level 4.4 mmol/L Chloride Level 99 mmol/L Carbon Dioxide Level 34 mmol/L Anion Gap 3.0 mmol/L Blood Urea Nitrogen 23 mg/dl Creatinine 0.74 mg/dl Est Creatinine Clear Calc Drug Dose 45.7 ml/min Estimated GFR () 88.7 Estimated GFR (Non- 76.5 BUN/Creatinine Ratio 31.1 Random Glucose 112 mg/dl Calcium Level 9.0 mg/dl Magnesium Level 2.4 mg/dl Assessment & Plan COPD Exacerbation Acute on chronic hypoxic respiratory failure On chronic oxygen dependency on 2L home oxygen and BiPAP QHS CXR showed increasing bibasilar airspace opacities Continue bronchodilators, Levaquin, Mucomyst and oxygen supplement Continue Spiriva, incentive spirometry Was not able to tolerated Daliresp due to diarrhea Pulmonary on board Will consider palliative care if not improve in the next few days Continue chest PT Will change IV solumedrol to PO prednisone tomorrow Continue monitor Back pain/Right rib pain Last CT chest on 09/18 showed healing rib fracture and multiple vertebral body compression fractures. Xray of rib today negative Pain control, Incentive Spirometry Continue calcitonin, Calcium, Vit D supplements stable Dysphagia Mostly with pills Hx of Esophageal stricture Will consult speech If cannot tolerated diet, will change to mechanical soft diet Improved Elevated WBC Mostly related to prednisone WBC treading down Afebrile Already on Levaquin Continue monitor HTN Elevated BP Likely situational On clonidine prn monitor BP GERD continue PPI RLS Continue home meds Depression continue SSRI DVT Px Heparin SQ Code Status: FULL NO MECH VENTILATION Disposition Will discharge home once medically stable Consultants: Pulmonology Current Inpatient Medications: Current Inpatient Medications Medications (Trade) Dose Ordered Sig/Huan Route Start Time Stop Time Status Last Admin Dose Admin Heparin Sodium (Porcine) (Heparin Sq 5000 Unit/0.5ml) 5,000 unit Q8H SQ 10/09/17 08:00 11/08/17 07:59 10/11/17 16:20 5,000 UNIT Acetaminophen (Tylenol Tab) 650 mg Q4H PRN PO 10/09/17 05:45 11/08/17 05:44 Ondansetron HCl (Zofran Inj) 4 mg Q6H PRN IV 10/09/17 05:45 11/08/17 05:44 Methylprednisolone Sodium Succinate 40 mg/Syringe 0.64 ml @ 1.5 mls/min BID IV 10/09/17 09:00 11/08/17 08:59 10/11/17 08:03 1.5 MLS/MIN Albuterol/ Ipratropium (Duoneb) 3 ml QIDR INH 10/09/17 08:00 11/08/17 07:59 10/11/17 15:03 3 ML Acetylcysteine (Acetylcysteine Cap) 600 mg BID PO 10/09/17 09:00 11/08/17 08:59 10/11/17 08:06 600 MG Aspirin (Ecotrin Tab) 81 mg DAILY PO 10/09/17 09:00 11/08/17 08:59 10/11/17 08:08 81 MG Benzonatate (Tessalon Perles Cap) 100 mg TID PRN PO 10/09/17 05:45 11/08/17 05:44 Calcitonin [place] (Fortical Nasal [place]) 1 spray DAILY NA 10/09/17 09:00 11/08/17 08:59 10/11/17 08:06 1 SPRAY Citalopram Hydrobromide (celeXA TAB) 20 mg QAM PO 10/09/17 09:00 11/08/17 08:59 10/11/17 08:08 20 MG Pantoprazole Sodium (Protonix Tab) 40 mg DAILY PO 10/09/17 09:00 11/08/17 08:59 10/11/17 08:08 40 MG Pramipexole Dihydrochloride (miraPEX TAB) 0.5 mg HS PO 10/09/17 21:00 11/08/17 20:59 10/09/17 20:54 0.5 MG Tiotropium [place] (Spiriva Handihaler Inhaler) 1 puff DAILY INH 10/09/17 09:00 11/08/17 08:59 10/11/17 08:02 1 PUFF Calcium/Vitamin D (Caltrate Plus Tab) 1 tab DAILY PO 10/09/17 09:00 11/08/17 08:59 10/11/17 08:07 1 TAB Acetaminophen/ Hydrocodone Bitart ([place] 5/325 Tab) 1 tab Q4H PRN PO 10/09/17 06:00 10/23/17 05:59 10/11/17 10:59 1 TAB Levofloxacin (Levaquin Tab) 500 mg DAILY@11 PO 10/09/17 11:00 10/16/17 10:59 10/11/17 10:59 500 MG Hydromorphone HCl (Dilaudid Inj) 0.5 mg Q6H PRN IV 10/09/17 06:00 10/23/17 05:59 10/11/17 13:09 0.5 MG Albuterol/ Ipratropium (Duoneb) 3 ml Q2H PRN INH 10/09/17 07:30 11/08/17 07:29 Fluticasone/ Vilanterol (Breo Ellipta 200-25 Mcg/Inh) 1 inha DAILY INH 10/10/17 16:00 11/09/17 15:59 10/11/17 08:02 1 INHA Pramipexole Dihydrochloride (miraPEX TAB) 0.5 mg DAILY@1730,2100 PO 10/10/17 18:00 11/09/17 17:59 10/10/17 21:04 0.5 MG Al Hydrox/Mg Hydrox/Simethicone (Maalox Max Susp) 15 ml Q6H PRN PO 10/11/17 03:45 11/10/17 03:44 10/11/17 03:56 15 ML Clonidine HCl (Catapres Tab) 0.1 mg Q6 PRN PO 10/11/17 15:45 11/10/17 15:44 10/11/17 16:17 0.1 MG
[2017-10-11] MEDS: PRAMIPEXOLE DIHYDROCHLORIDE 0.5 MG TAB PO SCH ×3 (17:46→20:40)
[2017-10-12] VITALS (8 sets, daily range): BP systolic 137–162; BP diastolic 64–75; PULSE 85–110; TEMP 36.6–36.7; O2SAT 94–99
[2017-10-12] MEDS: HYDROmorphone INJ 0.5 MG/0.5 ML SYR IV PRN ×3 (02:30→20:11)
[2017-10-12] MEDS: ALBUT/IPRATROP 3MG/0.5MG NEB 3 ML VIAL INH SCH ×4 (07:49→19:56)
[2017-10-12] MEDS: HEPARIN SOD 5000 UNIT/0.5 ML CARP SQ SCH ×2 (08:00→15:44)
[2017-10-12] MEDS: TIOTROPIUM BROMIDE 5 PUFF/90 MCG INH INH SCH (08:17)
[2017-10-12] MEDS: FLUTICASONE FUROATE-VILANTEROL 200/25 MCG INH INH SCH (08:17)
[2017-10-12] MEDS: CALCITONIN SALMON NA 200 IU/AC 3.7 ML BTL SCH (08:18)
[2017-10-12] MEDS: ACETYLCYSTEINE 600 MG CAP PO SCH ×2 (08:18→20:15)
[2017-10-12] MEDS: METHYLPREDNISOLONE IV 40 MG in SYRINGE 0 ML IV SCH ×2 (08:18→20:12)
[2017-10-12] MEDS: CITALOPRAM 20 MG TAB PO SCH (08:19)
[2017-10-12] MEDS: CALCIUM 600MG + VIT D 400 IU TAB PO SCH (08:19)
[2017-10-12] MEDS: ASPIRIN 81 MG ECTAB PO SCH (08:19)
[2017-10-12] MEDS: HYDROCODONE/ACETAMOPHEN 5/325MG TAB PO PRN ×3 (08:20→22:20)
[2017-10-12] MEDS: PANTOprazole SOD 40 MG TAB PO SCH (08:20)
[2017-10-12] MEDS: LEVOFLOXACIN 500 MG TAB PO SCH (12:04)
--- NOTE | 2017-10-12 12:08 | Clinical Documentation Query ---
CLINICAL DOCUMENTATION QUERY 82 year old female who presents to the Emergency Room with complaints of worsening respiratory distress. In your clinical opinion is this patient being managed for: ( ) Pneumonia evidenced by increasing bibasilar airspace opacities, leukocytosis, and acute on chronic respiratory failure. ( ) Not Agree ( ) Other explanation of clinical findings (Please Explain) ( ) Unable to determine (Please Define) ( ) Need to Discuss The medical record reflects the following clinical findings, treatment, and risk factors. Clinical Indicators: tachycardia 115, Leukocytosis 17.04, and CXR showing increasing bibasilar airspace opacities Treatment: Levaquin, IV Solumedrol, Risk Factors: Age, COPD, back pain and lack of deep breathing Please clarify and document your clinical opinion in the progress notes and discharge summary. Terms such as "probable", "suspected", "likely", "questionable", "possible", or "still to be ruled out" are acceptable. IF IN AGREEMENT, YOU MUST DOCUMENT ABOVE DIAGNOSTIC STATEMENT IN DAILY PROGRESS NOTES AND DISCHARGE SUMMARY. This document is not part of the patient's record. Thank You, Lloyd Vale, RN [phone]
[2017-10-12] MEDS: PRAMIPEXOLE DIHYDROCHLORIDE 0.5 MG TAB PO SCH ×3 (17:09→20:16)
--- NOTE | 2017-10-12 17:43 | Progress Note ---
Medicine Progress Note Date & Time of Visit: Oct 12, 2017 at 17:38. Subjective Pt was seen and examined Lying in bed with no distress Pt said that she feels slightly better She is very anxious to go home Continue to have SOB with exertion Her back pain improved significantly Denies any chest pain, palpitation, dizziness and SOB Objective Last 8 Hrs Date Time Temp Pulse Resp B/P (MAP) Pulse Ox O2 Delivery O2 Flow Rate FiO2 10/12/17 15:51 36.7 110 22 137/64 (88) 97 Nasal Cannula 2.0 10/12/17 15:49 104 16 94 Nasal Cannula 2.0 10/12/17 12:01 91 16 98 Nasal Cannula 2.0 Physical Exam: General- No acute distress Head- atraumatic Eyes- PERRL, EOMI ENT- oropharynx clear Neck- supple, no JVD Lungs + wheezing Heart- Tachycardia Abdomen- normal bowel sounds, soft Extremities- no calf tenderness Neuro- alert, oriented x 3; PERRL, EOMI Skin- warm & dry Assessment & Plan COPD Exacerbation Acute on chronic hypoxic respiratory failure On chronic oxygen dependency on 2L home oxygen and BiPAP QHS CXR showed increasing bibasilar airspace opacities Continue bronchodilators, Levaquin, Mucomyst and oxygen supplement Continue Spiriva, incentive spirometry Was not able to tolerated Daliresp due to diarrhea Pulmonary on board Will consider palliative care if not improve in the next few days Continue chest PT solumedrol Changed to PO prednisone Continue monitor Wants to go home possible will discharge on a slow taper steroid Back pain/Right rib pain Last CT chest on 09/18 showed healing rib fracture and multiple vertebral body compression fractures. Xray of rib today negative Pain control, Incentive Spirometry Continue calcitonin, Calcium, Vit D supplements stable Dysphagia Mostly with pills Hx of Esophageal stricture Will consult speech If cannot tolerated diet, will change to mechanical soft diet Improved Elevated WBC Mostly related to prednisone WBC treading down Afebrile Already on Levaquin Continue monitor HTN Elevated BP Likely situational On clonidine prn monitor BP GERD continue PPI RLS Continue home meds Depression continue SSRI DVT Px Heparin SQ Code Status: [facility] Disposition Will discharge home once medically stable Consultants: Pulmonology Current Inpatient Medications: Current Inpatient Medications Medications (Trade) Dose Ordered Sig/Huan Route Start Time Stop Time Status Last Admin Dose Admin Heparin Sodium (Porcine) (Heparin Sq 5000 Unit/0.5ml) 5,000 unit Q8H SQ 10/09/17 08:00 11/08/17 07:59 10/11/17 16:20 5,000 UNIT Acetaminophen (Tylenol Tab) 650 mg Q4H PRN PO 10/09/17 05:45 11/08/17 05:44 Ondansetron HCl (Zofran Inj) 4 mg Q6H PRN IV 10/09/17 05:45 11/08/17 05:44 Methylprednisolone Sodium Succinate 40 mg/Syringe 0.64 ml @ 1.5 mls/min BID IV 10/09/17 09:00 11/08/17 08:59 10/12/17 08:18 1.5 MLS/MIN Albuterol/ Ipratropium (Duoneb) 3 ml QIDR INH 10/09/17 08:00 11/08/17 07:59 10/12/17 15:48 3 ML Acetylcysteine (Acetylcysteine Cap) 600 mg BID PO 10/09/17 09:00 11/08/17 08:59 10/12/17 08:18 600 MG Aspirin (Ecotrin Tab) 81 mg DAILY PO 10/09/17 09:00 11/08/17 08:59 10/12/17 08:19 81 MG Benzonatate (Tessalon Perles Cap) 100 mg TID PRN PO 10/09/17 05:45 11/08/17 05:44 Calcitonin [place] (Fortical Nasal [place]) 1 spray DAILY NA 10/09/17 09:00 11/08/17 08:59 10/12/17 08:18 1 SPRAY Citalopram Hydrobromide (celeXA TAB) 20 mg QAM PO 10/09/17 09:00 11/08/17 08:59 10/12/17 08:19 20 MG Pantoprazole Sodium (Protonix Tab) 40 mg DAILY PO 10/09/17 09:00 11/08/17 08:59 10/12/17 08:20 40 MG Pramipexole Dihydrochloride (miraPEX TAB) 0.5 mg HS PO 10/09/17 21:00 11/08/17 20:59 10/09/17 20:54 0.5 MG Tiotropium [place] (Spiriva Handihaler Inhaler) 1 puff DAILY INH 10/09/17 09:00 11/08/17 08:59 10/12/17 08:17 1 PUFF Calcium/Vitamin D (Caltrate Plus Tab) 1 tab DAILY PO 10/09/17 09:00 11/08/17 08:59 10/12/17 08:19 1 TAB Acetaminophen/ Hydrocodone Bitart ([place] 5/325 Tab) 1 tab Q4H PRN PO 10/09/17 06:00 10/23/17 05:59 10/12/17 13:37 1 TAB Levofloxacin (Levaquin Tab) 500 mg DAILY@11 PO 10/09/17 11:00 10/16/17 10:59 10/12/17 12:04 500 MG Hydromorphone HCl (Dilaudid Inj) 0.5 mg Q6H PRN IV 10/09/17 06:00 10/23/17 05:59 10/12/17 10:19 0.5 MG Albuterol/ Ipratropium (Duoneb) 3 ml Q2H PRN INH 10/09/17 07:30 11/08/17 07:29 Fluticasone/ Vilanterol (Breo Ellipta 200-25 Mcg/Inh) 1 inha DAILY INH 10/10/17 16:00 11/09/17 15:59 10/12/17 08:17 1 INHA Pramipexole Dihydrochloride (miraPEX TAB) 0.5 mg DAILY@1730,2100 PO 10/10/17 18:00 11/09/17 17:59 10/12/17 17:09 0.5 MG Al Hydrox/Mg Hydrox/Simethicone (Maalox Max Susp) 15 ml Q6H PRN PO 10/11/17 03:45 11/10/17 03:44 10/11/17 03:56 15 ML Clonidine HCl (Catapres Tab) 0.1 mg Q6 PRN PO 10/11/17 15:45 11/10/17 15:44 10/11/17 16:17 0.1 MG
[2017-10-13] MEDS: HYDROmorphone INJ 0.5 MG/0.5 ML SYR IV PRN ×2 (01:42→08:48)
[2017-10-13] MEDS: HYDROCODONE/ACETAMOPHEN 5/325MG TAB PO PRN ×2 (02:45→06:29)
[2017-10-13 07:02] VITALS: BP 159/80; PULSE 85; TEMP 36.6; O2SAT 94
[2017-10-13] MEDS: ALBUT/IPRATROP 3MG/0.5MG NEB 3 ML VIAL INH SCH ×2 (07:09→11:25)
[2017-10-13 07:11] VITALS: PULSE 89; O2SAT 97
[2017-10-13] MEDS ORDERED: ENOXAPARIN 30 MG/0.3 ML SYR SQ SCH (08:00)
[2017-10-13 08:15] VITALS: O2SAT 97
[2017-10-13] MEDS: FLUTICASONE FUROATE-VILANTEROL 200/25 MCG INH INH SCH (08:28)
[2017-10-13] MEDS: TIOTROPIUM BROMIDE 5 PUFF/90 MCG INH INH SCH (08:28)
[2017-10-13] MEDS: ACETYLCYSTEINE 600 MG CAP PO SCH (08:30)
[2017-10-13] MEDS: CALCIUM 600MG + VIT D 400 IU TAB PO SCH (08:30)
[2017-10-13] MEDS: CALCITONIN SALMON NA 200 IU/AC 3.7 ML BTL SCH (08:30)
[2017-10-13] MEDS: PANTOprazole SOD 40 MG TAB PO SCH (08:30)
[2017-10-13] MEDS: CITALOPRAM 20 MG TAB PO SCH (08:30)
[2017-10-13] MEDS: ASPIRIN 81 MG ECTAB PO SCH (08:30)
--- NOTE | 2017-10-13 09:59 | Progress Note ---
Medicine Progress Note Date & Time of Visit: Oct 13, 2017 at 09:57. Subjective Pt was seen and examined Lying in bed with no distress Very anxious to go home Denies any chest pain, palpitation and dizziness Objective Last 8 Hrs Date Time Temp Pulse Resp B/P (MAP) Pulse Ox O2 Delivery O2 Flow Rate FiO2 10/13/17 07:11 89 16 97 Nasal Cannula 2.0 10/13/17 07:02 36.6 85 18 159/80 (106) 94 Nasal Cannula 2.0 Physical Exam: General- No acute distress Head- atraumatic Eyes- PERRL, EOMI ENT- oropharynx clear Neck- supple, no JVD Lungs + wheezing Heart- Tachycardia Abdomen- normal bowel sounds, soft Extremities- no calf tenderness Neuro- alert, oriented x 3; PERRL, EOMI Skin- warm & dry Assessment & Plan COPD Exacerbation Acute on chronic hypoxic respiratory failure On chronic oxygen dependency on 2L home oxygen and BiPAP QHS CXR showed increasing bibasilar airspace opacities Continue bronchodilators, Levaquin, Mucomyst and oxygen supplement Continue Spiriva, incentive spirometry Was not able to tolerated Daliresp due to diarrhea Pulmonary on board Will consider palliative care if not improve in the next few days Continue chest PT solumedrol Changed to PO prednisone Continue monitor Wants to go home Will discharge on slow taper steroid Back pain/Right rib pain Last CT chest on 09/18 showed healing rib fracture and multiple vertebral body compression fractures. Xray of rib today negative Pain control, Incentive Spirometry Continue calcitonin, Calcium, Vit D supplements stable Dysphagia Mostly with pills Hx of Esophageal stricture Speech on board If cannot tolerated diet, will change to mechanical soft diet Improved Elevated WBC Mostly related to prednisone WBC treading down Afebrile Already on Levaquin Continue monitor HTN Elevated BP Likely situational On clonidine prn monitor BP GERD continue PPI RLS Continue home meds Depression continue SSRI DVT Px Heparin SQ Code Status: FULL NO MECH VENTILATION Disposition Will discharge home today Consultants: Pulmonology Current Inpatient Medications: Current Inpatient Medications Medications (Trade) Dose Ordered Sig/Huan Route Start Time Stop Time Status Last Admin Dose Admin Acetaminophen (Tylenol Tab) 650 mg Q4H PRN PO 10/09/17 05:45 11/08/17 05:44 Ondansetron HCl (Zofran Inj) 4 mg Q6H PRN IV 10/09/17 05:45 11/08/17 05:44 Albuterol/ Ipratropium (Duoneb) 3 ml QIDR INH 10/09/17 08:00 11/08/17 07:59 10/13/17 07:09 3 ML Acetylcysteine (Acetylcysteine Cap) 600 mg BID PO 10/09/17 09:00 11/08/17 08:59 10/13/17 08:30 600 MG Aspirin (Ecotrin Tab) 81 mg DAILY PO 10/09/17 09:00 11/08/17 08:59 10/13/17 08:30 81 MG Benzonatate (Tessalon Perles Cap) 100 mg TID PRN PO 10/09/17 05:45 11/08/17 05:44 Calcitonin [place] (Fortical Nasal [place]) 1 spray DAILY NA 10/09/17 09:00 11/08/17 08:59 10/13/17 08:30 1 SPRAY Citalopram Hydrobromide (celeXA TAB) 20 mg QAM PO 10/09/17 09:00 11/08/17 08:59 10/13/17 08:30 20 MG Pantoprazole Sodium (Protonix Tab) 40 mg DAILY PO 10/09/17 09:00 11/08/17 08:59 10/13/17 08:30 40 MG Pramipexole Dihydrochloride (miraPEX TAB) 0.5 mg HS PO 10/09/17 21:00 11/08/17 20:59 10/12/17 20:15 0.5 MG Tiotropium [place] (Spiriva Handihaler Inhaler) 1 puff DAILY INH 10/09/17 09:00 11/08/17 08:59 10/13/17 08:28 1 PUFF Calcium/Vitamin D (Caltrate Plus Tab) 1 tab DAILY PO 10/09/17 09:00 11/08/17 08:59 10/13/17 08:30 1 TAB Acetaminophen/ Hydrocodone Bitart ([place] 5/325 Tab) 1 tab Q4H PRN PO 10/09/17 06:00 10/23/17 05:59 10/13/17 06:29 1 TAB Levofloxacin (Levaquin Tab) 500 mg DAILY@11 PO 10/09/17 11:00 10/16/17 10:59 10/12/17 12:04 500 MG Hydromorphone HCl (Dilaudid Inj) 0.5 mg Q6H PRN IV 10/09/17 06:00 10/23/17 05:59 10/13/17 08:48 0.5 MG Albuterol/ Ipratropium (Duoneb) 3 ml Q2H PRN INH 10/09/17 07:30 11/08/17 07:29 Fluticasone/ Vilanterol (Breo Ellipta 200-25 Mcg/Inh) 1 inha DAILY INH 10/10/17 16:00 11/09/17 15:59 10/13/17 08:28 1 INHA Pramipexole Dihydrochloride (miraPEX TAB) 0.5 mg DAILY@1730,2100 PO 10/10/17 18:00 11/09/17 17:59 10/12/17 20:16 0.5 MG Al Hydrox/Mg Hydrox/Simethicone (Maalox Max Susp) 15 ml Q6H PRN PO 10/11/17 03:45 11/10/17 03:44 10/11/17 03:56 15 ML Clonidine HCl (Catapres Tab) 0.1 mg Q6 PRN PO 10/11/17 15:45 11/10/17 15:44 10/11/17 16:17 0.1 MG Prednisone (PredniSONE TAB) 40 mg DAILY PO 10/13/17 08:00 11/12/17 07:59 10/13/17 08:31 40 MG Enoxaparin Sodium (Lovenox Inj) 30 mg QAM SQ 10/13/17 08:00 11/12/17 07:59 10/13/17 08:32 30 MG
[2017-10-13] MEDS ORDERED: PRED10TA PO (10:08)
[2017-10-13] MEDS ORDERED: LVQ500 PO (10:08)
--- NOTE | 2017-10-13 10:13 | Discharge Instructions ---
Discharge Instructions Date of Service Oct 13, 2017. Admission Reason for Admission: Acute Exac. Of Chronic Low Back Pain, Copd Exacerb Discharge Discharge Diagnosis / Problem: COPD exacerbation/ Back pain/Right rib pain/ Dysphagia Discharge Goals Goal(s): Decrease discomfort, Increase independence, Improve disease control Activity Recommendations Activity Limitations: resume your previous activity (as tolerated) . Instructions / Follow-Up Instructions / Follow-Up Follow up with your primary care provider Dr. Kent on 10/20 @ 10:45 am Follow up with pulmonology Dr. Frederick in 1 to 2 weeks Continue oxygen supplement and BIPAP at night and as needed Continue prednisone slow taper over 4 weeks course Complete antibiotic course Fall precaution Current Hospital Diet Patient's current hospital diet: AHA Diet (Heart Healthy) Discharge Diet Recommended Diet: AHA Diet (Heart Healthy) Pending Studies Studies pending at discharge: no Medical Emergencies . Who to Call and When: Medical Emergencies: If at any time you feel your situation is an emergency, please call 911 immediately. . Non-Emergent Contact Non-Emergency issues call your: Primary Care Provider, Rose Grading Supervisor Call Non-Emergent contact if: you have any medication questions . . "Provider Documentation" section prepared by Grazyna Mir. . VTE Core Measure Inpt VTE Proph given/why not?: Enoxaparin (Lovenox)SQ
[2017-10-13 11:03] VITALS: BP 159/80; PULSE 89; TEMP 36.6; O2SAT 97
[2017-10-13 11:26] VITALS: PULSE 106; O2SAT 94
[2017-10-13] MEDS: LEVOFLOXACIN 500 MG TAB PO SCH (12:23)
== END 2017-10-13 13:30 | disposition home health service (06) | DRG 189 ==
LOC: EDBD 03:10 → C.EDB 03:11 → C.MSICU 05:38 → ENRESERV 05:47 → C.4E 10-10 17:54
PROVIDERS: ADMIT Internal Medicine; ATTEND Internal Medicine
DX: J96.20 Acute and chronic respiratory failure, unspecified whether with hypoxia or hypercapnia (principal); J18.9 Pneumonia, unspecified organism; J44.1 Chronic obstructive pulmonary disease with (acute) exacerbation; M84.48XA Pathological fracture, other site, initial encounter for fracture; E78.5 Hyperlipidemia, unspecified; G89.29 Other chronic pain; M54.5 Low back pain; K21.9 Gastro-esophageal reflux disease without esophagitis; D64.9 Anemia, unspecified; M85.80 Other specified disorders of bone density and structure, unspecified site; D72.829 Elevated white blood cell count, unspecified; I10 Essential (primary) hypertension; G25.81 Restless legs syndrome; F32.9 Major depressive disorder, single episode, unspecified; Z87.891 Personal history of nicotine dependence; Z90.710 Acquired absence of both cervix and uterus; Z79.82 Long term (current) use of aspirin; Z83.3 Family history of diabetes mellitus

== ENCOUNTER 2017-10-30 18:18 | Inpatient (IN) | payer OTHER ==
[~2017-10-30] VITALS: Ht 154.9 cm; Wt 48.2 kg
[2017-10-30] VITALS (9 sets, daily range): BP systolic 150–175; BP diastolic 68–82; PULSE 72–128; TEMP 36.4; O2SAT 96–100; Ht 154.9 cm; Wt 48.2 kg
[~2017-10-30 18:18] MED LIST changes: -CALCTAB65 PO; -GUAI1TAB68 PO; +MCLIN; -PRD20 PO; -ULT50 PO
[2017-10-30] MEDS ORDERED: ALBUTEROL 0.083% NEBU SOLN 3 ML VIAL INH STA ×2 (18:29→19:28)
[2017-10-30] MEDS ORDERED: METHYLPREDNISOLONE 125 MG VIAL IV STA (18:45)
--- NOTE | 2017-10-30 18:45 | DIAGNOSTIC IMAGING REPORT ---
CHEST ONE VIEW PORTABLE CLINICAL HISTORY: EVALUATE RESPIRATORY DISTRESS.DYSPNEA dyspnea COMPARISON STUDY: 10/09/2017 FINDINGS: Mild tortuosity thoracic aorta. Diffuse chronic parenchymal fibrosis. Underlying emphysematous change. IMPRESSION: Diffuse chronic parenchymal fibrosis. Emphysematous change. No acute process. The above report was generated using voice recognition software. It may contain grammatical, syntax or spelling errors. Electronically signed by: Chai Nieto M.D. 10/30/2017 6:44 PM Dictated Date/Time: 10/30/2017 6:42 PM
[2017-10-30 19:02] LABS: BASO % 0.1 %; BASO ABS # 0.01 K/uL (0-0.2); HEMATOCRIT 30.7 % (37-47); HEMOGLOBIN 9.3 g/dL (12.0-16.0); IG# 0.15 K/uL (0.00-0.02); LYMPH % 8.8 %; LYMPH ABS # 0.78 K/uL (1.2-3.4); MEAN CELL VOLUME 83.7 fL (80-100); MEAN CORPUSCULAR HEMOGLOBIN 25.3 pg (25-34); MEAN CORPUSCULAR HGB CONC 30.3 g/dl (32-36); MEAN PLATELET VOLUME 7.9 fL (7.4-10.4); MONO % 5.7 %; MONO ABS # 0.51 K/uL (0.11-0.59); NEUT % 83.7 %; NEUT ABS # 7.44 K/uL (1.4-6.5); PLATELET COUNT 316 K/uL (130-400); RED CELL DISTRIBUTION WIDTH CV 20.5 % (11.5-14.5); WHITE BLOOD COUNT 8.89 K/uL (4.8-10.8)
[2017-10-30 19:21] LABS: ALBUMIN 2.8 gm/dl (3.4-5.0); ALT/SGPT 20 U/L (12-78); AST/SGOT 10 U/L (15-37); BLOOD UREA NITROGEN 16 mg/dl (7-18); CALCIUM 8.8 mg/dl (8.5-10.1); CARBON DIOXIDE 27 mmol/L (21-32); CREATININE 0.63 mg/dl (0.60-1.20); GLUCOSE 110 mg/dl (70-99); POTASSIUM 4.1 mmol/L (3.5-5.1); SODIUM 138 mmol/L (136-145)
[2017-10-30 19:26] LABS: ALKALINE PHOSPHATASE 65 U/L (45-117); TOTAL PROTEIN 6.2 gm/dl (6.4-8.2)
[2017-10-30] MEDS ORDERED: PRAMIPEXOLE DIHYDROCHLORIDE 0.5 MG TAB PO SCH ×2 (19:30→21:00)
[2017-10-30] MEDS ORDERED: DOXYCYCLINE HYCLATE 100 MG CAP PO ONE (19:55)
[2017-10-30] MEDS ORDERED: ONDANSETRON INJ 2 MG/ML 2 ML VIAL IV PRN (20:00)
[2017-10-30] MEDS ORDERED: LOPERAMIDE HCL 2 MG CAP PO PRN (20:00)
[2017-10-30] MEDS ORDERED: PRED10TA PO (20:00)
[2017-10-30] MEDS ORDERED: BENZONATATE 100MG CAP PO PRN (20:00)
--- NOTE | 2017-10-30 20:01 | EMERGENCY ROOM VISIT NOTE ---
History Report prepared by Salvadoribdelano: Tabitha Najera Under the Supervision of: Dr. Denver Pang D.O. 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 She has a history of COPD. She denies any history of asthma. She normally uses 2 L of oxygen during the day and a CPAP at night. The patient notes that she has worn her CPAP all day to help her breathe, because she has been short of breath all day. She notes general weakness. She notes a dry cough. Per EMS, her highest respiratory rate is 44 without the CPAP. Per EMS, the patient was referred to the ED by her home health nurse. Per EMS, the patient states her ankles are swollen. Pt denies headache, change in vision, fevers, chest pain, nausea, vomiting, diarrhea, pain with urination, melena, and recent weight gain. 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 Review of Systems See HPI for pertinent positives & negatives. A total of 10 systems reviewed and were otherwise negative. Past Medical & Surgical Medical Problems: (1) Chronic respiratory failure (2) Compression fracture of vertebra (3) COPD exacerbation (4) COPD, moderate (5) Dyslipidemia (6) Esophageal stricture (7) GERD (gastroesophageal reflux disease) (8) History of esophageal dilatation (9) Osteopenia (10) Respiratory failure (11) Restless legs syndrome (RLS) Surgical Problems: (1) History of hysterectomy Family History Diabetes mellitus MOTHER Lung disease FATHER (emphysema) Social History Smoking Status: Former Smoker Alcohol Use: none Drug Use: none Marital Status: Housing Status: lives with significant other Occupation Status: retired Current/Historical Medications Scheduled Aspirin (Aspirin Ec), 81 MG PO DAILY Calcitonin ([place]) (Calcitonin [place]), 1 SPRAY NA DAILY Citalopram Hydrobromide (Citalopram Hydrobromide), 1 TAB PO DAILY Ergocalciferol (Vitamin D 97841 Unit), 50,000 UNIT PO WK Fluticasone Furoate-Vilanterol (Breo Ellipta 200-25 Mcg/INH), 1 PUFF INH DAILY Pantoprazole (Pantoprazole Sodium), 40 MG PO DAILY Pramipexole Dihydrochloride (Pramipexole Dihydrochlori), 0.5 MG PO HS Prednisone (Prednisone), 10 MG PO taper ud Tiotropium Minter (Spiriva Handihaler), 1 CAP INH DAILY Scheduled PRN Benzonatate (Tessalon Perles), 100 MG PO TID PRN for Cough Hydrocodone/Acetaminophen 5MG/325MG ([place] 5MG/325MG), 1 TABLET PO Q4-6HRS PRN for Pain Ipratropium Minter (Atrovent 0.02% Soln), 2.5 ML INH QID PRN for Wheezing Levalbuterol (Levalbuterol HCl), 3 ML INH QID PRN for SOB/Wheezing Loperamide Hcl (Imodium), 2 MG PO UD PRN for Diarrhea Prednisone Tab (Prednisone), 10 MG PO UD PRN for COPD Rescue Kit Allergies Coded Allergies: Lorazepam (Verified Allergy, Unknown, DELIRIUM, 09/06/17) Roflumilast (Verified Adverse Reaction, Unknown, Headache, dizziness and nausea, 09/24/17) Physical Exam Vital Signs Date Time Temp Pulse Resp B/P (MAP) Pulse Ox O2 Delivery O2 Flow Rate FiO2 10/30/17 19:06 107 22 100 BiPAP/CPAP 40 10/30/17 19:04 107 100 40 10/30/17 18:32 36.5 110 26 134/74 100 BiPAP 10/30/17 18:32 100 BiPAP 10/30/17 18:29 107 10/30/17 18:28 128 99 40 10/30/17 18:24 99 BiPAP 10/30/17 18:24 99 BiPAP 40 Physical Exam GENERAL: Sitting up in bed, alert, ill-appearing, well nourished, moderate distress, Tachypneic, Unable to carry on conversations, CPAP in place. EYE EXAM: normal conjunctiva. OROPHARYNX: no exudate, no erythema, lips, buccal mucosa, and tongue normal and mucous membranes are dry NECK: supple, no nuchal rigidity, no adenopathy, non-tender. No JVD. LUNGS: Minimal air movement bilaterality with faint wheezes. Normal chest wall mechanics HEART: no murmurs, S1 normal and S2 normal ABDOMEN: abdomen soft, non-tender, normo-active bowel sounds, no masses, no rebound or guarding. BACK: Back is symmetrical on inspection and there is no deformity, no midline tenderness, no CVA tenderness. SKIN: no rashes and no bruising UPPER EXTREMITIES: upper extremities are grossly normal. LOWER EXTREMITIES: No pitting edema. NEURO EXAM: Normal sensorium, cranial nerves II-XII grossly intact, normal speech, no gross weakness of arms, no gross weakness of legs. Medical Decision & Procedures ER Provider Diagnostic Interpretation: Radiology results as stated below per my review and the radiologist's interpretation: CHEST ONE VIEW PORTABLE CLINICAL HISTORY: EVALUATE RESPIRATORY DISTRESS.DYSPNEA dyspnea COMPARISON STUDY: 10/09/2017 FINDINGS: Mild tortuosity thoracic aorta. Diffuse chronic parenchymal fibrosis. Underlying emphysematous change. IMPRESSION: Diffuse chronic parenchymal fibrosis. Emphysematous change. No acute process. The above report was generated using voice recognition software. It may contain grammatical, syntax or spelling errors. Electronically signed by: Chai Nieto M.D. 10/30/2017 6:44 PM Dictated Date/Time: 10/30/2017 6:42 PM Laboratory Results 10/30/17 18:50 Red Blood Count 3.67, Mean Corpuscular Volume 83.7, Mean Corpuscular Hemoglobin 25.3, Mean Corpuscular Hemoglobin Concent 30.3, Mean Platelet Volume 7.9, Neutrophils (%) (Auto) 83.7, Lymphocytes (%) (Auto) 8.8, Monocytes (%) (Auto) 5.7, Eosinophils (%) (Auto) 0.0, Basophils (%) (Auto) 0.1, Neutrophils # (Auto) 7.44, Lymphocytes # (Auto) 0.78, Monocytes # (Auto) 0.51, Eosinophils # (Auto) 0.00, Basophils # (Auto) 0.01 10/30/17 18:50 Test 10/30/17 18:50 White Blood Count 8.89 K/uL (4.8-10.8) Red Blood Count 3.67 M/uL (4.2-5.4) Hemoglobin 9.3 g/dL (12.0-16.0) Hematocrit 30.7 % (37-47) Mean Corpuscular Volume 83.7 fL (80-100) Mean Corpuscular Hemoglobin 25.3 pg (25-34) Mean Corpuscular Hemoglobin Concent 30.3 g/dl (32-36) Platelet Count 316 K/uL (130-400) Mean Platelet Volume 7.9 fL (7.4-10.4) Neutrophils (%) (Auto) 83.7 % Lymphocytes (%) (Auto) 8.8 % Monocytes (%) (Auto) 5.7 % Eosinophils (%) (Auto) 0.0 % Basophils (%) (Auto) 0.1 % Neutrophils # (Auto) 7.44 K/uL (1.4-6.5) Lymphocytes # (Auto) 0.78 K/uL (1.2-3.4) Monocytes # (Auto) 0.51 K/uL (0.11-0.59) Eosinophils # (Auto) 0.00 K/uL (0-0.5) Basophils # (Auto) 0.01 K/uL (0-0.2) RDW Standard Deviation 62.0 fL (36.4-46.3) RDW Coefficient of Variation 20.5 % (11.5-14.5) Immature Granulocyte % (Auto) 1.7 % Immature Granulocyte # (Auto) 0.15 K/uL (0.00-0.02) Polychromasia 1+ Basophilic Stippling OCCASIONAL Anisocytosis PRESENT Prothrombin Time 10.1 SECONDS (9.0-12.0) Prothromb Time International Ratio 1.0 (0.9-1.1) Activated Partial Thromboplast Time 26.0 SECONDS (21.0-31.0) Partial Thromboplastin Ratio 1.0 Anion Gap 6.0 mmol/L (3-11) Est Creatinine Clear Calc Drug Dose 53.7 ml/min Estimated GFR () 98.2 Estimated GFR (Non- 84.7 BUN/Creatinine Ratio 25.9 (10-20) Calcium Level 8.8 mg/dl (8.5-10.1) Total Bilirubin 0.2 mg/dl (0.2-1) Aspartate Amino Transf (AST/SGOT) 10 U/L (15-37) Alanine Aminotransferase (ALT/SGPT) 20 U/L (12-78) Alkaline Phosphatase 65 U/L (45-117) Troponin I < 0.015 ng/ml (0-0.045) Pro-B-Type Natriuretic Peptide 161 pg/ml (0-1800) Total Protein 6.2 gm/dl (6.4-8.2) Albumin 2.8 gm/dl (3.4-5.0) Globulin 3.4 gm/dl (2.5-4.0) Albumin/Globulin Ratio 0.8 (0.9-2) Laboratory results per my review. Medications Administered Medications (Trade) Dose Ordered Sig/Huan Route Start Time Stop Time Status Last Admin Dose Admin Albuterol Sulfate (Ventolin 0.083% 2.5MG/3ML Neb) 5 mg NOW STAT INH 10/30/17 18:29 10/30/17 18:31 DC 10/30/17 19:03 5 MG Methylprednisolone Sodium Succinate (Solu-Medrol IV) 125 mg NOW STAT IV 10/30/17 18:45 10/30/17 18:46 DC 10/30/17 19:21 125 MG Albuterol Sulfate (Ventolin 0.083% 2.5MG/3ML Neb) 2.5 mg NOW STAT INH 10/30/17 19:28 10/30/17 19:41 DC 10/30/17 19:49 2.5 MG ECG Indication: other (respiratory distress) Rate (beats per minute): 112 Rhythm: sinus tachycardia Findings: ST elevation (slight), other (Inferior Q waves. Poor basline. ) Change: no significant change (When compared to 10/09/2017) ED Course ED COURSE: Vital signs were reviewed and showed tachycardic. The patients medical record was reviewed The above diagnostic studies were performed and reviewed. ED treatments and interventions as stated above. 0: The patient was evaluated in room C6. A complete history and physical examination was performed. 1828: Ordered Albuterol Sulfate 5 mg INH 1844: Ordered Solu-Medrol 125 mg IV 1924: Upon reevaluation, the patient is resting comfortably. I discussed my findings with the patient and she understands and agrees with the treatment plan. Based on the patients age, coexisting illnesses, exam and lab findings the decision to treat as an inpatient was made. The patient remained stable while under my care. The patient will be evaluated for further management. 1927: Ordered Albuterol Sulfate 2.5 mg 1929: Ordered miraPEX 0.5 mg PO 1933: I spoke with Dr. Gipson, hospitalist. We discussed the patients case. The patient will be evaluated by the [facility] for further management. Medical Decision Differential diagnoses includes but is not limited to pneumonia, bronchitis, COPD/Asthma exacerbation, pneumothorax, pulmonary embolism, congestive heart failure, acute coronary syndrome. Patient is an 82-year-old female who presents to ER for shortness breath was present for the past 24 hours. Only wears 2 L chronically shortness of breath became so severe at home she placed her nighttime CPAP on the majority of the day today. She is brought in by EMS. She is with the BiPAP on arrival. She was given an hour-long neb treatment all with IV steroids. She was also given additional albuterol treatment following the hour-long neb treatment. CBC shows a mild anemia. BMP all LFTs, bilirubin and troponin was negative. EKG was nondiagnostic. Chest x-ray showed no obvious infiltrate. Initially BiPAP was set to 10/5 for the respiratory rate which she was setting in the high 20s. Patient was monitored closely and reassessed continuing on the ER over the course of 2 hours. She was admitted to internal medicine with a COPD exacerbation as there is no sign of CHF. Medication Reconcilliation Current Medication List: was personally reviewed by me Blood Pressure Screening Patient's blood pressure: Elevated blood pressure Blood pressure disposition: Elevated BP felt to be situational Impression Primary Impression: COPD exacerbation Additional Impression: Respiratory distress Critical Care I have personally spent 75 minutes of critical care time in the direct management of this patient. This includes bedside care, interpretation of diagnostic studies, and testing, discussion with consultants, patient, and family members, and other required patient management activities. This 75 minutes is in excess of all separately billable procedures. Scribe Attestation The scribe's documentation has been prepared under my direction and personally reviewed by me in its entirety. I confirm that the note above accurately reflects all work, treatment, procedures, and medical decision making performed by me. Departure Information Dispostion Being Evaluated By Hospitalist Referrals No Doctor, Assigned (PCP) Patient Instructions Asthma - [facility], COPD - [facility], Croup - [facility], [facility] Problem Qualifiers
[2017-10-30] MEDS ORDERED: HYDR-5688 PO (20:22)
[2017-10-30] MEDS ORDERED: BENZ100C84 PO (20:22)
[2017-10-30] MEDS ORDERED: CALC200S6 (20:22)
[2017-10-30] MEDS ORDERED: CITA20TA4 PO (20:22)
[2017-10-30] MEDS ORDERED: FLUT1INH7 INH (20:22)
[2017-10-30] MEDS ORDERED: ERGO500037 PO (20:22)
[2017-10-30] MEDS ORDERED: ASPI81TA28 PO (20:22)
--- NOTE | 2017-10-30 20:51 | HISTORY & PHYSICAL EXAMINATION ---
DATE OF ADMISSION: 10/30/2017 PRIMARY CARE PHYSICIAN: Dr. Kent. CHIEF COMPLAINT: Increasing shortness of breath and weakness for the last 2 days. HISTORY OF PRESENT COMPLAINT: She is an 82-year-old female with significant past medical history including severe COPD with centrilobular emphysema, on home O2 and also CPAP at nighttime; esophageal stricture, hyperlipidemia, history of ventral hernia, osteoporosis, and history of compression fracture of spine, apparently has been complaining of a more shortness of breath for the last 2 days. At the same time, she has been having weakness and tiredness which has been ongoing and she noticed her leg to be swelled up as well. She has had shaking chills, but no documented temperature. She was seen by home health nurse and was advised to come to the Emergency Room for further evaluation. Denies to have any chest pain or palpitation. Does not have any abdominal pain, nausea, vomiting; denies to have problem with urine and/or bowel habit. No numbness or tingling in the extremities and no weakness involving any side. In the Emergency Room, she required all along neb treatment, she required BIPAP to keep the saturation up and later on she was controlled with CPAP as well. Her labs and x-ray came back fairly unremarkable for any pneumonia, but she was admitted to continue the care for exacerbation. PAST MEDICAL HISTORY: Significant for severe COPD with centrilobular emphysema on oxygen and also CPAP at nighttime, esophageal stricture, hyperlipidemia, ventral hernia, osteoporosis and history of lumbar spine fracture. PAST SURGICAL HISTORY: Esophageal dilatation in 2007 and partial hysterectomy in 1974. FAMILY HISTORY: Mother had diabetes. Father of lung disorder. SOCIAL HISTORY: She is . She lives with her . She has 6 children. She quit smoking in 2013 with a 37-emzr-mate history of smoking. She does not use any alcohol. She has been reasonably ambulant. REVIEW OF SYSTEMS: Other systemic review unremarkable except those mentioned in history of present complaint. ALLERGIES: LORAZEPAM AND ROFLUMILAST. MEDICATIONS: As an outpatient, she has been on vitamin D for 50,000 units every week, hydrocodone/acetaminophen 5/325 one tablet every 4-6 hours, prednisone 10 mg as directed, Levaquin 500 mg as directed, calcitonin 200 units 1 spray each nostril daily, acetylcysteine 600 mg 2 times a day, calcium carbonate/vitamin D 500/125 one tablet daily, guaifenesin 200 mg every 6 hours as needed, tramadol 50 mg every 6 hours as needed, doxycycline 100 mg 2 times daily as needed, lactobacillus 4 tablets 3 times daily when needed, loperamide 2 mg 4 times daily as needed, Mirapex 0.5 mg 1 tablet in the afternoon and 1 at bedtime, Protonix 40 mg daily, Celexa 20 mg daily, Tessalon Perles 1 tab 100 mg 3 times daily, Spiriva HandiHaler 1 inhalation daily, Xopenex 3 mL via nebulizer solution every 4 hours as needed, Atrovent 0.02% 2.5 mL via nebulizer solution 4 times daily, Combivent Respimat 200/100 1 puff 4 times daily, Breo Ellipta 1 inhalation daily, multivitamin 1 tablet daily, aspirin 81 mg daily. PHYSICAL EXAMINATION: GENERAL: On examination in the Emergency Room, she was still having moderate shortness of breath at rest on BiPAP, but she is alert, awake, oriented. VITAL SIGNS: Temperature 36.5, pulse was 107, blood pressure 133/74, saturation 100% on 40% FIO2 on BiPAP. HEENT: Unremarkable. NECK: Supple. No JVD, no bruit. CHEST: Decreased breath sounds all over with occasional wheezing anteriorly. No crackles. HEART: S1, S2 regular. ABDOMEN: Soft, benign, nontender, no organomegaly. Bowel sounds present. EXTREMITIES: 1+ edema confined to the lower legs. MUSCULOSKELETAL SYSTEM: No acute arthritis. CENTRAL NERVOUS SYSTEM: She is alert, awake, oriented x3. Generally weak, but no focal neuro deficit. LABORATORY DATA: Noted today - white count was 8.89, H&H is 9.3/30.7, and platelet was 316. Chemistry: Sodium 138, potassium 4.1, chloride 105, carbon dioxide 27, BUN 16, creatinine 1.63, random glucose 110. LFTs unremarkable. Troponin less than 0.015. PT, PTT normal. IMAGING DATA: Chest x-ray - emphysema without any infiltration. EKG - sinus rhythm, tachycardia, rate of 112, right bundle branch block; compared with prior EKG, no significant change. IMPRESSION AND PLAN: 1. Severe chronic obstructive pulmonary disease with exacerbation seems to be ineffective, but no pneumonia. The patient is requiring CPAP/BiPAP to maintain saturation. She will be admitted to medical floor. We will start with oral doxycycline, Solu-Medrol and nebulized bronchodilator. 2. Gastroesophageal reflux disease. Continue with Protonix. 3. Osteoporosis. Continue with vitamin D and calcitonin. 4. History of compression fracture of Lumbar spine. She uses hydrocodone at times. We will continue with that. 5. History of restless leg syndrome. Continue with her current medication. 6. Gastrointestinal prophylaxis with Protonix. 7. Deep venous thrombosis prophylaxis with subcutaneous heparin. 8. Code status: Discussed with the patient and family members. She will be level 3. 9. She has also bilateral leg edema, seems to be dependent, does not have any cardiac history. Her echo in August 20, came out to be fairly unremarkable with ejection fraction of 70%. She may need to give a small dose of Lasix if the edema does not improve, by itself. In my clinical assessment, the beneficiary meets criteria as per CMS for 2-midnight stay in the hospital. EDY
--- NOTE | 2017-10-30 21:00 | NUR ---
Patient admitted to room 260 with diagnosis COPD Exacerbation. AAO x4. VS and assessment completed. See EMR. Respiratory placed on BiPap. Oriented to room and call canales. Code and Fall paperwork completed. Daughter at bedside. Will continue to monitor.
[2017-10-30] MEDS: PRAMIPEXOLE DIHYDROCHLORIDE 0.5 MG TAB PO SCH (22:04)
[2017-10-30] MEDS: ACETYLCYSTEINE 600 MG CAP PO SCH (22:04)
[2017-10-30] MEDS: HEPARIN SOD 5000 UNIT/0.5 ML CARP SQ SCH (22:09)
[2017-10-30] MEDS: IPRATROPIUM BROMIDE/ALBUTEROL respimat INH INH SCH (22:26)
[2017-10-30] MEDS: IPRATROPIUM BROMIDE NEB SOLN 0.02% 2.5 ML VIAL INH PRN (22:26)
[2017-10-30] MEDS: LEVALBUTEROL 0.63MG/3 ML NEB INH PRN (22:26)
[2017-10-30] MEDS: DOXYCYCLINE HYCLATE 100 MG CAP PO SCH (22:33)
[2017-10-31] VITALS (16 sets, daily range): BP systolic 128–163; BP diastolic 39–82; PULSE 71–116; TEMP 36.4–37.1; O2SAT 90–97
[2017-10-31] MEDS ORDERED: BREO ELLIPTA - ORDER AWAITING ACTION SCH
[2017-10-31] MEDS: HYDROCODONE/ACETAMIN 5/325MG TAB PO PRN ×2 (03:31→20:07)
[2017-10-31] MEDS: METHYLPREDNISOLONE IV 40 MG in SYRINGE 0 ML IV SCH ×3 (03:31→19:30)
[2017-10-31 07:28] LABS: HEMATOCRIT 31.1 % (37-47); HEMOGLOBIN 9.3 g/dL (12.0-16.0); MEAN CELL VOLUME 83.4 fL (80-100); MEAN CORPUSCULAR HEMOGLOBIN 24.9 pg (25-34); MEAN CORPUSCULAR HGB CONC 29.9 g/dl (32-36); MEAN PLATELET VOLUME 7.9 fL (7.4-10.4); PLATELET COUNT 344 K/uL (130-400); RED CELL DISTRIBUTION WIDTH CV 20.3 % (11.5-14.5); RED CELL DISTRIBUTION WIDTH SD 60.9 fL (36.4-46.3)
[2017-10-31 07:55] LABS: CALCIUM 9.1 mg/dl (8.5-10.1); CREATININE 0.53 mg/dl (0.60-1.20); PHOSPHORUS 3.2 mg/dl (2.5-4.9)
[2017-10-31] MEDS ORDERED: LACTOBACILLUS ACIDOPHILUS (FLORANEX) TAB PEG SCH (08:00)
[2017-10-31] MEDS: DOXYCYCLINE HYCLATE 100 MG CAP PO SCH ×2 (08:13→19:30)
[2017-10-31] MEDS: PANTOprazole SOD 40 MG TAB PO SCH (08:14)
[2017-10-31] MEDS: ACETYLCYSTEINE 600 MG CAP PO SCH ×2 (08:14→19:30)
[2017-10-31] MEDS: CITALOPRAM 20 MG TAB PO SCH (08:14)
[2017-10-31] MEDS: CALCITONIN SALMON NA 200 IU/AC 3.7 ML BTL SCH (08:16)
[2017-10-31] MEDS: ASPIRIN 81 MG ECTAB PO SCH (08:16)
[2017-10-31] MEDS: HEPARIN SOD 5000 UNIT/0.5 ML CARP SQ SCH (08:28)
[2017-10-31] MEDS: IPRATROPIUM BROMIDE/ALBUTEROL respimat INH INH SCH (08:30)
[2017-10-31] MEDS: FLUTICASONE FUROATE-VILANTEROL 200/25 MCG INH INH SCH (08:32)
[2017-10-31] MEDS: LEVALBUTEROL 0.63MG/3 ML NEB INH PRN (08:42)
[2017-10-31] MEDS: IPRATROPIUM BROMIDE NEB SOLN 0.02% 2.5 ML VIAL INH PRN (08:42)
--- NOTE | 2017-10-31 10:05 | NUR ---
Case Management: Pt on screening tool as a 30 day readmit. Pt at [facility] 10/09-10/13/17 for COPD exacerbation. Pt discharged to home with [facility] that admission. Met with pt in room 260. Pt was alert and able to answer questions. Pt lives with her spouse in a trailer. She uses a rollator walker and continuous oxygen thru [facility] in [place]. Pt also has BiPap and a nebulizer. Per pt she has been having difficulty with her Bipap, thinks it has not been working, and Matilda from [facility] has been out to change settings. Pt's does the cooking and dgt Torrie also provides some meals. has been assisting with pt's back and feet during bathing. Per pt she has been taking her medications as prescribed. I did ask her if her smokes in the home and she stated he does not and he is trying to quit smoking.
[2017-10-31] MEDS: TIOTROPIUM BROMIDE 5 PUFF/90 MCG INH INH SCH (10:13)
[2017-10-31] MEDS: MAGNESIUM SULFATE 1GM / D5W 1 GM in PREMIXED IN D5W 100 ML IV SCH ×3 (10:14→12:20)
--- NOTE | 2017-10-31 10:17 | DIAGNOSTIC IMAGING REPORT ---
CHEST ONE VIEW PORTABLE CLINICAL HISTORY: 82 years-old Female presenting with worsening SOB overnight. TECHNIQUE: Portable upright AP view of the chest was obtained. COMPARISON: 10/30/2017. FINDINGS: Atherosclerosis of the aortic arch. Tortuosity of the descending thoracic aorta. Cardiac silhouette normal in size. Bibasilar reticulation and heterogeneity of lung parenchyma with relative radiolucency of the upper lobes. Small effusions bilaterally. Degenerative changes of the thoracic spine. Upper abdomen normal. IMPRESSION: 1. Emphysema and basilar scarring and/or fibrosis. No superimposed infiltrate. 2. Small bilateral pleural effusions. Electronically signed by: Navdeep Hall M.D. 10/31/2017 10:15 AM Dictated Date/Time: 10/31/2017 10:10 AM
--- NOTE | 2017-10-31 10:59 | NUR ---
a:pt has been transferred to [facility] PCU. Report given to YINA Moreira. Meds, belongings, and chart. No questions at this time. Transferred via bed with montessori toddler teacher, Respiratory staff with Bipap and I.
--- NOTE | 2017-10-31 11:13 | NUR ---
A: PT ARRIVED INTO ROOM 238 BED 1 FROM MEDICAL. TELE MONITOR ON AND VS TAKEN. BIPAP ON. STATES BREATHING FEELS OK. SATS ARE MID 90'S. DENIES PAIN. REPOSITIONED IN BED. CALL SILVER WITHIN REACH-WILL CONTINUE TO MONITOR.
[2017-10-31 11:45] LABS: INFLUENZA A PCR Neg for Influ A (NEG)
[2017-10-31 11:46] LABS: INFLUENZA B PCR Neg for Influ B (NEG)
[2017-10-31] MEDS: ALBUT/IPRATROP 3MG/0.5MG NEB 3 ML VIAL INH SCH ×5 (12:05→22:08)
[2017-10-31] MEDS: PRAMIPEXOLE DIHYDROCHLORIDE 0.5 MG TAB PO SCH ×2 (14:46→19:30)
--- NOTE | 2017-10-31 16:00 | NUR ---
A: PT REASSESSED, SEE EMR. BIPAP STILL ON. STATES BREATHING FEELS BETTER THAN EARLIER TODAY. VSS. SINUS/TACH ON THE MONITOR. CLEAR LIQUID DIET FOR DINNER. CALL SILVER WITHIN REACH-WILL CONTINUE TO MONITOR.
--- NOTE | 2017-10-31 17:00 | NUR ---
A: BIPAP TAKEN OFF FOR DINNER. 2.5 LITERS NC PLACED. WILL CONTINUE TO MONITOR.
[2017-10-31] MEDS: ACETAMINOPHEN 325 MG TAB PO PRN ×2 (17:42)
--- NOTE | 2017-10-31 20:00 | NUR ---
A. Patient assessed, resting in bed watching TV. She is AAOx4, pleasant and cooperative. She is denying any pain. She is reporting her breathing is slightly better but still very SOB on exertion. Currently on 3LO2, she understands the importance of wearing Bipap tonight. She states she has a dry cough with no sputum production. ST with HR 100-115. Non-pitting edema to lower legs. Tolerating clear liquids. Up to BSC with assistance to void. IV intact and patent. Repositioning on own in bed. She was reminded on her fall risk and not to get up without staff present. Call canales on lap.
[2017-10-31] MEDS ORDERED: ENOXAPARIN 30 MG/0.3 ML SYR SQ SCH (21:00)
--- NOTE | 2017-10-31 23:52 | NUR ---
A: Patient resting in bed - on bipap. Denies any complaints. SR 90s on tele. Call canales within reach. Will monitor.
[2017-11-01] VITALS (16 sets, daily range): BP systolic 146–167; BP diastolic 73–91; PULSE 70–114; TEMP 36.3–36.8; O2SAT 93–98
--- NOTE | 2017-11-01 00:22 | Progress Note ---
Medicine Progress Note Date & Time of Visit: Oct 31, 2017 at 10:03. Subjective 82 yoF with increased SOB over a couple of days. She reports not feeling like she is able to get enough air and feels that she needs to use the BIPAP mask. She appears to be in mild distress. Denies chest pain, palpitations, nausea, vomiting, diarrhea. She reports multiple sick contacts. Denies cold symptoms herself but is coughing. Objective Last 8 Hrs Date Time Temp Pulse Resp B/P (MAP) Pulse Ox O2 Delivery O2 Flow Rate FiO2 10/31/17 08:43 88 20 95 Nasal Cannula 2.0 10/31/17 07:29 36.6 105 18 163/82 (109) 96 BiPAP Physical Exam: GEN: WNWD, in mild acute distress, alert and appropriate, +conversational dyspnea HEENT: NC/AT, PERRL, normal sclerae, NC in place. CARDIO: reg rate, S1/2 heard without m/g/r LUNGS: diffuse wheezing throughout all lung deleon, severe. ABD: soft, non-tender, non-distended, no rebound or guarding, +BS EXTREMITY: RP and DP palpable 2+ bilat, no LE swelling or edema, extremities are warm and well-perfused NEURO: CN 2-12 grossly intact MUSC: moves all extremities equally SKIN: warm and dry Laboratory Results: 10/31/17 07:14 10/31/17 07:14 Test 10/30/17 18:50 10/31/17 03:55 10/31/17 07:14 10/31/17 10:00 Immature Granulocyte % (Auto) 1.7 % White Blood Count 8.89 K/uL (4.8-10.8) Red Blood Count 3.67 M/uL (4.2-5.4) 3.73 M/uL (4.2-5.4) Hemoglobin 9.3 g/dL (12.0-16.0) Hematocrit 30.7 % (37-47) Mean Corpuscular Volume 83.7 fL (80-100) 83.4 fL (80-100) Mean Corpuscular Hemoglobin 25.3 pg (25-34) 24.9 pg (25-34) Mean Corpuscular Hemoglobin Concent 30.3 g/dl (32-36) 29.9 g/dl (32-36) Platelet Count 316 K/uL (130-400) Mean Platelet Volume 7.9 fL (7.4-10.4) 7.9 fL (7.4-10.4) Neutrophils (%) (Auto) 83.7 % Lymphocytes (%) (Auto) 8.8 % Monocytes (%) (Auto) 5.7 % Eosinophils (%) (Auto) 0.0 % Basophils (%) (Auto) 0.1 % Neutrophils # (Auto) 7.44 K/uL (1.4-6.5) Lymphocytes # (Auto) 0.78 K/uL (1.2-3.4) Monocytes # (Auto) 0.51 K/uL (0.11-0.59) Eosinophils # (Auto) 0.00 K/uL (0-0.5) Basophils # (Auto) 0.01 K/uL (0-0.2) Immature Granulocyte # (Auto) 0.15 K/uL (0.00-0.02) Polychromasia 1+ Basophilic Stippling OCCASIONAL Anisocytosis PRESENT Prothrombin Time 10.1 SECONDS (9.0-12.0) Prothromb Time International Ratio 1.0 (0.9-1.1) Activated Partial Thromboplast Time 26.0 SECONDS (21.0-31.0) Partial Thromboplastin Ratio 1.0 Total Bilirubin 0.2 mg/dl (0.2-1) Aspartate Amino Transf (AST/SGOT) 10 U/L (15-37) Alanine Aminotransferase (ALT/SGPT) 20 U/L (12-78) Alkaline Phosphatase 65 U/L (45-117) Troponin I < 0.015 ng/ml (0-0.045) Pro-B-Type Natriuretic Peptide 161 pg/ml (0-1800) Total Protein 6.2 gm/dl (6.4-8.2) Albumin 2.8 gm/dl (3.4-5.0) Globulin 3.4 gm/dl (2.5-4.0) Albumin/Globulin Ratio 0.8 (0.9-2) Urine Color YELLOW Urine Appearance CLEAR (CLEAR) Urine pH 5.0 (4.5-7.5) Urine Specific [place] 1.027 (1.000-1.030) Urine Protein 1+ (NEG) Urine Glucose (UA) TRACE (NEG) Urine Ketones NEG (NEG) Urine Occult Blood 1+ (NEG) Urine Nitrite NEG (NEG) Urine Bilirubin NEG (NEG) Urine Urobilinogen NEG (NEG) Urine Leukocyte Esterase NEG (NEG) Urine WBC (Auto) 1-5 /hpf (0-5) Urine RBC (Auto) 5-10 /hpf (0-4) Urine Hyaline Casts (Auto) 1-5 /lpf (0-5) Urine Epithelial Cells (Auto) >30 /lpf (0-5) Urine Bacteria (Auto) NEG (NEG) RDW Standard Deviation 60.9 fL (36.4-46.3) RDW Coefficient of Variation 20.3 % (11.5-14.5) Anion Gap 7.0 mmol/L (3-11) Est Creatinine Clear Calc Drug Dose 63.8 ml/min Estimated GFR () 103.9 Estimated GFR (Non- 89.7 BUN/Creatinine Ratio 32.4 (10-20) Calcium Level 9.1 mg/dl (8.5-10.1) Phosphorus Level 3.2 mg/dl (2.5-4.9) Magnesium Level 1.6 mg/dl (1.8-2.4) Influenza Type A (RT-PCR) Neg for Influ A (NEG) Influenza Type B (RT-PCR) Neg for Influ B (NEG) Test 10/31/17 10:36 Arterial Blood pH 7.46 (7.35-7.45) Arterial Blood Partial Pressure CO2 37 mmHg (35-46) Arterial Blood Partial Pressure O2 79 mm/Hg (80-95) Arterial Blood HCO3 26 mmol/L (19-24) Arterial Blood Oxygen Saturation 93.8 % (90-95) Arterial Blood Base Excess 1.8 mEq/L (-9-1.8) Arterial Blood Gas Delivery 1 LITERS Red Test POS (POS) Last 24 Hours Test 10/30/17 18:50 10/31/17 03:55 10/31/17 07:14 White Blood Count 8.89 K/uL 8.20 K/uL Red Blood Count 3.67 M/uL 3.73 M/uL Hemoglobin 9.3 g/dL 9.3 g/dL Hematocrit 30.7 % 31.1 % Mean Corpuscular Volume 83.7 fL 83.4 fL Mean Corpuscular Hemoglobin 25.3 pg 24.9 pg Mean Corpuscular Hemoglobin Concent 30.3 g/dl 29.9 g/dl Platelet Count 316 K/uL 344 K/uL Mean Platelet Volume 7.9 fL 7.9 fL Neutrophils (%) (Auto) 83.7 % Lymphocytes (%) (Auto) 8.8 % Monocytes (%) (Auto) 5.7 % Eosinophils (%) (Auto) 0.0 % Basophils (%) (Auto) 0.1 % Neutrophils # (Auto) 7.44 K/uL Lymphocytes # (Auto) 0.78 K/uL Monocytes # (Auto) 0.51 K/uL Eosinophils # (Auto) 0.00 K/uL Basophils # (Auto) 0.01 K/uL RDW Standard Deviation 62.0 fL 60.9 fL RDW Coefficient of Variation 20.5 % 20.3 % Immature Granulocyte % (Auto) 1.7 % Immature Granulocyte # (Auto) 0.15 K/uL Polychromasia 1+ Basophilic Stippling OCCASIONAL Anisocytosis PRESENT Prothrombin Time 10.1 SECONDS Prothromb Time International Ratio 1.0 Activated Partial Thromboplast Time 26.0 SECONDS Partial Thromboplastin Ratio 1.0 Sodium Level 138 mmol/L 136 mmol/L Potassium Level 4.1 mmol/L 4.0 mmol/L Chloride Level 105 mmol/L 101 mmol/L Carbon Dioxide Level 27 mmol/L 28 mmol/L Anion Gap 6.0 mmol/L 7.0 mmol/L Blood Urea Nitrogen 16 mg/dl 17 mg/dl Creatinine 0.63 mg/dl 0.53 mg/dl Est Creatinine Clear Calc Drug Dose 53.7 ml/min 63.8 ml/min Estimated GFR () 98.2 103.9 Estimated GFR (Non- 84.7 89.7 BUN/Creatinine Ratio 25.9 32.4 Random Glucose 110 mg/dl 118 mg/dl Calcium Level 8.8 mg/dl 9.1 mg/dl Total Bilirubin 0.2 mg/dl Aspartate Amino Transf (AST/SGOT) 10 U/L Alanine Aminotransferase (ALT/SGPT) 20 U/L Alkaline Phosphatase 65 U/L Troponin I < 0.015 ng/ml Pro-B-Type Natriuretic Peptide 161 pg/ml Total Protein 6.2 gm/dl Albumin 2.8 gm/dl Globulin 3.4 gm/dl Albumin/Globulin Ratio 0.8 Urine Color YELLOW Urine Appearance CLEAR Urine pH 5.0 Urine Specific [place] 1.027 Urine Protein 1+ Urine Glucose (UA) TRACE Urine Ketones NEG Urine Occult Blood 1+ Urine Nitrite NEG Urine Bilirubin NEG Urine Urobilinogen NEG Urine Leukocyte Esterase NEG Urine WBC (Auto) 1-5 /hpf Urine RBC (Auto) 5-10 /hpf Urine Hyaline Casts (Auto) 1-5 /lpf Urine Epithelial Cells (Auto) >30 /lpf Urine Bacteria (Auto) NEG Phosphorus Level 3.2 mg/dl Magnesium Level 1.6 mg/dl Assessment & Plan 82 yoF with increased SOB over a couple of days. She reports not feeling like she is able to get enough air and feels that she needs to use the BIPAP mask. She appears to be in mild distress. Denies chest pain, palpitations, nausea, vomiting, diarrhea. She reports multiple sick contacts. Denies cold symptoms herself but is coughing. 1. COPD exacerbation-severe, on continuous oxygen and requiring BIPAP for comfort. Cont Solumedrol IV, nebs and doxy.Flu PCR is negative. Move to telemetry. 2. Gastroesophageal reflux disease. Continue with Protonix. 3. Osteoporosis. Continue with vitamin D and calcitonin. 4. History of compression fracture of Lumbar spine. PRN hydrocodone. 5. Anemia-no transfusion indicated at this time. Cont to monitor DVT proph-heparin Level 3 Dispo-to telemetry Noelle Saenz DO [facility] Hospitalist Current Inpatient Medications: Current Inpatient Medications Medications (Trade) Dose Ordered Sig/Huan Route Start Time Stop Time Status Last Admin Dose Admin Acetaminophen (Tylenol Tab) 650 mg Q4H PRN PO 10/30/17 20:00 11/29/17 19:59 10/31/17 00:00 650 MG Ondansetron HCl (Zofran Inj) 4 mg Q6H PRN IV 10/30/17 20:00 11/29/17 19:59 Heparin Sodium (Porcine) (Heparin Sq 5000 Unit/0.5ml) 5,000 unit Q12 SQ 10/30/17 21:00 11/29/17 20:59 10/31/17 08:28 5,000 UNIT Acetylcysteine (Acetylcysteine Cap) 600 mg BID PO 10/30/17 21:00 11/29/17 20:59 10/31/17 08:14 600 MG Aspirin (Ecotrin Tab) 81 mg DAILY PO 10/31/17 09:00 11/30/17 08:59 10/31/17 08:16 81 MG Benzonatate (Tessalon Perles Cap) 100 mg TID PRN PO 10/30/17 20:00 11/29/17 19:59 Calcitonin [place] (Fortical Nasal [place]) 1 spray DAILY NA 10/31/17 09:00 11/30/17 08:59 10/31/17 08:16 1 SPRAY Citalopram Hydrobromide (celeXA TAB) 20 mg QAM PO 10/31/17 09:00 11/30/17 08:59 10/31/17 08:14 20 MG Loperamide HCl (Imodium Cap) 2 mg PRN PRN PO 10/30/17 20:00 11/29/17 19:59 Pantoprazole Sodium (Protonix Tab) 40 mg DAILY PO 10/31/17 09:00 11/30/17 08:59 10/31/17 08:14 40 MG Tiotropium [place] (Spiriva Handihaler Inhaler) 1 puff DAILY INH 10/31/17 09:00 11/30/17 08:59 Doxycycline Hyclate (Vibramycin Cap) 100 mg BID PO 10/30/17 21:00 11/06/17 20:59 10/31/17 08:13 100 MG Methylprednisolone Sodium Succinate 40 mg/Syringe 0.64 ml @ 1.5 mls/min Q8H IV 10/31/17 04:00 11/30/17 03:59 10/31/17 03:31 1.5 MLS/MIN Pramipexole Dihydrochloride (miraPEX TAB) 0.5 mg BID@1600,2100 PO 10/30/17 21:00 11/29/17 20:59 10/30/17 22:04 0.5 MG Acetaminophen/ Hydrocodone Bitart ([place] 5/325 Tab) 1 tab Q6H PRN PO 10/30/17 21:30 11/13/17 21:29 10/31/17 03:31 1 TAB Fluticasone/ Vilanterol (Breo Ellipta 200-25 Mcg/Inh) 1 inha DAILY INH 10/31/17 09:00 11/30/17 08:59 10/31/17 08:32 1 INHA Magnesium Sulfate 1 gm/Prmx 100 ml @ 100 mls/hr Q1H IV 10/31/17 09:30 10/31/17 12:29 Albuterol/ Ipratropium (Duoneb) 3 ml QIDR INH 10/31/17 12:00 11/30/17 11:59 UNV
[2017-11-01] MEDS: HYDROCODONE/ACETAMIN 5/325MG TAB PO PRN ×2 (02:09→20:47)
[2017-11-01] MEDS: ALBUT/IPRATROP 3MG/0.5MG NEB 3 ML VIAL INH SCH ×7 (02:25→20:00)
[2017-11-01] MEDS ORDERED: ALUMINUM/MAGNESIUM SUSP 30 ML UDC ONE (04:34)
[2017-11-01] MEDS: ALUMINUM/MAGNESIUM SUSP 30 ML UDC PO PRN (04:35)
--- NOTE | 2017-11-01 04:35 | NUR ---
A: Patient resting in bed - complaining of heartburn, see EMAR. SR 90s on tele. On bipap. Call canales within reach. Will monitor.
[2017-11-01] MEDS: METHYLPREDNISOLONE IV 40 MG in SYRINGE 0 ML IV SCH ×3 (04:40→20:47)
--- NOTE | 2017-11-01 08:00 | NUR ---
Patient assessed around this time. vss. no c/o pain nausea Patient SOB with very minimal exertion, frequently between BIPAP 10/5/30% and 3-4LNC. Patient to bedside commode to void, very PRASAD and back on bipap after. IV patent and intact. Patient resting bed on bipap at this time.
[2017-11-01] MEDS: ACETYLCYSTEINE 600 MG CAP PO SCH ×2 (08:29→20:49)
[2017-11-01] MEDS: ENOXAPARIN 30 MG/0.3 ML SYR SQ SCH (08:29)
[2017-11-01] MEDS: CITALOPRAM 20 MG TAB PO SCH (08:30)
[2017-11-01] MEDS: CALCITONIN SALMON NA 200 IU/AC 3.7 ML BTL SCH (08:30)
[2017-11-01] MEDS: PANTOprazole SOD 40 MG TAB PO SCH (08:30)
[2017-11-01] MEDS: ASPIRIN 81 MG ECTAB PO SCH (08:30)
[2017-11-01] MEDS: DOXYCYCLINE HYCLATE 100 MG CAP PO SCH ×2 (08:30→20:50)
[2017-11-01] MEDS: TIOTROPIUM BROMIDE 5 PUFF/90 MCG INH INH SCH (08:31)
[2017-11-01] MEDS: FLUTICASONE FUROATE-VILANTEROL 200/25 MCG INH INH SCH (09:00)
--- NOTE | 2017-11-01 12:00 | NUR ---
no significant changes in assessment at this time. Dr. Cabral at bedside around this time to see patient. discussed patient status and plan of care.
--- NOTE | 2017-11-01 13:35 | PULMONARY CONSULTATION ---
DATE OF CONSULTATION: 11/01/2017 TIME: 12:15 p.m. HISTORY OF PRESENT ILLNESS: The patient was seen in room 238, bed 1. She is an 82-year-old female who has severe end-stage chronic obstructive pulmonary disease. She was admitted yesterday with progressive worsening of her shortness of breath. She did not have much of a cough. That typically is how it is for her. She just gets severely tight, severely short of breath, and cannot breathe. She had no chest pains. She has had no chills, fevers or sweats. She does not expectorate any phlegm. The patient lives at home with her . She is really not able to get out of the house hardly at all. Her also has many health problems. The patient admitted that she has trouble keeping track of her medicines after she goes home. Nanette has had now 6 hospital admissions in the past 4 months. She was in from July 14 through July 17, then July 27 through August 04, then September 06 through September 10, then September 24 through September 27, and then from October 09 until October 13. She never totally recovers to where she had been previously. She did pulmonary rehabilitation, but she really could not do it because she had no energy or strength to do it. The patient does have either CPAP or BiPAP at home. She wears it nightly and even sometimes during the day. She uses [facility] as her provider for that. She was admitted yesterday. Thus far today, she does not feel any better. She is still tight. She has had the BiPAP on for much of that time. We did take the BiPAP off during my consultation and she tolerated that pretty well. PAST SURGICAL HISTORY: 1. Esophageal dilatation. 2. Hysterectomy. 3. Bilateral cataract surgery. PAST MEDICAL HISTORY: 1. Chronic respiratory failure. 2. Chronic obstructive pulmonary disease. 3. Emphysema. 4. Compression fractures. 5. Osteoporosis. 6. Hyperlipidemia. 7. Reflux. 8. Esophageal strictures. 9. Restless leg syndrome. 10. Herpes zoster. 11. Anemia. SOCIAL HISTORY: Tobacco 1 pack per day for 55 years, but none for 4 years. ETOH -- None. ALLERGIES: LORAZEPAM AND DALIRESP ACCORDING TO THE PATIENT. FAMILY HISTORY: Father had emphysema and lung cancer. Mother had diabetes. REVIEW OF SYSTEMS: Negative except for the above-mentioned complaints. Ten systems were reviewed. The patient is now at the point, where she is short of breath even at rest much of the time. MEDICATIONS: At home: 1. Aspirin 81 mg daily. 2. Tessalon Perles 100 mg t.i.d. p.r.n. 3. Calcitonin nasal spray 1 spray daily. 4. Citalopram 20 mg daily. 5. Vitamin D once weekly. 6. Breo Ellipta 200/25 one puff daily. 7. Hydrocodone/acetaminophen 5/325 one q. 4-6 hours p.r.n. 8. Neb treatments with levalbuterol 0.63 and ipratropium listed as p.r.n., but I believe should be every 6 hours. 9. Imodium p.r.n. 10. Pantoprazole 40 mg daily. 11. Pramipexole 0.5 at bedtime. 12. Prednisone, which she most recently was on 20 mg dating back to her prior hospital stay. 13. Tiotropium 1 puff daily. PHYSICAL EXAMINATION: GENERAL: The patient is a very pleasant 82-year-old female who was cooperative, alert and oriented. She was in no distress at rest. She was able to speak in full sentences. She did appear weak. VITAL SIGNS: Temperature 36.3. Heart rate is 119 per minute. The rhythm is regular. Blood pressure 146/73. HEENT: Pupils were reactive. Implants were noted. Nares were clear. Mouth exam showed dry membranes. Dentures were present. NECK: Palpation of the neck reveals no lymph nodes. CHEST: Showed an increased AP diameter. There was diminished excursions. The breath sounds were diminished. The patient is very tight. Marked wheezing was heard on expiration and there was marked prolongation to the expiratory phase of respiration. ABDOMEN: Shows numerous areas of ecchymosis on the skin from prior injections. Bowel sounds were present. There was no tenderness to palpation or masses. EXTREMITIES: Showed no cyanosis, clubbing or edema. LABORATORY DATA: The patient's chest x-ray showed emphysematous changes with fibrosis as well. She likely has bullous changes in the upper lung deleon. Repeat x-ray from today showed no significant change. Cannot exclude small bibasilar effusions. White count is 8.2. Hemoglobin is 9.3. Platelets are 344,000. Coags were normal. Urinalysis showed +1 protein, +1 blood, and 5-10 RBCs. Blood gas on 1 liter showed a pH of 7.46 with a pCO2 of 37 and a pO2 of 79. Electrolytes show sodium 136, potassium 4, chloride 101, and bicarbonate 28. BUN 17 with a creatinine of 0.53. Blood sugar 118. Magnesium was low at 1.6. ProBNP was 161. Troponin was negative. IMPRESSIONS: 1. Acute on chronic respiratory failure with hypoxia. 2. Chronic obstructive pulmonary disease exacerbation. 3. Emphysema. COMMENTS AND RECOMMENDATIONS: The patient has essentially end stage lung disease. This is demonstrated by 6 admissions in 4 months. There are no specific measures that can be taken for prevention of exacerbations other than what she is doing. She does not tolerate Daliresp. She is on Spiriva. She is on the usual medicines one might utilize. The patient is listed as a do not intubate. I spoke with the patient and I also spoke with several of her children separately. They do not know for sure if she has a written living will. I explained to them that it might be important particularly if ambulance personnel would arrive at their home if they were called. I think it is totally appropriate that she is in no intubation. I explained to the patient and to her children that she could consider to be a complete DNR. I explained to her that doing chest percussions would not help if her major problem is respiratory. I spoke with the patient about palliative care. I do not think she truly understands that. She has not tolerated Ativan in the past. She does have [place] at home. The patient really has no idea what it is, but she knows that it is the pain medicine. She has discovered that it is helpful for her breathing. I would encourage her to use that as needed not just for pain, but for shortness of breath as well. I asked her children if their mom had ever considered assisted living and they said no and they did not think she would consider that. The patient is on acetylcysteine. I am doubtful that it would be much helped to her. She almost never has any sputum by history and her primary disorder is emphysema. I agree with her other medications. Thank you for asking me to assist in her care. EDY
[2017-11-01] MEDS: PRAMIPEXOLE DIHYDROCHLORIDE 0.5 MG TAB PO SCH ×2 (16:34→20:49)
--- NOTE | 2017-11-01 19:55 | NUR ---
A: Patient awake and resting in bed - on 4L NC and tolerating well. Denies any complaints. SR 90 - ST 100s on tele. Call canales within reach. Will monitor patient.
--- NOTE | 2017-11-01 23:50 | NUR ---
A: Patient resting in bed - denies complaints. Tolerating on bipap. SR 90s on tele. Call canales within reach. Will monitor patient.
[2017-11-02] VITALS (14 sets, daily range): BP systolic 122–178; BP diastolic 70–95; PULSE 70–106; TEMP 36–36.9; O2SAT 89–98
--- NOTE | 2017-11-02 00:20 | Progress Note ---
Medicine Progress Note Date & Time of Visit: Nov 01, 2017 at 0730. Subjective breathing slightly improved tolerating PO still requesting BIPAP throughout the day Objective Last 8 Hrs Date Time Temp Pulse Resp B/P (MAP) Pulse Ox O2 Delivery O2 Flow Rate FiO2 11/01/17 21:40 108 95 30 11/01/17 20:39 70 20 96 Nasal Cannula 2.5 11/01/17 19:58 36.7 70 20 167/75 (105) 96 Nasal Cannula 2.0 11/01/17 16:00 Nasal Cannula 3.0 30 BiPAP 11/01/17 15:42 36.8 112 22 150/73 (98) 96 BiPAP 11/01/17 15:25 111 28 96 BiPAP/CPAP 30 11/01/17 15:22 111 96 30 Physical Exam: GEN: WNWD, in mild acute distress, alert and appropriate, +conversational dyspnea HEENT: NC/AT, PERRL, normal sclerae, NC in place. CARDIO: reg rate, S1/2 heard without m/g/r LUNGS: scattered wheezing throughout-much improved today. ABD: soft, non-tender, non-distended, no rebound or guarding, +BS EXTREMITY: RP and DP palpable 2+ bilat, no LE swelling or edema, extremities are warm and well-perfused NEURO: CN 2-12 grossly intact MUSC: moves all extremities equally SKIN: warm and dry Laboratory Results: 10/31/17 07:14 10/31/17 07:14 Test 10/30/17 18:50 10/31/17 03:55 10/31/17 07:14 10/31/17 10:00 Immature Granulocyte % (Auto) 1.7 % White Blood Count 8.89 K/uL (4.8-10.8) Red Blood Count 3.67 M/uL (4.2-5.4) 3.73 M/uL (4.2-5.4) Hemoglobin 9.3 g/dL (12.0-16.0) Hematocrit 30.7 % (37-47) Mean Corpuscular Volume 83.7 fL (80-100) 83.4 fL (80-100) Mean Corpuscular Hemoglobin 25.3 pg (25-34) 24.9 pg (25-34) Mean Corpuscular Hemoglobin Concent 30.3 g/dl (32-36) 29.9 g/dl (32-36) Platelet Count 316 K/uL (130-400) Mean Platelet Volume 7.9 fL (7.4-10.4) 7.9 fL (7.4-10.4) Neutrophils (%) (Auto) 83.7 % Lymphocytes (%) (Auto) 8.8 % Monocytes (%) (Auto) 5.7 % Eosinophils (%) (Auto) 0.0 % Basophils (%) (Auto) 0.1 % Neutrophils # (Auto) 7.44 K/uL (1.4-6.5) Lymphocytes # (Auto) 0.78 K/uL (1.2-3.4) Monocytes # (Auto) 0.51 K/uL (0.11-0.59) Eosinophils # (Auto) 0.00 K/uL (0-0.5) Basophils # (Auto) 0.01 K/uL (0-0.2) Immature Granulocyte # (Auto) 0.15 K/uL (0.00-0.02) Polychromasia 1+ Basophilic Stippling OCCASIONAL Anisocytosis PRESENT Prothrombin Time 10.1 SECONDS (9.0-12.0) Prothromb Time International Ratio 1.0 (0.9-1.1) Activated Partial Thromboplast Time 26.0 SECONDS (21.0-31.0) Partial Thromboplastin Ratio 1.0 Total Bilirubin 0.2 mg/dl (0.2-1) Aspartate Amino Transf (AST/SGOT) 10 U/L (15-37) Alanine Aminotransferase (ALT/SGPT) 20 U/L (12-78) Alkaline Phosphatase 65 U/L (45-117) Troponin I < 0.015 ng/ml (0-0.045) Pro-B-Type Natriuretic Peptide 161 pg/ml (0-1800) Total Protein 6.2 gm/dl (6.4-8.2) Albumin 2.8 gm/dl (3.4-5.0) Globulin 3.4 gm/dl (2.5-4.0) Albumin/Globulin Ratio 0.8 (0.9-2) Urine Color YELLOW Urine Appearance CLEAR (CLEAR) Urine pH 5.0 (4.5-7.5) Urine Specific [place] 1.027 (1.000-1.030) Urine Protein 1+ (NEG) Urine Glucose (UA) TRACE (NEG) Urine Ketones NEG (NEG) Urine Occult Blood 1+ (NEG) Urine Nitrite NEG (NEG) Urine Bilirubin NEG (NEG) Urine Urobilinogen NEG (NEG) Urine Leukocyte Esterase NEG (NEG) Urine WBC (Auto) 1-5 /hpf (0-5) Urine RBC (Auto) 5-10 /hpf (0-4) Urine Hyaline Casts (Auto) 1-5 /lpf (0-5) Urine Epithelial Cells (Auto) >30 /lpf (0-5) Urine Bacteria (Auto) NEG (NEG) RDW Standard Deviation 60.9 fL (36.4-46.3) RDW Coefficient of Variation 20.3 % (11.5-14.5) Anion Gap 7.0 mmol/L (3-11) Est Creatinine Clear Calc Drug Dose 63.8 ml/min Estimated GFR () 103.9 Estimated GFR (Non- 89.7 BUN/Creatinine Ratio 32.4 (10-20) Calcium Level 9.1 mg/dl (8.5-10.1) Phosphorus Level 3.2 mg/dl (2.5-4.9) Magnesium Level 1.6 mg/dl (1.8-2.4) Influenza Type A (RT-PCR) Neg for Influ A (NEG) Influenza Type B (RT-PCR) Neg for Influ B (NEG) Test 10/31/17 10:36 Arterial Blood pH 7.46 (7.35-7.45) Arterial Blood Partial Pressure CO2 37 mmHg (35-46) Arterial Blood Partial Pressure O2 79 mm/Hg (80-95) Arterial Blood HCO3 26 mmol/L (19-24) Arterial Blood Oxygen Saturation 93.8 % (90-95) Arterial Blood Base Excess 1.8 mEq/L (-9-1.8) Arterial Blood Gas Delivery 1 LITERS Red Test POS (POS) Assessment & Plan ove to telemetr 1. COPD exacerbation-severe, on continuous oxygen and requiring BIPAP for comfort. Cont Solumedrol IV, nebs and doxy. Flu PCR is negative. She is end stage. Apprec pulm recs. 2. Gastroesophageal reflux disease. Continue with Protonix. 3. Osteoporosis. Continue with vitamin D and calcitonin. 4. History of compression fracture of Lumbar spine. PRN hydrocodone. 5. Anemia-no transfusion indicated at this time. Cont to monitor DVT proph-heparin Level 3 Dispo-to telemetry Noelle Saenz DO [facility] Hospitalist Consultants: Adrian Cabral Current Inpatient Medications: Current Inpatient Medications Medications (Trade) Dose Ordered Sig/Huan Route Start Time Stop Time Status Last Admin Dose Admin Acetaminophen (Tylenol Tab) 650 mg Q4H PRN PO 10/30/17 20:00 11/29/17 19:59 10/31/17 17:42 650 MG Ondansetron HCl (Zofran Inj) 4 mg Q6H PRN IV 10/30/17 20:00 11/29/17 19:59 Acetylcysteine (Acetylcysteine Cap) 600 mg BID PO 10/30/17 21:00 11/29/17 20:59 11/01/17 20:49 600 MG Aspirin (Ecotrin Tab) 81 mg DAILY PO 10/31/17 09:00 11/30/17 08:59 11/01/17 08:30 81 MG Benzonatate (Tessalon Perles Cap) 100 mg TID PRN PO 10/30/17 20:00 11/29/17 19:59 Calcitonin [place] (Fortical Nasal [place]) 1 spray DAILY NA 10/31/17 09:00 11/30/17 08:59 11/01/17 08:30 1 SPRAY Citalopram Hydrobromide (celeXA TAB) 20 mg QAM PO 10/31/17 09:00 11/30/17 08:59 11/01/17 08:30 20 MG Loperamide HCl (Imodium Cap) 2 mg PRN PRN PO 10/30/17 20:00 11/29/17 19:59 Pantoprazole Sodium (Protonix Tab) 40 mg DAILY PO 10/31/17 09:00 11/30/17 08:59 11/01/17 08:30 40 MG Tiotropium [place] (Spiriva Handihaler Inhaler) 1 puff DAILY INH 10/31/17 09:00 11/30/17 08:59 11/01/17 08:31 1 PUFF Doxycycline Hyclate (Vibramycin Cap) 100 mg BID PO 10/30/17 21:00 11/06/17 20:59 11/01/17 20:50 100 MG Methylprednisolone Sodium Succinate 40 mg/Syringe 0.64 ml @ 1.5 mls/min Q8H IV 10/31/17 04:00 11/30/17 03:59 11/01/17 20:47 1.5 MLS/MIN Pramipexole Dihydrochloride (miraPEX TAB) 0.5 mg BID@1600,2100 PO 10/30/17 21:00 11/29/17 20:59 11/01/17 20:49 0.5 MG Acetaminophen/ Hydrocodone Bitart ([place] 5/325 Tab) 1 tab Q6H PRN PO 10/30/17 21:30 11/13/17 21:29 11/01/17 20:47 1 TAB Albuterol/ Ipratropium (Duoneb) 3 ml QIDR INH 10/31/17 12:00 11/30/17 11:59 11/01/17 20:00 3 ML Enoxaparin Sodium (Lovenox Inj) 30 mg QAM SQ 11/01/17 09:00 12/01/17 08:59 11/01/17 08:29 30 MG Al Hydroxide/Mg Hydroxide (Maalox Susp) 30 ml Q6H PRN PO 11/01/17 04:45 12/01/17 04:44 11/01/17 04:35 30 ML
[2017-11-02] MEDS: HYDROCODONE/ACETAMIN 5/325MG TAB PO PRN ×3 (02:47→19:05)
[2017-11-02] MEDS: METHYLPREDNISOLONE IV 40 MG in SYRINGE 0 ML IV SCH ×3 (02:47→20:23)
[2017-11-02] MEDS: ALBUT/IPRATROP 3MG/0.5MG NEB 3 ML VIAL INH SCH ×6 (03:15→19:43)
--- NOTE | 2017-11-02 03:15 | NUR ---
A: Patient resting in bed - denies complaints. Wearing bipap. SR 90s on tele. Call canales within reach. Will monitor patient.
--- NOTE | 2017-11-02 04:55 | NUR ---
Patient requesting to come off of bipap - placed on 4L NC. Denies complaints. Will monitor.
[2017-11-02 07:21] LABS: HEMATOCRIT 29.2 % (37-47); HEMOGLOBIN 9.1 g/dL (12.0-16.0); MEAN CELL VOLUME 83.4 fL (80-100); MEAN CORPUSCULAR HGB CONC 31.2 g/dl (32-36); MEAN PLATELET VOLUME 8.2 fL (7.4-10.4); PLATELET COUNT 351 K/uL (130-400); RED CELL DISTRIBUTION WIDTH SD 60.6 fL (36.4-46.3); WHITE BLOOD COUNT 8.41 K/uL (4.8-10.8)
[2017-11-02 07:52] LABS: CALCIUM 8.9 mg/dl (8.5-10.1); CREATININE 0.67 mg/dl (0.60-1.20); POTASSIUM 4.4 mmol/L (3.5-5.1)
--- NOTE | 2017-11-02 08:00 | NUR ---
Pt assessed at this time. she is oriented and appropriate. 1 assist oob to chair. lungs are coarse with wheezes throughout. cough without sputum production. vital signs stable on 4 liters nasal o2. nsr/stach on panel monitor. iv saline lock patent. tolerating diet and po fluids. no peripheral edema. skin is fragile with scattered ecchymosis. voiding adequately. call canales in reach and needs addressed. will continue to monitor.
[2017-11-02] MEDS: TIOTROPIUM BROMIDE 5 PUFF/90 MCG INH INH SCH (08:47)
[2017-11-02] MEDS: ENOXAPARIN 30 MG/0.3 ML SYR SQ SCH (08:48)
[2017-11-02] MEDS: CALCITONIN SALMON NA 200 IU/AC 3.7 ML BTL SCH (08:48)
[2017-11-02] MEDS: DOXYCYCLINE HYCLATE 100 MG CAP PO SCH ×2 (08:49→20:27)
[2017-11-02] MEDS: CITALOPRAM 20 MG TAB PO SCH (08:50)
[2017-11-02] MEDS: ACETYLCYSTEINE 600 MG CAP PO SCH ×2 (08:50→20:28)
[2017-11-02] MEDS: ASPIRIN 81 MG ECTAB PO SCH (08:50)
[2017-11-02] MEDS: PANTOprazole SOD 40 MG TAB PO SCH (08:50)
--- NOTE | 2017-11-02 12:00 | NUR ---
Pt assessed. she is oriented and appropriate. lungs are coarse with wheezes throughout. vital signs stable on 4 liters nasal o2. nsr/stach on teletypesetter monitor. iv saline lock patent. tolerating diet and po fluids. no peripheral edema. voiding adequately. call canales in reach and needs addressed. will continue to monitor.
--- NOTE | 2017-11-02 12:02 | Pulmonology Progress Note ---
Pulmonary Progress Note Date of Service Nov 02, 2017. Attending Dr. Rodriguez Subjective Patient seen and examined at bedside. Currently on BiPAP. She states that she's feeling much better since admission. She still has intermittent Shortness of breath, chest tightness and wheezing. States that bilateral lower extremity swelling has significantly improved Objective MAXIMUM TEMPERATURE 36.9, blood pressure 140/170-178/82, pulse 88-102, respiratory rate 18-20, pulse oximetry 93-98% on BiPAP 10/5, respiratory rate 12 , FiO2 30%. Gen.: Awake alert oriented 3,Currently on BiPAP CVS: S1-S2, regular rate and rhythm Lungs/chest: Barrel chest, decreased breath sounds bilaterally, with intermittent wheezes Abdomen: Soft, nontender, nondistended, bowel sounds positive Extremities: No edema in bilateral lower extremities, no cyanosis, no clubbing Labs reviewed. Imaging reviewed. Medications reviewed. Assessment & Plan Very severe COPD with exacerbation Acute on chronic hypoxic respiratory failure Recommendations Continue his supplemental oxygen to maintain SaO2 between 88-92% Continue with BiPAP when necessary and at night Continue with nebulizers every 4-6 hours, continue with Spiriva daily Continue with broad-spectrum antibiotics, check a pro-calcitonin level and de- escalate accordingly Continue with Tessalon Perles for cough when necessary Continue with acetylcysteine twice a day Continue Solu-Medrol 40 mg every 8 hours and titrate tomorrow to every 12 hours tomorrow Continue with Protonix 40 mg daily and Lovenox 30 mg daily for GI DVT prophylaxis respectively I also discussed goals of care with patient this morning. She was checked discussed DO NOT RESUSCITATE status with family. I have nothing further to add from a pulmonary standpoint. I will signoff case today. Please contact me if you have any further questions or concerns. Data Medications: Current Inpatient Medications Medications (Trade) Dose Ordered Sig/Huan Route Start Time Stop Time Status Last Admin Dose Admin Acetaminophen (Tylenol Tab) 650 mg Q4H PRN PO 10/30/17 20:00 11/29/17 19:59 10/31/17 17:42 650 MG Ondansetron HCl (Zofran Inj) 4 mg Q6H PRN IV 10/30/17 20:00 11/29/17 19:59 Acetylcysteine (Acetylcysteine Cap) 600 mg BID PO 10/30/17 21:00 11/29/17 20:59 11/02/17 08:50 600 MG Aspirin (Ecotrin Tab) 81 mg DAILY PO 10/31/17 09:00 11/30/17 08:59 11/02/17 08:50 81 MG Benzonatate (Tessalon Perles Cap) 100 mg TID PRN PO 10/30/17 20:00 11/29/17 19:59 Calcitonin [place] (Fortical Nasal [place]) 1 spray DAILY NA 10/31/17 09:00 11/30/17 08:59 11/02/17 08:48 1 SPRAY Citalopram Hydrobromide (celeXA TAB) 20 mg QAM PO 10/31/17 09:00 11/30/17 08:59 11/02/17 08:50 20 MG Loperamide HCl (Imodium Cap) 2 mg PRN PRN PO 10/30/17 20:00 11/29/17 19:59 Pantoprazole Sodium (Protonix Tab) 40 mg DAILY PO 10/31/17 09:00 11/30/17 08:59 11/02/17 08:50 40 MG Tiotropium [place] (Spiriva Handihaler Inhaler) 1 puff DAILY INH 10/31/17 09:00 11/30/17 08:59 11/02/17 08:47 1 PUFF Doxycycline Hyclate (Vibramycin Cap) 100 mg BID PO 10/30/17 21:00 11/06/17 20:59 11/02/17 08:49 100 MG Methylprednisolone Sodium Succinate 40 mg/Syringe 0.64 ml @ 1.5 mls/min Q8H IV 10/31/17 04:00 11/30/17 03:59 11/02/17 02:47 1.5 MLS/MIN Pramipexole Dihydrochloride (miraPEX TAB) 0.5 mg BID@1600,2100 PO 10/30/17 21:00 11/29/17 20:59 11/01/17 20:49 0.5 MG Acetaminophen/ Hydrocodone Bitart ([place] 5/325 Tab) 1 tab Q6H PRN PO 10/30/17 21:30 11/13/17 21:29 11/02/17 08:54 1 TAB Albuterol/ Ipratropium (Duoneb) 3 ml QIDR INH 10/31/17 12:00 11/30/17 11:59 11/02/17 10:05 3 ML Enoxaparin Sodium (Lovenox Inj) 30 mg QAM SQ 11/01/17 09:00 12/01/17 08:59 11/02/17 08:48 30 MG Al Hydroxide/Mg Hydroxide (Maalox Susp) 30 ml Q6H PRN PO 11/01/17 04:45 12/01/17 04:44 11/01/17 04:35 30 ML Vital Signs: Date Time Temp Pulse Resp B/P (MAP) Pulse Ox O2 Delivery O2 Flow Rate FiO2 11/02/17 10:05 88 98 30 11/02/17 10:05 88 18 98 BiPAP/CPAP 30 11/02/17 08:00 Nasal Cannula 4.0 11/02/17 07:57 91 18 96 Nasal Cannula 4.0 11/02/17 07:40 36.9 102 20 178/82 (114) 93 4.0 11/02/17 04:31 36.0 97 18 140/70 (93) 97 BiPAP 11/02/17 03:15 91 98 30 11/02/17 03:15 91 20 98 BiPAP/CPAP 30 11/02/17 03:15 BiPAP 30 11/01/17 23:52 36.6 97 18 150/75 (100) 97 BiPAP 11/01/17 23:50 BiPAP 30 11/01/17 23:32 97 95 30 11/01/17 21:40 108 95 30 11/01/17 20:39 70 20 96 Nasal Cannula 2.5 11/01/17 19:58 36.7 70 20 167/75 (105) 96 Nasal Cannula 2.0 11/01/17 19:55 Nasal Cannula 4.0 11/01/17 16:00 Nasal Cannula 3.0 30 BiPAP 11/01/17 15:42 36.8 112 22 150/73 (98) 96 BiPAP 11/01/17 15:25 111 28 96 BiPAP/CPAP 30 11/01/17 15:22 111 96 30 11/01/17 13:53 114 24 98 BiPAP/CPAP 30 11/01/17 12:00 Nasal Cannula 3.0 30 BiPAP Laboratory Results: Last 24 Hours Test 11/02/17 06:55 White Blood Count 8.41 K/uL Red Blood Count 3.50 M/uL Hemoglobin 9.1 g/dL Hematocrit 29.2 % Mean Corpuscular Volume 83.4 fL Mean Corpuscular Hemoglobin 26.0 pg Mean Corpuscular Hemoglobin Concent 31.2 g/dl RDW Standard Deviation 60.6 fL RDW Coefficient of Variation 20.0 % Platelet Count 351 K/uL Mean Platelet Volume 8.2 fL Sodium Level 133 mmol/L Potassium Level 4.4 mmol/L Chloride Level 98 mmol/L Carbon Dioxide Level 30 mmol/L Anion Gap 5.0 mmol/L Blood Urea Nitrogen 24 mg/dl Creatinine 0.67 mg/dl Est Creatinine Clear Calc Drug Dose 79.2 ml/min Estimated GFR () 96.2 Estimated GFR (Non- 83.0 BUN/Creatinine Ratio 36.3 Random Glucose 98 mg/dl Calcium Level 8.9 mg/dl Magnesium Level 2.0 mg/dl
--- NOTE | 2017-11-02 14:15 | NUR ---
A note: Pt. to room 461 via bed. VS wnls. She is on 4lts 02 via nc 02sat 100%. Lungs have expiratory wheezes noted and are diminished. Bipap in the room and she uses it PRN and at night. She has scattered ecchymosis to her BUE. Abdomen is soft, +BS passing flatus. Last BM was 13/30. Pedal pulses palatable bilaterally. No open areas noted. Call canales within reach.
[2017-11-02] MEDS: PRAMIPEXOLE DIHYDROCHLORIDE 0.5 MG TAB PO SCH ×2 (17:14→20:31)
--- NOTE | 2017-11-02 18:19 | Progress Note ---
Medicine Progress Note Date & Time of Visit: Nov 02, 2017 at 12:50. Subjective -breathing is improved -wheezing is improved -tolerating PO and afebrile -some coughing present. Objective Last 8 Hrs Date Time Temp Pulse Resp B/P (MAP) Pulse Ox O2 Delivery O2 Flow Rate FiO2 11/02/17 12:00 Nasal Cannula 4.0 11/02/17 11:53 36.8 100 20 159/95 (116) 94 11/02/17 10:05 88 98 30 11/02/17 10:05 88 18 98 BiPAP/CPAP 30 11/02/17 08:00 Nasal Cannula 4.0 11/02/17 07:57 91 18 96 Nasal Cannula 4.0 11/02/17 07:40 36.9 102 20 178/82 (114) 93 4.0 Physical Exam: GEN: thin, in mild acute distress, alert and appropriate, +conversational dyspnea HEENT: NC/AT, normal sclerae, NC in place CARDIO: reg rate, S1/2 heard without m/g/r LUNGS: min wheezing heard today at bases, diminished breath sounds overall. ABD: soft, non-tender, non-distended, no rebound or guarding, +BS EXTREMITY: RP and DP palpable 2+ bilat, no LE swelling or edema, extremities are warm and well-perfused NEURO: CN 2-12 grossly intact MUSC: moves all extremities equally SKIN: warm and dry Laboratory Results: 11/02/17 06:55 11/02/17 06:55 Test 10/30/17 18:50 10/31/17 03:55 10/31/17 07:14 10/31/17 10:00 Immature Granulocyte % (Auto) 1.7 % White Blood Count 8.89 K/uL (4.8-10.8) Red Blood Count 3.67 M/uL (4.2-5.4) Hemoglobin 9.3 g/dL (12.0-16.0) Hematocrit 30.7 % (37-47) Mean Corpuscular Volume 83.7 fL (80-100) Mean Corpuscular Hemoglobin 25.3 pg (25-34) Mean Corpuscular Hemoglobin Concent 30.3 g/dl (32-36) Platelet Count 316 K/uL (130-400) Mean Platelet Volume 7.9 fL (7.4-10.4) Neutrophils (%) (Auto) 83.7 % Lymphocytes (%) (Auto) 8.8 % Monocytes (%) (Auto) 5.7 % Eosinophils (%) (Auto) 0.0 % Basophils (%) (Auto) 0.1 % Neutrophils # (Auto) 7.44 K/uL (1.4-6.5) Lymphocytes # (Auto) 0.78 K/uL (1.2-3.4) Monocytes # (Auto) 0.51 K/uL (0.11-0.59) Eosinophils # (Auto) 0.00 K/uL (0-0.5) Basophils # (Auto) 0.01 K/uL (0-0.2) Immature Granulocyte # (Auto) 0.15 K/uL (0.00-0.02) Polychromasia 1+ Basophilic Stippling OCCASIONAL Anisocytosis PRESENT Prothrombin Time 10.1 SECONDS (9.0-12.0) Prothromb Time International Ratio 1.0 (0.9-1.1) Activated Partial Thromboplast Time 26.0 SECONDS (21.0-31.0) Partial Thromboplastin Ratio 1.0 Total Bilirubin 0.2 mg/dl (0.2-1) Aspartate Amino Transf (AST/SGOT) 10 U/L (15-37) Alanine Aminotransferase (ALT/SGPT) 20 U/L (12-78) Alkaline Phosphatase 65 U/L (45-117) Troponin I < 0.015 ng/ml (0-0.045) Pro-B-Type Natriuretic Peptide 161 pg/ml (0-1800) Total Protein 6.2 gm/dl (6.4-8.2) Albumin 2.8 gm/dl (3.4-5.0) Globulin 3.4 gm/dl (2.5-4.0) Albumin/Globulin Ratio 0.8 (0.9-2) Urine Color YELLOW Urine Appearance CLEAR (CLEAR) Urine pH 5.0 (4.5-7.5) Urine Specific [place] 1.027 (1.000-1.030) Urine Protein 1+ (NEG) Urine Glucose (UA) TRACE (NEG) Urine Ketones NEG (NEG) Urine Occult Blood 1+ (NEG) Urine Nitrite NEG (NEG) Urine Bilirubin NEG (NEG) Urine Urobilinogen NEG (NEG) Urine Leukocyte Esterase NEG (NEG) Urine WBC (Auto) 1-5 /hpf (0-5) Urine RBC (Auto) 5-10 /hpf (0-4) Urine Hyaline Casts (Auto) 1-5 /lpf (0-5) Urine Epithelial Cells (Auto) >30 /lpf (0-5) Urine Bacteria (Auto) NEG (NEG) Phosphorus Level 3.2 mg/dl (2.5-4.9) Influenza Type A (RT-PCR) Neg for Influ A (NEG) Influenza Type B (RT-PCR) Neg for Influ B (NEG) Test 10/31/17 10:36 11/02/17 06:55 Arterial Blood pH 7.46 (7.35-7.45) Arterial Blood Partial Pressure CO2 37 mmHg (35-46) Arterial Blood Partial Pressure O2 79 mm/Hg (80-95) Arterial Blood HCO3 26 mmol/L (19-24) Arterial Blood Oxygen Saturation 93.8 % (90-95) Arterial Blood Base Excess 1.8 mEq/L (-9-1.8) Arterial Blood Gas Delivery 1 LITERS Red Test POS (POS) Red Blood Count 3.50 M/uL (4.2-5.4) Mean Corpuscular Volume 83.4 fL (80-100) Mean Corpuscular Hemoglobin 26.0 pg (25-34) Mean Corpuscular Hemoglobin Concent 31.2 g/dl (32-36) RDW Standard Deviation 60.6 fL (36.4-46.3) RDW Coefficient of Variation 20.0 % (11.5-14.5) Mean Platelet Volume 8.2 fL (7.4-10.4) Anion Gap 5.0 mmol/L (3-11) Est Creatinine Clear Calc Drug Dose 79.2 ml/min Estimated GFR () 96.2 Estimated GFR (Non- 83.0 BUN/Creatinine Ratio 36.3 (10-20) Calcium Level 8.9 mg/dl (8.5-10.1) Magnesium Level 2.0 mg/dl (1.8-2.4) Last 24 Hours Test 11/02/17 06:55 White Blood Count 8.41 K/uL Red Blood Count 3.50 M/uL Hemoglobin 9.1 g/dL Hematocrit 29.2 % Mean Corpuscular Volume 83.4 fL Mean Corpuscular Hemoglobin 26.0 pg Mean Corpuscular Hemoglobin Concent 31.2 g/dl RDW Standard Deviation 60.6 fL RDW Coefficient of Variation 20.0 % Platelet Count 351 K/uL Mean Platelet Volume 8.2 fL Sodium Level 133 mmol/L Potassium Level 4.4 mmol/L Chloride Level 98 mmol/L Carbon Dioxide Level 30 mmol/L Anion Gap 5.0 mmol/L Blood Urea Nitrogen 24 mg/dl Creatinine 0.67 mg/dl Est Creatinine Clear Calc Drug Dose 79.2 ml/min Estimated GFR () 96.2 Estimated GFR (Non- 83.0 BUN/Creatinine Ratio 36.3 Random Glucose 98 mg/dl Calcium Level 8.9 mg/dl Magnesium Level 2.0 mg/dl Assessment & Plan 1. COPD exacerbation-severe, on continuous oxygen and requiring BIPAP for comfort. Cont Solumedrol IV, nebs and doxy. Flu PCR is negative. She is end stage. Apprec pulmitra recs. Palliative consult placed after my conversation with her today, sobeida to help with Code Status 2. Gastroesophageal reflux disease. Continue with Protonix. 3. Osteoporosis. Continue with vitamin D and calcitonin. 4. History of compression fracture of Lumbar spine. PRN hydrocodone. 5. Anemia-no transfusion indicated at this time. Cont to monitor DVT proph-heparin Level 3 Dispo[facility] Hospital[facility] Consultants: Adrian Rodriguez Current Inpatient Medications: Current Inpatient Medications Medications (Trade) Dose Ordered Sig/Huan Route Start Time Stop Time Status Last Admin Dose Admin Acetaminophen (Tylenol Tab) 650 mg Q4H PRN PO 10/30/17 20:00 11/29/17 19:59 10/31/17 17:42 650 MG Ondansetron HCl (Zofran Inj) 4 mg Q6H PRN IV 10/30/17 20:00 11/29/17 19:59 Acetylcysteine (Acetylcysteine Cap) 600 mg BID PO 10/30/17 21:00 11/29/17 20:59 11/02/17 08:50 600 MG Aspirin (Ecotrin Tab) 81 mg DAILY PO 10/31/17 09:00 11/30/17 08:59 11/02/17 08:50 81 MG Benzonatate (Tessalon Perles Cap) 100 mg TID PRN PO 10/30/17 20:00 11/29/17 19:59 Calcitonin [place] (Fortical Nasal [place]) 1 spray DAILY NA 10/31/17 09:00 11/30/17 08:59 11/02/17 08:48 1 SPRAY Citalopram Hydrobromide (celeXA TAB) 20 mg QAM PO 10/31/17 09:00 11/30/17 08:59 11/02/17 08:50 20 MG Loperamide HCl (Imodium Cap) 2 mg PRN PRN PO 10/30/17 20:00 11/29/17 19:59 Pantoprazole Sodium (Protonix Tab) 40 mg DAILY PO 10/31/17 09:00 11/30/17 08:59 11/02/17 08:50 40 MG Tiotropium [place] (Spiriva Handihaler Inhaler) 1 puff DAILY INH 10/31/17 09:00 11/30/17 08:59 11/02/17 08:47 1 PUFF Doxycycline Hyclate (Vibramycin Cap) 100 mg BID PO 10/30/17 21:00 11/06/17 20:59 11/02/17 08:49 100 MG Methylprednisolone Sodium Succinate 40 mg/Syringe 0.64 ml @ 1.5 mls/min Q8H IV 10/31/17 04:00 11/30/17 03:59 11/02/17 12:08 1.5 MLS/MIN Pramipexole Dihydrochloride (miraPEX TAB) 0.5 mg BID@1600,2100 PO 10/30/17 21:00 11/29/17 20:59 11/01/17 20:49 0.5 MG Acetaminophen/ Hydrocodone Bitart ([place] 5/325 Tab) 1 tab Q6H PRN PO 10/30/17 21:30 11/13/17 21:29 11/02/17 08:54 1 TAB Albuterol/ Ipratropium (Duoneb) 3 ml QIDR INH 10/31/17 12:00 11/30/17 11:59 11/02/17 10:05 3 ML Enoxaparin Sodium (Lovenox Inj) 30 mg QAM SQ 11/01/17 09:00 12/01/17 08:59 11/02/17 08:48 30 MG Al Hydroxide/Mg Hydroxide (Maalox Susp) 30 ml Q6H PRN PO 11/01/17 04:45 12/01/17 04:44 11/01/17 04:35 30 ML
[2017-11-03] VITALS (12 sets, daily range): BP systolic 154–167; BP diastolic 74–92; PULSE 55–106; TEMP 36.6; O2SAT 93–98
[2017-11-03] MEDS: HYDROCODONE/ACETAMIN 5/325MG TAB PO PRN ×4 (01:11→23:49)
--- NOTE | 2017-11-03 01:22 | NUR ---
ID: Pt is alert and orient X4. VSS. Assessment completed see EMR. Lungs are diminished with expiratory wheezes. Pt on 4L NC and BIPAP at night. No complaints of pain at this time. Does complain of some SOB, but states it is nothing more than her baseline. Receiving prn breathing treatments. IV site intact and saline locked. Hourly rounding maintained. Will continue to monitor.
[2017-11-03] MEDS: ALBUT/IPRATROP 3MG/0.5MG NEB 3 ML VIAL INH SCH ×5 (01:28→20:31)
[2017-11-03] MEDS: PANTOprazole SOD 40 MG TAB PO SCH (07:36)
[2017-11-03] MEDS: CALCITONIN SALMON NA 200 IU/AC 3.7 ML BTL SCH (07:37)
[2017-11-03] MEDS: ASPIRIN 81 MG ECTAB PO SCH (07:37)
[2017-11-03] MEDS: DOXYCYCLINE HYCLATE 100 MG CAP PO SCH ×2 (07:37→20:29)
[2017-11-03] MEDS: ENOXAPARIN 30 MG/0.3 ML SYR SQ SCH (07:37)
[2017-11-03] MEDS: TIOTROPIUM BROMIDE 5 PUFF/90 MCG INH INH SCH (07:37)
[2017-11-03] MEDS: CITALOPRAM 20 MG TAB PO SCH (07:37)
[2017-11-03] MEDS: ACETYLCYSTEINE 600 MG CAP PO SCH ×2 (07:37→20:29)
[2017-11-03] MEDS: METHYLPREDNISOLONE IV 40 MG in SYRINGE 0 ML IV SCH ×2 (07:38→20:30)
[2017-11-03] MEDS: FLUTICASONE FUROATE-VILANTEROL 200/25 MCG INH INH SCH (09:28)
--- NOTE | 2017-11-03 12:26 | Clinical Documentation Query ---
CLINICAL DOCUMENTATION QUERY Dr. PIMENTEL, Documentation of "Acute on chronic hypoxic respiratory failure" is noted on the pulmonary consult as well as the pulmonary follow up note. For consistency of documentation and final coding purposes, the diagnosis of acute on chronic hypoxic respiratory failure must be included on the discharge summary In your clinical opinion is this patient being managed for: ( X ) Acute and chronic hypoxic respiratory failure ( ) Not Agreed IF IN AGREEMENT, YOU MUST DOCUMENT ABOVE DIAGNOSTIC STATEMENT IN DAILY PROGRESS NOTES AND DISCHARGE SUMMARY. This document is not part of the patient's record. Thank You, Rose Clark RN [phone]
--- NOTE | 2017-11-03 13:39 | Progress Note ---
Subjective Date of Service: Nov 03, 2017. Subjective Pt evaluation today including: conversation w/ patient, physical exam, lab review, review of studies, review of inpatient medication list Saw/examined the patient in room 461 She is feeling better than when she first came in supplemental O2 at 3L currently on No respiratory distress Problem List Medical Problems: (1) Acute exacerbation of chronic low back pain Status: Acute (2) Acute exacerbation of chronic obstructive pulmonary disease (COPD) Status: Acute (3) Anxiety Status: Acute (4) Chest tightness Status: Acute (5) CHF (congestive heart failure) Status: Acute (6) COPD exacerbation Status: Acute (7) COPD exacerbation Status: Acute (8) Degenerative joint disease Status: Acute (9) Fracture of thoracic vertebra, compression Status: Acute (10) Hypoxemia Status: Acute (11) Hypoxia Status: Acute (12) Left lower lobe pneumonia Status: Acute (13) Pneumonia Status: Acute (14) Respiratory distress Status: Acute (15) Rib pain on right side Status: Acute Review of Systems Constitutional: No fever, No chills Respiratory: + wheezing, + shortness of breath, + dyspnea on exertion, No cough , No sputum, No dyspnea at rest, No hemoptysis Cardiac: No chest pain, No edema, No palpitations Medications Current Inpatient Medications Medications (Trade) Dose Ordered Sig/Huan Route Start Time Stop Time Status Last Admin Dose Admin Acetaminophen (Tylenol Tab) 650 mg Q4H PRN PO 10/30/17 20:00 11/29/17 19:59 10/31/17 17:42 650 MG Ondansetron HCl (Zofran Inj) 4 mg Q6H PRN IV 10/30/17 20:00 11/29/17 19:59 Acetylcysteine (Acetylcysteine Cap) 600 mg BID PO 10/30/17 21:00 11/29/17 20:59 11/03/17 07:37 600 MG Aspirin (Ecotrin Tab) 81 mg DAILY PO 10/31/17 09:00 11/30/17 08:59 11/03/17 07:37 81 MG Benzonatate (Tessalon Perles Cap) 100 mg TID PRN PO 10/30/17 20:00 11/29/17 19:59 Calcitonin [place] (Fortical Nasal [place]) 1 spray DAILY NA 10/31/17 09:00 11/30/17 08:59 11/03/17 07:37 1 SPRAY Citalopram Hydrobromide (celeXA TAB) 20 mg QAM PO 10/31/17 09:00 11/30/17 08:59 11/03/17 07:37 20 MG Loperamide HCl (Imodium Cap) 2 mg PRN PRN PO 10/30/17 20:00 11/29/17 19:59 Pantoprazole Sodium (Protonix Tab) 40 mg DAILY PO 10/31/17 09:00 11/30/17 08:59 11/03/17 07:36 40 MG Tiotropium [place] (Spiriva Handihaler Inhaler) 1 puff DAILY INH 10/31/17 09:00 11/30/17 08:59 11/03/17 07:37 1 PUFF Doxycycline Hyclate (Vibramycin Cap) 100 mg BID PO 10/30/17 21:00 11/06/17 20:59 11/03/17 07:37 100 MG Pramipexole Dihydrochloride (miraPEX TAB) 0.5 mg BID@1600,2100 PO 10/30/17 21:00 11/29/17 20:59 11/02/17 20:31 0.5 MG Acetaminophen/ Hydrocodone Bitart ([place] 5/325 Tab) 1 tab Q6H PRN PO 10/30/17 21:30 11/13/17 21:29 11/03/17 07:43 1 TAB Albuterol/ Ipratropium (Duoneb) 3 ml QIDR INH 10/31/17 12:00 11/30/17 11:59 11/03/17 11:31 3 ML Enoxaparin Sodium (Lovenox Inj) 30 mg QAM SQ 11/01/17 09:00 12/01/17 08:59 11/03/17 07:37 30 MG Al Hydroxide/Mg Hydroxide (Maalox Susp) 30 ml Q6H PRN PO 11/01/17 04:45 12/01/17 04:44 11/01/17 04:35 30 ML Methylprednisolone Sodium Succinate 40 mg/Syringe 0.64 ml @ 1.5 mls/min Q12H IV 11/03/17 09:00 12/03/17 08:59 11/03/17 07:38 1.5 MLS/MIN Fluticasone/ Vilanterol (Breo Ellipta 200-25 Mcg/Inh) 1 inha DAILY INH 11/03/17 08:00 12/03/17 07:59 11/03/17 09:28 1 INHA Objective Vital Signs Date Time Temp Pulse Resp B/P (MAP) Pulse Ox O2 Delivery O2 Flow Rate FiO2 11/03/17 11:33 106 18 94 Nasal Cannula 3.0 11/03/17 11:19 95 Nasal Cannula 3.0 11/03/17 08:00 Nasal Cannula 4.0 11/03/17 07:52 96 18 96 Nasal Cannula 4.0 11/03/17 07:26 36.6 93 20 167/92 (117) 98 Nasal Cannula 4.0 11/03/17 01:28 99 18 97 BiPAP/CPAP 30 11/02/17 23:38 36.6 70 16 122/77 (92) 96 BiPAP 11/02/17 23:00 Nasal Cannula 4.0 11/02/17 21:46 100 89 30 11/02/17 19:45 106 18 97 Nasal Cannula 4.0 11/02/17 16:15 96 Nasal Cannula 4.0 11/02/17 16:01 99 98 30 11/02/17 15:34 36.6 102 22 164/84 (110) 96 Nasal Cannula 4.0 11/02/17 15:04 101 18 97 Nasal Cannula 4.0 11/02/17 14:44 36.8 100 20 94 4.0 Physical Exam General Appearance: no apparent distress Respiratory/Chest: no respiratory distress, no accessory muscle use, + decreased breath sounds, + wheezing (end expiratory wheezing diffusely) Cardiovascular: regular rate, rhythm, no edema, no murmur Extremities: non-tender, normal inspection, no pedal edema, no calf tenderness Assessment and Plan This is an 82 year old female with a PMH of COPD and chronic respiratory failure on 2-3L of O2 continuously, nocturnal CPAP, HLD, hx. of spinal compression fractures - presents with worsening shortness of breath Acute COPD Exacerbation Acute on Chronic Hypoxic Respiratory Failure CXR IMPRESSION: Emphysema and basilar scarring and/or fibrosis chronically on 2.5L O2 continuously was initially started on IV solu-medrol now tapered to Solu-medrol q12 will change to prednisone in 1-2 days will check labs and procalcitonin in AM possible d/c abx. in AM GERD continue PPI Hx. of Thoracic Compression Fractures PRN Usman - patient states this works for her and she would like a few pills to take at home DVT ppx patient is refusing Lovenox or subq heparin or SCDs explained the rationale, but patient states she will move her lower extremities and ambulate as much as possible FULL NO MECH VENT - palliative consulted for code status talk with the patient
--- NOTE | 2017-11-03 14:04 | NUR ---
Case management- Pt plans to return home with family support and [facility] services at time of discharge. Will continue to follow.
[2017-11-03] MEDS: PRAMIPEXOLE DIHYDROCHLORIDE 0.5 MG TAB PO SCH ×2 (16:57→20:29)
[2017-11-04] VITALS (9 sets, daily range): BP systolic 138–162; BP diastolic 66–72; PULSE 79–108; TEMP 36.7; O2SAT 91–98
--- NOTE | 2017-11-04 00:23 | NUR ---
ID: Pt is alert and oriented X4. She has been very pleasant and resting comfortably in bed. Pt was on 3L of O2, but complained of feeling SOB, so increased O2 back to 4L and sats have been good. Pt currently on CPAP. No complaints of pain. Pt given [place] to help sleep. VSS. Full assessment completed. Plan is to be discharged home when medically stable. Hourly rounding maintained. Will continue to monitor.
[2017-11-04] MEDS: ALBUT/IPRATROP 3MG/0.5MG NEB 3 ML VIAL INH SCH ×4 (00:44→20:45)
[2017-11-04] MEDS: ALUMINUM/MAGNESIUM SUSP 30 ML UDC PO PRN (03:08)
[2017-11-04] MEDS: ACETAMINOPHEN 325 MG TAB PO PRN (04:20)
[2017-11-04] MEDS: HYDROCODONE/ACETAMIN 5/325MG TAB PO PRN ×3 (06:23→22:03)
--- NOTE | 2017-11-04 07:45 | NUR ---
A: Pt. AAOx4. VSS on 4L NC. No reports of pain. Pt. laying in bed resting.
[2017-11-04] MEDS: FLUTICASONE FUROATE-VILANTEROL 200/25 MCG INH INH SCH (07:49)
[2017-11-04] MEDS: CALCITONIN SALMON NA 200 IU/AC 3.7 ML BTL SCH (07:51)
[2017-11-04] MEDS: PANTOprazole SOD 40 MG TAB PO SCH (07:51)
[2017-11-04] MEDS: ASPIRIN 81 MG ECTAB PO SCH (07:51)
[2017-11-04] MEDS: ACETYLCYSTEINE 600 MG CAP PO SCH ×2 (07:51→19:24)
[2017-11-04] MEDS: CITALOPRAM 20 MG TAB PO SCH (07:51)
[2017-11-04] MEDS: DOXYCYCLINE HYCLATE 100 MG CAP PO SCH ×2 (07:52→19:24)
[2017-11-04] MEDS: ENOXAPARIN 30 MG/0.3 ML SYR SQ SCH (07:52)
[2017-11-04] MEDS: METHYLPREDNISOLONE IV 40 MG in SYRINGE 0 ML IV SCH ×2 (07:53→20:23)
[2017-11-04 08:18] LABS: HEMATOCRIT 31.9 % (37-47); HEMOGLOBIN 9.4 g/dL (12.0-16.0); MEAN CELL VOLUME 84.2 fL (80-100); MEAN CORPUSCULAR HEMOGLOBIN 24.8 pg (25-34); MEAN CORPUSCULAR HGB CONC 29.5 g/dl (32-36); MEAN PLATELET VOLUME 8.3 fL (7.4-10.4); PLATELET COUNT 427 K/uL (130-400); RED CELL DISTRIBUTION WIDTH CV 19.7 % (11.5-14.5); WHITE BLOOD COUNT 11.41 K/uL (4.8-10.8)
[2017-11-04] MEDS: TIOTROPIUM BROMIDE 5 PUFF/90 MCG INH INH SCH (08:20)
[2017-11-04 09:12] LABS: CREATININE 0.58 mg/dl (0.60-1.20); POTASSIUM 3.8 mmol/L (3.5-5.1)
--- NOTE | 2017-11-04 10:08 | NUR ---
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
--- NOTE | 2017-11-04 14:28 | NUR ---
Case Management- Pt met with Fabienne Ward she has decided she wants to return home with hospice services. Pt is already active with [facility] and would like to transition to [facility]. Alexis with [facility] up to meet with pt this afternoon. Plan for discharge home if medically stable.
[2017-11-04] MEDS: PRAMIPEXOLE DIHYDROCHLORIDE 0.5 MG TAB PO SCH ×2 (16:36→19:24)
--- NOTE | 2017-11-04 17:11 | Palliative Care Consultation ---
Consultation Date of Consultation: Nov 04, 2017. Requesting Physician: Dr. Saenz Attending Physician: Dr. Wiggins Reason for Consultation: Goals of care, code status History of Present Illness This 82 year old female patient with PMH severe COPD, on home O2 and CPAP at night, and others listed below, presented to the hospital several days ago with c/o weakness and SOB. She has had multiple/frequent readmissions for similar complaints and really does not improve by coming to the hospital. Palliative care has been consulted to assist with establishing goals of care and to discuss code status. I met with the patient in room 461. She is awake, alert and oriented. Has noticeably labored breathing while resting in bed. I discussed goals of care with patient. She became tearful and stated she knows there is nothing further that can be done for her lung disease and "the damage has been done." Patient stated she just wants to be comfortable for the days she has remaining. She does not want to continue coming to the hospital. We discussed symptom management and hospice care-- patient agrees that this is what she wants. See plan below. Past Medical/Surgical History Medical History: Severe COPD Home O2, CPAP at night Esophageal stricture HLD Ventral hernia Osteoporosis Spinal compression fracture Surgical History: Esophageal dilation 2008 Partial hysterectomy Social History Smoking Status: Former Smoker History of Alcohol Use: No Drug Use: none Marital Status: Housing Status: lives with family, lives with significant other Occupation Status: retired Review of Systems Constitutional: + weakness ENT: No trouble swallowing Respiratory: + cough, + wheezing, + shortness of breath, + dyspnea at rest Cardiac: No chest pain, No edema Abdomen: No pain, No nausea, No vomiting Female : No problem reported Neurologic: No problem reported Psychiatric: + anxiety, No depression symptoms Allergies Coded Allergies: Lorazepam (Verified Allergy, Unknown, DELIRIUM, 09/06/17) Roflumilast (Verified Adverse Reaction, Unknown, Headache, dizziness and nausea, 09/24/17) Medications Current Inpatient Medications Medications (Trade) Dose Ordered Sig/Huan Route Start Time Stop Time Status Last Admin Dose Admin Acetaminophen (Tylenol Tab) 650 mg Q4H PRN PO 10/30/17 20:00 11/29/17 19:59 11/04/17 04:20 650 MG Ondansetron HCl (Zofran Inj) 4 mg Q6H PRN IV 10/30/17 20:00 11/29/17 19:59 Acetylcysteine (Acetylcysteine Cap) 600 mg BID PO 10/30/17 21:00 11/29/17 20:59 11/04/17 07:51 600 MG Aspirin (Ecotrin Tab) 81 mg DAILY PO 10/31/17 09:00 11/30/17 08:59 11/04/17 07:51 81 MG Benzonatate (Tessalon Perles Cap) 100 mg TID PRN PO 10/30/17 20:00 11/29/17 19:59 Calcitonin [place] (Fortical Nasal [place]) 1 spray DAILY NA 10/31/17 09:00 11/30/17 08:59 11/04/17 07:51 1 SPRAY Citalopram Hydrobromide (celeXA TAB) 20 mg QAM PO 10/31/17 09:00 11/30/17 08:59 11/04/17 07:51 20 MG Loperamide HCl (Imodium Cap) 2 mg PRN PRN PO 10/30/17 20:00 11/29/17 19:59 Pantoprazole Sodium (Protonix Tab) 40 mg DAILY PO 10/31/17 09:00 11/30/17 08:59 11/04/17 07:51 40 MG Tiotropium [place] (Spiriva Handihaler Inhaler) 1 puff DAILY INH 10/31/17 09:00 11/30/17 08:59 11/04/17 08:20 1 PUFF Doxycycline Hyclate (Vibramycin Cap) 100 mg BID PO 10/30/17 21:00 11/06/17 20:59 11/04/17 07:52 100 MG Pramipexole Dihydrochloride (miraPEX TAB) 0.5 mg BID@1600,2100 PO 10/30/17 21:00 11/29/17 20:59 11/03/17 20:29 0.5 MG Acetaminophen/ Hydrocodone Bitart ([place] 5/325 Tab) 1 tab Q6H PRN PO 10/30/17 21:30 11/13/17 21:29 11/04/17 14:56 1 TAB Albuterol/ Ipratropium (Duoneb) 3 ml QIDR INH 10/31/17 12:00 11/30/17 11:59 11/04/17 11:20 3 ML Enoxaparin Sodium (Lovenox Inj) 30 mg QAM SQ 11/01/17 09:00 12/01/17 08:59 11/03/17 07:37 30 MG Al Hydroxide/Mg Hydroxide (Maalox Susp) 30 ml Q6H PRN PO 11/01/17 04:45 12/01/17 04:44 11/04/17 03:08 30 ML Methylprednisolone Sodium Succinate 40 mg/Syringe 0.64 ml @ 1.5 mls/min Q12H IV 11/03/17 09:00 12/03/17 08:59 11/04/17 07:53 1.5 MLS/MIN Fluticasone/ Vilanterol (Breo Ellipta 200-25 Mcg/Inh) 1 inha DAILY INH 11/03/17 08:00 12/03/17 07:59 11/04/17 07:49 1 INHA Physical Exam Date Time Temp Pulse Resp B/P (MAP) Pulse Ox O2 Delivery O2 Flow Rate FiO2 11/04/17 11:20 103 18 98 Nasal Cannula 3.0 11/04/17 08:16 90 18 98 Nasal Cannula 4.0 11/04/17 07:49 36.7 95 18 162/72 (102) 96 Nasal Cannula 3.0 11/04/17 07:45 Nasal Cannula 4.0 11/04/17 00:44 79 18 98 BiPAP/CPAP 11/04/17 00:00 CPAP 11/03/17 23:54 36.6 102 18 158/86 (110) 97 BiPAP 11/03/17 21:58 81 98 30 11/03/17 20:31 101 18 93 Nasal Cannula 3.0 11/03/17 19:00 Nasal Cannula 4.0 11/03/17 16:51 36.6 106 18 154/74 (100) 95 Nasal Cannula 3.0 11/03/17 16:50 36.6 55 18 167/92 (117) 97 Nasal Cannula 3.0 30 102 11/03/17 16:00 Nasal Cannula 3.0 General Appearance: + mild distress (from dyspnea/SOB), + thin, + pertinent finding (chronically ill appearing) ENT: hearing grossly normal Neck: supple, no JVD Respiratory: no respiratory distress, no accessory muscle use, + decreased breath sounds (throughout), + wheezing (expiratory) Cardiovascular: regular rate, rhythm, no edema Abdomen: normal bowel sounds, non tender, soft Neurologic/Psychiatric: alert, normal mood/affect (tearful at times), oriented x 3 Laboratory Results Last 24 Hours Test 11/04/17 07:15 White Blood Count 11.41 K/uL Red Blood Count 3.79 M/uL Hemoglobin 9.4 g/dL Hematocrit 31.9 % Mean Corpuscular Volume 84.2 fL Mean Corpuscular Hemoglobin 24.8 pg Mean Corpuscular Hemoglobin Concent 29.5 g/dl RDW Standard Deviation 60.0 fL RDW Coefficient of Variation 19.7 % Platelet Count 427 K/uL Mean Platelet Volume 8.3 fL Sodium Level 135 mmol/L Potassium Level 3.8 mmol/L Chloride Level 99 mmol/L Carbon Dioxide Level 31 mmol/L Anion Gap 5.0 mmol/L Blood Urea Nitrogen 21 mg/dl Creatinine 0.58 mg/dl Est Creatinine Clear Calc Drug Dose 58.3 ml/min Estimated GFR () 100.9 Estimated GFR (Non- 87.1 BUN/Creatinine Ratio 36.8 Random Glucose 67 mg/dl Calcium Level 9.0 mg/dl Magnesium Level 1.9 mg/dl Procalcitonin < 0.05 ng/ml Assessment & Plan Problem list: SOB/PRASAD Anxiety COPD, severe Acute on chronic hypoxic respiratory failure Goals of care (Z51.5) Palliative care recs: discussed with patient and Dr. Wiggins. -Patient decided she would like to be a DO NOT RESUSCITATE/DO NOT INTUBATE. -Patient's goal is for comfort and to stay out of the hospital. She would like to transition to hospice. manager safe aware and will make referral. -Would order Roxanol 5mg PO Q3h PRN pain or SOB now. See if this works for patient while in hospital. -Patient cannot take Ativan due to confusion. -Takes norco for back pain. Had 20mg total hydrocodone in 24 hours. Would discontinue this and add fentanyl patch 12mcg/hr TD Q72h. Use the Roxanol for breakthrough pain. Thank you kindly for this consult. I will follow as needed.
--- NOTE | 2017-11-04 17:14 | Progress Note ---
Subjective Date of Service: Nov 04, 2017. Subjective Pt evaluation today including: conversation w/ patient, physical exam, lab review, review of studies, conversation w/ customer care voice consultant, review of inpatient medication list Saw/examined the patient in room 461 bipap was on when I first got to the room, switched to nasal cannula during exam she states her breathing is about the same as yesterday, not improving she spoke with palliative care earlier today and agreeable to home hospice Problem List Medical Problems: (1) Acute exacerbation of chronic low back pain Status: Acute (2) Acute exacerbation of chronic obstructive pulmonary disease (COPD) Status: Acute (3) Anxiety Status: Acute (4) Chest tightness Status: Acute (5) CHF (congestive heart failure) Status: Acute (6) COPD exacerbation Status: Acute (7) COPD exacerbation Status: Acute (8) Degenerative joint disease Status: Acute (9) Fracture of thoracic vertebra, compression Status: Acute (10) Hypoxemia Status: Acute (11) Hypoxia Status: Acute (12) Left lower lobe pneumonia Status: Acute (13) Pneumonia Status: Acute (14) Respiratory distress Status: Acute (15) Rib pain on right side Status: Acute Review of Systems Respiratory: + cough, + wheezing, + shortness of breath, + dyspnea on exertion , No sputum, No dyspnea at rest Cardiac: No chest pain, No edema, No palpitations Medications Current Inpatient Medications Medications (Trade) Dose Ordered Sig/Huan Route Start Time Stop Time Status Last Admin Dose Admin Acetaminophen (Tylenol Tab) 650 mg Q4H PRN PO 10/30/17 20:00 11/29/17 19:59 11/04/17 04:20 650 MG Ondansetron HCl (Zofran Inj) 4 mg Q6H PRN IV 10/30/17 20:00 11/29/17 19:59 Acetylcysteine (Acetylcysteine Cap) 600 mg BID PO 10/30/17 21:00 11/29/17 20:59 11/04/17 07:51 600 MG Aspirin (Ecotrin Tab) 81 mg DAILY PO 10/31/17 09:00 11/30/17 08:59 11/04/17 07:51 81 MG Benzonatate (Tessalon Perles Cap) 100 mg TID PRN PO 10/30/17 20:00 11/29/17 19:59 Calcitonin [place] (Fortical Nasal [place]) 1 spray DAILY NA 10/31/17 09:00 11/30/17 08:59 11/04/17 07:51 1 SPRAY Citalopram Hydrobromide (celeXA TAB) 20 mg QAM PO 10/31/17 09:00 11/30/17 08:59 11/04/17 07:51 20 MG Loperamide HCl (Imodium Cap) 2 mg PRN PRN PO 10/30/17 20:00 11/29/17 19:59 Pantoprazole Sodium (Protonix Tab) 40 mg DAILY PO 10/31/17 09:00 11/30/17 08:59 11/04/17 07:51 40 MG Tiotropium [place] (Spiriva Handihaler Inhaler) 1 puff DAILY INH 10/31/17 09:00 11/30/17 08:59 11/04/17 08:20 1 PUFF Doxycycline Hyclate (Vibramycin Cap) 100 mg BID PO 10/30/17 21:00 11/06/17 20:59 11/04/17 07:52 100 MG Pramipexole Dihydrochloride (miraPEX TAB) 0.5 mg BID@1600,2100 PO 10/30/17 21:00 11/29/17 20:59 11/04/17 16:36 0.5 MG Acetaminophen/ Hydrocodone Bitart ([place] 5/325 Tab) 1 tab Q6H PRN PO 10/30/17 21:30 11/13/17 21:29 11/04/17 14:56 1 TAB Albuterol/ Ipratropium (Duoneb) 3 ml QIDR INH 10/31/17 12:00 11/30/17 11:59 11/04/17 15:05 3 ML Enoxaparin Sodium (Lovenox Inj) 30 mg QAM SQ 11/01/17 09:00 12/01/17 08:59 11/03/17 07:37 30 MG Al Hydroxide/Mg Hydroxide (Maalox Susp) 30 ml Q6H PRN PO 11/01/17 04:45 12/01/17 04:44 11/04/17 03:08 30 ML Methylprednisolone Sodium Succinate 40 mg/Syringe 0.64 ml @ 1.5 mls/min Q12H IV 11/03/17 09:00 12/03/17 08:59 11/04/17 07:53 1.5 MLS/MIN Fluticasone/ Vilanterol (Breo Ellipta 200-25 Mcg/Inh) 1 inha DAILY INH 11/03/17 08:00 12/03/17 07:59 11/04/17 07:49 1 INHA Objective Vital Signs Date Time Temp Pulse Resp B/P (MAP) Pulse Ox O2 Delivery O2 Flow Rate FiO2 11/04/17 15:14 36.7 103 18 138/66 (90) 91 Nasal Cannula 5.0 11/04/17 15:09 81 97 30 11/04/17 15:05 107 18 97 BiPAP/CPAP 30 11/04/17 11:20 103 18 98 Nasal Cannula 3.0 11/04/17 08:16 90 18 98 Nasal Cannula 4.0 11/04/17 07:49 36.7 95 18 162/72 (102) 96 Nasal Cannula 3.0 11/04/17 07:45 Nasal Cannula 4.0 11/04/17 00:44 79 18 98 BiPAP/CPAP 11/04/17 00:00 CPAP 11/03/17 23:54 36.6 102 18 158/86 (110) 97 BiPAP 11/03/17 21:58 81 98 30 11/03/17 20:31 101 18 93 Nasal Cannula 3.0 11/03/17 19:00 Nasal Cannula 4.0 Physical Exam General Appearance: + mild distress Respiratory/Chest: + respiratory distress (mild respiratory distress), + wheezing Cardiovascular: regular rate, rhythm, no edema, no murmur Extremities: normal inspection, no pedal edema Neurologic/Psychiatric: no motor/sensory deficits, alert, normal mood/affect Laboratory Results Last 24 Hours Test 11/04/17 07:15 White Blood Count 11.41 K/uL Red Blood Count 3.79 M/uL Hemoglobin 9.4 g/dL Hematocrit 31.9 % Mean Corpuscular Volume 84.2 fL Mean Corpuscular Hemoglobin 24.8 pg Mean Corpuscular Hemoglobin Concent 29.5 g/dl RDW Standard Deviation 60.0 fL RDW Coefficient of Variation 19.7 % Platelet Count 427 K/uL Mean Platelet Volume 8.3 fL Sodium Level 135 mmol/L Potassium Level 3.8 mmol/L Chloride Level 99 mmol/L Carbon Dioxide Level 31 mmol/L Anion Gap 5.0 mmol/L Blood Urea Nitrogen 21 mg/dl Creatinine 0.58 mg/dl Est Creatinine Clear Calc Drug Dose 58.3 ml/min Estimated GFR () 100.9 Estimated GFR (Non- 87.1 BUN/Creatinine Ratio 36.8 Random Glucose 67 mg/dl Calcium Level 9.0 mg/dl Magnesium Level 1.9 mg/dl Procalcitonin < 0.05 ng/ml Assessment and Plan This is an 82 year old female with a PMH of COPD and chronic respiratory failure on 2-3L of O2 continuously, nocturnal CPAP, HLD, hx. of spinal compression fractures - presents with worsening shortness of breath Acute COPD Exacerbation Acute on Chronic Hypoxic Respiratory Failure /3 continues to have trouble with breathing will continue solu-medrol for now, prednisone on discharge plan for discharge home with home hospice will d/c on prednisone taper and antibiotics will likely d/c on SL Roxanol 11/03 CXR IMPRESSION: Emphysema and basilar scarring and/or fibrosis chronically on 2.5L O2 continuously was initially started on IV solu-medrol now tapered to Solu-medrol q12 will change to prednisone in 1-2 days will check labs and procalcitonin in AM possible d/c abx. in AM GERD continue PPI Hx. of Thoracic Compression Fractures PRN Usman - patient states this works for her and she would like a few pills to take at home DVT ppx patient is refusing Lovenox or subq heparin or SCDs explained the rationale, but patient states she will move her lower extremities and ambulate as much as possible FULL NO [facility] - palliative consulted for code status talk with the patient
[2017-11-05] VITALS (7 sets, daily range): BP systolic 138–157; BP diastolic 66–79; PULSE 86–115; TEMP 36.7–36.9; O2SAT 91–97
[2017-11-05] MEDS: ACETAMINOPHEN 325 MG TAB PO PRN (01:23)
--- NOTE | 2017-11-05 01:59 | NUR ---
ID: Pt resting in bed. Alert and Oriented X4. VSS. Pt on BIPAP throughout the night and 4L NC during day. Full assessment completed see EMR. Pt complaining of pain in her back given Tylenol. Pt does get SOB on exertion and takes her a few minutes to catch her breath. Pt is up with 1 assist to bed side commode. SS involved with d/c planning Pt plans to return home with hospice care on if medically stable. Hourly rounding maintained. Will continue to monitor.
[2017-11-05] MEDS: HYDROCODONE/ACETAMIN 5/325MG TAB PO PRN (04:09)
[2017-11-05] MEDS: ALBUT/IPRATROP 3MG/0.5MG NEB 3 ML VIAL INH SCH ×3 (04:17→11:13)
--- NOTE | 2017-11-05 07:30 | NUR ---
A: Pt. is AAOx4. VSS on 4L NC. Pt. is sitting in comfortably in bed receiving their breathing treatment.
[2017-11-05] MEDS: FLUTICASONE FUROATE-VILANTEROL 200/25 MCG INH INH SCH (07:34)
[2017-11-05] MEDS: TIOTROPIUM BROMIDE 5 PUFF/90 MCG INH INH SCH (07:34)
[2017-11-05] MEDS: ASPIRIN 81 MG ECTAB PO SCH (07:35)
[2017-11-05] MEDS: ACETYLCYSTEINE 600 MG CAP PO SCH (07:35)
[2017-11-05] MEDS: CALCITONIN SALMON NA 200 IU/AC 3.7 ML BTL SCH (07:35)
[2017-11-05] MEDS: CITALOPRAM 20 MG TAB PO SCH (07:35)
[2017-11-05] MEDS: PANTOprazole SOD 40 MG TAB PO SCH (07:35)
[2017-11-05] MEDS: DOXYCYCLINE HYCLATE 100 MG CAP PO SCH (07:36)
[2017-11-05] MEDS: ENOXAPARIN 30 MG/0.3 ML SYR SQ SCH (07:37)
[2017-11-05] MEDS: METHYLPREDNISOLONE IV 40 MG in SYRINGE 0 ML IV SCH (08:46)
--- NOTE | 2017-11-05 09:30 | NUR ---
A: AGREE WITH [facility] AND CHARTING.
[2017-11-05 09:39] LABS: HEMATOCRIT 33.5 % (37-47); HEMOGLOBIN 10.2 g/dL (12.0-16.0); MEAN CELL VOLUME 83.5 fL (80-100); MEAN CORPUSCULAR HEMOGLOBIN 25.4 pg (25-34); MEAN CORPUSCULAR HGB CONC 30.4 g/dl (32-36); MEAN PLATELET VOLUME 8.2 fL (7.4-10.4); PLATELET COUNT 471 K/uL (130-400); RED CELL DISTRIBUTION WIDTH CV 19.4 % (11.5-14.5); RED CELL DISTRIBUTION WIDTH SD 59.6 fL (36.4-46.3); WHITE BLOOD COUNT 13.25 K/uL (4.8-10.8)
[2017-11-05 10:20] LABS: CALCIUM 9.3 mg/dl (8.5-10.1); CREATININE 0.68 mg/dl (0.60-1.20)
[2017-11-05 10:59] LABS: POTASSIUM 3.9 mmol/L (3.5-5.1)
[2017-11-05] MEDS ORDERED: MoRPHine SULFATE 5 MG/0.25 ML UDP PO PRN (11:00)
--- NOTE | 2017-11-05 11:21 | Palliative Care Progress Note ---
Palliative Care Progress Note Date of Service Nov 05, 2017. Subjective Pt evaluation today including: conversation w/ patient, conversation w/ family (daughterSalima), physical exam, chart review, conversation w/ spa consultant ( Dr. Wiggins) Pain: none PO Intake: tolerating diet Voiding: no voiding problems -Patient still wanting to go home with hospice. -DaughterSalima, called me this morning with some questions about hospice. Questions/concerns addressed and answered. -Patient remains SOB. Would like to try Roxanol prior to leaving. Review of Systems Constitutional: + weakness ENT: No trouble swallowing Respiratory: + cough, + wheezing, + shortness of breath Cardiac: No chest pain, No edema Abdomen: No pain, No nausea, No vomiting Female : No problem reported Psychiatric: + anxiety, No depression symptoms Objective Vital Signs Date Time Temp Pulse Resp B/P (MAP) Pulse Ox O2 Delivery O2 Flow Rate FiO2 11/05/17 11:14 115 20 95 Nasal Cannula 3.0 11/05/17 07:44 101 22 96 Nasal Cannula 4.0 11/05/17 07:30 Nasal Cannula 4.0 11/05/17 07:26 36.7 104 22 157/79 (105) 91 Nasal Cannula 4.0 11/05/17 04:17 102 18 97 Nasal Cannula 3.0 11/05/17 00:01 36.9 108 20 153/71 (98) 97 Nasal Cannula 4.0 11/05/17 00:00 36.7 86 18 138/66 (90) 91 BiPAP 5.0 30 102 11/04/17 23:54 86 98 30 11/04/17 23:00 BiPAP 11/04/17 20:45 108 18 96 Nasal Cannula 3.0 30 11/04/17 19:15 BiPAP 11/04/17 15:21 BiPAP 11/04/17 15:14 36.7 103 18 138/66 (90) 91 Nasal Cannula 5.0 11/04/17 15:09 81 97 30 11/04/17 15:05 107 18 97 BiPAP/CPAP 30 Physical Exam General Appearance: no apparent distress, + thin ENT: hearing grossly normal Neck: supple, no JVD Respiratory/Chest: no respiratory distress, + decreased breath sounds ( bilateral bases), + accessory muscle use, + wheezing (expiratory) Cardiovascular: regular rate, rhythm, no edema Abdomen: normal bowel sounds, non tender, soft Neurologic/Psychiatric: alert, normal mood/affect, oriented x 3 Laboratory Results Last 24 Hours Test 11/05/17 09:13 11/05/17 10:32 White Blood Count 13.25 K/uL Red Blood Count 4.01 M/uL Hemoglobin 10.2 g/dL Hematocrit 33.5 % Mean Corpuscular Volume 83.5 fL Mean Corpuscular Hemoglobin 25.4 pg Mean Corpuscular Hemoglobin Concent 30.4 g/dl RDW Standard Deviation 59.6 fL RDW Coefficient of Variation 19.4 % Platelet Count 471 K/uL Mean Platelet Volume 8.2 fL Sodium Level 131 mmol/L Potassium Level mmol/L 3.9 mmol/L Chloride Level 96 mmol/L Carbon Dioxide Level 29 mmol/L Anion Gap 6.0 mmol/L Blood Urea Nitrogen 23 mg/dl Creatinine 0.68 mg/dl Est Creatinine Clear Calc Drug Dose 49.8 ml/min Estimated GFR () 95.8 Estimated GFR (Non- 82.6 BUN/Creatinine Ratio 33.2 Random Glucose 113 mg/dl Calcium Level 9.3 mg/dl Magnesium Level mg/dl 1.7 mg/dl Assessment and Plan Problem list: SOB/PRASAD Anxiety COPD, severe Acute on chronic hypoxic respiratory failure Goals of care (Z51.5) Palliative care recs: discussed with patient and Dr. Wiggins. -Patient decided she would like to be a DO NOT RESUSCITATE/DO NOT INTUBATE. -Patient being discharged today home with hospice. Patient's daughter, Salima, aware. -Would order Roxanol 5mg PO Q3h PRN pain or SOB now. See if this works for patient while in hospital. -Patient cannot take Ativan due to confusion. -Takes norco for back pain. Had 20mg total hydrocodone in 24 hours. Would discontinue this and add fentanyl patch 12mcg/hr TD Q72h. Use the Roxanol for breakthrough pain. Thank you again for this consult. Please contact me with any further palliative care needs. Palliative Performance Scale: 50 % Discharge planning: home with Hospice
[2017-11-05] MEDS ORDERED: FENTANYL 12 MCG/HR TDSY TD SCH (12:30)
--- NOTE | 2017-11-05 13:24 | Progress Note ---
Subjective Date of Service: Nov 05, 2017. Subjective Pt evaluation today including: conversation w/ patient, physical exam, lab review, review of studies, review of inpatient medication list Saw/examined the patient in room 461 She is eager to get out of the hospital continues to have shortness of breath, but closer to baseline today Agreeable to home hospice. Fentanyl patch has been placed, no side effects Problem List Medical Problems: (1) Acute exacerbation of chronic low back pain Status: Acute (2) Acute exacerbation of chronic obstructive pulmonary disease (COPD) Status: Acute (3) Anxiety Status: Acute (4) Chest tightness Status: Acute (5) CHF (congestive heart failure) Status: Acute (6) COPD exacerbation Status: Acute (7) COPD exacerbation Status: Acute (8) Degenerative joint disease Status: Acute (9) Fracture of thoracic vertebra, compression Status: Acute (10) Hypoxemia Status: Acute (11) Hypoxia Status: Acute (12) Left lower lobe pneumonia Status: Acute (13) Pneumonia Status: Acute (14) Respiratory distress Status: Acute (15) Rib pain on right side Status: Acute Review of Systems Constitutional: No fever, No chills Respiratory: + wheezing, + shortness of breath (chronic), + dyspnea on exertion , No cough, No sputum, No dyspnea at rest, No hemoptysis Cardiac: No chest pain, No edema, No palpitations Medications Current Inpatient Medications Medications (Trade) Dose Ordered Sig/Huan Route Start Time Stop Time Status Last Admin Dose Admin Acetaminophen (Tylenol Tab) 650 mg Q4H PRN PO 10/30/17 20:00 11/29/17 19:59 11/05/17 01:23 650 MG Ondansetron HCl (Zofran Inj) 4 mg Q6H PRN IV 10/30/17 20:00 11/29/17 19:59 Acetylcysteine (Acetylcysteine Cap) 600 mg BID PO 10/30/17 21:00 11/29/17 20:59 11/05/17 07:35 600 MG Aspirin (Ecotrin Tab) 81 mg DAILY PO 10/31/17 09:00 11/30/17 08:59 11/05/17 07:35 81 MG Benzonatate (Tessalon Perles Cap) 100 mg TID PRN PO 10/30/17 20:00 11/29/17 19:59 Calcitonin [place] (Fortical Nasal [place]) 1 spray DAILY NA 10/31/17 09:00 11/30/17 08:59 11/05/17 07:35 1 SPRAY Citalopram Hydrobromide (celeXA TAB) 20 mg QAM PO 10/31/17 09:00 11/30/17 08:59 11/05/17 07:35 20 MG Loperamide HCl (Imodium Cap) 2 mg PRN PRN PO 10/30/17 20:00 11/29/17 19:59 Pantoprazole Sodium (Protonix Tab) 40 mg DAILY PO 10/31/17 09:00 11/30/17 08:59 11/05/17 07:35 40 MG Tiotropium [place] (Spiriva Handihaler Inhaler) 1 puff DAILY INH 10/31/17 09:00 11/30/17 08:59 11/05/17 07:34 1 PUFF Doxycycline Hyclate (Vibramycin Cap) 100 mg BID PO 10/30/17 21:00 11/06/17 20:59 11/05/17 07:36 100 MG Pramipexole Dihydrochloride (miraPEX TAB) 0.5 mg BID@1600,2100 PO 10/30/17 21:00 11/29/17 20:59 11/04/17 19:24 0.5 MG Acetaminophen/ Hydrocodone Bitart ([place] 5/325 Tab) 1 tab Q6H PRN PO 10/30/17 21:30 11/13/17 21:29 11/05/17 04:09 1 TAB Albuterol/ Ipratropium (Duoneb) 3 ml QIDR INH 10/31/17 12:00 11/30/17 11:59 11/05/17 11:13 3 ML Enoxaparin Sodium (Lovenox Inj) 30 mg QAM SQ 11/01/17 09:00 12/01/17 08:59 11/03/17 07:37 30 MG Al Hydroxide/Mg Hydroxide (Maalox Susp) 30 ml Q6H PRN PO 11/01/17 04:45 12/01/17 04:44 11/04/17 03:08 30 ML Methylprednisolone Sodium Succinate 40 mg/Syringe 0.64 ml @ 1.5 mls/min Q12H IV 11/03/17 09:00 12/03/17 08:59 11/05/17 08:46 1.5 MLS/MIN Fluticasone/ Vilanterol (Breo Ellipta 200-25 Mcg/Inh) 1 inha DAILY INH 11/03/17 08:00 12/03/17 07:59 11/05/17 07:34 1 INHA Morphine Sulfate (Roxanol Oral Soln) 5 mg Q3HWA PRN PO 11/05/17 11:00 11/19/17 10:59 Fentanyl (Duragesic Patch) 12 mcg Q3D@1230 TD 11/05/17 12:30 11/19/17 12:29 11/05/17 12:27 12 MCG Miscellaneous (Fentanyl Patch Remove & Waste) 1 ea Q3D@1229 N/A 11/08/17 12:29 12/08/17 12:28 Miscellaneous Information (Check Fentanyl Patch Placement) 1 ea QS N/A 11/05/17 16:00 12/05/17 15:59 Objective Vital Signs Date Time Temp Pulse Resp B/P (MAP) Pulse Ox O2 Delivery O2 Flow Rate FiO2 11/05/17 11:14 115 20 95 Nasal Cannula 3.0 11/05/17 07:44 101 22 96 Nasal Cannula 4.0 11/05/17 07:30 Nasal Cannula 4.0 11/05/17 07:26 36.7 104 22 157/79 (105) 91 Nasal Cannula 4.0 11/05/17 04:17 102 18 97 Nasal Cannula 3.0 11/05/17 00:01 36.9 108 20 153/71 (98) 97 Nasal Cannula 4.0 11/05/17 00:00 36.7 86 18 138/66 (90) 91 BiPAP 5.0 30 102 11/04/17 23:54 86 98 30 11/04/17 23:00 BiPAP 11/04/17 20:45 108 18 96 Nasal Cannula 3.0 30 11/04/17 19:15 BiPAP 11/04/17 15:21 BiPAP 11/04/17 15:14 36.7 103 18 138/66 (90) 91 Nasal Cannula 5.0 11/04/17 15:09 81 97 30 11/04/17 15:05 107 18 97 BiPAP/CPAP 30 Physical Exam General Appearance: no apparent distress Respiratory/Chest: no respiratory distress, no accessory muscle use, + wheezing (mild end expiratory wheezing diffusely) Cardiovascular: regular rate, rhythm, no edema, no murmur Abdomen: normal bowel sounds, non tender, soft Extremities: normal inspection, no pedal edema Neurologic/Psychiatric: no motor/sensory deficits, alert, normal mood/affect Skin: normal color Lymphatic: no adenopathy Laboratory Results Last 24 Hours Test 11/05/17 09:13 11/05/17 10:32 White Blood Count 13.25 K/uL Red Blood Count 4.01 M/uL Hemoglobin 10.2 g/dL Hematocrit 33.5 % Mean Corpuscular Volume 83.5 fL Mean Corpuscular Hemoglobin 25.4 pg Mean Corpuscular Hemoglobin Concent 30.4 g/dl RDW Standard Deviation 59.6 fL RDW Coefficient of Variation 19.4 % Platelet Count 471 K/uL Mean Platelet Volume 8.2 fL Sodium Level 131 mmol/L Potassium Level mmol/L 3.9 mmol/L Chloride Level 96 mmol/L Carbon Dioxide Level 29 mmol/L Anion Gap 6.0 mmol/L Blood Urea Nitrogen 23 mg/dl Creatinine 0.68 mg/dl Est Creatinine Clear Calc Drug Dose 49.8 ml/min Estimated GFR () 95.8 Estimated GFR (Non- 82.6 BUN/Creatinine Ratio 33.2 Random Glucose 113 mg/dl Calcium Level 9.3 mg/dl Magnesium Level mg/dl 1.7 mg/dl Assessment and Plan This is an 82 year old female with a PMH of COPD and chronic respiratory failure on 2-3L of O2 continuously, nocturnal CPAP, HLD, hx. of spinal compression fractures - presents with worsening shortness of breath Acute COPD Exacerbation Acute on Chronic Hypoxic Respiratory Failure 11/05 patient is stable plan to d/c home with home hospice today will d/c with prednisone will d/c on Fentanyl patch and Roxanol PRN for breakthrough 11/04 continues to have trouble with breathing will continue solu-medrol for now, prednisone on discharge plan for discharge home with home hospice will d/c on prednisone taper and antibiotics will likely d/c on SL Roxanol 11/03 CXR IMPRESSION: Emphysema and basilar scarring and/or fibrosis chronically on 2.5L O2 continuously was initially started on IV solu-medrol now tapered to Solu-medrol q12 will change to prednisone in 1-2 days will check labs and procalcitonin in AM possible d/c abx. in AM GERD continue PPI Hx. of Thoracic Compression Fractures PRN Usman - patient states this works for her and she would like a few pills to take at home DVT ppx patient is refusing Lovenox or subq heparin or SCDs explained the rationale, but patient states she will move her lower extremities and ambulate as much as possible FULL NO MECH VENT - palliative consulted for code status talk with the patient
--- NOTE | 2017-11-05 13:37 | NUR ---
Case Management: Pt. for discharge today home with [facility] at 1500 with our Medics. Pt. and daughter, Torrie, aware of this and agreeable to cost. Benjie from [facility] was also present in room this morning and pt. denied further needs or equipment. Benjie, as well as Jesse from [facility] state that a nurse will be coming out tonight after pt. is home to see her. Case management to follow. Addendum: 11/05/17 at 1459 by [employer] Received call that transportation cannot take pt. until 8pm tonight due to emergency call. Spoke with pt. and daughter, Torrie, in room. They stated that they will take pt. home in own vehicle. Torrie brought pt. portable oxygen tank in several days ago and states there will be help when they arrive home to assist with getting her in the home. She feels comfortable transporting stating "we've done it before, we can do it again, I just want to get her home". Pt. states understanding and thanks for their assistance. Addendum: 11/05/17 at 1511 by [employer] [facility] D/C instructions given to Benjie valera [facility].
[2017-11-05] MEDS ORDERED: RXNS10 PO (13:43)
[2017-11-05] MEDS ORDERED: PRED10TA PO (13:43)
[2017-11-05] MEDS ORDERED: DXY100 PO (13:43)
[2017-11-05] MEDS ORDERED: DRGTP12 TD (13:43)
--- NOTE | 2017-11-05 13:47 | Discharge Instructions ---
Discharge Instructions Date of Service Nov 05, 2017. Admission Reason for Admission: Copd Exacerbation Discharge Discharge Diagnosis / Problem: Acute COPD Exacerbation Discharge Goals Goal(s): Decrease discomfort, Improve function, Diagnostic testing, Therapeutic intervention Activity Recommendations Activity Limitations: resume your previous activity . Instructions / Follow-Up Instructions / Follow-Up Please follow-up with your primary care physician * You will be discharged with home hospice * You will be discharged with a Fentanyl patch, which should be changed every three days - you will be discharged with Roxanol which is a morphine solution * You should take prednisone - take four tablets on 11/06, 11/07, take three tablets on 11/08, 11/09, take two tablets on 11/10, 11/11, take one tablet on 11/12 and 11/13 Current Hospital Diet Patient's current hospital diet: Regular Diet Discharge Diet Recommended Diet: Regular Diet Pending Studies Studies pending at discharge: no Medical Emergencies . Who to Call and When: Medical Emergencies: If at any time you feel your situation is an emergency, please call 911 immediately. . Non-Emergent Contact Non-Emergency issues call your: Primary Care Provider . . "Provider Documentation" section prepared by Aleena Wiggins. . VTE Core Measure Inpt VTE Proph given/why not?: Enoxaparin (Lovenox)SQ, Refusal of treatmnt by pt
--- NOTE | 2017-11-05 13:49 | Discharge Summary ---
Discharge Summary Date of Service Nov 05, 2017. Discharge Summary Admission Date: Oct 30, 2017 at 19:52 Discharge Date: Nov 05, 2017 Discharge Disposition: Home with services Principal Diagnosis: Acute COPD Exacerbation Acute on Chronic Respiratory Failure Consultations: Adrian Rodriguez Medication Reconciliation New Medications: Prednisone Tab (Prednisone) 10 Mg Tab 10 MG PO UD for 8 Days, #20 TAB Doxycycline Hyclate (Doxycycline Hyclate) 100 Mg Cap 100 MG PO BID for 3 Days, #6 CAP Fentanyl (Fentanyl) 12 Mcg Tdsy 12 MCG TD Q3D@1230 for 30 Days, #10 PATCH Morphine Sulfate (Morphine Sulfate) 10 Mg/0.5 Ml Soln 5 MG PO Q3HWA PRN for Pain for 30 Days, #30 ML Continued Medications: Aspirin (Aspirin Ec) 81 Mg Tab 81 MG PO DAILY Benzonatate (Tessalon Perles) 100 Mg Cap 100 MG PO TID PRN for Cough, CAP Calcitonin (Gravette) (Calcitonin Gravette) 200 Unit/Act Spr 1 SPRAY NA DAILY Citalopram Hydrobromide (Citalopram Hydrobromide) 20 Mg Tab 1 TAB PO DAILY for 90 Days, #90 TAB 3 Refills Ergocalciferol (Vitamin D 97612 Unit) 50,000 Unit Cap 01348 UNIT PO WK, CAP Fluticasone Furoate-Vilanterol (Breo Ellipta 200-25 Mcg/INH) 1 Inh Inh 1 PUFF INH DAILY Hydrocodone/Acetaminophen 5MG/325MG ([place] 5MG/325MG) Tab 1 TABLET PO Q4-6HRS PRN for Pain, TAB PRN PAIN Ipratropium [place] (Atrovent 0.02% Soln) 2.5 Ml Nebu 2.5 ML INH QID PRN for Wheezing MIX WITH LEVABUTEROL Levalbuterol (Levalbuterol HCl) 0.63 Mg/3 Ml Nebu 3 ML INH QID PRN for SOB/Wheezing Loperamide Hcl (Imodium) 2 Mg Cap 2 MG PO UD PRN for Diarrhea TAKE ONE CAPSULE WITH EACH LOOSE BOWEL MOVEMENT. TAKE NO MORE THAN 8 CAPSULES WITHIN 24 HOURS. Pantoprazole (Pantoprazole Sodium) 40 Mg Tab 40 MG PO DAILY Pramipexole Dihydrochloride (Pramipexole Dihydrochlori) 0.5 Mg Tab 0.5 MG PO HS Prednisone Tab (Prednisone) 10 Mg Tab 10 MG PO UD PRN for COPD Rescue Kit, TAB COPD RECUE KIT FOLLOWS: TAKE 4 TABLETS (40 MG) DAILY FOR 4 DAYS THEN, TAKE 3 TABLETS (30 MG) DAILY FOR 4 DAYS THEN, TAKE 2 TABLETS (20 MG) DAILY FOR 4 DAYS THEN, TAKE 1 TABLET (10 MG) DAILY FOR 4 DAYS THEN STOP Tiotropium [place] (Spiriva Handihaler) 30 Puff/540 Mcg Aerp 1 CAP INH DAILY, INHALER Discontinued Medications: Prednisone (Prednisone) 10 Mg Tab 10 MG PO taper ud, TAB Admission Information HPI (per Admitting provider): DATE OF ADMISSION: 10/30/2017 PRIMARY CARE PHYSICIAN: Dr. Kent. CHIEF COMPLAINT: Increasing shortness of breath and weakness for the last 2 days. HISTORY OF PRESENT COMPLAINT: She is an 82-year-old female with significant past medical history including severe COPD with centrilobular emphysema, on home O2 and also CPAP at nighttime; esophageal stricture, hyperlipidemia, history of ventral hernia, osteoporosis, and history of compression fracture of spine, apparently has been complaining of a more shortness of breath for the last 2 days. At the same time, she has been having weakness and tiredness which has been ongoing and she noticed her leg to be swelled up as well. She has had shaking chills, but no documented temperature. She was seen by home health nurse and was advised to come to the Emergency Room for further evaluation. Denies to have any chest pain or palpitation. Does not have any abdominal pain, nausea, vomiting; denies to have problem with urine and/or bowel habit. No numbness or tingling in the extremities and no weakness involving any side. In the Emergency Room, she required all along neb treatment, she required BIPAP to keep the saturation up and later on she was controlled with CPAP as well. Her labs and x-ray came back fairly unremarkable for any pneumonia, but she was admitted to continue the care for exacerbation. PAST MEDICAL HISTORY: Significant for severe COPD with centrilobular emphysema on oxygen and also CPAP at nighttime, esophageal stricture, hyperlipidemia, ventral hernia, osteoporosis and history of lumbar spine fracture. PAST SURGICAL HISTORY: Esophageal dilatation in 2007 and partial hysterectomy in 1974. FAMILY HISTORY: Mother had diabetes. Father of lung disorder. SOCIAL HISTORY: She is . She lives with her . She has 6 children. She quit smoking in 2013 with a [id number] history of smoking. She does not use any alcohol. She has been reasonably ambulant. REVIEW OF SYSTEMS: Other systemic review unremarkable except those mentioned in history of present complaint. ALLERGIES: LORAZEPAM AND ROFLUMILAST. MEDICATIONS: As an outpatient, she has been on vitamin D for 50,000 units every week, hydrocodone/acetaminophen 5/325 one tablet every 4-6 hours, prednisone 10 mg as directed, Levaquin 500 mg as directed, calcitonin 200 units 1 spray each nostril daily, acetylcysteine 600 mg 2 times a day, calcium carbonate/vitamin D 500/125 one tablet daily, guaifenesin 200 mg every 6 hours as needed, tramadol 50 mg every 6 hours as needed, doxycycline 100 mg 2 times daily as needed, lactobacillus 4 tablets 3 times daily when needed, loperamide 2 mg 4 times daily as needed, Mirapex 0.5 mg 1 tablet in the afternoon and 1 at bedtime, Protonix 40 mg daily, Celexa 20 mg daily, Tessalon Perles 1 tab 100 mg 3 times daily, Spiriva HandiHaler 1 inhalation daily, Xopenex 3 mL via nebulizer solution every 4 hours as needed, Atrovent 0.02% 2.5 mL via nebulizer solution 4 times daily, Combivent Respimat 200/100 1 puff 4 times daily, Breo Ellipta 1 inhalation daily, multivitamin 1 tablet daily, aspirin 81 mg daily. PHYSICAL EXAMINATION: GENERAL: On examination in the Emergency Room, she was still having moderate shortness of breath at rest on BiPAP, but she is alert, awake, oriented. VITAL SIGNS: Temperature 36.5, pulse was 107, blood pressure 133/74, saturation 100% on 40% FIO2 on BiPAP. HEENT: Unremarkable. NECK: Supple. No JVD, no bruit. CHEST: Decreased breath sounds all over with occasional wheezing anteriorly. No crackles. HEART: S1, S2 regular. ABDOMEN: Soft, benign, nontender, no organomegaly. Bowel sounds present. EXTREMITIES: 1+ edema confined to the lower legs. MUSCULOSKELETAL SYSTEM: No acute arthritis. CENTRAL NERVOUS SYSTEM: She is alert, awake, oriented x3. Generally weak, but no focal neuro deficit. LABORATORY DATA: Noted today - white count was 8.89, H&H is 9.3/30.7, and platelet was 316. Chemistry: Sodium 138, potassium 4.1, chloride 105, carbon dioxide 27, BUN 16, creatinine 1.63, random glucose 110. LFTs unremarkable. Troponin less than 0.015. PT, PTT normal. IMAGING DATA: Chest x-ray - emphysema without any infiltration. EKG - sinus rhythm, tachycardia, rate of 112, right bundle branch block; compared with prior EKG, no significant change. IMPRESSION AND PLAN: 1. Severe chronic obstructive pulmonary disease with exacerbation seems to be ineffective, but no pneumonia. The patient is requiring CPAP/BiPAP to maintain saturation. She will be admitted to medical floor. We will start with oral doxycycline, Solu-Medrol and nebulized bronchodilator. 2. Gastroesophageal reflux disease. Continue with Protonix. 3. Osteoporosis. Continue with vitamin D and calcitonin. 4. History of compression fracture of Lumbar spine. She uses hydrocodone at times. We will continue with that. 5. History of restless leg syndrome. Continue with her current medication. 6. Gastrointestinal prophylaxis with Protonix. 7. Deep venous thrombosis prophylaxis with subcutaneous heparin. 8. Code status: Discussed with the patient and family members. She will be level 3. 9. She has also bilateral leg edema, seems to be dependent, does not have any cardiac history. Her echo in August 20, came out to be fairly unremarkable with ejection fraction of 70%. She may need to give a small dose of Lasix if the edema does not improve, by itself. In my clinical assessment, the beneficiary meets criteria as per CMS for 2-midnight stay in the hospital. Hospital Course This is an 82 year old female with a PMH of COPD and chronic respiratory failure on 2-3L of O2 continuously, nocturnal CPAP, HLD, hx. of spinal compression fractures - presents with worsening shortness of breath Acute COPD Exacerbation Acute on Chronic Hypoxic Respiratory Failure 11/05 patient is stable plan to d/c home with home hospice today will d/c with prednisone will d/c on Fentanyl patch and Roxanol PRN for breakthrough 11/04 continues to have trouble with breathing will continue solu-medrol for now, prednisone on discharge plan for discharge home with home hospice will d/c on prednisone taper and antibiotics will likely d/c on SL Roxanol 11/03 CXR IMPRESSION: Emphysema and basilar scarring and/or fibrosis chronically on 2.5L O2 continuously was initially started on IV solu-medrol now tapered to Solu-medrol q12 will change to prednisone in 1-2 days will check labs and procalcitonin in AM possible d/c abx. in AM GERD continue PPI Hx. of Thoracic Compression Fractures PRN Usman - patient states this works for her and she would like a few pills to take at home DVT ppx patient is refusing Lovenox or subq heparin or SCDs explained the rationale, but patient states she will move her lower extremities and ambulate as much as possible DNR Total time spent on discharge = 50 minutes This includes examination of the patient, discharge planning, medication reconciliation, and communication with other providers. Discharge Instructions Please follow-up with your primary care physician * You will be discharged with home hospice * You will be discharged with a Fentanyl patch, which should be changed every three days - you will be discharged with Roxanol which is a morphine solution * You should take prednisone - take four tablets on 11/06, 11/07, take three tablets on 11/08, 11/09, take two tablets on 11/10, 11/11, take one tablet on 11/12 and 11/13
--- NOTE | 2017-11-05 14:40 | NUR ---
A: Discharge completed, pt. and daughter verbalized understanding. IV site removed. All belongs with pt. Transportation to arrive at 1500 via wheelchair van. Will continue to monitor.
[2017-11-05] MEDS ORDERED: CHECK FENTANYL PATCH PLACEMENT SCH (16:00)
[2017-11-08] MEDS ORDERED: FENTANYL PATCH REMOVE & WASTE SCH (12:29)
== END 2017-11-05 15:04 | disposition hospice, home (50) | DRG 189 ==
LOC: EDBD 18:18 → C.EDC 18:19 → C.MS2W 19:52 → ENRESERV 20:05 → C.2T 10-31 11:06 → ENRESERV 11-02 13:17 → C.MS4W 11-02 14:18
PROVIDERS: ADMIT Internal Medicine; ATTEND Family Medicine
DX: J96.21 Acute and chronic respiratory failure with hypoxia (principal); J44.1 Chronic obstructive pulmonary disease with (acute) exacerbation; Z51.5 Encounter for palliative care; E78.5 Hyperlipidemia, unspecified; K21.9 Gastro-esophageal reflux disease without esophagitis; M81.0 Age-related osteoporosis without current pathological fracture; G25.81 Restless legs syndrome; R60.0 Localized edema; D64.9 Anemia, unspecified; Z79.82 Long term (current) use of aspirin; Z79.899 Other long term (current) drug therapy; Z87.891 Personal history of nicotine dependence; Z99.81 Dependence on supplemental oxygen